=== PATIENT | male | born 1955 | race Caucasian/White ===

== ENCOUNTER → 2018-01-02 15:47 | Outpatient (CLI) | payer OTHER, SELFPAY | PROVIDERS: Family Provider Specialist; PCP Physician Assistant Medical; Referring Provider Podiatrist; Visit Provider Internal Medicine ==

== ENCOUNTER → 2018-01-08 14:15 | Outpatient (CLI) | payer OTHER, SELFPAY ==
--- NOTE | 2018-01-08 | OV.WND_ITS ---
Progress Note Details Patient Name: Paco Cerda Patient Number: [id number] PatientPatientDate: 01/08/2018 Clinician: Alexandra Millan Clinician Cosigner: Moira Morales Physician / Employee Placement Specialist: Mohan Triplett SUBJECTIVE Chief Complaint This information was obtained from the patient Diabetic ulcer on right great toe. Allergies atenolol (Severity: Severe), carvedilol (Severity: Severe), amiodarone (Severity : Severe), clonidine (Severity: Severe), gabapentin (Severity: Severe), lisinopril ( Severity: Severe, Reaction: at higher dose- pt takes lower dose), penicillin (Severity: Severe), diltiazem (Severity: Severe), cephalexin (Severity: Severe), ciprofloxacin (Reaction: vision/breathing probles) HPI This information was obtained from the patient 01/08/18. Seen by Dr. Triplett. The patient's new to our clinic and presents with a chronic right 1st toe diabetic ulcer he states started as a callus and the started to deteriorate about one month ago. The ulcer subsequently started to drain and the toe swelled and turned red. He initially took a dose of levofloxacin he states he had 'left over' at home then was placed on ciprofloxacin but reports significant myalgias and has now been started on doxycycline but he's not yet taken his first dose. His wound culture grew E. coli sensitive to tetracycline and his A1c a month ago was 7.1. He does not report pain in the toe nor fevers at this time. Family History This information was obtained from the patient Cancer - Mother, Maternal Grandparents, Diabetes - Maternal Grandparents, Heart Disease - Maternal Grandparents Social History This information was obtained from the patient Never smoker, Alcohol Use - None, Caffeine Use - None, Children - 2, Lives in - Private home, Marital Status - , Retired - Disabled Past Medical History This information was obtained from the patient Patient has a medical history of: Type II Diabetes Hypertension Neuropathy Atrial fibrillation Surgical History This information was obtained from the patient Patient has a surgical history of: Knee Arthroscopy (Right knee) A-V Node ablation (x2) Pacemaker Complaints and Symptoms This information was obtained from the patient Patient complains of: General Notes: I have reviewed and concur with the Review of Systems and Past Family Social History documents completed by the clinician, I have reviewed and concur with the Wound Assessment document completed by the clinician Cardiovascular (Central/Peripheral): Lower extremity (leg) swelling Hematologic/Lymphatic: Bleeding Tendency Integumentary (Hair/Skin/Nails): Open Sore Neurological: Loss of Protective Sensation Prior Wound History: Drainage, Erythema Patient denies complaints or symptoms related to: Cardiovascular (Central/Peripheral): Intermittent Claudication, Lower extremity (leg) resting pain Constitutional Symptoms (General Health): Chills, Fever Ear/Nose/Mouth/Throat: Hearing Loss / Aid Hematologic/Lymphatic: Bleeding / Clotting Disorders Musculoskeletal: Assistive Devices Psychiatric: Memory Loss Respiratory: Shortness of Breath General Notes: Not up to date per patient decision. Medications morphine ER 15 mg tablet, crush resistant, extended release 12 hr oral 1 1 tablet,oral only,ext.rel.12 hr oral twice daily AndroGel 20.25 mg/1.25 gram (1.62 %) transdermal gel pump transdermal 1 1 gel in metered-dose pump transdermal once daily gabapentin 300 mg capsule oral 1 1 capsule oral twice daily metformin ER 1,000 mg 24 hr tablet,extended release oral 1 1 tablet,ER dung.retention 24 hr oral once daily lisinopril 10 mg tablet oral 1 1 tablet oral twice daily salmeterol 50 mcg/dose blister powder for inhalation inhalation 1 1 blister with device inhalation twice daily Humalog U-100 Insulin 100 unit/mL subcutaneous solution subcutaneous 1 1 solution subcutaneous three times daily Lantus U-100 Insulin 100 unit/mL subcutaneous solution subcutaneous 1 1 solution subcutaneous twice daily Endocet 10 mg-325 mg tablet oral 1 1 tablet oral every 6 hours as needed Beconase AQ 42 mcg (0.042 %) nasal spray nasal 1 1 spray,non-aerosol nasal PRN doxycycline hyclate 100 mg capsule oral 1 1 capsule oral twice daily Pradaxa 75 mg capsule oral 1 1 capsule oral twice daily OBJECTIVE Constitutional BP elevated; Afebrile; Alert and in no distress. Well developed. Alert. Clean appearing.. Height/Length: 74 in (187.96 cm), Weight: 375.1 lbs (170.5 kgs), BMI: 48.2, Temperature: 97.8 ?F (36.56 ?C), Pulse: 73 bpm, Respiratory Rate: 20 breaths/min, Blood Pressure: 155/82 mmHg, Capillary Blood Glucose: 123 mg/dl, Pulse Oximetry: 96 %. Vital Signs Notes: Glucose per patient. Ears, Nose, Mouth, and Throat: No clinically significant hearing loss on informal examination. Respiratory: No respiratory distress. Even respirations and without use of accessory muscles.. Cardiovascular: 1+ right lower extremity edema. Gastrointestinal (GI): Obese. Nondistended.. 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 Integumentary (Hair, Skin) Mild periwound erythema with warmth. Refer to appropriate clinician wound documentation for this visit; right 1st toe ulcer extends to subcut with base partially covered with pink granulation, remainder fibrin and slough. Wound #1 Right Great Toe is a chronic Godinez Grade 1 Diabetic Ulcer and has received a status of Not Healed. Initial wound encounter measurements are 0.8cm length x 0.7cm width x 0.2cm depth, with an area of 0.56 sq cm and a volume of 0.112 cubic cm. No tunneling has been noted. No sinus tract has been noted. Undermining has been noted at 6:00 and ends at 9:00 with a maximum distance of 0.5cm. There is a moderate amount of sero- sanguineous drainage noted which has a mild odor. The patient reports a wound pain of level 0/10. The wound margin is unattached. Wound bed has No epithelialization, No eschar, No slough, Yes bright red, pink, firm granulation. The periwound skin exhibited: Edema, Callus, Moist, Maceration, Erythema, Hemosiderosis. The periwound skin did not exhibit: Brawny Induration, Excoriation, Induration, Crepitus, Fluctuance, Friable, Rash, Dry/Scaly, Atrophie [place], Cyanosis, Ecchymosis, Pallor, Rubor. The temperature of the periwound skin is Warm. Periwound skin presents with s/s of infection. Confirmation Description and Treatment Plan is: Signs and Symptoms Present. Local Pulse is Palpable. Neurological: Cranial nerves grossly intact with symmetric function normal by informal observation.. ASSESSMENT Active Problems ICD-10 (Encounter Diagnosis) E11.621 - Type 2 diabetes mellitus with foot ulcer (Encounter Diagnosis) L03.116 - Cellulitis of left lower limb (Encounter Diagnosis) L97.512 - Non-pressure chronic ulcer of other part of right foot with fat layer exposed (Encounter Diagnosis) M20.62 - Acquired deformities of toe(s), unspecified, left foot PROCEDURES Wound #1 Wound #1 (Diabetic Ulcer) is located on the right great toe. A skin/ subcutaneous tissue level surgical debridement with a total area debrided of 0.8 sq cm was performed by Mohan Triplett MD. Subcutaneous was removed along with devitalized tissue: callus, exudate , and slough. The following instrument(s) were used: curette, forceps, and scissors. Pain control was achieved using 4% Lido. A time out was conducted prior to the start of the procedure. A minimal amount of bleeding was controlled with pressure. The procedure was tolerated well with a pain level of 0 throughout and a pain level of 0 following the procedure. Post Debridement Measurements: 1cm length x 0.8cm width x 0.2cm depth; with an area of 0.8 sq cm and a volume of 0.16 cubic cm; Additional Information Muscle fascia or bone removed and sent to pathology?: No PLAN Wound Orders: Wound #1 Right Great Toe Anesthetic Topical Xylocaine to wound bed. - In clinic only. Cleanser Cleanse Wound: - Normal saline and gauze, may use distilled water. May Shower. - Continue using cast protector. Dressings Cover and secure with: - Foam cut, secured with tape or coban wrap. Change Dressing: - Every other day, or more if need for drainage. Additional Orders: Off-Loading Keep weight off: - Right great toe as much as possible. Use/Wear when Walking: - You may use a cane, or walker to assist with offloading. You may also look for a knee scooter, local [employer] stores often offer free rentals to [facility] residents. Compression/Edema Control Single Layer Compression Hose - Continue wearing personal compression stockings. Follow-Up Appointments Return Appointment: - - One week. Other information: If you develop fever, chills, increased pain, drainage, redness or swelling please call our office. If after hours, respond to the ER. Should you experience any significant changes in your wound(s) or have any questions regarding your home care instructions please contact the wound center @ [phone]. If after hours, contact your primary care physician or go to the hospital emergency room. Scribing Attestation I attest, as the nurse, that I scribed these orders for the physician. General Notes: Please start taking the doxycycline antibiotic, prescribed by Dr. Marsh. Supplies ordered through [employer], expect delivery in the next 2-3 business days. Extra supplies sent with patient to use until dressings arrive. I've reviewed the clinician's documentation and agree with the evaluation and plan as written. In addition, the patient's ulcer demonstrates evidence of non-viable devitalized tissue which will continue to benefit from sharp debridement to help promote granulation and expedite healing. Also, I've advised the patient to start taking his doxycycline and have counseled him regarding offloading measures noting his severe right 1st toe valgus deformity will contribute to callus formation in the periulcer area. Electronic Signature(s) Signed By: Date: Mohan Triplett MD 01/09/2018 06:52:26 Entered By: Mohan Triplett on 01/08/2018 13:20:47
== END ==
PROVIDERS: Family Provider Specialist; PCP Physician Assistant Medical; Visit Provider Internal Medicine
DX: E11.621 Type 2 diabetes mellitus with foot ulcer (principal); L97.512 Non-pressure chronic ulcer of other part of right foot with fat layer exposed; L03.116 Cellulitis of left lower limb; M20.62 Acquired deformities of toe(s), unspecified, left foot; L84 Corns and callosities
CPT/HCPCS: 11042; 99214

== ENCOUNTER → 2018-01-15 10:21 | Outpatient (CLI) | payer OTHER, SELFPAY ==
--- NOTE | 2018-01-15 | OV.WND_ITS ---
Progress Note Details Patient Name: Paco Cerda Patient Number: [id number] PatientPatientDate: 01/15/2018 Clinician: Jennifer Jackson Clinician Cosigner: Moira Morales Physician / Finished Metal Repairer: Mohan Triplett SUBJECTIVE Chief Complaint This information was obtained from the patient Diabetic ulcer on right great toe. Allergies atenolol (Severity: Severe), carvedilol (Severity: Severe), amiodarone (Severity : Severe), clonidine (Severity: Severe), gabapentin (Severity: Severe), lisinopril ( Severity: Severe, Reaction: at higher dose- pt takes lower dose), penicillin (Severity: Severe), diltiazem (Severity: Severe), cephalexin (Severity: Severe), ciprofloxacin (Reaction: vision/breathing probles) HPI This information was obtained from the patient 01/15/18. Seen by Dr. Triplett. The patient does not report increased drainage or pain associated with the chronic right 1st toe diabetic ulcer since his last visit and he feel the redness and swelling have improved since starting on doxycycline for cellulitis of the toe. He's also wearing his offloading shoe as recommended. 01/08/18. Seen by Dr. Triplett. The patient's new to our clinic and presents with a chronic right 1st toe diabetic ulcer he states started as a callus and the started to deteriorate about one month ago. The ulcer subsequently started to drain and the toe swelled and turned red. He initially took a dose of levofloxacin he states he had 'left over' at home then was placed on ciprofloxacin but reports significant myalgias and has now been started on doxycycline but he's not yet taken his first dose. His wound culture grew E. coli sensitive to tetracycline and his A1c a month ago was 7.1. He does not report pain in the toe nor fevers at this time. Past Medical History This information was obtained from the patient Patient has a medical history of: Type II Diabetes Hypertension Neuropathy Atrial fibrillation Complaints and Symptoms This information was obtained from the patient Patient complains of: General Notes: I have reviewed and concur with the Review of Systems and Past Family Social History documents completed by the clinician, I have reviewed and concur with the Wound Assessment document completed by the clinician Cardiovascular (Central/Peripheral): Lower extremity (leg) swelling Hematologic/Lymphatic: Bleeding Tendency Integumentary (Hair/Skin/Nails): Open Sore Neurological: Loss of Protective Sensation Prior Wound History: Drainage, Erythema Patient denies complaints or symptoms related to: Cardiovascular (Central/Peripheral): Intermittent Claudication, Lower extremity (leg) resting pain Constitutional Symptoms (General Health): Chills, Fever Ear/Nose/Mouth/Throat: Hearing Loss / Aid Hematologic/Lymphatic: Bleeding / Clotting Disorders Musculoskeletal: Assistive Devices Psychiatric: Memory Loss Respiratory: Shortness of Breath OBJECTIVE Constitutional BP elevated; Afebrile; Alert and in no distress. Well developed. Alert. Clean appearing.. Height/Length: 74 in (187.96 cm), Weight: 375.1 lbs (170.5 kgs), BMI: 48.2, Temperature: 37.7 ?F (3.17 ?C), Pulse: 72 bpm, Respiratory Rate: 22 breaths/min, Blood Pressure: 162/86 mmHg, Pulse Oximetry: 96 %. Vital Signs Notes: Glucose 95 per patient, Just ate around 8:30 Ears, Nose, Mouth, and Throat: No clinically significant hearing loss on informal examination. Respiratory: No respiratory distress. Even respirations and without use of accessory muscles.. Cardiovascular: 2+ right lower extremity edema. 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 Integumentary (Hair, Skin) Mild periwound erythema without warmth. Refer to appropriate clinician wound documentation for this visit; right 1st toe ulcer extends to subcut with base partially covered with pink granulation, remainder fibrin and slough. Moderate amount of callus in the periulcer area. Wound #1 Right Great Toe is a chronic Godinez Grade 1 Diabetic Ulcer and has received a status of Not Healed. Initial wound encounter measurements are 0.6cm length x 0.6cm width x 0.2cm depth, with an area of 0.36 sq cm and a volume of 0.072 cubic cm. No tunneling has been noted. Undermining has been noted at 1:00 and ends at 2:00 with a maximum distance of 0.1cm. There is a moderate amount of sero-sanguineous drainage noted which has a mild odor. The patient reports a wound pain of level 0/10. The wound margin is unattached. Wound bed has No epithelialization, No eschar, No slough, Yes pink, firm granulation. The periwound skin exhibited: Edema, Callus, Moist, Maceration, Erythema, Hemosiderosis. The periwound skin did not exhibit: Brawny Induration, Excoriation, Induration, Crepitus, Fluctuance, Friable, Rash, Dry/Scaly, Atrophie [place], Cyanosis, Ecchymosis, Pallor, Rubor. The temperature of the periwound skin is Warm. Periwound skin does not exhibit signs or symptoms of infection. Local Pulse is Palpable. Neurological: Cranial nerves grossly intact with symmetric function normal by informal observation.. ASSESSMENT Active Problems ICD-10 (Encounter Diagnosis) E11.621 - Type 2 diabetes mellitus with foot ulcer (Encounter Diagnosis) L03.116 - Cellulitis of left lower limb (Encounter Diagnosis) L97.512 - Non-pressure chronic ulcer of other part of right foot with fat layer exposed PROCEDURES Wound #1 Wound #1 (Diabetic Ulcer) is located on the right great toe. A skin/ subcutaneous tissue level surgical debridement with a total area debrided of 0.36 sq cm was performed by Mohan Triplett MD. Subcutaneous was removed along with devitalized tissue: exudate. The following instrument(s) were used: curette. Pain control was achieved using 4% Lido. A time out was conducted prior to the start of the procedure. A minimal amount of bleeding was controlled with pressure. The procedure was tolerated well with a pain level of 0 throughout and a pain level of 0 following the procedure. Post Debridement Measurements: 0.6cm length x 0.6cm width x 0.2cm depth; with an area of 0.36 sq cm and a volume of 0.072 cubic cm; Additional Information Muscle fascia or bone removed and sent to pathology?: No PLAN Wound Orders: Wound #1 Right Great Toe Anesthetic Topical Xylocaine to wound bed. - In clinic only. Cleanser Cleanse Wound: - Normal saline and gauze, may use distilled water. May Shower. - Continue using cast protector. Dressings Cover and secure with: - Foam cut, secured with tape Change Dressing: - Every other day, or more if need for drainage. Additional Orders: Off-Loading Keep weight off: - Right great toe as much as possible. Use/Wear when Walking: - You may use a cane, or walker to assist with offloading. You may also look for a knee scooter, local [employer] often offer free rentals to city residents. Compression/Edema Control Single Layer Compression Hose - Continue wearing personal compression stockings. Follow-Up Appointments Return Appointment: - - One week. Other information: If you develop fever, chills, increased pain, drainage, redness or swelling please call our office. If after hours, respond to the ER. Should you experience any significant changes in your wound(s) or have any questions regarding your home care instructions please contact the wound center @ [phone]. If after hours, contact your primary care physician or go to the hospital emergency room. Scribing Attestation I attest, as the nurse, that I scribed these orders for the physician. I've reviewed the clinician's documentation and agree with the evaluation and plan as written. In addition, the patient's ulcer demonstrates evidence of non-viable devitalized tissue which will continue to benefit from sharp debridement to help promote granulation and expedite healing. Also, the patient will complete his course of doxycycline as prescribed. Electronic Signature(s) Signed By: Date: Mohan Triplett MD 01/16/2018 07:24:06 Entered By: Mohan Triplett on 01/16/2018 07:16:43
== END ==
PROVIDERS: Family Provider Specialist; PCP Physician Assistant Medical; Visit Provider Internal Medicine
DX: E11.621 Type 2 diabetes mellitus with foot ulcer (principal); L97.512 Non-pressure chronic ulcer of other part of right foot with fat layer exposed; L03.116 Cellulitis of left lower limb; L84 Corns and callosities
CPT/HCPCS: 11042

== ENCOUNTER → 2018-01-22 10:58 | Outpatient (CLI) | payer OTHER, SELFPAY ==
--- NOTE | 2018-01-22 | OV.WND_ITS ---
Progress Note Details Patient Name: Paco Cerda Patient Number: [id number] PatientPatientDate: 01/22/2018 Clinician: Juli Pfeiffer Clinician Cosigner: Moira Morales Physician / Upholstery Trimmer: Mohan Triplett SUBJECTIVE Chief Complaint This information was obtained from the patient Diabetic ulcer on right great toe. Allergies atenolol (Severity: Severe), carvedilol (Severity: Severe), amiodarone (Severity : Severe), clonidine (Severity: Severe), gabapentin (Severity: Severe), lisinopril ( Severity: Severe, Reaction: at higher dose- pt takes lower dose), penicillin (Severity: Severe), diltiazem (Severity: Severe), cephalexin (Severity: Severe), ciprofloxacin (Reaction: vision/breathing probles) HPI This information was obtained from the patient 01/22/18. Seen by Dr. Triplett. The patient does not report increased drainage or pain associated with the chronic right 1st toe diabetic ulcer since his last visit. Of note, the patient also states he's having some hypoglycemic episodes with blood sugars in the 50's since starting a ketogenic diet about one week ago. He's not discussed this diet with his PCP and is on Humalog and Lantus in addition to metformin. 01/15/18. Seen by Dr. Triplett. The patient does not report increased drainage or pain associated with the chronic right 1st toe diabetic ulcer since his last visit and he feel the redness and swelling have improved since starting on doxycycline for cellulitis of the toe. He's also wearing his offloading shoe as recommended. 01/08/18. Seen by Dr. Triplett. The patient's new to our clinic and presents with a chronic right 1st toe diabetic ulcer he states started as a callus and the started to deteriorate about one month ago. The ulcer subsequently started to drain and the toe swelled and turned red. He initially took a dose of levofloxacin he states he had 'left over' at home then was placed on ciprofloxacin but reports significant myalgias and has now been started on doxycycline but he's not yet taken his first dose. His wound culture grew E. coli sensitive to tetracycline and his A1c a month ago was 7.1. He does not report pain in the toe nor fevers at this time. Past Medical History This information was obtained from the patient Patient has a medical history of: Type II Diabetes Hypertension Neuropathy Atrial fibrillation Complaints and Symptoms This information was obtained from the patient Patient complains of: General Notes: I have reviewed and concur with the Review of Systems and Past Family Social History documents completed by the clinician, I have reviewed and concur with the Wound Assessment document completed by the clinician Cardiovascular (Central/Peripheral): Lower extremity (leg) swelling Hematologic/Lymphatic: Bleeding Tendency Integumentary (Hair/Skin/Nails): Open Sore Neurological: Loss of Protective Sensation Prior Wound History: Drainage, Erythema Patient denies complaints or symptoms related to: Cardiovascular (Central/Peripheral): Intermittent Claudication, Lower extremity (leg) resting pain Constitutional Symptoms (General Health): Chills, Fever Ear/Nose/Mouth/Throat: Hearing Loss / Aid Hematologic/Lymphatic: Bleeding / Clotting Disorders Musculoskeletal: Assistive Devices Psychiatric: Memory Loss Respiratory: Shortness of Breath OBJECTIVE Constitutional BP elevated; Afebrile; Alert and in no distress. Well developed. Alert. Clean appearing.. Height/Length: 74 in (187.96 cm), Weight: 375.1 lbs (170.5 kgs), BMI: 48.2, Temperature: 98.5 ?F (36.94 ?C), Pulse: 72 bpm, Respiratory Rate: 20 breaths/min, Blood Pressure: 151/85 mmHg, Pulse Oximetry: 99 %. Ears, Nose, Mouth, and Throat: No clinically significant hearing loss on informal examination. Respiratory: No respiratory distress. Even respirations and without use of accessory muscles.. Cardiovascular: 2+ right lower extremity edema. Integumentary (Hair, Skin) No periwound erythema, warmth, or significant drainage. No periwound rashes appreciated or noted otherwise.. Refer to appropriate clinician wound documentation for this visit; right foot ulcer extends to subcut with base partially covered with pink granulation, remainder fibrin and slough. Moderate amount of callus in the periulcer area. Wound #1 Right Great Toe is a chronic Godinez Grade 1 Diabetic Ulcer and has received a status of Not Healed. Subsequent wound encounter measurements are 0.8cm length x 0.9cm width x 0.2cm depth, with an area of 0.72 sq cm and a volume of 0.144 cubic cm. No tunneling has been noted. No sinus tract has been noted. No undermining has been noted. There is a moderate amount of sero-sanguineous drainage noted which has a mild odor. The patient reports a wound pain of level 0/10. The wound margin is unattached. Wound bed has No epithelialization, No eschar, No slough, Yes pink, firm granulation. The periwound skin exhibited: Edema, Callus, Moist, Maceration, Erythema, Hemosiderosis. The periwound skin did not exhibit: Brawny Induration, Excoriation, Induration, Crepitus, Fluctuance, Friable, Rash, Dry/Scaly, Atrophie Karine, Cyanosis, Ecchymosis, Pallor, Rubor. The temperature of the periwound skin is Warm. Periwound skin does not exhibit signs or symptoms of infection. Local Pulse is Palpable. Neurological: Cranial nerves grossly intact with symmetric function normal by informal observation.. ASSESSMENT Active Problems ICD-10 (Encounter Diagnosis) E11.621 - Type 2 diabetes mellitus with foot ulcer (Encounter Diagnosis) L97.512 - Non-pressure chronic ulcer of other part of right foot with fat layer exposed (Encounter Diagnosis) E16.1 - Other hypoglycemia PROCEDURES Wound #1 Wound #1 (Diabetic Ulcer) is located on the right great toe. A skin/ subcutaneous tissue level surgical debridement with a total area debrided of 0.72 sq cm was performed by Mohan Triplett MD. Subcutaneous was removed along with devitalized tissue: callus and slough. The following instrument(s) were used: curette. Pain control was achieved using 4% Lido. A time out was conducted prior to the start of the procedure. A minimal amount of bleeding was controlled with n/a. The procedure was tolerated well with a pain level of 0 throughout and a pain level of 0 following the procedure. Post Debridement Measurements: 0.8cm length x 0.9cm width x 0.3cm depth; with an area of 0.72 sq cm and a volume of 0.216 cubic cm; Additional Information Muscle fascia or bone removed and sent to pathology?: No PLAN Wound Orders: Wound #1 Right Great Toe Anesthetic Topical Xylocaine to wound bed. - In clinic only. Cleanser Cleanse Wound: - Normal saline and gauze, may use distilled water. May Shower. - Continue using cast protector. Dressings Cover and secure with: - Foam cut, secured with tape Change Dressing: - Every other day, or more if need for drainage. Additional Orders: Off-Loading Keep weight off: - Right great toe as much as possible. Use/Wear when Walking: - You may use a cane, or walker to assist with offloading. You may also look for a knee scooter, local [employer] stores often offer free rentals to city residents. Compression/Edema Control Single Layer Compression Hose - Continue wearing personal compression stockings. Follow-Up Appointments Return Appointment: - - One week. Other information: If you develop fever, chills, increased pain, drainage, redness or swelling please call our office. If after hours, respond to the ER. Should you experience any significant changes in your wound(s) or have any questions regarding your home care instructions please contact the wound center @ [phone]. If after hours, contact your primary care physician or go to the hospital emergency room. Scribing Attestation I attest, as the nurse, that I scribed these orders for the physician. I've reviewed the clinician's documentation and agree with the evaluation and plan as written. In addition, the patient's ulcer demonstrates evidence of non-viable devitalized tissue which will continue to benefit from sharp debridement to help promote granulation and expedite healing. Also, I strongly encouraged the patient to discontinue his ketogenic diet until he talks with is PCP about reducing his short and long acting insulin as he's at high risk for recurrent and possibly life threatening hypoglycemia. Electronic Signature(s) Signed By: Date: Mohan Triplett MD 01/23/2018 07:58:24 Entered By: Mohan Triplett on 01/22/2018 15:36:34
== END ==
PROVIDERS: Family Provider Specialist; PCP Physician Assistant Medical; Visit Provider Internal Medicine
DX: E11.621 Type 2 diabetes mellitus with foot ulcer (principal); L97.512 Non-pressure chronic ulcer of other part of right foot with fat layer exposed; E16.1 Other hypoglycemia
CPT/HCPCS: 11042

== ENCOUNTER → 2018-01-29 09:59 | Outpatient (CLI) | payer OTHER, SELFPAY ==
--- NOTE | 2018-01-29 | OV.WND_ITS ---
Progress Note Details Patient Name: Paco Cerda Patient Number: [id number] PatientPatientDate: 01/29/2018 Clinician: Jennifer Jackson Clinician Cosigner: Moira Morales Physician / Preschool Principal: Mohan Triplett SUBJECTIVE Chief Complaint This information was obtained from the patient Diabetic ulcer on right great toe. Allergies atenolol (Severity: Severe), carvedilol (Severity: Severe), amiodarone (Severity : Severe), clonidine (Severity: Severe), gabapentin (Severity: Severe), lisinopril ( Severity: Severe, Reaction: at higher dose- pt takes lower dose), penicillin (Severity: Severe), diltiazem (Severity: Severe), cephalexin (Severity: Severe), ciprofloxacin (Reaction: vision/breathing probles) HPI This information was obtained from the patient 01/29/18. Seen by Dr. Triplett. The patient does not report increased drainage or pain associated with the chronic right 1st toe diabetic ulcer since his last visit. He's wearing his new diabetic shoes as recommended as well. 01/22/18. Seen by Dr. Triplett. The patient does not report increased drainage or pain associated with the chronic right 1st toe diabetic ulcer since his last visit. Of note, the patient also states he's having some hypoglycemic episodes with blood sugars in the 50's since starting a ketogenic diet about one week ago. He's not discussed this diet with his PCP and is on Humalog and Lantus in addition to metformin. 01/15/18. Seen by Dr. Triplett. The patient does not report increased drainage or pain associated with the chronic right 1st toe diabetic ulcer since his last visit and he feel the redness and swelling have improved since starting on doxycycline for cellulitis of the toe. He's also wearing his offloading shoe as recommended. 01/08/18. Seen by Dr. Triplett. The patient's new to our clinic and presents with a chronic right 1st toe diabetic ulcer he states started as a callus and the started to deteriorate about one month ago. The ulcer subsequently started to drain and the toe swelled and turned red. He initially took a dose of levofloxacin he states he had 'left over' at home then was placed on ciprofloxacin but reports significant myalgias and has now been started on doxycycline but he's not yet taken his first dose. His wound culture grew E. coli sensitive to tetracycline and his A1c a month ago was 7.1. He does not report pain in the toe nor fevers at this time. Past Medical History This information was obtained from the patient Patient has a medical history of: Type II Diabetes Hypertension Neuropathy Atrial fibrillation Complaints and Symptoms This information was obtained from the patient Patient complains of: General Notes: I have reviewed and concur with the Review of Systems and Past Family Social History documents completed by the clinician, I have reviewed and concur with the Wound Assessment document completed by the clinician Cardiovascular (Central/Peripheral): Lower extremity (leg) swelling Hematologic/Lymphatic: Bleeding Tendency Integumentary (Hair/Skin/Nails): Open Sore Neurological: Loss of Protective Sensation Prior Wound History: Drainage, Erythema Patient denies complaints or symptoms related to: Cardiovascular (Central/Peripheral): Intermittent Claudication, Lower extremity (leg) resting pain Constitutional Symptoms (General Health): Chills, Fever Ear/Nose/Mouth/Throat: Hearing Loss / Aid Hematologic/Lymphatic: Bleeding / Clotting Disorders Musculoskeletal: Assistive Devices Psychiatric: Memory Loss Respiratory: Shortness of Breath OBJECTIVE Constitutional BP elevated; Afebrile; Alert and in no distress. Well developed. Alert. Clean appearing.. Height/Length: 74 in (187.96 cm), Weight: 371.9 lbs (169.05 kgs), BMI: 47.7, Temperature: 98.9 ?F (37.17 ?C), Pulse: 71 bpm, Respiratory Rate: 20 breaths/min, Blood Pressure: 152/82 mmHg, Pulse Oximetry: 99 %. Ears, Nose, Mouth, and Throat: No clinically significant hearing loss on informal examination. Respiratory: No respiratory distress. Even respirations and without use of accessory muscles.. Gastrointestinal (GI): Obese. Nondistended.. 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 Integumentary (Hair, Skin) No periwound erythema, warmth, or significant drainage. No periwound rashes appreciated or noted otherwise.. Refer to appropriate clinician wound documentation for this visit; right 1st toe ulcer extends to subcut with base partially covered with pink granulation, remainder fibrin and slough. Maceration and callus present in the periwound area. Wound #1 Right Great Toe is a chronic Godinez Grade 1 Diabetic Ulcer and has received a status of Not Healed. Subsequent wound encounter measurements are 0.8cm length x 0.7cm width x 0.2cm depth, with an area of 0.56 sq cm and a volume of 0.112 cubic cm. No tunneling has been noted. No sinus tract has been noted. No undermining has been noted. There is a moderate amount of sero-sanguineous drainage noted which has a mild odor. The patient reports a wound pain of level 0/10. The wound margin is unattached. Wound bed has No epithelialization, No eschar, No slough, Yes pink, spongy granulation. The periwound skin exhibited: Edema, Callus, Moist, Maceration, Erythema, Hemosiderosis. The periwound skin did not exhibit: Brawny Induration, Excoriation, Induration, Crepitus, Fluctuance, Friable, Rash, Dry/Scaly, Atrophie Karine, Cyanosis, Ecchymosis, Pallor, Rubor. The temperature of the periwound skin is Warm. Periwound skin does not exhibit signs or symptoms of infection. Local Pulse is Palpable. ASSESSMENT Active Problems ICD-10 (Encounter Diagnosis) E11.621 - Type 2 diabetes mellitus with foot ulcer (Encounter Diagnosis) L97.512 - Non-pressure chronic ulcer of other part of right foot with fat layer exposed PROCEDURES Wound #1 Wound #1 (Diabetic Ulcer) is located on the right great toe. A skin/ subcutaneous tissue level surgical debridement with a total area debrided of 0.56 sq cm was performed by Mohan Triplett MD. Subcutaneous was removed along with devitalized tissue: callus and slough. The following instrument(s) were used: curette. Pain control was achieved using 4% Lido. A time out was conducted prior to the start of the procedure. A moderate amount of bleeding was controlled with silver nitrate. The procedure was tolerated well with a pain level of 0 throughout and a pain level of 0 following the procedure. Post Debridement Measurements: 0.8cm length x 0.7cm width x 0.2cm depth; with an area of 0.56 sq cm and a volume of 0.112 cubic cm; Additional Information Muscle fascia or bone removed and sent to pathology?: No PLAN Wound Orders: Wound #1 Right Great Toe Anesthetic Topical Xylocaine to wound bed. - In clinic only. Cleanser Cleanse Wound: - Normal saline and gauze, may use distilled water. May Shower. - Continue using cast protector. Dressings Pack wound: - Iodosorb to wound bed. Lightly smear on to wound. Cover and secure with: - Foam cut, secured with tape Change Dressing: - Every other day, or more if need for drainage. Additional Orders: Off-Loading Keep weight off: - Right great toe as much as possible. Use/Wear when Walking: - You may use a cane, or walker to assist with offloading. You may also look for a knee scooter, local [employer] stores often offer free rentals to [facility] residents. Compression/Edema Control Single Layer Compression Hose - Continue wearing personal compression stockings. Follow-Up Appointments Return Appointment: - - One week. Other information: If you develop fever, chills, increased pain, drainage, redness or swelling please call our office. If after hours, respond to the ER. Should you experience any significant changes in your wound(s) or have any questions regarding your home care instructions please contact the wound center @ [phone]. If after hours, contact your primary care physician or go to the hospital emergency room. Scribing Attestation I attest, as the nurse, that I scribed these orders for the physician. General Notes: Please see your provider for shoe adjustment. I've reviewed the clinician's documentation and agree with the evaluation and plan as written. In addition, the patient's ulcer demonstrates evidence of non-viable devitalized tissue which will continue to benefit from sharp debridement to help promote granulation and expedite healing. Electronic Signature(s) Signed By: Date: Mohan Triplett MD 01/30/2018 14:56:11 Entered By: Mohan Triplett on 01/29/2018 15:30:18
== END ==
PROVIDERS: Family Provider Specialist; PCP Physician Assistant Medical; Visit Provider Internal Medicine
DX: E11.621 Type 2 diabetes mellitus with foot ulcer (principal); L97.512 Non-pressure chronic ulcer of other part of right foot with fat layer exposed
CPT/HCPCS: 11042

== ENCOUNTER → 2018-02-05 10:45 | Outpatient (CLI) | payer OTHER, SELFPAY ==
--- NOTE | 2018-02-05 | OV.WND_ITS ---
Progress Note Details Patient Name: Paco Cerda Patient Number: [id number] PatientPatientDate: 02/05/2018 Clinician: Jennifer Jackson Clinician Cosigner: Moira Morales Physician / Log Roller: Mohan Triplett SUBJECTIVE Chief Complaint This information was obtained from the patient Diabetic ulcer on right great toe. Allergies atenolol (Severity: Severe), carvedilol (Severity: Severe), amiodarone (Severity : Severe), clonidine (Severity: Severe), gabapentin (Severity: Severe), lisinopril ( Severity: Severe, Reaction: at higher dose- pt takes lower dose), penicillin (Severity: Severe), diltiazem (Severity: Severe), cephalexin (Severity: Severe), ciprofloxacin (Reaction: vision/breathing probles) HPI This information was obtained from the patient 02/05/18. Seen by Dr. Triplett. The patient does not report increased drainage or pain associated with the chronic right 1st toe diabetic ulcer since his last visit. He does report a new ulcer over the right distal 2nd toe that he feels may have occurred this weekend while walking around [employer] and he states the prosthetic toe separator he uses between the 1st and 2nd toe may have moved while walking. 01/29/18. Seen by Dr. Triplett. The patient does not report increased drainage or pain associated with the chronic right 1st toe diabetic ulcer since his last visit. He's wearing his new diabetic shoes as recommended as well. 01/22/18. Seen by Dr. Triplett. The patient does not report increased drainage or pain associated with the chronic right 1st toe diabetic ulcer since his last visit. Of note, the patient also states he's having some hypoglycemic episodes with blood sugars in the 50's since starting a ketogenic diet about one week ago. He's not discussed this diet with his PCP and is on Humalog and Lantus in addition to metformin. 01/15/18. Seen by Dr. Triplett. The patient does not report increased drainage or pain associated with the chronic right 1st toe diabetic ulcer since his last visit and he feel the redness and swelling have improved since starting on doxycycline for cellulitis of the toe. He's also wearing his offloading shoe as recommended. 01/08/18. Seen by Dr. Triplett. The patient's new to our clinic and presents with a chronic right 1st toe diabetic ulcer he states started as a callus and the started to deteriorate about one month ago. The ulcer subsequently started to drain and the toe swelled and turned red. He initially took a dose of levofloxacin he states he had 'left over' at home then was placed on ciprofloxacin but reports significant myalgias and has now been started on doxycycline but he's not yet taken his first dose. His wound culture grew E. coli sensitive to tetracycline and his A1c a month ago was 7.1. He does not report pain in the toe nor fevers at this time. Past Medical History This information was obtained from the patient Patient has a medical history of: Type II Diabetes Hypertension Neuropathy Atrial fibrillation Complaints and Symptoms This information was obtained from the patient Patient complains of: General Notes: I have reviewed and concur with the Review of Systems and Past Family Social History documents completed by the clinician, I have reviewed and concur with the Wound Assessment document completed by the clinician Cardiovascular (Central/Peripheral): Lower extremity (leg) swelling Hematologic/Lymphatic: Bleeding Tendency Integumentary (Hair/Skin/Nails): Open Sore Neurological: Loss of Protective Sensation Prior Wound History: Drainage, Erythema Patient denies complaints or symptoms related to: Cardiovascular (Central/Peripheral): Intermittent Claudication, Lower extremity (leg) resting pain Constitutional Symptoms (General Health): Chills, Fever Ear/Nose/Mouth/Throat: Hearing Loss / Aid Hematologic/Lymphatic: Bleeding / Clotting Disorders Musculoskeletal: Assistive Devices Psychiatric: Memory Loss Respiratory: Shortness of Breath OBJECTIVE Constitutional BP elevated; Low grade fever; Alert and in no distress. Well developed. Alert. Clean appearing.. Height/Length: 74 in (187.96 cm), Weight: 371.9 lbs (169.05 kgs), BMI: 47.7, Temperature: 99.0 ?F (37.22 ?C), Pulse: 86 bpm, Respiratory Rate: 18 breaths/min , Blood Pressure: 153/81 mmHg, Pulse Oximetry: 99 %. Ears, Nose, Mouth, and Throat: No clinically significant hearing loss on informal examination. Cardiovascular: 2+ right lower extremity edema. Gastrointestinal (GI): Obese. Nondistended.. Integumentary (Hair, Skin) No periwound erythema, warmth, or significant drainage. No periwound rashes appreciated or noted otherwise.. Refer to appropriate clinician wound documentation for this visit; right 1st toe ulcer extends to subcut with base partially covered with pink granulation, remainder fibrin and slough; right 2nd toe ulcer extends to dermis. Moderate amount of callus in the periulcer area. Wound #1 Right Great Toe is a chronic Godinez Grade 1 Diabetic Ulcer and has received a status of Not Healed. Subsequent wound encounter measurements are 0.8cm length x 0.6cm width x 0.1cm depth, with an area of 0.48 sq cm and a volume of 0.048 cubic cm. No tunneling has been noted. No sinus tract has been noted. No undermining has been noted. There is a moderate amount of sero-sanguineous drainage noted which has a mild odor. The patient reports a wound pain of level 0/10. The wound margin is unattached. Wound bed has No epithelialization, No eschar, No slough, Yes pink, spongy granulation. The periwound skin exhibited: Edema, Callus, Moist, Maceration, Erythema, Hemosiderosis. The periwound skin did not exhibit: Brawny Induration, Excoriation, Induration, Crepitus, Fluctuance, Friable, Rash, Dry/Scaly, Atrophie Karine, Cyanosis, Ecchymosis, Pallor, Rubor. The temperature of the periwound skin is Warm. Periwound skin does not exhibit signs or symptoms of infection. Local Pulse is Palpable. Wound #2 Right Second Toe is an acute Godinez Grade 1 Diabetic Ulcer and has received a status of Not Healed. Initial wound encounter measurements are 0.3cm length x 0.2cm width x 0.1cm depth, with an area of 0.06 sq cm and a volume of 0.006 cubic cm. No tunneling has been noted. No sinus tract has been noted. No undermining has been noted. There is a moderate amount of sero-sanguineous drainage noted which has no odor. The patient reports a wound pain of level 0/10. The wound margin is callus. Wound bed has Yes epithelialization, No eschar, Yes slough, Yes bright red, firm granulation. The periwound skin texture is normal. The periwound skin moisture is normal. The periwound skin color is normal. The temperature of the periwound skin is WNL. Periwound skin does not exhibit signs or symptoms of infection. Local Pulse is Palpable. Neurological: Cranial nerves grossly intact with symmetric function normal by informal observation.. ASSESSMENT Active Problems ICD-10 (Encounter Diagnosis) E11.621 - Type 2 diabetes mellitus with foot ulcer (Encounter Diagnosis) L97.512 - Non-pressure chronic ulcer of other part of right foot with fat layer exposed (Encounter Diagnosis) L97.511 - Non-pressure chronic ulcer of other part of right foot limited to breakdown of skin PROCEDURES Wound #1 Wound #1 (Diabetic Ulcer) is located on the right great toe. A skin/ subcutaneous tissue level surgical debridement with a total area debrided of 0.48 sq cm was performed by Mohan Triplett MD. Subcutaneous was removed along with devitalized tissue: callus. The following instrument(s) were used: curette. Pain control was achieved using 4% Lido. A time out was conducted prior to the start of the procedure. A minimal amount of bleeding was controlled with n/a. The procedure was tolerated well with a pain level of 0 throughout and a pain level of 0 following the procedure. Post Debridement Measurements: 0.8cm length x 0.6cm width x 0.2cm depth; with an area of 0.48 sq cm and a volume of 0.096 cubic cm; Additional Information Muscle fascia or bone removed and sent to pathology?: No PLAN Wound Orders: Wound #1 Right Great Toe Anesthetic Topical Xylocaine to wound bed. - In clinic only. Cleanser Cleanse Wound: - Normal saline and gauze, may use distilled water. May Shower. - Continue using cast protector. Dressings Pack wound: - Iodosorb to wound bed. Lightly smear on to wound. Cover and secure with: - Foam cut, secured with tape Change Dressing: - Every other day, or more if need for drainage. Additional Orders: Off-Loading Keep weight off: - Right great toe as much as possible. Use/Wear when Walking: - You may use a cane, or walker to assist with offloading. You may also look for a knee scooter, local [employer] stores often offer free rentals to city residents. Compression/Edema Control Single Layer Compression Hose - Continue wearing personal compression stockings. Follow-Up Appointments Return Appointment: - - One week. Other information: If you develop fever, chills, increased pain, drainage, redness or swelling please call our office. If after hours, respond to the ER. Should you experience any significant changes in your wound(s) or have any questions regarding your home care instructions please contact the wound center @ [phone]. If after hours, contact your primary care physician or go to the hospital emergency room. Scribing Attestation I attest, as the nurse, that I scribed these orders for the physician. I've reviewed the clinician's documentation and agree with the evaluation and plan as written. In addition, the patient's ulcer demonstrates evidence of non-viable devitalized tissue which will continue to benefit from sharp debridement to help promote granulation and expedite healing. Electronic Signature(s) Signed By: Date: Mohan Triplett MD 02/06/2018 09:29:15 Entered By: Mohan Triplett on 02/05/2018 13:34:28
== END ==
PROVIDERS: Family Provider Specialist; PCP Physician Assistant Medical; Visit Provider Internal Medicine
DX: E11.621 Type 2 diabetes mellitus with foot ulcer (principal); L97.512 Non-pressure chronic ulcer of other part of right foot with fat layer exposed
CPT/HCPCS: 11042

== ENCOUNTER → 2018-02-11 09:46 | Outpatient (CLI) | payer OTHER, SELFPAY | PROVIDERS: Family Provider Specialist; PCP Physician Assistant Medical; Visit Provider Internal Medicine | DX: E11.621 Type 2 diabetes mellitus with foot ulcer (principal); L97.512 Non-pressure chronic ulcer of other part of right foot with fat layer exposed | CPT/HCPCS: 11042; 87070; 87077; 87147; 87186; 87205 ==

== ENCOUNTER → 2018-02-19 10:39 | Outpatient (CLI) | payer OTHER, SELFPAY ==
--- NOTE | 2018-02-19 | OV.WND_ITS ---
Progress Note Details Patient Name: Paco Cerda Patient Number: [id number] PatientPatientDate: 02/19/2018 Clinician: Alexandra Millan Clinician Cosigner: Moira Morales Physician / Lighting Designer: Mohan Triplett SUBJECTIVE Chief Complaint This information was obtained from the patient Diabetic ulcer on right great toe. Allergies atenolol (Severity: Severe), carvedilol (Severity: Severe), amiodarone (Severity : Severe), clonidine (Severity: Severe), gabapentin (Severity: Severe), lisinopril ( Severity: Severe, Reaction: at higher dose- pt takes lower dose), penicillin (Severity: Severe), diltiazem (Severity: Severe), cephalexin (Severity: Severe), ciprofloxacin (Reaction: vision/breathing probles) HPI This information was obtained from the patient 02/19/18. Seen by Dr. Triplett. The patient reports significant GI upset while taking doxycycline which was started for his recent right 1st diabetic ulcer infection which grew resistant MRSA and Step on culture last week. He's been changed to Bactrim without reporting adverse effects nor increased drainage or pain in the toe. He admits to being quite active over the past week while attending his 40th anniversary constitution party and feels this may have negatively impacted his toe ulcer. He's wearing his diabetic shoes however is not offloading the left foot otherwise. 02/11/18. Seen by Dr. Triplett. The patient does not report increased drainage or pain associated with the chronic right 1st toe diabetic ulcer since his last visit. 02/05/18. Seen by Dr. Triplett. The patient does not report increased drainage or pain associated with the chronic right 1st toe diabetic ulcer since his last visit. He does report a new ulcer over the right distal 2nd toe that he feels may have occurred this weekend while walking around [employer] and he states the prosthetic toe separator he uses between the 1st and 2nd toe may have moved while walking. 01/29/18. Seen by Dr. Triplett. The patient does not report increased drainage or pain associated with the chronic right 1st toe diabetic ulcer since his last visit. He's wearing his new diabetic shoes as recommended as well. 01/22/18. Seen by Dr. Triplett. The patient does not report increased drainage or pain associated with the chronic right 1st toe diabetic ulcer since his last visit. Of note, the patient also states he's having some hypoglycemic episodes with blood sugars in the 50's since starting a ketogenic diet about one week ago. He's not discussed this diet with his PCP and is on Humalog and Lantus in addition to metformin. 01/15/18. Seen by Dr. Triplett. The patient does not report increased drainage or pain associated with the chronic right 1st toe diabetic ulcer since his last visit and he feel the redness and swelling have improved since starting on doxycycline for cellulitis of the toe. He's also wearing his offloading shoe as recommended. 01/08/18. Seen by Dr. Triplett. The patient's new to our clinic and presents with a chronic right 1st toe diabetic ulcer he states started as a callus and the started to deteriorate about one month ago. The ulcer subsequently started to drain and the toe swelled and turned red. He initially took a dose of levofloxacin he states he had 'left over' at home then was placed on ciprofloxacin but reports significant myalgias and has now been started on doxycycline but he's not yet taken his first dose. His wound culture grew E. coli sensitive to tetracycline and his A1c a month ago was 7.1. He does not report pain in the toe nor fevers at this time. Past Medical History This information was obtained from the patient Patient has a medical history of: Type II Diabetes Hypertension Neuropathy Atrial fibrillation Complaints and Symptoms This information was obtained from the patient Patient complains of: General Notes: I have reviewed and concur with the Review of Systems and Past Family Social History documents completed by the clinician, I have reviewed and concur with the Wound Assessment document completed by the clinician Cardiovascular (Central/Peripheral): Lower extremity (leg) swelling Hematologic/Lymphatic: Bleeding Tendency Integumentary (Hair/Skin/Nails): Open Sore Neurological: Loss of Protective Sensation Prior Wound History: Drainage, Erythema Patient denies complaints or symptoms related to: Cardiovascular (Central/Peripheral): Intermittent Claudication, Lower extremity (leg) resting pain Constitutional Symptoms (General Health): Chills, Fever Ear/Nose/Mouth/Throat: Hearing Loss / Aid Hematologic/Lymphatic: Bleeding / Clotting Disorders Musculoskeletal: Assistive Devices Psychiatric: Memory Loss Respiratory: Shortness of Breath OBJECTIVE Constitutional BP elevated; Afebrile; Alert and in no distress. Well developed. Alert. Clean appearing.. Height/Length: 74 in (187.96 cm), Weight: 377.1 lbs (171.41 kgs), BMI: 48.4, Temperature: 98.5 ?F (36.94 ?C), Pulse: 74 bpm, Respiratory Rate: 18 breaths/min, Blood Pressure: 143/79 mmHg, Capillary Blood Glucose: 124 mg/dl, Pulse Oximetry: 96 %. Vital Signs Notes: Glucose per patient. Ears, Nose, Mouth, and Throat: No clinically significant hearing loss on informal examination. Respiratory: No respiratory distress. Even respirations and without use of accessory muscles.. Cardiovascular: 2+ right lower extremity edema. Gastrointestinal (GI): Obese. Nondistended.. 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 Integumentary (Hair, Skin) No periwound erythema, warmth, or significant drainage. No periwound rashes appreciated or noted otherwise.. Refer to appropriate clinician wound documentation for this visit; right 1st toe ulcer extends to subcut with base partially covered with red, friable granulation, remainder fibrin and slough; deeper than on initial review with undermining along the medial margin. Moderate amount of callus in the periulcer area. Wound #1 Right Great Toe is a chronic Godinez Grade 1 Diabetic Ulcer and has received a status of Not Healed. Subsequent wound encounter measurements are 1.2cm length x 1.1cm width x 0.2cm depth, with an area of 1.32 sq cm and a volume of 0.264 cubic cm. No tunneling has been noted. No sinus tract has been noted. Undermining has been noted at 6:00 and ends at 10:00 with a maximum distance of 0.3cm. There is a moderate amount of serosanguineous drainage noted which has a mild odor. The patient reports a wound pain of level 0/10. The wound margin is unattached. Wound bed has Yes epithelialization , No eschar, No slough, Yes pink, spongy granulation. The periwound skin exhibited: Edema, Callus, Moist, Maceration, Erythema, Hemosiderosis. The periwound skin did not exhibit: Brawny Induration, Excoriation, Induration, Crepitus, Fluctuance, Friable, Rash, Dry/Scaly, Atrophie Karine, Cyanosis, Ecchymosis, Pallor, Rubor. The temperature of the periwound skin is Warm. Periwound skin does not exhibit signs or symptoms of infection. Local Pulse is Palpable. Neurological: Cranial nerves grossly intact with symmetric function normal by informal observation.. ASSESSMENT Active Problems ICD-10 (Encounter Diagnosis) E11.621 - Type 2 diabetes mellitus with foot ulcer (Encounter Diagnosis) L97.512 - Non-pressure chronic ulcer of other part of right foot with fat layer exposed (Encounter Diagnosis) T36.8X5A - Adverse effect of other systemic antibiotics, initial encounter (Encounter Diagnosis) B95.62 - Methicillin resistant Staphylococcus aureus infection as the cause of diseases classified elsewhere (Encounter Diagnosis) B95.5 - Unspecified streptococcus as the cause of diseases classified elsewhere (Encounter Diagnosis) Z91.19 - Patient's noncompliance with other medical treatment and regimen PROCEDURES Wound #1 Wound #1 (Diabetic Ulcer) is located on the right great toe. A skin/ subcutaneous tissue level surgical debridement with a total area debrided of 1.44 sq cm was performed by Mohan Triplett MD. Subcutaneous was removed along with devitalized tissue: callus and exudate. The following instrument(s) were used: curette. Pain control was achieved using 4% Lido. A time out was conducted prior to the start of the procedure. A moderate amount of bleeding was controlled with pressure. The procedure was tolerated well with a pain level of 0 throughout and a pain level of 0 following the procedure. Post Debridement Measurements: 1.2cm length x 1.2cm width x 0.3cm depth; with an area of 1.44 sq cm and a volume of 0.432 cubic cm; Additional Information Muscle fascia or bone removed and sent to pathology?: No PLAN Wound Orders: Wound #1 Right Great Toe Anesthetic Topical Xylocaine to wound bed. - In clinic only. Cleanser Cleanse Wound: - Normal saline and gauze, may use distilled water. May Shower. - Continue using cast protector. Topical Treatments Antibiotic/Antimicrobial Ointment/Cream. - Iodosorb. Dressings Cover and secure with: - Foam cut, secured with tape Change Dressing: - Daily. Additional Orders: Off-Loading Keep weight off: - Right great toe as much as possible. Use/Wear when Walking: - Off-loading shoe. You may use a cane, or walker to assist with offloading. You may also look for a knee scooter, local [employer] often offer free rentals to [facility] residents. Compression/Edema Control Single Layer Compression Hose - Continue wearing personal compression stockings. Follow-Up Appointments Return Appointment: - - One week. Other information: If you develop fever, chills, increased pain, drainage, redness or swelling please call our office. If after hours, respond to the ER. Should you experience any significant changes in your wound(s) or have any questions regarding your home care instructions please contact the wound center @ [phone]. If after hours, contact your primary care physician or go to the hospital emergency room. Scribing Attestation I attest, as the nurse, that I scribed these orders for the physician. I've reviewed the clinician's documentation and agree with the evaluation and plan as written. In addition, the patient's ulcer demonstrates evidence of non-viable devitalized tissue which will continue to benefit from sharp debridement to help promote granulation and expedite healing. Also, I've strongly encouraged the patient to use an offloading shoe to better facilitate offloading the right 1st toe diabetic ulcer. If this does not seem to be effective we'll plan on placing a total contact cast in the near future. Otherwise he'll complete his course of Bactrim as prescribed. Electronic Signature(s) Signed By: Date: Mohan Triplett MD 02/20/2018 08:53:09 Entered By: Mohan Triplett on 02/20/2018 07:20:17
== END ==
PROVIDERS: Family Provider Specialist; PCP Physician Assistant Medical; Visit Provider Internal Medicine
DX: E11.621 Type 2 diabetes mellitus with foot ulcer (principal); L97.512 Non-pressure chronic ulcer of other part of right foot with fat layer exposed; T36.8X5A Adverse effect of other systemic antibiotics, initial encounter; B95.62 Methicillin resistant Staphylococcus aureus infection as the cause of diseases classified elsewhere; B95.5 Unspecified streptococcus as the cause of diseases classified elsewhere; Z91.19 Patient's noncompliance with other medical treatment and regimen
CPT/HCPCS: 11042

== ENCOUNTER → 2018-02-25 15:27 | Outpatient (CLI) | payer OTHER, SELFPAY ==
--- NOTE | 2018-02-25 | OV.WND_ITS ---
Progress Note Details Patient Name: Paco Cerda Patient Number: [id number] PatientPatientDate: 02/25/2018 Clinician: Juli Pfeiffer Physician / Telephone Station Repairer: Mohan Triplett SUBJECTIVE Chief Complaint This information was obtained from the patient Diabetic ulcer on right great toe. Allergies atenolol (Severity: Severe), carvedilol (Severity: Severe), amiodarone (Severity : Severe), clonidine (Severity: Severe), gabapentin (Severity: Severe), lisinopril ( Severity: Severe, Reaction: at higher dose- pt takes lower dose), penicillin (Severity: Severe), diltiazem (Severity: Severe), cephalexin (Severity: Severe), ciprofloxacin (Reaction: vision/breathing probles) HPI This information was obtained from the patient 02/25/18. Seen by Dr. Triplett. The patient does not report increased drainage or pain associated with the chronic right 1st toe diabetic ulcer since his last visit and he continues on Bactrim for the recent MRSA positive culture of the toe ulcer. 02/19/18. Seen by Dr. Triplett. The patient reports significant GI upset while taking doxycycline which was started for his recent right 1st diabetic ulcer infection which grew resistant MRSA and Step on culture last week. He's been changed to Bactrim without reporting adverse effects nor increased drainage or pain in the toe. He admits to being quite active over the past week while attending his 40th anniversary green party and feels this may have negatively impacted his toe ulcer. He's wearing his diabetic shoes however is not offloading the left foot otherwise. 02/11/18. Seen by Dr. Triplett. The patient does not report increased drainage or pain associated with the chronic right 1st toe diabetic ulcer since his last visit. 02/05/18. Seen by Dr. Triplett. The patient does not report increased drainage or pain associated with the chronic right 1st toe diabetic ulcer since his last visit. He does report a new ulcer over the right distal 2nd toe that he feels may have occurred this weekend while walking around [employer] and he states the prosthetic toe separator he uses between the 1st and 2nd toe may have moved while walking. 01/29/18. Seen by Dr. Triplett. The patient does not report increased drainage or pain associated with the chronic right 1st toe diabetic ulcer since his last visit. He's wearing his new diabetic shoes as recommended as well. 01/22/18. Seen by Dr. Triplett. The patient does not report increased drainage or pain associated with the chronic right 1st toe diabetic ulcer since his last visit. Of note, the patient also states he's having some hypoglycemic episodes with blood sugars in the 50's since starting a ketogenic diet about one week ago. He's not discussed this diet with his PCP and is on Humalog and Lantus in addition to metformin. 01/15/18. Seen by Dr. Triplett. The patient does not report increased drainage or pain associated with the chronic right 1st toe diabetic ulcer since his last visit and he feel the redness and swelling have improved since starting on doxycycline for cellulitis of the toe. He's also wearing his offloading shoe as recommended. 01/08/18. Seen by Dr. Triplett. The patient's new to our clinic and presents with a chronic right 1st toe diabetic ulcer he states started as a callus and the started to deteriorate about one month ago. The ulcer subsequently started to drain and the toe swelled and turned red. He initially took a dose of levofloxacin he states he had 'left over' at home then was placed on ciprofloxacin but reports significant myalgias and has now been started on doxycycline but he's not yet taken his first dose. His wound culture grew E. coli sensitive to tetracycline and his A1c a month ago was 7.1. He does not report pain in the toe nor fevers at this time. Past Medical History This information was obtained from the patient Patient has a medical history of: Type II Diabetes Hypertension Neuropathy Atrial fibrillation Complaints and Symptoms This information was obtained from the patient Patient complains of: General Notes: I have reviewed and concur with the Review of Systems and Past Family Social History documents completed by the clinician, I have reviewed and concur with the Wound Assessment document completed by the clinician Cardiovascular (Central/Peripheral): Lower extremity (leg) swelling Hematologic/Lymphatic: Bleeding Tendency Integumentary (Hair/Skin/Nails): Open Sore Neurological: Loss of Protective Sensation Prior Wound History: Drainage, Erythema Patient denies complaints or symptoms related to: Cardiovascular (Central/Peripheral): Intermittent Claudication, Lower extremity (leg) resting pain Constitutional Symptoms (General Health): Chills, Fever Ear/Nose/Mouth/Throat: Hearing Loss / Aid Hematologic/Lymphatic: Bleeding / Clotting Disorders Musculoskeletal: Assistive Devices Psychiatric: Memory Loss Respiratory: Shortness of Breath OBJECTIVE Constitutional BP elevated; Afebrile; Alert and in no distress. Well developed. Alert. Clean appearing.. Height/Length: 74 in (187.96 cm), Weight: 377.4 lbs (171.55 kgs), BMI: 48.5, Temperature: 97.6 ?F (36.44 ?C), Pulse: 74 bpm, Respiratory Rate: 18 breaths/min, Blood Pressure: 164/89 mmHg, Pulse Oximetry: 97 %. Vital Signs Notes: Glucose per patient morning check. Reports eating after. Ears, Nose, Mouth, and Throat: No clinically significant hearing loss on informal examination. Respiratory: No respiratory distress. Even respirations and without use of accessory muscles.. 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 Integumentary (Hair, Skin) No periwound erythema, warmth, or significant drainage. No periwound rashes appreciated or noted otherwise.. Refer to appropriate clinician wound documentation for this visit; right 1st toe ulcer extends to subcut with base partially covered with pink granulation, remainder fibrin and slough; smaller than on previous review. Moderate amount of callus in the periulcer area. Wound #1 Right Great Toe is a chronic Godinez Grade 1 Diabetic Ulcer and has received a status of Not Healed. Subsequent wound encounter measurements are 0.4cm length x 0.5cm width x 0.2cm depth, with an area of 0.2 sq cm and a volume of 0.04 cubic cm. No tunneling has been noted. No sinus tract has been noted. Undermining has been noted at 6: 00 and ends at 11:00 with a maximum distance of 0.3cm. There is a moderate amount of serosanguineous drainage noted which has a mild odor. The patient reports a wound pain of level 0/10. The wound margin is unattached. Wound bed has Yes epithelialization, No eschar, No slough, Yes pink, spongy granulation. The periwound skin exhibited: Edema, Callus, Moist, Maceration, Erythema, Hemosiderosis. The periwound skin did not exhibit: Brawny Induration, Excoriation, Induration, Crepitus, Fluctuance, Friable, Rash, Dry/Scaly, Atrophie Karine, Cyanosis, Ecchymosis, Pallor, Rubor. The temperature of the periwound skin is Warm. Periwound skin does not exhibit signs or symptoms of infection. Local Pulse is Palpable. ASSESSMENT Active Problems ICD-10 (Encounter Diagnosis) E11.621 - Type 2 diabetes mellitus with foot ulcer (Encounter Diagnosis) L97.512 - Non-pressure chronic ulcer of other part of right foot with fat layer exposed (Encounter Diagnosis) B95.62 - Methicillin resistant Staphylococcus aureus infection as the cause of diseases classified elsewhere (Encounter Diagnosis) B95.5 - Unspecified streptococcus as the cause of diseases classified elsewhere PROCEDURES Wound #1 Wound #1 (Diabetic Ulcer) is located on the right great toe. A skin/ subcutaneous tissue level surgical debridement with a total area debrided of 0.2 sq cm was performed by Mohan Triplett MD. Subcutaneous was removed along with devitalized tissue: callus and slough. The following instrument(s) were used: curette. Pain control was achieved using 4% Lido. A time out was conducted prior to the start of the procedure. A minimal amount of bleeding was controlled with silver nitrate. The procedure was tolerated well with a pain level of 0 throughout and a pain level of 0 following the procedure. Post Debridement Measurements: 0.4cm length x 0.5cm width x 0.3cm depth; with an area of 0.2 sq cm and a volume of 0.06 cubic cm; Additional Information Muscle fascia or bone removed and sent to pathology?: No PLAN Wound Orders: Wound #1 Right Great Toe Anesthetic Topical Xylocaine to wound bed. - In clinic only. Cleanser Cleanse Wound: - Normal saline and gauze, may use distilled water. May Shower. - Continue using cast protector. Topical Treatments Antibiotic/Antimicrobial Ointment/Cream. - Gentamicin Dressings Cover and secure with: - Foam cut, secured with tape Change Dressing: - Daily. Additional Orders: Off-Loading Keep weight off: - Right great toe as much as possible. Use/Wear when Walking: - Off-loading shoe. You may use a cane, or walker to assist with offloading. You may also look for a knee scooter, local [employer] often offer free rentals to city residents. Compression/Edema Control Single Layer Compression Hose - Continue wearing personal compression stockings. Follow-Up Appointments Return Appointment: - - One week. Other information: If you develop fever, chills, increased pain, drainage, redness or swelling please call our office. If after hours, respond to the ER. Should you experience any significant changes in your wound(s) or have any questions regarding your home care instructions please contact the wound center @ [phone]. If after hours, contact your primary care physician or go to the hospital emergency room. Scribing Attestation I attest, as the nurse, that I scribed these orders for the physician. I've reviewed the clinician's documentation and agree with the evaluation and plan as written. In addition, the patient's ulcer demonstrates evidence of non-viable devitalized tissue which will continue to benefit from sharp debridement to help promote granulation and expedite healing. Also, the patient will complete his course of Bactrim as prescribed. Electronic Signature(s) Signed By: Date: Mohan Triplett MD 02/26/2018 14:31:14 Mohan Triplett MD 02/26/2018 14:31:14 Entered By: Mohan Triplett on 02/26/2018 12:03:19
== END ==
PROVIDERS: Family Provider Specialist; PCP Physician Assistant Medical; Visit Provider Internal Medicine
DX: E11.621 Type 2 diabetes mellitus with foot ulcer (principal); L97.512 Non-pressure chronic ulcer of other part of right foot with fat layer exposed; B95.62 Methicillin resistant Staphylococcus aureus infection as the cause of diseases classified elsewhere
CPT/HCPCS: 11042

== ENCOUNTER → 2018-03-05 10:58 | Outpatient (CLI) | payer OTHER, SELFPAY | PROVIDERS: Family Provider Specialist; PCP Physician Assistant Medical; Visit Provider Internal Medicine | DX: E11.621 Type 2 diabetes mellitus with foot ulcer (principal); L97.512 Non-pressure chronic ulcer of other part of right foot with fat layer exposed | CPT/HCPCS: 11042 ==

== ENCOUNTER → 2018-03-12 13:02 | Outpatient (CLI) | payer OTHER, SELFPAY | PROVIDERS: Family Provider Specialist; PCP Physician Assistant Medical; Visit Provider Internal Medicine | DX: E11.621 Type 2 diabetes mellitus with foot ulcer (principal); L97.512 Non-pressure chronic ulcer of other part of right foot with fat layer exposed; M20.62 Acquired deformities of toe(s), unspecified, left foot; Z91.19 Patient's noncompliance with other medical treatment and regimen; L84 Corns and callosities | CPT/HCPCS: 11042 ==

== ENCOUNTER → 2018-03-18 11:09 | Outpatient (CLI) | payer OTHER, SELFPAY ==
--- NOTE | 2018-03-18 | OV.WND_ITS ---
Progress Note Details Patient Name: Paco Cerda Patient Number: [id number] PatientPatientDate: 03/18/2018 Clinician: Juli Pfeiffer Physician / Director Of Event Marketing: Mohan Triplett SUBJECTIVE Chief Complaint This information was obtained from the patient Diabetic ulcer on right great toe. Allergies atenolol (Severity: Severe), carvedilol (Severity: Severe), amiodarone (Severity : Severe), clonidine (Severity: Severe), gabapentin (Severity: Severe), lisinopril ( Severity: Severe, Reaction: at higher dose- pt takes lower dose), penicillin (Severity: Severe), diltiazem (Severity: Severe), cephalexin (Severity: Severe), ciprofloxacin (Reaction: vision/breathing probles) HPI This information was obtained from the patient 03/18/18. Seen by Dr. Triplett. The patient does not report increased drainage or pain associated with the chronic right 1st toe diabetic ulcer since his last visit. 03/12/18. Seen by Dr. Triplett. The patient does not report increased drainage or pain associated with the chronic right 1st toe diabetic ulcer since his last visit. 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 03/05/18. Seen by Dr. Triplett. The patient does not report increased drainage or pain associated with the chronic right 1st toe diabetic ulcer since his last visit. 02/25/18. Seen by Dr. Triplett. The patient does not report increased drainage or pain associated with the chronic right 1st toe diabetic ulcer since his last visit and he continues on Bactrim for the recent MRSA positive culture of the toe ulcer. 02/19/18. Seen by Dr. Triplett. The patient reports significant GI upset while taking doxycycline which was started for his recent right 1st diabetic ulcer infection which grew resistant MRSA and Step on culture last week. He's been changed to Bactrim without reporting adverse effects nor increased drainage or pain in the toe. He admits to being quite active over the past week while attending his 40th anniversary [employer] party and feels this may have negatively impacted his toe ulcer. He's wearing his diabetic shoes however is not offloading the left foot otherwise. 02/11/18. Seen by Dr. Triplett. The patient does not report increased drainage or pain associated with the chronic right 1st toe diabetic ulcer since his last visit. 02/05/18. Seen by Dr. Triplett. The patient does not report increased drainage or pain associated with the chronic right 1st toe diabetic ulcer since his last visit. He does report a new ulcer over the right distal 2nd toe that he feels may have occurred this weekend while walking around [employer] and he states the prosthetic toe separator he uses between the 1st and 2nd toe may have moved while walking. 01/29/18. Seen by Dr. Triplett. The patient does not report increased drainage or pain associated with the chronic right 1st toe diabetic ulcer since his last visit. He's wearing his new diabetic shoes as recommended as well. 01/22/18. Seen by Dr. Triplett. The patient does not report increased drainage or pain associated with the chronic right 1st toe diabetic ulcer since his last visit. Of note, the patient also states he's having some hypoglycemic episodes with blood sugars in the 50's since starting a ketogenic diet about one week ago. He's not discussed this diet with his PCP and is on Humalog and Lantus in addition to metformin. 01/15/18. Seen by Dr. Triplett. The patient does not report increased drainage or pain associated with the chronic right 1st toe diabetic ulcer since his last visit and he feel the redness and swelling have improved since starting on doxycycline for cellulitis of the toe. He's also wearing his offloading shoe as recommended. 01/08/18. Seen by Dr. Triplett. The patient's new to our clinic and presents with a chronic right 1st toe diabetic ulcer he states started as a callus and the started to deteriorate about one month ago. The ulcer subsequently started to drain and the toe swelled and turned red. He initially took a dose of levofloxacin he states he had 'left over' at home then was placed on ciprofloxacin but reports significant myalgias and has now been started on doxycycline but he's not yet taken his first dose. His wound culture grew E. coli sensitive to tetracycline and his A1c a month ago was 7.1. He does not report pain in the toe nor fevers at this time. Past Medical History This information was obtained from the patient Patient has a medical history of: Type II Diabetes Hypertension Neuropathy Atrial fibrillation Complaints and Symptoms This information was obtained from the patient Patient complains of: General Notes: I have reviewed and concur with the Review of Systems and Past Family Social History documents completed by the clinician, I have reviewed and concur with the Wound Assessment document completed by the clinician Cardiovascular (Central/Peripheral): Lower extremity (leg) swelling Hematologic/Lymphatic: Bleeding Tendency Integumentary (Hair/Skin/Nails): Open Sore Neurological: Loss of Protective Sensation Prior Wound History: Drainage, Erythema Patient denies complaints or symptoms related to: Cardiovascular (Central/Peripheral): Intermittent Claudication, Lower extremity (leg) resting pain Constitutional Symptoms (General Health): Chills, Fever Ear/Nose/Mouth/Throat: Hearing Loss / Aid Hematologic/Lymphatic: Bleeding / Clotting Disorders Musculoskeletal: Assistive Devices Psychiatric: Memory Loss Respiratory: Shortness of Breath OBJECTIVE Constitutional BP normal; Low grade fever; Alert and in no distress. Well developed. Alert. Clean appearing.. Height/Length: 74 in (187.96 cm), Weight: 374.3 lbs (170.14 kgs), BMI: 48.1, Temperature: 99.5 ?F (37.5 ?C), Pulse: 71 bpm, Respiratory Rate: 18 breaths/min, Blood Pressure: 125/82 mmHg, Capillary Blood Glucose: 109 mg/dl, Pulse Oximetry: 98 %. Vital Signs Notes: Glucose per patient Cardiovascular: 2+ right lower extremity edema. Gastrointestinal (GI): Obese. Nondistended.. 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 Integumentary (Hair, Skin) No periwound erythema, warmth, or significant drainage. No periwound rashes appreciated or noted otherwise.. Refer to appropriate clinician wound documentation for this visit; right 1st toe ulcer extends to subcut with base partially covered with pink granulation, remainder fibrin and slough. Moderate amount of callus in the periulcer area. Wound #1 Right Great Toe is a chronic Godinez Grade 1 Diabetic Ulcer and has received a status of Not Healed. Subsequent wound encounter measurements are 0.9cm length x 0.4cm width x 0.3cm depth, with an area of 0.36 sq cm and a volume of 0.108 cubic cm. No tunneling has been noted. No sinus tract has been noted. No undermining has been noted. There is a small amount of serosanguineous drainage noted which has a mild odor. The patient reports a wound pain of level 0/10. The wound margin is unattached. Wound bed has Yes epithelialization, No eschar, No slough, Yes bright red, pink, spongy granulation. The periwound skin moisture is normal. The periwound skin exhibited: Edema, Callus, Erythema, Hemosiderosis. The periwound skin did not exhibit: Brawny Induration, Excoriation, Induration, Crepitus, Fluctuance, Friable, Rash, Atrophie Karine, Cyanosis, Ecchymosis, Pallor, Rubor. The temperature of the periwound skin is Warm. Periwound skin does not exhibit signs or symptoms of infection. Local Pulse is Palpable. ASSESSMENT Active Problems ICD-10 (Encounter Diagnosis) E11.621 - Type 2 diabetes mellitus with foot ulcer (Encounter Diagnosis) L97.512 - Non-pressure chronic ulcer of other part of right foot with fat layer exposed PROCEDURES Wound #1 Wound #1 (Diabetic Ulcer) is located on the right great toe. A skin/ subcutaneous tissue level surgical debridement with a total area debrided of 0.36 sq cm was performed by Mohan Triplett MD. Subcutaneous was removed along with devitalized tissue: callus and slough. The following instrument(s) were used: curette. Pain control was achieved using 4% Lido. A time out was conducted prior to the start of the procedure. A minimal amount of bleeding was controlled with silver nitrate. The procedure was tolerated well with a pain level of 0 throughout and a pain level of 0 following the procedure. Post Debridement Measurements: 0.9cm length x 0.4cm width x 0.4cm depth; with an area of 0.36 sq cm and a volume of 0.144 cubic cm; Additional Information Muscle fascia or bone removed and sent to pathology?: No PLAN Wound Orders: Wound #1 Right Great Toe Anesthetic Topical Xylocaine to wound bed. - In clinic only. Cleanser Cleanse Wound: - Normal saline and gauze, may use distilled water. May Shower. - Continue using cast protector. Topical Treatments Antibiotic/Antimicrobial Ointment/Cream. - Gentamicin Dressings Cover and secure with: - Foam cut, secured with tape Change Dressing: - Daily. Additional Orders: Off-Loading Keep weight off: - Right great toe as much as possible. Use/Wear when Walking: - Off-loading shoe. You may use a cane, or walker to assist with offloading. You may also look for a knee scooter, local [employer] stores often offer free rentals to city residents. Compression/Edema Control Single Layer Compression Hose - Continue wearing personal compression stockings. Follow-Up Appointments Return Appointment: - - One week. Other information: If you develop fever, chills, increased pain, drainage, redness or swelling please call our office. If after hours, respond to the ER. Should you experience any significant changes in your wound(s) or have any questions regarding your home care instructions please contact the wound center @ [phone]. If after hours, contact your primary care physician or go to the hospital emergency room. Scribing Attestation I attest, as the nurse, that I scribed these orders for the physician. I've reviewed the clinician's documentation and agree with the evaluation and plan as written. In addition, the patient's ulcer demonstrates evidence of non-viable devitalized tissue which will continue to benefit from sharp debridement to help promote granulation and expedite healing. Electronic Signature(s) Signed By: Date: Mohan Triplett MD 03/19/2018 09:13:39 Entered By: Mohan Triplett on 03/19/2018 07:04:20
== END ==
PROVIDERS: Family Provider Specialist; PCP Physician Assistant Medical; Visit Provider Internal Medicine
DX: E11.621 Type 2 diabetes mellitus with foot ulcer (principal); L97.512 Non-pressure chronic ulcer of other part of right foot with fat layer exposed
CPT/HCPCS: 11042

== ENCOUNTER → 2018-03-26 10:51 | Outpatient (CLI) | payer OTHER, SELFPAY ==
--- NOTE | 2018-03-26 | OV.WND_ITS ---
Progress Note Details Patient Name: Paco Cerda Patient Number: [id number] PatientPatientDate: 03/26/2018 Clinician: Juli Pfeiffer Clinician Cosigner: Moira Morales Physician / Sports Medicine Physician: Mohan Triplett SUBJECTIVE Chief Complaint This information was obtained from the patient Diabetic ulcer on right great toe. Allergies atenolol (Severity: Severe), carvedilol (Severity: Severe), amiodarone (Severity : Severe), clonidine (Severity: Severe), gabapentin (Severity: Severe), lisinopril ( Severity: Severe, Reaction: at higher dose- pt takes lower dose), penicillin (Severity: Severe), diltiazem (Severity: Severe), cephalexin (Severity: Severe), ciprofloxacin (Reaction: vision/breathing probles) HPI This information was obtained from the patient 03/26/18. Seen by Dr. Triplett. The patient does not report increased drainage or pain associated with the chronic right 1st toe diabetic ulcer since his last visit and he's wearing his offloading shoe as recommended as much as possible. 03/18/18. Seen by Dr. Triplett. The patient does not report increased drainage or pain associated with the chronic right 1st toe diabetic ulcer since his last visit. 03/12/18. Seen by Dr. Triplett. The patient does not report increased drainage or pain associated with the chronic right 1st toe diabetic ulcer since his last visit. 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 03/05/18. Seen by Dr. Triplett. The patient does not report increased drainage or pain associated with the chronic right 1st toe diabetic ulcer since his last visit. 02/25/18. Seen by Dr. Triplett. The patient does not report increased drainage or pain associated with the chronic right 1st toe diabetic ulcer since his last visit and he continues on Bactrim for the recent MRSA positive culture of the toe ulcer. 02/19/18. Seen by Dr. Triplett. The patient reports significant GI upset while taking doxycycline which was started for his recent right 1st diabetic ulcer infection which grew resistant MRSA and Step on culture last week. He's been changed to Bactrim without reporting adverse effects nor increased drainage or pain in the toe. He admits to being quite active over the past week while attending his 40th anniversary [employer] party and feels this may have negatively impacted his toe ulcer. He's wearing his diabetic shoes however is not offloading the left foot otherwise. 02/11/18. Seen by Dr. Triplett. The patient does not report increased drainage or pain associated with the chronic right 1st toe diabetic ulcer since his last visit. 02/05/18. Seen by Dr. Triplett. The patient does not report increased drainage or pain associated with the chronic right 1st toe diabetic ulcer since his last visit. He does report a new ulcer over the right distal 2nd toe that he feels may have occurred this weekend while walking around [employer] and he states the prosthetic toe separator he uses between the 1st and 2nd toe may have moved while walking. 01/29/18. Seen by Dr. Triplett. The patient does not report increased drainage or pain associated with the chronic right 1st toe diabetic ulcer since his last visit. He's wearing his new diabetic shoes as recommended as well. 01/22/18. Seen by Dr. Triplett. The patient does not report increased drainage or pain associated with the chronic right 1st toe diabetic ulcer since his last visit. Of note, the patient also states he's having some hypoglycemic episodes with blood sugars in the 50's since starting a ketogenic diet about one week ago. He's not discussed this diet with his PCP and is on Humalog and Lantus in addition to metformin. 01/15/18. Seen by Dr. Triplett. The patient does not report increased drainage or pain associated with the chronic right 1st toe diabetic ulcer since his last visit and he feel the redness and swelling have improved since starting on doxycycline for cellulitis of the toe. He's also wearing his offloading shoe as recommended. 01/08/18. Seen by Dr. Triplett. The patient's new to our clinic and presents with a chronic right 1st toe diabetic ulcer he states started as a callus and the started to deteriorate about one month ago. The ulcer subsequently started to drain and the toe swelled and turned red. He initially took a dose of levofloxacin he states he had 'left over' at home then was placed on ciprofloxacin but reports significant myalgias and has now been started on doxycycline but he's not yet taken his first dose. His wound culture grew E. coli sensitive to tetracycline and his A1c a month ago was 7.1. He does not report pain in the toe nor fevers at this time. Past Medical History This information was obtained from the patient Patient has a medical history of: Type II Diabetes Hypertension Neuropathy Atrial fibrillation Complaints and Symptoms This information was obtained from the patient Patient complains of: General Notes: I have reviewed and concur with the Review of Systems and Past Family Social History documents completed by the clinician, I have reviewed and concur with the Wound Assessment document completed by the clinician Cardiovascular (Central/Peripheral): Lower extremity (leg) swelling Hematologic/Lymphatic: Bleeding Tendency Integumentary (Hair/Skin/Nails): Open Sore Neurological: Loss of Protective Sensation Prior Wound History: Drainage, Erythema Patient denies complaints or symptoms related to: Cardiovascular (Central/Peripheral): Intermittent Claudication, Lower extremity (leg) resting pain Constitutional Symptoms (General Health): Chills, Fever Ear/Nose/Mouth/Throat: Hearing Loss / Aid Hematologic/Lymphatic: Bleeding / Clotting Disorders Musculoskeletal: Assistive Devices Psychiatric: Memory Loss Respiratory: Shortness of Breath OBJECTIVE Constitutional BP elevated; Afebrile; Alert and in no distress. Well developed. Alert. Clean appearing.. Height/Length: 74 in (187.96 cm), Weight: 374.3 lbs (170.14 kgs), BMI: 48.1, Temperature: 97.7 ?F (36.5 ?C), Pulse: 75 bpm, Respiratory Rate: 18 breaths/min, Blood Pressure: 159/89 mmHg, Capillary Blood Glucose: 111 mg/dl, Pulse Oximetry: 97 %. Vital Signs Notes: Glucose per patient Ears, Nose, Mouth, and Throat: No clinically significant hearing loss on informal examination. Cardiovascular: 2+ right lower extremity edema. Gastrointestinal (GI): Obese. Nondistended.. Integumentary (Hair, Skin) No periwound erythema, warmth, or significant drainage. No periwound rashes appreciated or noted otherwise.. Refer to appropriate clinician wound documentation for this visit; right 1st toe ulcer extends to subcut with base partially covered with pink granulation, remainder fibrin and slough; smaller than on previous review. Moderate amount of callus in the periulcer area. Wound #1 Right Great Toe is a chronic Godinez Grade 1 Diabetic Ulcer and has received a status of Not Healed. Subsequent wound encounter measurements are 0.4cm length x 0.5cm width x 0.2cm depth, with an area of 0.2 sq cm and a volume of 0.04 cubic cm. No tunneling has been noted. No sinus tract has been noted. No undermining has been noted. There is a small amount of serosanguineous drainage noted which has a mild odor. The patient reports a wound pain of level 0/10. The wound margin is unattached. Wound bed has Yes epithelialization, No eschar, No slough, Yes bright red, pink, spongy granulation. The periwound skin moisture is normal. The periwound skin exhibited: Edema, Callus, Erythema, Hemosiderosis. The periwound skin did not exhibit: Brawny Induration, Excoriation, Induration, Crepitus, Fluctuance, Friable, Rash, Atrophie Karine, Cyanosis, Ecchymosis, Pallor, Rubor. The temperature of the periwound skin is Warm. Periwound skin does not exhibit signs or symptoms of infection. Local Pulse is Palpable. Neurological: Cranial nerves grossly intact with symmetric function normal by informal observation.. ASSESSMENT Active Problems ICD-10 (Encounter Diagnosis) E11.621 - Type 2 diabetes mellitus with foot ulcer (Encounter Diagnosis) L97.512 - Non-pressure chronic ulcer of other part of right foot with fat layer exposed PROCEDURES Wound #1 Wound #1 (Diabetic Ulcer) is located on the right great toe. A skin/ subcutaneous tissue level surgical debridement with a total area debrided of 0.2 sq cm was performed by Mohan Triplett MD. Subcutaneous was removed along with devitalized tissue: callus, exudate , and slough. The following instrument(s) were used: curette. Pain control was achieved using 4% Lido. A time out was conducted prior to the start of the procedure. A minimal amount of bleeding was controlled with n/a. The procedure was tolerated well with a pain level of 0 throughout and a pain level of 0 following the procedure. Post Debridement Measurements: 0.4cm length x 0.5cm width x 0.3cm depth; with an area of 0.2 sq cm and a volume of 0.06 cubic cm; Additional Information Muscle fascia or bone removed and sent to pathology?: No PLAN Wound Orders: Wound #1 Right Great Toe Anesthetic Topical Xylocaine to wound bed. - In clinic only. Cleanser Cleanse Wound: - Normal saline and gauze, may use distilled water. May Shower. - Continue using cast protector. Topical Treatments Antibiotic/Antimicrobial Ointment/Cream. - Iodosorb Dressings Cover and secure with: - Foam cut, secured with tape Change Dressing: - Daily. Additional Orders: Off-Loading Keep weight off: - Right great toe as much as possible. Use/Wear when Walking: - Off-loading shoe. You may use a cane, or walker to assist with offloading. You may also look for a knee scooter, local [employer] often offer free rentals to [facility] residents. Compression/Edema Control Single Layer Compression Hose - Continue wearing personal compression stockings. Follow-Up Appointments Return Appointment: - - One week. Other information: If you develop fever, chills, increased pain, drainage, redness or swelling please call our office. If after hours, respond to the ER. Should you experience any significant changes in your wound(s) or have any questions regarding your home care instructions please contact the wound center @ [phone]. If after hours, contact your primary care physician or go to the hospital emergency room. Scribing Attestation I attest, as the nurse, that I scribed these orders for the physician. I've reviewed the clinician's documentation and agree with the evaluation and plan as written. In addition, the patient's ulcer demonstrates evidence of non-viable devitalized tissue which will continue to benefit from sharp debridement to help promote granulation and expedite healing. Electronic Signature(s) Signed By: Date: Mohan Triplett MD 03/27/2018 09:38:07 Entered By: Mohan Triplett on 03/27/2018 09:18:25
== END ==
PROVIDERS: Family Provider Specialist; PCP Physician Assistant Medical; Visit Provider Internal Medicine
DX: E11.621 Type 2 diabetes mellitus with foot ulcer (principal); L97.512 Non-pressure chronic ulcer of other part of right foot with fat layer exposed
CPT/HCPCS: 11042

== ENCOUNTER → 2018-04-03 10:42 | Outpatient (CLI) | payer OTHER, SELFPAY ==
--- NOTE | 2018-04-03 | OV.WND_ITS ---
Progress Note Details Patient Name: Paco Cerda Patient Number: [id number] PatientPatientDate: 04/03/2018 Clinician: Alexandra Millan Physician / Greek Professor: Mohan Triplett SUBJECTIVE Chief Complaint This information was obtained from the patient Diabetic ulcer on right great toe. Allergies atenolol (Severity: Severe), carvedilol (Severity: Severe), amiodarone (Severity : Severe), clonidine (Severity: Severe), gabapentin (Severity: Severe), lisinopril ( Severity: Severe, Reaction: at higher dose- pt takes lower dose), penicillin (Severity: Severe), diltiazem (Severity: Severe), cephalexin (Severity: Severe), ciprofloxacin (Reaction: vision/breathing probles) HPI This information was obtained from the patient 04/03/18. Seen by Dr. Triplett. The patient does not report increased drainage or pain associated with the chronic right 1st toe diabetic ulcer since his last visit. 03/26/18. Seen by Dr. Triplett. The patient does not report increased drainage or pain associated with the chronic right 1st toe diabetic ulcer since his last visit and he's wearing his offloading shoe as recommended as much as possible. 03/18/18. Seen by Dr. Triplett. The patient does not report increased drainage or pain associated with the chronic right 1st toe diabetic ulcer since his last visit. 03/12/18. Seen by Dr. Triplett. The patient does not report increased drainage or pain associated with the chronic right 1st toe diabetic ulcer since his last visit. 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 03/05/18. Seen by Dr. Triplett. The patient does not report increased drainage or pain associated with the chronic right 1st toe diabetic ulcer since his last visit. 02/25/18. Seen by Dr. Triplett. The patient does not report increased drainage or pain associated with the chronic right 1st toe diabetic ulcer since his last visit and he continues on Bactrim for the recent MRSA positive culture of the toe ulcer. 02/19/18. Seen by Dr. Triplett. The patient reports significant GI upset while taking doxycycline which was started for his recent right 1st diabetic ulcer infection which grew resistant MRSA and Step on culture last week. He's been changed to Bactrim without reporting adverse effects nor increased drainage or pain in the toe. He admits to being quite active over the past week while attending his 40th anniversary [employer] and feels this may have negatively impacted his toe ulcer. He's wearing his diabetic shoes however is not offloading the left foot otherwise. 02/11/18. Seen by Dr. Triplett. The patient does not report increased drainage or pain associated with the chronic right 1st toe diabetic ulcer since his last visit. 02/05/18. Seen by Dr. Triplett. The patient does not report increased drainage or pain associated with the chronic right 1st toe diabetic ulcer since his last visit. He does report a new ulcer over the right distal 2nd toe that he feels may have occurred this weekend while walking around [employer] and he states the prosthetic toe separator he uses between the 1st and 2nd toe may have moved while walking. 01/29/18. Seen by Dr. Triplett. The patient does not report increased drainage or pain associated with the chronic right 1st toe diabetic ulcer since his last visit. He's wearing his new diabetic shoes as recommended as well. 01/22/18. Seen by Dr. Triplett. The patient does not report increased drainage or pain associated with the chronic right 1st toe diabetic ulcer since his last visit. Of note, the patient also states he's having some hypoglycemic episodes with blood sugars in the 50's since starting a ketogenic diet about one week ago. He's not discussed this diet with his PCP and is on Humalog and Lantus in addition to metformin. 01/15/18. Seen by Dr. Triplett. The patient does not report increased drainage or pain associated with the chronic right 1st toe diabetic ulcer since his last visit and he feel the redness and swelling have improved since starting on doxycycline for cellulitis of the toe. He's also wearing his offloading shoe as recommended. 01/08/18. Seen by Dr. Triplett. The patient's new to our clinic and presents with a chronic right 1st toe diabetic ulcer he states started as a callus and the started to deteriorate about one month ago. The ulcer subsequently started to drain and the toe swelled and turned red. He initially took a dose of levofloxacin he states he had 'left over' at home then was placed on ciprofloxacin but reports significant myalgias and has now been started on doxycycline but he's not yet taken his first dose. His wound culture grew E. coli sensitive to tetracycline and his A1c a month ago was 7.1. He does not report pain in the toe nor fevers at this time. Past Medical History This information was obtained from the patient Patient has a medical history of: Type II Diabetes Hypertension Neuropathy Atrial fibrillation Complaints and Symptoms This information was obtained from the patient Patient complains of: General Notes: I have reviewed and concur with the Review of Systems and Past Family Social History documents completed by the clinician, I have reviewed and concur with the Wound Assessment document completed by the clinician Cardiovascular (Central/Peripheral): Lower extremity (leg) swelling Hematologic/Lymphatic: Bleeding Tendency Integumentary (Hair/Skin/Nails): Open Sore Neurological: Loss of Protective Sensation Prior Wound History: Drainage, Erythema Patient denies complaints or symptoms related to: Cardiovascular (Central/Peripheral): Intermittent Claudication, Lower extremity (leg) resting pain Constitutional Symptoms (General Health): Chills, Fever Ear/Nose/Mouth/Throat: Hearing Loss / Aid Hematologic/Lymphatic: Bleeding / Clotting Disorders Musculoskeletal: Assistive Devices Psychiatric: Memory Loss Respiratory: Shortness of Breath OBJECTIVE Constitutional BP elevated; Afebrile; Alert and in no distress. Well developed. Alert. Clean appearing.. Height/Length: 74 in (187.96 cm), Weight: 370.5 lbs (168.41 kgs), BMI: 47.6, Temperature: 98.9 ?F (37.17 ?C), Pulse: 72 bpm, Respiratory Rate: 20 breaths/min, Blood Pressure: 141/78 mmHg, Capillary Blood Glucose: 99 mg/dl, Pulse Oximetry: 97 %. Vital Signs Notes: Glucose per patient. Respiratory: No respiratory distress. Even respirations and without use of accessory muscles.. Cardiovascular: 2+ right lower extremity edema. Gastrointestinal (GI): Obese. Nondistended.. 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 Integumentary (Hair, Skin) No periwound erythema, warmth, or significant drainage. No periwound rashes appreciated or noted otherwise.. Refer to appropriate clinician wound documentation for this visit; right foot ulcer extends to subcut with base partially covered with pink granulation, remainder fibrin and slough. Moderate amount of callus in the periulcer area. Wound #1 Right Great Toe is a chronic Godinez Grade 1 Diabetic Ulcer and has received a status of Not Healed. Subsequent wound encounter measurements are 0.8cm length x 0.4cm width x 0.4cm depth, with an area of 0.32 sq cm and a volume of 0.128 cubic cm. No tunneling has been noted. No sinus tract has been noted. No undermining has been noted. There is a moderate amount of serosanguineous drainage noted which has no odor. The patient reports a wound pain of level 0/10. The wound margin is unattached. Wound bed has Yes epithelialization, No eschar, No slough, Yes bright red, pink, firm granulation. The periwound skin exhibited: Edema, Callus, Moist, Maceration, Erythema, Hemosiderosis. The periwound skin did not exhibit: Brawny Induration, Excoriation, Induration, Crepitus, Fluctuance, Friable, Rash, Dry/Scaly, Atrophie Karine, Cyanosis, Ecchymosis, Pallor, Rubor. The temperature of the periwound skin is Warm. Periwound skin does not exhibit signs or symptoms of infection. Local Pulse is Palpable. ASSESSMENT Active Problems ICD-10 (Encounter Diagnosis) E11.621 - Type 2 diabetes mellitus with foot ulcer (Encounter Diagnosis) L97.512 - Non-pressure chronic ulcer of other part of right foot with fat layer exposed PROCEDURES Wound #1 Wound #1 (Diabetic Ulcer) is located on the right great toe. A skin/ subcutaneous tissue level surgical debridement with a total area debrided of 0.4 sq cm was performed by Mohan Triplett MD. Subcutaneous was removed along with devitalized tissue: callus, exudate , and slough. The following instrument(s) were used: curette. Pain control was achieved using 4% Lido. A time out was conducted prior to the start of the procedure. A moderate amount of bleeding was controlled with silver nitrate. The procedure was tolerated well with a pain level of 0 throughout and a pain level of 0 following the procedure. Post Debridement Measurements: 0.8cm length x 0.5cm width x 0.4cm depth; with an area of 0.4 sq cm and a volume of 0.16 cubic cm; Additional Information Muscle fascia or bone removed and sent to pathology?: No PLAN Wound Orders: Wound #1 Right Great Toe Anesthetic Topical Xylocaine to wound bed. - In clinic only. Cleanser Cleanse Wound: - Normal saline and gauze, may use distilled water. May Shower. - Continue using cast protector. Topical Treatments Antibiotic/Antimicrobial Ointment/Cream. - Iodosorb. Dressings Cover and secure with: - Foam cut, secured with tape. Change Dressing: - Daily. Additional Orders: Off-Loading Keep weight off: - Right great toe as much as possible. Use/Wear when Walking: - Off-loading shoe. You may use a cane, or walker to assist with offloading. You may also look for a knee scooter, local [employer] often offer free rentals to [facility] residents. Compression/Edema Control Single Layer Compression Hose - Continue wearing personal compression stockings. Follow-Up Appointments Return Appointment: - - One week. Other information: If you develop fever, chills, increased pain, drainage, redness or swelling please call our office. If after hours, respond to the ER. Should you experience any significant changes in your wound(s) or have any questions regarding your home care instructions please contact the wound center @ [phone]. If after hours, contact your primary care physician or go to the hospital emergency room. Scribing Attestation I attest, as the nurse, that I scribed these orders for the physician. I've reviewed the clinician's documentation and agree with the evaluation and plan as written. In addition, the patient's ulcer demonstrates evidence of non-viable devitalized tissue which will continue to benefit from sharp debridement to help promote granulation and expedite healing. Electronic Signature(s) Signed By: Date: Mohan Triplett MD 04/06/2018 13:28:46 Entered By: Mohan Triplett on 04/06/2018 07:41:34
== END ==
PROVIDERS: Family Provider Specialist; PCP Physician Assistant Medical; Visit Provider Internal Medicine
DX: E11.621 Type 2 diabetes mellitus with foot ulcer (principal); L97.512 Non-pressure chronic ulcer of other part of right foot with fat layer exposed
CPT/HCPCS: 11042

== ENCOUNTER → 2018-04-07 15:01 | Outpatient (CLI) | payer OTHER, SELFPAY ==
--- NOTE | 2018-04-07 | OV.WND_ITS ---
Progress Note Details Patient Name: Paco Cerda Patient Number: [id number] PatientPatientDate: 04/07/2018 Clinician: Alexandra Millan Clinician Cosigner: Moira Morales Physician / Steamtable Attendant Railroad: Mohan Triplett SUBJECTIVE Chief Complaint This information was obtained from the patient Diabetic ulcer on right great toe. Allergies atenolol (Severity: Severe), carvedilol (Severity: Severe), amiodarone (Severity : Severe), clonidine (Severity: Severe), gabapentin (Severity: Severe), lisinopril ( Severity: Severe, Reaction: at higher dose- pt takes lower dose), penicillin (Severity: Severe), diltiazem (Severity: Severe), cephalexin (Severity: Severe), ciprofloxacin (Reaction: vision/breathing probles) HPI This information was obtained from the patient 04/07/18. Seen by Dr. Triplett. The patient reports increased redness and drainage associated with the chronic right 1st toe diabetic ulcer over the past 3 days and he admits to being more active by helping his son move items from storage into his house over the weekend. 04/03/18. Seen by Dr. Triplett. The patient does not report increased drainage or pain associated with the chronic right 1st toe diabetic ulcer since his last visit. 03/26/18. Seen by Dr. Triplett. The patient does not report increased drainage or pain associated with the chronic right 1st toe diabetic ulcer since his last visit and he's wearing his offloading shoe as recommended as much as possible. 03/18/18. Seen by Dr. Triplett. The patient does not report increased drainage or pain associated with the chronic right 1st toe diabetic ulcer since his last visit. 03/12/18. Seen by Dr. Triplett. The patient does not report increased drainage or pain associated with the chronic right 1st toe diabetic ulcer since his last visit. 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 03/05/18. Seen by Dr. Triplett. The patient does not report increased drainage or pain associated with the chronic right 1st toe diabetic ulcer since his last visit. 02/25/18. Seen by Dr. Triplett. The patient does not report increased drainage or pain associated with the chronic right 1st toe diabetic ulcer since his last visit and he continues on Bactrim for the recent MRSA positive culture of the toe ulcer. 02/19/18. Seen by Dr. Triplett. The patient reports significant GI upset while taking doxycycline which was started for his recent right 1st diabetic ulcer infection which grew resistant MRSA and Step on culture last week. He's been changed to Bactrim without reporting adverse effects nor increased drainage or pain in the toe. He admits to being quite active over the past week while attending his 40th anniversary [employer] and feels this may have negatively impacted his toe ulcer. He's wearing his diabetic shoes however is not offloading the left foot otherwise. 02/11/18. Seen by Dr. Triplett. The patient does not report increased drainage or pain associated with the chronic right 1st toe diabetic ulcer since his last visit. 02/05/18. Seen by Dr. Triplett. The patient does not report increased drainage or pain associated with the chronic right 1st toe diabetic ulcer since his last visit. He does report a new ulcer over the right distal 2nd toe that he feels may have occurred this weekend while walking around [employer] and he states the prosthetic toe separator he uses between the 1st and 2nd toe may have moved while walking. 01/29/18. Seen by Dr. Triplett. The patient does not report increased drainage or pain associated with the chronic right 1st toe diabetic ulcer since his last visit. He's wearing his new diabetic shoes as recommended as well. 01/22/18. Seen by Dr. Triplett. The patient does not report increased drainage or pain associated with the chronic right 1st toe diabetic ulcer since his last visit. Of note, the patient also states he's having some hypoglycemic episodes with blood sugars in the 50's since starting a ketogenic diet about one week ago. He's not discussed this diet with his PCP and is on Humalog and Lantus in addition to metformin. 01/15/18. Seen by Dr. Triplett. The patient does not report increased drainage or pain associated with the chronic right 1st toe diabetic ulcer since his last visit and he feel the redness and swelling have improved since starting on doxycycline for cellulitis of the toe. He's also wearing his offloading shoe as recommended. 01/08/18. Seen by Dr. Triplett. The patient's new to our clinic and presents with a chronic right 1st toe diabetic ulcer he states started as a callus and the started to deteriorate about one month ago. The ulcer subsequently started to drain and the toe swelled and turned red. He initially took a dose of levofloxacin he states he had 'left over' at home then was placed on ciprofloxacin but reports significant myalgias and has now been started on doxycycline but he's not yet taken his first dose. His wound culture grew E. coli sensitive to tetracycline and his A1c a month ago was 7.1. He does not report pain in the toe nor fevers at this time. Past Medical History This information was obtained from the patient Patient has a medical history of: Type II Diabetes Hypertension Neuropathy Atrial fibrillation Complaints and Symptoms This information was obtained from the patient Patient complains of: General Notes: I have reviewed and concur with the Review of Systems and Past Family Social History documents completed by the clinician, I have reviewed and concur with the Wound Assessment document completed by the clinician Cardiovascular (Central/Peripheral): Lower extremity (leg) swelling Hematologic/Lymphatic: Bleeding Tendency Integumentary (Hair/Skin/Nails): Open Sore Neurological: Loss of Protective Sensation Prior Wound History: Drainage, Erythema Patient denies complaints or symptoms related to: Cardiovascular (Central/Peripheral): Intermittent Claudication, Lower extremity (leg) resting pain Constitutional Symptoms (General Health): Chills, Fever Ear/Nose/Mouth/Throat: Hearing Loss / Aid Hematologic/Lymphatic: Bleeding / Clotting Disorders Musculoskeletal: Assistive Devices Psychiatric: Memory Loss Respiratory: Shortness of Breath OBJECTIVE Constitutional BP elevated; Afebrile; Alert and in no distress. Well developed. Alert. Clean appearing.. Height/Length: 74 in (187.96 cm), Weight: 371.6 lbs (168.91 kgs), BMI: 47.7, Temperature: 98.1 ?F (36.72 ?C), Pulse: 70 bpm, Respiratory Rate: 20 breaths/min, Blood Pressure: 138/78 mmHg, Capillary Blood Glucose: 109 mg/dl, Pulse Oximetry: 96 %. Vital Signs Notes: Glucose per patient. Respiratory: No respiratory distress. Even respirations and without use of accessory muscles.. Cardiovascular: 2+ right lower extremity edema. Gastrointestinal (GI): Obese. Nondistended.. 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 Integumentary (Hair, Skin) Mild periwound erythema with warmth. Refer to appropriate clinician wound documentation for this visit; right st toe ulcer extends to subcut with base partially covered with pink granulation, remainder fibrin and slough. Wound #1 Right Great Toe is a chronic Godinez Grade 1 Diabetic Ulcer and has received a status of Not Healed. Subsequent wound encounter measurements are 0.8cm length x 1.1cm width x 0.3cm depth, with an area of 0.88 sq cm and a volume of 0.264 cubic cm. No tunneling has been noted. No sinus tract has been noted. No undermining has been noted. There is a moderate amount of serosanguineous drainage noted which has no odor. The patient reports a wound pain of level 0/10. The wound margin is unattached. Wound bed has Yes epithelialization, No eschar, No slough, Yes bright red, pink, firm granulation. The periwound skin exhibited: Edema, Callus, Moist, Maceration, Erythema, Hemosiderosis. The periwound skin did not exhibit: Brawny Induration, Excoriation, Induration, Crepitus, Fluctuance, Friable, Rash, Dry/Scaly, Atrophie Kar[place], Cyanosis, Ecchymosis, Pallor, Rubor. The temperature of the periwound skin is Warm. Periwound skin presents with s/s of infection. Confirmation Description and Treatment Plan is: Signs and Symptoms Present. Local Pulse is Palpable. Neurological: Cranial nerves grossly intact with symmetric function normal by informal observation.. ASSESSMENT Active Problems ICD-10 (Encounter Diagnosis) E11.621 - Type 2 diabetes mellitus with foot ulcer (Encounter Diagnosis) L97.512 - Non-pressure chronic ulcer of other part of right foot with fat layer exposed (Encounter Diagnosis) L03.116 - Cellulitis of left lower limb PROCEDURES Wound #1 Wound #1 (Diabetic Ulcer) is located on the right great toe. A skin/ subcutaneous tissue level surgical debridement with a total area debrided of 0.96 sq cm was performed by Mohan Triplett MD. Subcutaneous was removed along with devitalized tissue: callus and exudate. The following instrument(s) were used: curette. Pain control was achieved using 4% Lido. A time out was conducted prior to the start of the procedure. A moderate amount of bleeding was controlled with silver nitrate. The procedure was tolerated well with a pain level of 0 throughout and a pain level of 0 following the procedure. Post Debridement Measurements: 0.8cm length x 1.2cm width x 0.4cm depth; with an area of 0.96 sq cm and a volume of 0.384 cubic cm; Additional Information Muscle fascia or bone removed and sent to pathology?: No PLAN Wound Orders: Wound #1 Right Great Toe Anesthetic Topical Xylocaine to wound bed. - In clinic only. Cleanser Cleanse Wound: - Normal saline and gauze, may use distilled water. May Shower. - Continue using cast protector. Topical Treatments Antibiotic/Antimicrobial Ointment/Cream. - Iodosorb. Dressings Cover and secure with: - Foam cut, secured with tape. Change Dressing: - Daily. Additional Orders: Off-Loading Keep weight off: - Right great toe as much as possible. Use/Wear when Walking: - Off-loading shoe. You may use a cane, or walker to assist with offloading. You may also look for a knee scooter, local [employer] stores often offer free rentals to [facility] residents. Compression/Edema Control Single Layer Compression Hose - Continue wearing personal compression stockings. Follow-Up Appointments Return Appointment: - - Keep scheduled appointment on 04/17/18. Other information: If you develop fever, chills, increased pain, drainage, redness or swelling please call our office. If after hours, respond to the ER. Should you experience any significant changes in your wound(s) or have any questions regarding your home care instructions please contact the wound center @ [phone]. If after hours, contact your primary care physician or go to the hospital emergency room. Scribing Attestation I attest, as the nurse, that I scribed these orders for the physician. Laboratory: Culture Wound General Notes: Please curing pickling packer prescription for Bactrim DS and start today. Will call you with culture results if any changes in antibiotics are required. I've reviewed the clinician's documentation and agree with the evaluation and plan as written. In addition, the patient's ulcer demonstrates evidence of non-viable devitalized tissue which will continue to benefit from sharp debridement to help promote granulation and expedite healing. Also, I've started the patient on Bactrim for cellulitis of the right 1st to and will adjust antibiotics based on the culture results. Electronic Signature(s) Signed By: Date: Mohan Triplett MD 04/08/2018 06:45:54 Entered By: Mohan Triplett on 04/07/2018 19:53:10
== END ==
PROVIDERS: Family Provider Specialist; PCP Physician Assistant Medical; Visit Provider Internal Medicine
DX: E11.621 Type 2 diabetes mellitus with foot ulcer (principal); L97.512 Non-pressure chronic ulcer of other part of right foot with fat layer exposed; L03.116 Cellulitis of left lower limb
CPT/HCPCS: 11042; 87070; 87075; 87077; 87147; 87186; 87205

== ENCOUNTER → 2018-04-24 09:57 | Outpatient (CLI) | payer OTHER, SELFPAY ==
--- NOTE | 2018-04-24 | OV.WND_ITS ---
Progress Note Details Patient Name: Paco Cerda Patient Number: [id number] PatientPatientDate: 04/24/2018 Physician / Loop Sewer: Mohan Triplett SUBJECTIVE Chief Complaint This information was obtained from the patient Diabetic ulcer on right great toe. Allergies atenolol (Severity: Severe), carvedilol (Severity: Severe), amiodarone (Severity : Severe), clonidine (Severity: Severe), gabapentin (Severity: Severe), lisinopril ( Severity: Severe, Reaction: at higher dose- pt takes lower dose), penicillin (Severity: Severe), diltiazem (Severity: Severe), cephalexin (Severity: Severe), ciprofloxacin (Reaction: vision/breathing probles) HPI This information was obtained from the patient 04/24/18. Seen by Dr. Triplett. The patient does not report increased drainage or pain associated with the chronic right 1st toe diabetic ulcer since his last visit. 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 04/07/18. Seen by Dr. Triplett. The patient reports increased redness and drainage associated with the chronic right 1st toe diabetic ulcer over the past 3 days and he admits to being more active by helping his son move items from storage into his house over the weekend. 04/03/18. Seen by Dr. Triplett. The patient does not report increased drainage or pain associated with the chronic right 1st toe diabetic ulcer since his last visit. 03/26/18. Seen by Dr. Triplett. The patient does not report increased drainage or pain associated with the chronic right 1st toe diabetic ulcer since his last visit and he's wearing his offloading shoe as recommended as much as possible. 03/18/18. Seen by Dr. Triplett. The patient does not report increased drainage or pain associated with the chronic right 1st toe diabetic ulcer since his last visit. 03/12/18. Seen by Dr. Triplett. The patient does not report increased drainage or pain associated with the chronic right 1st toe diabetic ulcer since his last visit. 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 03/05/18. Seen by Dr. Triplett. The patient does not report increased drainage or pain associated with the chronic right 1st toe diabetic ulcer since his last visit. 02/25/18. Seen by Dr. Triplett. The patient does not report increased drainage or pain associated with the chronic right 1st toe diabetic ulcer since his last visit and he continues on Bactrim for the recent MRSA positive culture of the toe ulcer. 02/19/18. Seen by Dr. Triplett. The patient reports significant GI upset while taking doxycycline which was started for his recent right 1st diabetic ulcer infection which grew resistant MRSA and Step on culture last week. He's been changed to Bactrim without reporting adverse effects nor increased drainage or pain in the toe. He admits to being quite active over the past week while attending his 40th anniversary republic[employer] and feels this may have negatively impacted his toe ulcer. He's wearing his diabetic shoes however is not offloading the left foot otherwise. 02/11/18. Seen by Dr. Triplett. The patient does not report increased drainage or pain associated with the chronic right 1st toe diabetic ulcer since his last visit. 02/05/18. Seen by Dr. Triplett. The patient does not report increased drainage or pain associated with the chronic right 1st toe diabetic ulcer since his last visit. He does report a new ulcer over the right distal 2nd toe that he feels may have occurred this weekend while walking around [employer] and he states the prosthetic toe separator he uses between the 1st and 2nd toe may have moved while walking. 01/29/18. Seen by Dr. Triplett. The patient does not report increased drainage or pain associated with the chronic right 1st toe diabetic ulcer since his last visit. He's wearing his new diabetic shoes as recommended as well. 01/22/18. Seen by Dr. Triplett. The patient does not report increased drainage or pain associated with the chronic right 1st toe diabetic ulcer since his last visit. Of note, the patient also states he's having some hypoglycemic episodes with blood sugars in the 50's since starting a ketogenic diet about one week ago. He's not discussed this diet with his PCP and is on Humalog and Lantus in addition to metformin. 01/15/18. Seen by Dr. Triplett. The patient does not report increased drainage or pain associated with the chronic right 1st toe diabetic ulcer since his last visit and he feel the redness and swelling have improved since starting on doxycycline for cellulitis of the toe. He's also wearing his offloading shoe as recommended. 01/08/18. Seen by Dr. Triplett. The patient's new to our clinic and presents with a chronic right 1st toe diabetic ulcer he states started as a callus and the started to deteriorate about one month ago. The ulcer subsequently started to drain and the toe swelled and turned red. He initially took a dose of levofloxacin he states he had 'left over' at home then was placed on ciprofloxacin but reports significant myalgias and has now been started on doxycycline but he's not yet taken his first dose. His wound culture grew E. coli sensitive to tetracycline and his A1c a month ago was 7.1. He does not report pain in the toe nor fevers at this time. Past Medical History This information was obtained from the patient Patient has a medical history of: Type II Diabetes Hypertension Neuropathy Atrial fibrillation Complaints and Symptoms This information was obtained from the patient Patient complains of: General Notes: I have reviewed and concur with the Review of Systems and Past Family Social History documents completed by the clinician, I have reviewed and concur with the Wound Assessment document completed by the clinician Cardiovascular (Central/Peripheral): Lower extremity (leg) swelling Hematologic/Lymphatic: Bleeding Tendency Integumentary (Hair/Skin/Nails): Open Sore Neurological: Loss of Protective Sensation Prior Wound History: Drainage, Erythema Patient denies complaints or symptoms related to: Cardiovascular (Central/Peripheral): Intermittent Claudication, Lower extremity (leg) resting pain Constitutional Symptoms (General Health): Chills, Fever Ear/Nose/Mouth/Throat: Hearing Loss / Aid Hematologic/Lymphatic: Bleeding / Clotting Disorders Musculoskeletal: Assistive Devices Psychiatric: Memory Loss Respiratory: Shortness of Breath OBJECTIVE Constitutional BP elevated; Afebrile; Alert and in no distress. Well developed. Alert. Clean appearing.. Height/Length: 74 in (187.96 cm), Weight: 371.6 lbs (168.91 kgs), BMI: 47.7, Temperature: 98.4 ?F (36.89 ?C), Pulse: 70 bpm, Respiratory Rate: 18 breaths/min, Blood Pressure: 153/87 mmHg, Capillary Blood Glucose: 201 mg/dl, Pulse Oximetry: 98 %. Vital Signs Notes: 04/24/18 pt CBG 201 at noon after eating lunch Respiratory: No respiratory distress. Even respirations and without use of accessory muscles.. Cardiovascular: 2+ right lower extremity edema. Gastrointestinal (GI): Obese. Nondistended.. 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 Integumentary (Hair, Skin) No periwound erythema, warmth, or significant drainage. No periwound rashes appreciated or noted otherwise.. Refer to appropriate clinician wound documentation for this visit; right foot ulcer extends to subcut with base partially covered with pink granulation, remainder fibrin and slough. Significant amount of callus in the periulcer area. Wound #1 Right Great Toe is a chronic Godinez Grade 1 Diabetic Ulcer and has received a status of Not Healed. Subsequent wound encounter measurements are 0.9cm length x 0.5cm width x 0.4cm depth, with an area of 0.45 sq cm and a volume of 0.18 cubic cm. No tunneling has been noted. No sinus tract has been noted. No undermining has been noted. There is a moderate amount of serosanguineous drainage noted which has no odor. The patient reports a wound pain of level 0/10. The wound margin is unattached. Wound bed has Yes epithelialization, No eschar, No slough, Yes bright red, pink, firm granulation. The periwound skin exhibited: Edema, Callus, Moist, Maceration, Erythema, Hemosiderosis. The periwound skin did not exhibit: Brawny Induration, Excoriation, Induration, Crepitus, Fluctuance, Friable, Rash, Dry/Scaly, Atrophie [place], Cyanosis, Ecchymosis, Pallor, Rubor. The temperature of the periwound skin is Warm. Periwound skin presents with s/s of infection. Confirmation Description and Treatment Plan is: Signs and Symptoms Present. Local Pulse is Palpable. Neurological: Cranial nerves grossly intact with symmetric function normal by informal observation.. ASSESSMENT Active Problems ICD-10 (Encounter Diagnosis) E11.621 - Type 2 diabetes mellitus with foot ulcer (Encounter Diagnosis) L97.512 - Non-pressure chronic ulcer of other part of right foot with fat layer exposed (Encounter Diagnosis) M20.61 - Acquired deformities of toe(s), unspecified, right foot PROCEDURES Wound #1 Wound #1 (Diabetic Ulcer) is located on the right great toe. A skin/ subcutaneous tissue level surgical debridement with a total area debrided of 0.45 sq cm was performed by Mohan Triplett MD. Subcutaneous was removed along with devitalized tissue: callus and slough. The following instrument(s) were used: curette. Pain control was achieved using 4% Lido. A time out was conducted prior to the start of the procedure. A moderate amount of bleeding was controlled with silver nitrate. The procedure was tolerated well with a pain level of 0 throughout and a pain level of 0 following the procedure. Post Debridement Measurements: 0.9cm length x 0.5cm width x 0.5cm depth; with an area of 0.45 sq cm and a volume of 0.225 cubic cm; General Notes: Dr. Triplett started the conversation about a Jose Ramirez. Forgot to take a post photo- (Sandhya 04/24) Additional Information Muscle fascia or bone removed and sent to pathology?: No PLAN Wound Orders: Wound #1 Right Great Toe Anesthetic Topical Xylocaine to wound bed. - In clinic only. Cleanser Cleanse Wound: - Normal saline and gauze, may use distilled water. May Shower. - Continue using cast protector. Topical Treatments Antibiotic/Antimicrobial Ointment/Cream. - Iodosorb. Dressings Cover and secure with: - Foam cut, secured with tape. Change Dressing: - Daily. Compression/Edema Control Avoid prolonged standing in one place. Single Layer Compression Hose - Continue wearing personal compression stockings. Additional Orders: Off-Loading Keep weight off: - Right great toe as much as possible. Use/Wear when Walking: - Dr. Triplett referred/ordered Jose Ramirez pt to follow up with [facility] Off-loading shoe. You may use a cane, or walker to assist with offloading. You may also look for a knee scooter, local [employer] often offer free rentals to [facility] residents. Follow-Up Appointments Return Appointment: - - 1 week Other information: If you develop fever, chills, increased pain, drainage, redness or swelling please call our office. If after hours, respond to the ER. Should you experience any significant changes in your wound(s) or have any questions regarding your home care instructions please contact the wound center @ [phone]. If after hours, contact your primary care physician or go to the hospital emergency room. Scribing Attestation I attest, as the nurse, that I scribed these orders for the physician. I've reviewed the clinician's documentation and agree with the evaluation and plan as written. In addition, the patient's ulcer demonstrates evidence of non-viable devitalized tissue which will continue to benefit from sharp debridement to help promote granulation and expedite healing. Also, I've referred the patient to [facility] to discuss using a [place] boot to better facilitate offloading. Electronic Signature(s) Signed By: Date: Mohan Triplett MD 04/27/2018 06:58:18 Entered By: Mohan Triplett on 04/27/2018 06:56:59
== END ==
PROVIDERS: Family Provider Specialist; PCP Physician Assistant Medical; Visit Provider Family Medicine
DX: E11.621 Type 2 diabetes mellitus with foot ulcer (principal); E11.40 Type 2 diabetes mellitus with diabetic neuropathy, unspecified; L97.512 Non-pressure chronic ulcer of other part of right foot with fat layer exposed; M20.61 Acquired deformities of toe(s), unspecified, right foot
CPT/HCPCS: 11042; 99213

== ENCOUNTER → 2019-01-07 16:39 | Outpatient (ROUT) | payer OTHER, SELFPAY | PROVIDERS: Family Provider Specialist; PCP Physician Assistant Medical; Visit Provider Internal Medicine | DX: L08.9 Local infection of the skin and subcutaneous tissue, unspecified (principal) | CPT/HCPCS: 87070; 87075; 87077; 87147; 87205 ==

== ENCOUNTER → 2019-02-03 18:19 | Outpatient (ROUT) | payer OTHER, SELFPAY | PROVIDERS: Family Provider Specialist; PCP Physician Assistant Medical; Visit Provider Internal Medicine | DX: L08.9 Local infection of the skin and subcutaneous tissue, unspecified (principal) | CPT/HCPCS: 87070; 87075; 87077; 87147; 87205 ==

== ENCOUNTER → 2019-04-22 18:40 | Outpatient (ROUT) | payer OTHER, SELFPAY | PROVIDERS: Family Provider Specialist; PCP Physician Assistant Medical; Visit Provider Internal Medicine | DX: L03.116 Cellulitis of left lower limb (principal) | CPT/HCPCS: 87070; 87075; 87077; 87147; 87186; 87205 ==

== ENCOUNTER 2021-05-15 13:22 | Emergency (ER) | payer BC, SELFPAY ==
[2021-05-15] VITALS (7 sets, daily range): BP systolic 134–176; BP diastolic 60–84; PULSE 70–83; RESP 17; TEMP 36.9; O2SAT 97–100; BMI 48.7
[2021-05-15 14:26] LABS: Add Manual Diff / Slide Review NO; Basophils Absolute Auto 0 /uL (0-100); Basophils Percent Auto 0.3 % (0-2); Eosinophils Absolute Auto 0 /uL (0-450); Eosinophils Percent Auto 0.6 % (2-4); Hematocrit 42.2 % (41-53); Lymphocytes Absolute Auto 1300 /uL (1100-4500); Lymphocytes Percent Auto 16.1 % (25-40); Mean Corpuscular HGB Conc 33.1 % (30-36); Mean Corpuscular Hemoglobin 28.8 PG (26-34); Mean Corpuscular Volume 86.8 fL (80-100); Monocytes Absolute Auto 700 /uL (0-900); Monocytes Percent Auto 8.5 % (3-14); Neutrophils Absolute Auto 6000 /uL (1500-7000); Neutrophils Percent Auto 74.5 % (50-75); Platelet Count 241 X10^3/uL (150-400); Red Blood Cell Count 4.86 X10^6/uL (4.5-5.9); Red Cell Distribution Width 14.2 % (11.6-14.8); White Blood Cell Count 8.1 X10^3/uL (4.5-11.0)
[2021-05-15 14:31] LABS: Alanine Aminotransferase 47 IU/L (<50); Albumin Globulin Ratio 1.2 (1.0-2.8); Alkaline Phosphatase 47 U/L (38-126); Aspartate Aminotransferase 36 IU/L (17-59); BUN Creatinine Ratio 17.8 (6-22); Bilirubin Total 1.2 mg/dL (0.2-1.3); Blood Urea Nitrogen 13 mg/dL (9-20); Calcium 8.6 mg/dL (8.4-10.2); Carbon Dioxide 29 mmol/L (22-32); Chloride 96 mmol/L (98-107); Estimated Glomerular Filt Rate > 60.0 mL/min (>60); Globulin 3.3 g/dL (1.7-4.1); Glucose 248 mg/dL (80-110); HEMOLYSIS < 15 (0-50); Lactate (Lactic Acid) 2.3 mmol/L (0.7-2.1); Potassium 4.3 mmol/L (3.4-5.1); Sodium 131 mmol/L (137-145); Total Protein 7.3 g/dL (6.3-8.2)
[2021-05-15 14:47] LABS: Procalcitonin 0.05 ng/mL (<0.5)
--- NOTE | 2021-05-15 15:45 | ED_ITS ---
HPI - Wound/Laceration General Chief Complaint: Wound/Laceration Stated Complaint: Lt leg is swollen x2 days Time Seen by Provider: 05/15/21 15:32 Source: patient Mode of arrival: Ambulatory History of Present Illness HPI narrative: Patient is a 65-year-old male. Multiple medical problems to include insulin- dependent diabetes. He does have neuropathy. He is here for evaluation of a swollen left leg for the past couple days. He states that it has worsened over the past 24 hours. No fevers. No shortness of breath. Contacted his p odiatrist to past him to come to the emergency department for evaluation. He states he is not having much discomfort although he does admit that he has neuropathy. A couple days ago he thought that he had sciatic pain in his left lower extremity but ice and anti-inflammatories have not improved his symptoms. No specific trauma. Related Data Home Medications Medication Instructions Recorded Confirmed beclomethasone diprop (AQ) 42 mcg 1 spray INTRANASAL PRN PRN #0 01/14/17 (0.042 %) nasal spray (Beconase AQ) dabigatran etexilate 150 mg 150 mg PO BID #0 01/14/17 capsule (Pradaxa) gabapentin 600 mg tablet 0.5 tab PO HS #0 01/14/17 (Neurontin) insulin glargine 100 unit/mL 40 - 50 unit SQ BID #0 01/14/17 subcutaneous solution (Lantus U-100 Insulin) insulin lispro 100 unit/mL 20 - 40 unit SQ SLIDE #0 01/14/17 subcutaneous solution (Humalog U-100 Insulin) lisinopril 20 mg tablet 10 mg PO BID #0 01/14/17 metformin 1,000 mg tablet 1,000 mg PO BIDCC #0 01/14/17 metformin 500 mg tablet,extended 1,000 mg PO BID #0 01/14/17 release 24 hr (Glucophage XR) morphine 15 mg immediate release 15 mg PO BID #0 01/14/17 tablet oxycodone-acetaminophen 10 mg-325 1 tab PO QID #0 01/14/17 mg tablet (Endocet) salmeterol 50 mcg/dose blister 1 puff INH BID #0 01/14/17 powder for inhalation (Serevent Diskus) testosterone 1.62 % (20.25 mg/1.25 1.25 gm TD QDAY #0 01/14/17 gram) transdermal gel packet (AndroGel) torsemide 20 mg tablet 0.5 tab PO PRN PRN #0 01/14/17 Previous Rx's Medication Instructions Recorded sulfamethoxazole 800 1 tab PO BID 7 Days #14 tab 05/15/21 mg-trimethoprim 160 mg tablet (Bactrim DS) Allergies Allergy/AdvReac Type Severity Reaction Status Date / Time cephalexin [CEPHALEXIN] Allergy Severe BREATHING Verified 05/15/21 15:55 PROBLEMS, TIGHTNESS diltiazem [DILTIAZEM] Allergy Severe SWELLING, Verified 05/15/21 15:55 RASH Influenza Virus Vaccines Allergy Unknown UNKNOWN Verified 05/15/21 15:56 [INFLUENZA VIRUS VACCINES] REACTION PER PT, BUT IT WAS SERIOUS amiodarone [AMIODARONE] AdvReac Severe FATIGUE, Verified 05/15/21 15:55 PHOTOSENSITIVITY, MACULAR DEGENERATION clonidine [CLONIDINE] AdvReac Severe MY FEET Verified 05/15/21 15:55 TURNED TO JELLY, WEEPING lisinopril [LISINOPRIL] AdvReac Severe CRAMPING Verified 05/15/21 15:55 doxycycline AdvReac Mild Diarrhea Verified 05/15/21 15:55 gabapentin [GABAPENTIN] AdvReac Mild JERKING/LEG/BODY Verified 05/15/21 15:55 AT NIGHT verapamil AdvReac Unknown Verified 05/15/21 15:55 Review of Systems Constitutional Constitutional: Denies fever(s) Cardiovascular Cardiovascular: Reports system reviewed and no additional complaints, except as documented Respiratory Respiratory: Reports system reviewed and no additional complaints, except as documented Gastrointestinal Gastrointestinal: Reports system reviewed and no additional complaints, except as documented Musculoskeletal Musculoskeletal: Reports system reviewed and no additional complaints, except as documented and Reports as per HPI Integumentary/Breasts Skin/Breast: Reports system reviewed and no additional complaints, except as documented and Reports as per HPI Neurologic Neurologic: Reports system reviewed and no additional complaints, except as documented and Reports as per HPI Hematologic/Lymphatic On Anticoagulants: Yes Patient History Medical History Diabetes Neuropathy Social History Smoking Status: Never smoker Smoking Status: Never smoker alcohol intake frequency: other Substance Use Type: does not use Exam Initial Vital Signs Initial Vital Signs: Vital Signs Temperature 98.4 F 05/15/21 13:48 Pulse Rate 70 05/15/21 13:48 Respiratory Rate 17 05/15/21 13:48 Blood Pressure 176/84 H 05/15/21 13:48 Pulse Oximetry 97 05/15/21 13:48 Const General: cooperative and No ill appearing [facility] Head: normal to inspection and normocephalic Eyes General: appearance normal, both eyes and all related structures Resp Effort & Inspection: normal respiratory effort Auscultation: clear to auscultation bilaterally Cardio Rate: regular rate Rhythm: regular rhythm GI Inspection: normal to inspection Skin Other: Patient does calluses on his feet to include his right big toe and right 2nd toe. There is also calluses on his left foot. He does have a dime size ulceration in between his little toe and 4th toe on the left foot. No active bleeding. Patient does have some redness around his lower extremities which could potentially be cellulitis verses venous stasis changes. Neuro General: patient alert, patient awake, patient oriented x3 and moves all extremities Other: Decreased sensation to light touch bilateral lower extremities to include his feet Extrem Other: Bilateral lower extremity swelling. No pitting edema. Extends from his upper thighs to his toes. Psych Appearance: grossly normal Scores G[facility] [place] coma scale eye opening: Spontaneous [place] coma scale verbal response: Orientated [place] coma scale motor response: Obey commands [place] coma scale total score: 15 Course Orders Ordered: ED Orders 05/15/21 14:00 CBC Auto Diff [Complete Blood Count AUTO DIFF] Stat CMP [Comprehensive Metabolic Panel] Stat Lactate (Lactic Acid) Stat NT-proBNP (BNP-Adult 18+) Stat Procalcitonin Stat 05/15/21 15:40 Wound Culture and Gram Stain Stat 05/15/21 15:45 XR foot LT min 3V Stat 05/15/21 15:46 US periph venous low extrem lt Stat 05/15/21 16:16 Blood Culture Stat Discontinued Medications Trimethoprim/Sulfamethoxazole (Trimeth/Sulfa 160/800 (Ds) Tablet) 1 tab PO NOW ONE Stop: 05/15/21 18:30 Vital Signs Vital signs: Vital Signs - 8 hr 05/15/21 13:48 05/15/21 15:33 05/15/21 16:00 Temperature 98.4 F Pulse Rate 70 83 71 Respiratory Rate 17 Blood Pressure 176/84 H Pulse Oximetry 97 98 99 05/15/21 16:04 05/15/21 16:30 05/15/21 16:31 Temperature Pulse Rate 72 70 70 Respiratory Rate Blood Pressure 135/70 134/60 Pulse Oximetry 100 99 99 05/15/21 17:00 Temperature Pulse Rate 70 Respiratory Rate Blood Pressure 150/70 H Pulse Oximetry 99 MDM - Wound/Laceration Lab Data Attestation: I reviewed the patient's lab results. Result diagrams: 05/15/21 14:00 05/15/21 14:00 Labs: Lab Results 05/15/21 05/15/21 05/15/21 Range/Units 14:00 14:00 14:00 WBC 8.1 (4.5-11.0) X10^3/uL RBC 4.86 (4.5-5.9) X10^6/uL Hgb 14.0 (13.5-17.5) g/dL Hct 42.2 (41-53) % MCV 86.8 (80-100) fL MCH 28.8 (26-34) PG MCHC 33.1 (30-36) % RDW 14.2 (11.6-14.8) % Plt Count 241 (150-400) X10^3/uL Neut % (Auto) 74.5 (50-75) % Lymph % (Auto) 16.1 L (25-40) % [place] % (Auto) 8.5 (3-14) % Eos % (Auto) 0.6 L (2-4) % Baso % (Auto) 0.3 (0-2) % Neut # (Auto) 6000 (0772-5755) /uL Lymph # (Auto) 1300 (9589-1420) /uL [place] # (Auto) 700 (0-900) /uL Eos # (Auto) 0 (0-450) /uL Baso # (Auto) 0 (0-100) /uL Sodium 131 L (137-145) mmol/L Potassium 4.3 (3.4-5.1) mmol/L Chloride 96 L (98-107) mmol/L Carbon Dioxide 29 (22-32) mmol/L BUN 13 (9-20) mg/dL Creatinine 0.73 (0.66-1.25) mg/dL Estimated GFR > 60.0 (>60) mL/min BUN/Creatinine Ratio 17.8 (6-22) Glucose 248 H (80-110) mg/dL Lactate 2.3 H (0.7-2.1) mmol/L Calcium 8.6 (8.4-10.2) mg/dL Total Bilirubin 1.2 (0.2-1.3) mg/dL AST 36 (17-59) IU/L ALT 47 (<50) IU/L Alkaline Phosphatase 47 (38-126) U/L NT-Pro-B Natriuret Pep (<125) pg/mL Total Protein 7.3 (6.3-8.2) g/dL Albumin 4.0 (3.5-5.0) g/dL Globulin 3.3 (1.7-4.1) g/dL Albumin/Globulin Ratio 1.2 (1.0-2.8) Procalcitonin (<0.5) ng/mL 05/15/21 05/15/21 05/15/21 Range/Units 14:00 14:00 16:16 WBC (4.5-11.0) X10^3/uL RBC (4.5-5.9) X10^6/uL Hgb (13.5-17.5) g/dL Hct (41-53) % MCV (80-100) fL MCH (26-34) PG MCHC (30-36) % RDW (11.6-14.8) % Plt Count (150-400) X10^3/uL Neut % (Auto) (50-75) % Lymph % (Auto) (25-40) % [place] % (Auto) (3-14) % Eos % (Auto) (2-4) % Baso % (Auto) (0-2) % Neut # (Auto) (3701-9776) /uL Lymph # (Auto) (3814-9015) /uL [place] # (Auto) (0-900) /uL Eos # (Auto) (0-450) /uL Baso # (Auto) (0-100) /uL Sodium (137-145) mmol/L Potassium (3.4-5.1) mmol/L Chloride (98-107) mmol/L Carbon Dioxide (22-32) mmol/L BUN (9-20) mg/dL Creatinine (0.66-1.25) mg/dL Estimated GFR (>60) mL/min BUN/Creatinine Ratio (6-22) Glucose (80-110) mg/dL Lactate 1.6 (0.7-2.1) mmol/L Calcium (8.4-10.2) mg/dL Total Bilirubin (0.2-1.3) mg/dL AST (17-59) IU/L ALT (<50) IU/L Alkaline Phosphatase (38-126) U/L NT-Pro-B Natriuret Pep 461 H (<125) pg/mL Total Protein (6.3-8.2) g/dL Albumin (3.5-5.0) g/dL Globulin (1.7-4.1) g/dL Albumin/Globulin Ratio (1.0-2.8) Procalcitonin 0.05 (<0.5) ng/mL Imaging Data Extremity x-ray #1: Radiologist's Impression: [address] [id number] XRay Report Signed Patient: Paco Cerda MR#: [id number] : 1955 Acct:[id number] Age/Sex: 65 / M Date of Service: 05/15/21 Loc: ED Accession Number: [id number] ?? Procedure: XR foot LT min 3V Ordering Provider: Kraig Quiñones D.O. PROCEDURE:? XR FOOT LT MIN 3V ? INDICATIONS:? Swollen, cellulitis, 4th toe, eval for osteo ? TECHNIQUE:? 3 views of the foot were acquired.? ? COMPARISON:? None. ? FINDINGS:? ? Bones:? No fractures or dislocations.? No suspicious bony lesions.? ? Soft tissues:? No tibiotalar joint effusion.? Achilles tendon appears normal.? ? ? IMPRESSION:? No acute fracture. No osseous lesion. If symptoms and/or clinical suspicion for pathology persist, further assessment with repeat, or advanced imaging (e.g., CT, MRI, or bone scan) may be helpful for further assessment. ? ? Dictated by: Nicole Hall M.D. on 05/15/2021 at 16:19 ? ? Approved by: Nicole Hall M.D. on 05/15/2021 at 16:19 US - DVT: Radiologist's Impression: [address] [id number] Ultrasound Report Signed Patient: Paco Cerda MR#: [id number] : 1955 Acct:[id number] Age/Sex: 65 / M Date of Service: 05/15/21 Loc: ED Accession Number: [id number] ?? Procedure: US periph venous low extrem lt Ordering Provider: Kraig Quiñones D.O. PROCEDURE:? US PERIPH VENOUS LOW EXTREM LT ? INDICATIONS:? eval for DVT ? TECHNIQUE:? Real-time imaging, as well as color and pulse Doppler interrogation, were performed of the lower extremity deep veins from the inguinal ligament to the popliteal fossa.? ? COMPARISON:? None. ? FINDINGS:? The common femoral, femoral and popliteal veins are normally compressible, and free of intraluminal thrombus.? Color and pulse Doppler demonstrate normal phasic intraluminal flow.? There is normal augmentation response to distal compression maneuver. ? ? This study is limited by body habitus. ? A prominent lymph node is seen within the left groin. ? ? IMPRESSION:? ? Negative for deep venous thrombosis. ? Note: Concordant preliminary findings given by the magnetic locater upon the completion of the examination to Dr. Quiñones at 5:45 p.m. on May 15, 2021.? ? ? Dictated by: Regino Lane M.D. on 05/15/2021 at 16:56 ? ? Approved by: Regino Lane M.D. on 05/15/2021 at 16:56 MDM Narrative Medical decision making narrative: He is afebrile no leukocytosis. He states that his right lower extremity is at baseline. It is his left lower extremity that is significantly swollen. He is at baseline neurologic status. His vascularly intact. Does have an ulceration between his little toe and 4th toe. This was cultured. He does have some redness to his left lower extremity and there is some concern about cellulitis although the patient is nontoxic appearing. Note DVT noted in the ultrasound. No osteomyelitis noted on the x-ray. Considered admitting to the hospital however I feel given his presentation today that doing a trial of antibiotics at home is not unreasonable. He states that doxycycline has helped him in the past will send him home with this. He is given strict return precautions and follow- up instructions. Expressed understanding and agreement. Discharge Plan Departure Patient Disposition: Home Clinical Impression: Cellulitis Instructions: DI for Cellulitis -- Adult Activity Restrictions/Additional Instructions: Continue to take all of your medications as directed. We will start you on antibiotics. Here 1st dose was given here in the emergency department. Your next dose will be tomorrow 05/16/2021. I recommend you contact your primary doctor for a follow-up. If you start to have new symptoms to include fevers, w orsening pain, worsening swelling please return to the emergency department for further evaluation. Prescriptions: New sulfamethoxazole-trimethoprim [Bactrim DS] 800-160 mg tablet 1 tab PO BID 7 Days Qty: 14 0RF No Action beclomethasone diprop (AQ) [Beconase AQ] 25 GM spray,non-aerosol 1 spray Intranasal PRN PRNQty: 0 0RF testosterone [AndroGel] 1.25 GM gel in packet 1.25 gm TD QDAY Qty: 0 0RF gabapentin [Neurontin] 600 MG tablet 0.5 tab PO HS Qty: 0 0RF dabigatran etexilate [Pradaxa] 150 MG capsule 150 mg PO BID Qty: 0 0RF insulin glargine [Lantus U-100 Insulin] 100 UNIT/1 ML solution 40 - 50 unit SQ BID Qty: 0 0RF insulin lispro [Humalog U-100 Insulin] 100 UNIT/1 ML solution 20 - 40 unit SQ SLIDE Qty: 0 0RF lisinopril 20 MG tablet 10 mg PO BID Qty: 0 0RF metformin 1,000 MG tablet 1,000 mg PO BIDCC Qty: 0 0RF metformin [Glucophage XR] 500 MG tablet extended release 24 hr 1,000 mg PO BID Qty: 0 0RF salmeterol [Serevent Diskus] 50 MCG blister with device 1 puff INH BID Qty: 0 0RF morphine 15 MG tablet 15 mg PO BID Qty: 0 0RF torsemide 20 MG tablet 0.5 tab PO PRN PRNQty: 0 0RF oxycodone-acetaminophen [Endocet] 10 MG/325 MG tablet 1 tab PO QID Qty: 0 0RF Referrals: Kat Schilling PA-C [Primary Care Provider] -
--- NOTE | 2021-05-15 15:45 | DI.RAD.S_ITS ---
PROCEDURE: XR FOOT LT MIN 3V INDICATIONS: Swollen, cellulitis, 4th toe, eval for osteo TECHNIQUE: 3 views of the foot were acquired. COMPARISON: None. FINDINGS: Bones: No fractures or dislocations. No suspicious bony lesions. Soft tissues: No tibiotalar joint effusion. Achilles tendon appears normal. IMPRESSION: No acute fracture. No osseous lesion. If symptoms and/or clinical suspicion for pathology persist, further assessment with repeat, or advanced imaging (e.g., CT, MRI, or bone scan) may be helpful for further assessment. Dictated by: Nicole Hall M.D. on 05/15/2021 at 16:19 Approved by: Nicole Hall M.D. on 05/15/2021 at 16:19
--- NOTE | 2021-05-15 15:46 | DI.US.S_ITS ---
PROCEDURE: US PERIPH VENOUS LOW EXTREM LT INDICATIONS: eval for DVT TECHNIQUE: Real-time imaging, as well as color and pulse Doppler interrogation, were performed of the lower extremity deep veins from the inguinal ligament to the popliteal fossa. COMPARISON: None. FINDINGS: The common femoral, femoral and popliteal veins are normally compressible, and free of intraluminal thrombus. Color and pulse Doppler demonstrate normal phasic intraluminal flow. There is normal augmentation response to distal compression maneuver. This study is limited by body habitus. A prominent lymph node is seen within the left groin. IMPRESSION: Negative for deep venous thrombosis. Note: Concordant preliminary findings given by the pv design engineer upon the completion of the examination to Dr. Quiñones at 5:45 p.m. on May 15, 2021. Dictated by: Regino Lane M.D. on 05/15/2021 at 16:56 Approved by: Regino Lane M.D. on 05/15/2021 at 16:56
[2021-05-15 16:21] LABS: Reflexed Lactate in 2 Hours Y
[2021-05-15 16:22] LABS: NT-proBNP (BNP-Adult 18+) 461 pg/mL (<125)
[2021-05-15 16:38] LABS: Lactate 2HR (Lactic Acid Rflx) 1.6 mmol/L (0.7-2.1)
[2021-05-15] MEDS: TRIMETH/SULFA 160/800 (DS) TABLET 1 TAB PO (18:48)
== END 2021-05-15 19:36 | disposition home or self-care (01) ==
PROVIDERS: Emergency Provider Emergency Medicine; Family Provider Specialist; PCP Physician Assistant Medical
DX: L03.116 Cellulitis of left lower limb (principal); L97.521 Non-pressure chronic ulcer of other part of left foot limited to breakdown of skin
CPT/HCPCS: 36415; 73630; 80053; 83605; 83880; 84145; 85025; 87040; 87070; 87075; 87147; 87205; 93971; 99284

== ENCOUNTER 2021-05-18 13:28 | Inpatient (IN) | payer OTHER, MEDICARE, SELFPAY ==
[2021-05-18 14:15] VITALS: BP 164/91; PULSE 73; RESP 18; TEMP 36.6; O2SAT 100; BMI 48.7
--- NOTE | 2021-05-18 14:34 | ED_ITS ---
HPI - Wound/Laceration <Richard Bernabe PA-C - Last Filed: 05/19/21 17:21> General Chief Complaint: Wound/Laceration Stated Complaint: LT toe infected Time Seen by Provider: 05/18/21 13:59 History of Present Illness HPI narrative: Patient is a 65-year-old male presenting to the emergency department today for an evaluation of a left toe infection. Patient was seen in the emergency department on 05/15/2021 and was prescribed Bactrim double strength for celluli tis and a approximately dime-sized ulcer noted on the lateral aspect of the left 4th toe. Patient states that since taking the antibiotics he feels his pain has reduced significantly, but he notes that the left 4th toe has since turned ?joe?. He presents today hoping for further evaluation of the left toe. He denies fever, chills, chest pain, shortness of breath, abdominal pain, nausea, vomiting, diarrhea, dysuria, worsening pain, worsening warmth, or worsening discharge. No other concerns voiced at this time. Related Data Home Medications Medication Instructions Recorded Confirmed beclomethasone diprop (AQ) 42 mcg 1 spray INTRANASAL PRN PRN #0 01/14/17 05/19/21 (0.042 %) nasal spray (Beconase AQ) dabigatran etexilate 150 mg 150 mg PO BID #0 01/14/17 05/19/21 capsule (Pradaxa) gabapentin 600 mg tablet 0.5 tab PO HS #0 01/14/17 05/19/21 (Neurontin) insulin glargine 100 unit/mL 40 - 50 unit SQ BID #0 01/14/17 05/19/21 subcutaneous solution (Lantus U-100 Insulin) insulin lispro 100 unit/mL 20 - 40 unit SQ SLIDE #0 01/14/17 05/19/21 subcutaneous solution (Humalog U-100 Insulin) lisinopril 20 mg tablet 10 mg PO BEDTIME #0 01/14/17 05/19/21 metformin 1,000 mg tablet 1,000 mg PO BIDCC #0 01/14/17 05/19/21 metformin 500 mg tablet,extended 1,000 mg PO BID #0 01/14/17 release 24 hr (Glucophage XR) morphine 15 mg immediate release 15 mg PO BID #0 01/14/17 05/19/21 tablet oxycodone-acetaminophen 10 mg-325 1 tab PO QID #0 01/14/17 05/19/21 mg tablet (Endocet) salmeterol 50 mcg/dose blister 1 puff INH BID #0 01/14/17 05/19/21 powder for inhalation (Serevent Diskus) testosterone 1.62 % (20.25 mg/1.25 1.25 gm TD QDAY #0 01/14/17 05/19/21 gram) transdermal gel packet (AndroGel) torsemide 20 mg tablet 0.5 tab PO PRN PRN #0 01/14/17 05/19/21 metoprolol succinate 25 mg 12.5 mg PO BID 05/19/21 05/19/21 tablet,extended release 24 hr Previous Rx's Medication Instructions Recorded sulfamethoxazole 800 1 tab PO BID 7 Days #14 tab 05/15/21 mg-trimethoprim 160 mg tablet (Bactrim DS) Allergies Allergy/AdvReac Type Severity Reaction Status Date / Time cephalexin [CEPHALEXIN] Allergy Severe BREATHING Verified 05/15/21 15:55 PROBLEMS, TIGHTNESS diltiazem [DILTIAZEM] Allergy Severe SWELLING, Verified 05/15/21 15:55 RASH Influenza Virus Vaccines Allergy Unknown UNKNOWN Verified 05/15/21 15:56 [INFLUENZA VIRUS VACCINES] REACTION PER PT, BUT IT WAS SERIOUS amiodarone [AMIODARONE] AdvReac Severe FATIGUE, Verified 05/15/21 15:55 PHOTOSENSITIVITY, MACULAR DEGENERATION clonidine [CLONIDINE] AdvReac Severe MY FEET Verified 05/15/21 15:55 TURNED TO JELLY, WEEPING lisinopril [LISINOPRIL] AdvReac Severe CRAMPING Verified 05/15/21 15:55 doxycycline AdvReac Mild Diarrhea Verified 05/15/21 15:55 gabapentin [GABAPENTIN] AdvReac Mild JERKING/LEG/BODY Verified 05/15/21 15:55 AT NIGHT verapamil AdvReac Unknown Verified 05/15/21 15:55 Review of Systems <Richard Bernabe PA-C - Last Filed: 05/19/21 17:21> Constitutional Constitutional: Denies chills, Denies fatigue, Denies fever(s), Denies frequent falls, Denies lethargy and Denies weakness ENT Ears, Nose, Mouth, and Throat: Denies neck pain Cardiovascular Cardiovascular: Denies chest pain, Denies irregular heart rhythm, Denies lightheadedness, Denies palpitations, Denies dyspnea, Denies dyspnea on exertion and Denies orthopnea Respiratory Respiratory: Denies cough, Denies dyspnea, Denies dyspnea on exertion and Denies wheezing Gastrointestinal Gastrointestinal: Denies abdominal pain, Denies change in bowel habits, Denies diarrhea, Denies nausea and Denies vomiting Musculoskeletal Musculoskeletal: Denies back pain, Denies muscle weakness, Denies neck pain, Denies numbness and Denies tingling Integumentary/Breasts Skin/Breast: Denies pruritus, Reports erythema (Left leg), Denies rash and Reports wounds (Left 4th toe) Neurologic Neurologic: Denies frequent falls, Denies numbness, Denies tingling and Denies weakness Endocrine Endocrine: Denies fatigue and Denies palpitations Allergic/Immunologic Allergic/Immunologic: Denies wheezing Patient History <Richard Bernabe PA-C - Last Filed: 05/19/21 17:21> Medical History Diabetes Neuropathy Social History household members: spouse Smoking Status: Never smoker Smoking Status: Never smoker alcohol intake frequency: other Substance Use Type: does not use Exam <Richard Bernabe PA-C - Last Filed: 05/19/21 17:21> Narrative Exam Narrative: GENERAL: 65 year old patient appears stated age. Well-developed patient, in no acute distress. HEAD: Atraumatic. Normocephalic. EYES: Pupils equal round and reactive. Extraocular motions intact. No scleral icterus. No injection or drainage. ENT: Nose without bleeding, purulent drainage. Throat without erythema, tonsillar hypertrophy or exudate. Airway patent. NECK: Trachea midline. Non tender CARDIOVASCULAR: Regular rate and rhythm without murmurs, gallops, or rubs. RESPIRATORY: Clear to auscultation. Breath sounds equal bilaterally. No wheezes, rales, or rhonchi. GASTROINTESTINAL: Abdomen soft, non-tender, nondistended. EXTREMITIES: No edema or joint tenderness. BACK: Nontender without deformity or crepitance. No flank tenderness. NEURO: AOx3. SKIN: Erythema appreciated over the anterior aspect of the left leg. Approximately dime-sized ulcer appreciated over the lateral aspect of the left toe with surrounding maceration tissue. No active discharge noted on exam. Small abrasion appreciated on the medial aspect of the left toe without discharge or significant erythema or warmth. Bone exposure noted on in the lateral aspect of the left 4th toe. Initial Vital Signs Initial Vital Signs: Vital Signs Temperature 97.8 F 05/18/21 14:15 Pulse Rate 73 05/18/21 14:15 Respiratory Rate 18 05/18/21 14:15 Blood Pressure 164/91 H 05/18/21 14:15 Pulse Oximetry 100 05/18/21 14:15 <Kraig Quiñones DO - Last Filed: 05/19/21 17:25> Initial Vital Signs Initial Vital Signs: Vital Signs Temperature 97.8 F 05/18/21 14:15 Pulse Rate 73 05/18/21 14:15 Respiratory Rate 18 05/18/21 14:15 Blood Pressure 164/91 H 05/18/21 14:15 Pulse Oximetry 100 05/18/21 14:15 Course <Richard Bernabe PA-C - Last Filed: 05/19/21 17:21> Course Course Narrative: Deep examination of the left foot and left 4th toe. Orders Ordered: Albuterol (Albuterol 2.5 Mg/3 Ml Neb (Adult)) 2.5 mg INH [id number] [facility] Last Admin: 05/19/21 12:05 Dose: 2.5 mg Documented by: Admin: 05/19/21 11:36 Dose: Not Given Documented by: RADHA Bumetanide (Bumetanide 1 Mg Tablet) 1 mg PO DAILY [facility] Dabigatran (Dabigatran 75 Mg Capsule) 150 mg PO BID [facility] Last Admin: 05/19/21 08:25 Dose: 150 mg Documented by: KAYLA Dextrose (Dextrose 50 % In Water 25 Gm/50 Ml Syringe) 25 gm IV PRN PRN PRN Reason: Hypoglycemia Docusate Sodium (Docusate 100 Mg Capsule) 100 mg PO BID [facility] Last Admin: 05/19/21 08:25 Dose: 100 mg Documented by: KAYLA Fluticasone Propionate (Fluticasone 120 Milton/16 Gm Milton.Susp) 1 spray NASAL DAILY PRN PRN Reason: Allergic Symptoms Gabapentin (Gabapentin 300 Mg Capsule) 300 mg PO BEDTIME [facility] Hydromorphone HCl (Hydromorphone 0.5 Mg Inj) 0.2 mg IV Q1HR PRN PRN Reason: Pain, Moderate (4-6) Clindamycin Phosphate (Cleocin) 900 mg in 50 mls @ 50 mls/hr IV Q8H [facility] Last Admin: 05/19/21 11:18 Dose: 50 mls/hr Documented by: Infusion: 05/19/21 03:36 Dose: 50 mls/hr Documented by: Admin: 05/19/21 02:36 Dose: 50 mls/hr Documented by: COREY Insulin Glargine (Insulin Glargine 100 Unit/Ml 3ml Pen) 40 unit SUBCUT BID [facility] Last Admin: 05/19/21 08:54 Dose: 40 unit Documented by: KAYLA Orellanaigned by: JESSE Insulin Human Lispro (Insulin Lispro 100 Unit/Ml 3ml Vial) 0 unit SUBCUT ACHS [facility]; Protocol Last Admin: 05/19/21 13:37 Dose: 2 unit Documented by: JESSE Orellanaigned by: LISSETTE Admin: 05/19/21 08:54 Dose: 1 unit Documented by: KAYLA Orellanaigned by: JESSE Lactobacillus Acidophilus (Lactobacillus Acidophilus Tablet) 1 each PO TIDWM [facility] Last Admin: 05/19/21 15:59 Dose: 1 each Documented by: JESSE Lisinopril (Lisinopril 10 Mg Tablet) 10 mg PO BID [facility] Last Admin: 05/19/21 08:38 Dose: Not Given Documented by: KAYLA Metformin HCl (Metformin Hcl 500 Mg Tablet) 1,000 mg PO 0800,1700 [facility] Last Admin: 05/19/21 08:42 Dose: 1,000 mg Documented by: KAYLA Morphine Sulfate (Morphine Er 15 Mg Tablet) 15 mg PO BID@0500,1700 [facility] Naloxone HCl (Naloxone 0.4 Mg/Ml Vial) 0.2 mg IV Q2MIN PRN PRN Reason: Opiate Reversal Ondansetron HCl (Ondansetron 4 Mg/2 Ml Inj) 4 mg IV Q4HR PRN PRN Reason: Nausea And Vomiting Oxycodone HCl (Oxycodone Ir 5 Mg Tablet) 2.5 mg PO 0000,0600,1200,1800 [facility] Last Admin: 05/19/21 13:36 Dose: 2.5 mg Documented by: Admin: 05/19/21 04:59 Dose: 2.5 mg Documented by: COREY Discontinued Medications Bumetanide (Bumetanide 1 Mg/4 Ml Vial) 2 mg IV NOW ONE Stop: 05/19/21 11:57 Last Admin: 05/19/21 13:36 Dose: 2 mg Documented by: JESSE Dextrose (Dextrose 50 % In Water 25 Gm/50 Ml Syringe) 25 gm IV PRN PRN; Protocol PRN Reason: Hypoglycemia Vancomycin HCl/Dextrose (Vancomycin) 2,000 mg in 400 mls @ 200 mls/hr IV NOW ONE Stop: 05/18/21 16:59 Last Infusion: 05/18/21 18:19 Dose: 0 mls/hr Documented by: Admin: 05/18/21 16:05 Dose: 200 mls/hr Documented by: TAVARES Lactated Ringer's (Lactated Ringers) 1,000 mls @ 125 mls/hr IV CONT [facility] Last Admin: 05/19/21 02:37 Dose: 125 mls/hr Documented by: COREY Morphine Sulfate (Morphine Ir 15 Mg Tablet) 15 mg PO BID [facility] Morphine Sulfate (Morphine Ir 15 Mg Tablet) 15 mg PO BID [facility] Morphine Sulfate (Morphine Ir 15 Mg Tablet) 15 mg PO BID [facility] Last Admin: 05/19/21 04:59 Dose: 15 mg Documented by: COREY Oxycodone HCl (Oxycodone Ir 5 Mg Tablet) 2.5 mg PO QID [facility] Oxycodone/Acetaminophen (Oxycodone/Acetaminophen 5/325 Tablet) 1 tab PO QID [facility] Oxycodone/Acetaminophen (Oxycodone/Acetaminophen 5/325 Tablet) 1 tab PO 0000,0600,1200,1800 [facility] Last Admin: 05/19/21 04:59 Dose: 1 tab Documented by: COREY Potassium Chloride (Potassium Chloride 20 Meq Tab) 40 meq PO NOW ONE Stop: 05/19/21 13:52 Last Admin: 05/19/21 13:56 Dose: 40 meq Documented by: JESSE Torsemide (Torsemide 10 Mg Tablet) 10 mg PO PRN PRN PRN Reason: home med Torsemide (Torsemide 10 Mg Tablet) 10 mg PO PRN PRN PRN Reason: home med Consultations Consultation #1: Dr. Garibay orthopedic surgery. Request we order a repeat left foot x-ray. Time: 15:10 Vital Signs Vital signs: Vital Signs - 8 hr 05/18/21 14:15 Temperature 97.8 F Pulse Rate 73 Respiratory Rate 18 Blood Pressure 164/91 H Pulse Oximetry 100 <Kraig Quiñones DO - Last Filed: 05/19/21 17:25> Orders Ordered: Albuterol (Albuterol 2.5 Mg/3 Ml Neb (Adult)) 2.5 mg INH [id number] [facility] Last Admin: 05/19/21 12:05 Dose: 2.5 mg Documented by: Admin: 05/19/21 11:36 Dose: Not Given Documented by: RADHA Bumetanide (Bumetanide 1 Mg Tablet) 1 mg PO DAILY [facility] Dabigatran (Dabigatran 75 Mg Capsule) 150 mg PO BID [facility] Last Admin: 05/19/21 08:25 Dose: 150 mg Documented by: KAYLA Dextrose (Dextrose 50 % In Water 25 Gm/50 Ml Syringe) 25 gm IV PRN PRN PRN Reason: Hypoglycemia Docusate Sodium (Docusate 100 Mg Capsule) 100 mg PO BID [facility] Last Admin: 05/19/21 08:25 Dose: 100 mg Documented by: KAYLA Fluticasone Propionate (Fluticasone 120 Milton/16 Gm Milton.Susp) 1 spray NASAL DAILY PRN PRN Reason: Allergic Symptoms Gabapentin (Gabapentin 300 Mg Capsule) 300 mg PO BEDTIME [facility] Hydromorphone HCl (Hydromorphone 0.5 Mg Inj) 0.2 mg IV Q1HR PRN PRN Reason: Pain, Moderate (4-6) Clindamycin Phosphate (Cleocin) 900 mg in 50 mls @ 50 mls/hr IV Q8H [facility] Last Admin: 05/19/21 11:18 Dose: 50 mls/hr Documented by: Infusion: 05/19/21 03:36 Dose: 50 mls/hr Documented by: Admin: 05/19/21 02:36 Dose: 50 mls/hr Documented by: COREY Insulin Glargine (Insulin Glargine 100 Unit/Ml 3ml Pen) 40 unit SUBCUT BID [facility] Last Admin: 05/19/21 08:54 Dose: 40 unit Documented by: KAYLA Cosigned by: JESSE Insulin Human Lispro (Insulin Lispro 100 Unit/Ml 3ml Vial) 0 unit SUBCUT [facility]; Protocol Last Admin: 05/19/21 13:37 Dose: 2 unit Documented by: JESSE Cosigned by: LISSETTE Admin: 05/19/21 08:54 Dose: 1 unit Documented by: KAYLA Orellanaigned by: JESSE Lactobacillus Acidophilus (Lactobacillus Acidophilus Tablet) 1 each PO TIDWM [facility] Last Admin: 05/19/21 15:59 Dose: 1 each Documented by: JESSE Lisinopril (Lisinopril 10 Mg Tablet) 10 mg PO BID [facility] Last Admin: 05/19/21 08:38 Dose: Not Given Documented by: KAYLA Metformin HCl (Metformin Hcl 500 Mg Tablet) 1,000 mg PO 0800,1700 [facility] Last Admin: 05/19/21 08:42 Dose: 1,000 mg Documented by: KAYLA Morphine Sulfate (Morphine Er 15 Mg Tablet) 15 mg PO BID@0500,1700 [facility] Naloxone HCl (Naloxone 0.4 Mg/Ml Vial) 0.2 mg IV Q2MIN PRN PRN Reason: Opiate Reversal Ondansetron HCl (Ondansetron 4 Mg/2 Ml Inj) 4 mg IV Q4HR PRN PRN Reason: Nausea And Vomiting Oxycodone HCl (Oxycodone Ir 5 Mg Tablet) 2.5 mg PO 0000,0600,1200,1800 [facility] Last Admin: 05/19/21 13:36 Dose: 2.5 mg Documented by: Admin: 05/19/21 04:59 Dose: 2.5 mg Documented by: COREY Discontinued Medications Bumetanide (Bumetanide 1 Mg/4 Ml Vial) 2 mg IV NOW ONE Stop: 05/19/21 11:57 Last Admin: 05/19/21 13:36 Dose: 2 mg Documented by: JESSE Dextrose (Dextrose 50 % In Water 25 Gm/50 Ml Syringe) 25 gm IV PRN PRN; Protocol PRN Reason: Hypoglycemia Vancomycin HCl/Dextrose (Vancomycin) 2,000 mg in 400 mls @ 200 mls/hr IV NOW ONE Stop: 05/18/21 16:59 Last Infusion: 05/18/21 18:19 Dose: 0 mls/hr Documented by: Admin: 05/18/21 16:05 Dose: 200 mls/hr Documented by: TAVARES Lactated Ringer's (Lactated Ringers) 1,000 mls @ 125 mls/hr IV CONT [facility] Last Admin: 05/19/21 02:37 Dose: 125 mls/hr Documented by: COREY Morphine Sulfate (Morphine Ir 15 Mg Tablet) 15 mg PO BID [facility] Morphine Sulfate (Morphine Ir 15 Mg Tablet) 15 mg PO BID [facility] Morphine Sulfate (Morphine Ir 15 Mg Tablet) 15 mg PO BID [facility] Last Admin: 05/19/21 04:59 Dose: 15 mg Documented by: COREY Oxycodone HCl (Oxycodone Ir 5 Mg Tablet) 2.5 mg PO QID [facility] Oxycodone/Acetaminophen (Oxycodone/Acetaminophen 5/325 Tablet) 1 tab PO QID [facility] Oxycodone/Acetaminophen (Oxycodone/Acetaminophen 5/325 Tablet) 1 tab PO 0000,0600,1200,1800 [facility] Last Admin: 05/19/21 04:59 Dose: 1 tab Documented by: COREY Potassium Chloride (Potassium Chloride 20 Meq Tab) 40 meq PO NOW ONE Stop: 05/19/21 13:52 Last Admin: 05/19/21 13:56 Dose: 40 meq Documented by: JESSE Torsemide (Torsemide 10 Mg Tablet) 10 mg PO PRN PRN PRN Reason: home med Torsemide (Torsemide 10 Mg Tablet) 10 mg PO PRN PRN PRN Reason: home med Vital Signs Vital signs: Vital Signs - 8 hr 05/18/21 14:15 Temperature 97.8 F Pulse Rate 73 Respiratory Rate 18 Blood Pressure 164/91 H Pulse Oximetry 100 MDM - Wound/Laceration <Richard Bernabe PA-C - Last Filed: 05/19/21 17:21> Lab Data Result diagrams: 05/19/21 05:55 05/19/21 05:55 Labs: Lab Results 05/18/21 Range/Units 16:14 SARS-CoV-2 (PCR) Negative (Negative) Imaging Data Extremity x-ray #1: Radiologist's Impression: PROCEDURE:? XR FOOT LT MIN 3V ? INDICATIONS:? Worsening ulcer left 4th toe ? TECHNIQUE:? 3 views of the foot were acquired.? ? COMPARISON:? [facility], CR, XR FOOT LT MIN 3V, 05/15/2021, 15:48. ? FINDINGS:? ? Bones:? There is dorsal dislocation of the 4th proximal interphalangeal joint with mild overriding of the proximal and middle phalanges.? No suspicious bony lesions.? Stable chronic osseous erosion at the distal tuft of the great toe.? No definite acute cortical destruction is seen.? Scattered degenerative changes are seen in the toes. ? Soft tissues:? Diffuse soft tissue edema is seen in the lower leg and foot. ? ? IMPRESSION:? 1. Dorsal dislocation of the 4th proximal interphalangeal joint.? 2. No definite acute osseous destruction is seen to suggest osteomyelitis radiographically.? If the symptoms persist or there is continued clinical concern, repeat radiographs or MRI could be performed. 3. Diffuse soft tissue edema.? ? Dictated by: Huey Chappell M.D. on 05/18/2021 at 15:35 ? ? Approved by: Huey Chappell M.D. on 05/18/2021 at 15:38 ? MDM Narrative Medical decision making narrative: Patient is a 65-year-old male presenting to the emergency department today for an evaluation of a left toe infection. To consider cellulitis versus diabetic foot ulcer versus osteomyelitis. Foot x-ray ordered on 05/15/2021 did not show signs of osteomyelitis. Patient states that he feels his pain has significantly improved since beginning antibiotic therapy. Patient states that he has close contact with wound care and believes that he should be able to be seen by his wound care provider in the near future. Due to bone exposure noted physical examination plan is to begin the patient on IV antibiotics and consult with Internal Medicine and Orthopedics. <Kraig Quiñones, - Last Filed: 05/19/21 17:25> Lab Data Labs: Lab Results 05/18/21 Range/Units 16:14 SARS-CoV-2 (PCR) Negative (Negative) Discharge Plan Departure Patient Disposition: Admitted as Observation Clinical Impression: Cellulitis, Diabetic ulcer of left great toe Admit Date/Time: 05/18/21 20:43 Admit Provider: Ruel Willard <Kraig Quiñones DO - Last Filed: 05/19/21 17:25> Cosign ED Attending Cosignature Attestation: Dr Quiñones Co-Sign Statement: I was available for consultation during this patient's emergency department visit. This chart is signed by myself for administrative purposes only. I did not have direct contact with this patient during this visit. They were seen independently by the APC.
--- NOTE | 2021-05-18 15:11 | DI.RAD.S_ITS ---
PROCEDURE: XR FOOT LT MIN 3V INDICATIONS: Worsening ulcer left 4th toe TECHNIQUE: 3 views of the foot were acquired. COMPARISON: [facility], CR, XR FOOT LT MIN 3V, 05/15/2021, 15:48. FINDINGS: Bones: There is dorsal dislocation of the 4th proximal interphalangeal joint with mild overriding of the proximal and middle phalanges. No suspicious bony lesions. Stable chronic osseous erosion at the distal tuft of the great toe. No definite acute cortical destruction is seen. Scattered degenerative changes are seen in the toes. Soft tissues: Diffuse soft tissue edema is seen in the lower leg and foot. IMPRESSION: 1. Dorsal dislocation of the 4th proximal interphalangeal joint. 2. No definite acute osseous destruction is seen to suggest osteomyelitis radiographically. If the symptoms persist or there is continued clinical concern, repeat radiographs or MRI could be performed. 3. Diffuse soft tissue edema. Dictated by: Huey Chappell M.D. on 05/18/2021 at 15:35 Approved by: Huey Chappell M.D. on 05/18/2021 at 15:38
[2021-05-18 16:00] VITALS: BP 142/74; PULSE 70; RESP 20; O2SAT 99
--- NOTE | 2021-05-18 16:01 | P.HP_ITS ---
History of Present Illness History of Present Illness Date Patient Seen: 05/18/21 Time Patient Seen: 16:02 Date of Onset of Symptoms: 05/15/21 Chief complaint: LT toe infected Narrative: Bertram is a 65-year-old medically complex male with a history of insulin-dependent diabetes pacemaker dependent at cardiac patient with history of AFib on Pradaxa with bilateral peripheral neuropathy. I have previously seen him for his right foot in the past but today presents to the ER with an infection of his left 4th toe. He states that his left side in the past is always been his good side. He reports 4 days ago he developed severe swelling and erythema of the left calf. He presented to the ER was evaluated had a negative DVT scan but was found to have an ulceration along the lateral aspect of his left 4th toe. As an outpatient he has been seeing Dr. Salma SMITH from time to time but with this new swelling she was quite busy and referred him to the ER. He was discharged with oral antibiotics. He notes worsening appearance of his toe and persistent swelling and erythema of the left calf. Return to [facility] ER today. Denies fevers or chills denies nausea vomiting or burning or pain with urination. He is very concerned about his swelling Patient History Medical History Diabetes Neuropathy Comment: Diabetes, insulin-dependent, pacemaker dependent history of AFib. Currently on Pradaxa. Family & Social History Safety & Behavioral: Feels Safe in Current Yes Environment Been Physically Hurt or No Threatened By a Person Tobacco & Substance use: Smoking Status Never smoker alcohol intake frequency other Substance Use Type does not use Meds Home Medications and Allergies Home Medications Medication Instructions Recorded Confirmed Type beclomethasone diprop (AQ) 42 mcg 1 spray INTRANASAL PRN PRN #0 01/14/17 History (0.042 %) nasal spray (Beconase AQ) dabigatran etexilate 150 mg 150 mg PO BID #0 01/14/17 History capsule (Pradaxa) gabapentin 600 mg tablet 0.5 tab PO HS #0 01/14/17 History (Neurontin) insulin glargine 100 unit/mL 40 - 50 unit SQ BID #0 01/14/17 History subcutaneous solution (Lantus U-100 Insulin) insulin lispro 100 unit/mL 20 - 40 unit SQ SLIDE #0 01/14/17 History subcutaneous solution (Humalog U-100 Insulin) lisinopril 20 mg tablet 10 mg PO BID #0 01/14/17 History metformin 1,000 mg tablet 1,000 mg PO BIDCC #0 01/14/17 History metformin 500 mg tablet,extended 1,000 mg PO BID #0 01/14/17 History release 24 hr (Glucophage XR) morphine 15 mg immediate release 15 mg PO BID #0 01/14/17 History tablet oxycodone-acetaminophen 10 mg-325 1 tab PO QID #0 01/14/17 History mg tablet (Endocet) salmeterol 50 mcg/dose blister 1 puff INH BID #0 01/14/17 History powder for inhalation (Serevent Diskus) testosterone 1.62 % (20.25 mg/1.25 1.25 gm TD QDAY #0 01/14/17 History gram) transdermal gel packet (AndroGel) torsemide 20 mg tablet 0.5 tab PO PRN PRN #0 01/14/17 History sulfamethoxazole 800 1 tab PO BID 7 Days #14 tab 05/15/21 Rx mg-trimethoprim 160 mg tablet (Bactrim DS) Allergies Allergy/AdvReac Type Severity Reaction Status Date / Time cephalexin [CEPHALEXIN] Allergy Severe BREATHING Verified 05/15/21 15:55 PROBLEMS, TIGHTNESS diltiazem [DILTIAZEM] Allergy Severe SWELLING, Verified 05/15/21 15:55 RASH Influenza Virus Vaccines Allergy Unknown UNKNOWN Verified 05/15/21 15:56 [INFLUENZA VIRUS VACCINES] REACTION PER PT, BUT IT WAS SERIOUS amiodarone [AMIODARONE] AdvReac Severe FATIGUE, Verified 05/15/21 15:55 PHOTOSENSITIVITY, MACULAR DEGENERATION clonidine [CLONIDINE] AdvReac Severe MY FEET Verified 05/15/21 15:55 TURNED TO JELLY, WEEPING lisinopril [LISINOPRIL] AdvReac Severe CRAMPING Verified 05/15/21 15:55 doxycycline AdvReac Mild Diarrhea Verified 05/15/21 15:55 gabapentin [GABAPENTIN] AdvReac Mild JERKING/LEG/BODY Verified 05/15/21 15:55 AT NIGHT verapamil AdvReac Unknown Verified 05/15/21 15:55 Review of Systems Review of Systems Narrative: No fevers chills nausea or vomiting. Endorses left lower extremity swelling erythema. Toe ulceration. Severe neuropathy. Exam Vital Signs (past 8 hours): - 05/18/21 14:15 Temperature 97.8 F Pulse Rate 73 Respiratory Rate 18 Blood Pressure 164/91 H Pulse Oximetry 100 Oxygen Delivery Method Room Air Narrative Exam Narrative: General exam alert oriented male no acute distress. Lying in the stretcher in the ER. Breathing unlabored on room air. Lungs clear to auscultation bilaterally. Heart rate regular. Musculoskeletal examination. Moving bilateral upper extremities without limitation. Right lower extremity multiple calluses over the foot was unchanged deformities no open sores. No erythema on the right side. Left side demonstrates. Very large calfs bilaterally but more swollen on the left than the right. There is erythema. Some pitting edema. No crepitus. No blisters. Foot also demonstrates swelling. Dorsalis pedis pulse is palpable. There is swelling and dorsal blistering, hemorrhagic over the PIP joint of the left 4th toe and a large quarter-sized ulceration with exposed bone along the lateral aspect of the proximal phalanx at the level of the PIP joint with exposed flexor tendon plantarly. Does not appear to be any ascending cellulitis or fluctuance at the level of the MTP joint.. Dense neuropathy Assessment & Plan Assessment and plan (1) Osteomyelitis of fourth toe of left foot: Problem details: Patient is an insulin dependent diabetic male with left 4th toe osteomyelitis ulceration and cellulitis of the lower extremity. Had negative DVT scan 2 days ago and is on Pradaxa. His worsening infection of the left 4th toe. He has a large lateral based ulceration with extension plantarly as well as a dorsal blistering and tissue non viability. I do not feel the left 4th toe is salvageable. I have recommended amputation discussed this could be through the MTP joint likely versus base of the proximal phalanx. Discussed if additional of purulence or signs of infection is encountered this would be packed open with plans for additional washouts. If amenable the wound will be primarily closed. I also recommend the patient be admitted to the hospital team for IV antibiotic treatment of his cellulitis he has failed oral antibiotics. I see no signs of drainable collections in the left calf this time. The risks and benefits of the procedure have been discussed with the patient even opportunity to ask questions. The risks of surgery include but are not limited to infection, malunion, nonunion, persistence of pain, damage to nerves and blood vessels, posttraumatic arthritis, DVT, PE, cardiopulmonary complications and . The patient expressed a thorough understanding of the risks and benefits of surgery and has elected to proceed. Consent was signed. Status: Acute (2) Cellulitis: Status: Acute Time Spent With Patient Critical Care time: I spent a total of [] minutes of critical care time on this patient's care today; this time is exclusive of procedural time. Quality VTE Deep Vein Thrombosis/Pulmonary Embolism Present on Admission: No
[2021-05-18] MEDS: VANCOMYCIN 2,000 MG/400 ML PIGGYBACK 200 MG IV (16:05)
[2021-05-18 16:43] LABS: COVID19 -Nasal RAPID Negative (Negative)
[2021-05-18 17:00] VITALS: BP 114/61; PULSE 69; RESP 18; O2SAT 97
[2021-05-18 18:00] VITALS: BP 140/80; PULSE 70; RESP 18; O2SAT 100
--- NOTE | 2021-05-18 20:15 | PC.NURSE ---
Pt used personal glucose monitor and states blood sugar is 105.
[2021-05-18 20:47] VITALS: BMI 48.7
[2021-05-18 23:50] VITALS: BP 135/76; PULSE 72; RESP 18; TEMP 37.1; O2SAT 97
[2021-05-19] VITALS (8 sets, daily range): BP systolic 117–138; BP diastolic 58–77; PULSE 64–71; RESP 18–20; TEMP 36.6–37.7; O2SAT 94–97
--- NOTE | 2021-05-19 01:47 | PC.NURSE ---
Provider orders not properly transferred from PACU due to new protocols. Various orders and medications delayed as a result.
[2021-05-19] MEDS: CLINDAMYCIN 900 MG/50 ML PIGGYBACK 50 MG IV ×3 (02:36→17:35)
[2021-05-19] MEDS: LACTATED RINGERS 1,000 ML 125 ML IV (02:37)
[2021-05-19] MEDS: OXYCODONE/ACETAMINOPHEN 5/325 TABLET 1 TAB PO (04:59)
[2021-05-19] MEDS: MORPHINE IR 15 MG TABLET PO (04:59)
[2021-05-19] MEDS: OXYCODONE IR 5 MG TABLET 2.5 MG PO ×3 (04:59→18:03)
--- NOTE | 2021-05-19 07:50 | PC.NURSE ---
Addendum entered by Marlee Lux R.N. 05/19/21 18:32: Patient is less anxious now. He voided 650cc after bumex given iv. He states that he does not want to take this tomorrow. He denies pain. IV clindamycin infusing now. Addendum entered by Marlee Lux R.N. 05/19/21 16:08: Patient complains of not feeling well and being nauseous. Given iv Bumex over 3O minutes and patient tolerated well. He states that he gets intense muscle cramps sometimes with taking water pills. Given 40meq of po potassium x1. Lower extremities remain swollen with 3 and 4 + edema. Patient has already put out 1550 in urinal, he actually has to use a graduated cylinder to void as he is a large man. He states that he feels bloated and heavy chested but not having any cardiac heart discomfort. Patient does have a heart murmur and a pace maker. He is reclined in his chair now. Original Note: Assess:0751: Patient is alert and oriented x3. He denies pain or discomfort to his left foot. Patient has a dressing to the left foot where his 4th toe was removed. He has 4+ edema to l.lower extremity and foot, maxwell is also red and warm to touch. R. leg with 3+ edema. Legs are shiny and slightly pitting. He is a very pleasan man and cooperative with all care. Resting comfortably and waiting for breakfast.
--- NOTE | 2021-05-19 07:55 | PT-IP ANOTE ---
PT order received. Read Dr. Chicas's note that pt has osteomyelitis and amputation of left 4th toe is recommended. Will d/c PT until surgery is completed and will need a new order and WB status after surgery.
[2021-05-19] MEDS: DOCUSATE 100 MG CAPSULE PO (08:25)
[2021-05-19] MEDS: DABIGATRAN 75 MG CAPSULE 150 MG PO (08:25)
--- NOTE | 2021-05-19 08:29 | PT-IP ANOTE ---
Note: when PT initially wrote note this morning, nursing note now put in at 0750 was not in the chart. PT will now address this order and will check for WB status. Thank you. Madeline
[2021-05-19] MEDS: METFORMIN HCL 500 MG TABLET 1000 MG PO ×2 (08:42→17:36)
[2021-05-19] MEDS: INSULIN LISPRO 100 UNIT/ML 3ML VIAL SUBCUT ×3 (08:54→17:35)
[2021-05-19] MEDS: INSULIN GLARGINE 100 UNIT/ML 3ML PEN 40 UNIT SUBCUT ×2 (08:54→21:23)
[2021-05-19 09:21] LABS: Add Manual Diff / Slide Review NO; Basophils Absolute Auto 0 /uL (0-100); Basophils Percent Auto 0.4 % (0-2); Eosinophils Absolute Auto 100 /uL (0-450); Hematocrit 37.4 % (41-53); Hemoglobin 12.4 g/dL (13.5-17.5); Lymphocytes Absolute Auto 1200 /uL (1100-4500); Lymphocytes Percent Auto 19.7 % (25-40); Mean Corpuscular HGB Conc 33.1 % (30-36); Mean Corpuscular Hemoglobin 28.6 PG (26-34); Mean Corpuscular Volume 86.4 fL (80-100); Monocytes Absolute Auto 700 /uL (0-900); Monocytes Percent Auto 11.7 % (3-14); Neutrophils Absolute Auto 4000 /uL (1500-7000); Neutrophils Percent Auto 67.2 % (50-75); Platelet Count 267 X10^3/uL (150-400); Red Blood Cell Count 4.33 X10^6/uL (4.5-5.9); Red Cell Distribution Width 14.3 % (11.6-14.8); White Blood Cell Count 5.9 X10^3/uL (4.5-11.0)
[2021-05-19 09:26] LABS: Hemoglobin A1C% w Est Avg Glu 6.7 % (4.0-6.0)
[2021-05-19 09:27] LABS: Albumin 3.4 g/dL (3.5-5.0); BUN Creatinine Ratio 15.4 (6-22); Blood Urea Nitrogen 12 mg/dL (9-20); Calcium 8.5 mg/dL (8.4-10.2); Carbon Dioxide 28 mmol/L (22-32); Chloride 99 mmol/L (98-107); Estimated Glomerular Filt Rate > 60.0 mL/min (>60); Glucose 147 mg/dL (80-110); HEMOLYSIS < 15 (0-50); Phosphorous 3.7 mg/dL (2.3-3.7); Potassium 4.4 mmol/L (3.4-5.1); Sodium 132 mmol/L (137-145)
--- NOTE | 2021-05-19 09:43 | PM.PNPO.1 ---
Subjective Subjective Date Patient Seen: 05/19/21 Time Patient Seen: 09:44 Interval history: Patient is complaining of mild left foot pain this morning. He is concerned because both of his calves are significantly larger than normal. He had a negative ultrasound approximately 2 days ago. He has been followed closely by his regular foot doctor who sent him to the ER. He denies any fevers, chills, night sweats. Exam Vital Signs (past 8 hours): - 05/19/21 02:30 05/19/21 08:50 Temperature 99.3 F 97.9 F Pulse Rate 67 70 Respiratory Rate 20 18 Blood Pressure 130/66 117/58 L Pulse Oximetry 97 94 Oxygen Delivery Method Room Air Oxygen Flow Rate 0 Narrative Exam Narrative: Pleasant 65-year-old male, resting comfortably in his chair, no acute distress. Dressing demonstrates some bloody drainage over the 4th metatarsal incision. He is able to wiggle his toes and cap refill is 1 +. Left lower leg is shiny, erythematous, edematous. He is nontender to palpation in bilateral calves, although there is significant bilateral lower extremity swelling. Objective Labs Result Diagrams: 05/19/21 05:55 05/19/21 05:55 Labs: Laboratory Results - last 24 hr 05/18/21 05/19/21 05/19/21 16:14 05:55 05:55 WBC 5.9 RBC 4.33 L Hgb 12.4 L Hct 37.4 L MCV 86.4 MCH 28.6 MCHC 33.1 RDW 14.3 Plt Count 267 Neut % (Auto) 67.2 Lymph % (Auto) 19.7 L Appling % (Auto) 11.7 Eos % (Auto) 1.0 L Baso % (Auto) 0.4 Neut # (Auto) 4000 Lymph # (Auto) 1200 Appling # (Auto) 700 Eos # (Auto) 100 Baso # (Auto) 0 Sodium 132 L Potassium 4.4 Chloride 99 Carbon Dioxide 28 BUN 12 Creatinine 0.78 Estimated GFR > 60.0 BUN/Creatinine Ratio 15.4 Glucose 147 H D Hemoglobin A1c Calcium 8.5 Phosphorus 3.7 Albumin 3.4 L SARS-CoV-2 (PCR) Negative 05/19/21 05:55 WBC RBC Hgb Hct MCV MCH MCHC RDW Plt Count Neut % (Auto) Lymph % (Auto) Appling % (Auto) Eos % (Auto) Baso % (Auto) Neut # (Auto) Lymph # (Auto) Appling # (Auto) Eos # (Auto) Baso # (Auto) Sodium Potassium Chloride Carbon Dioxide BUN Creatinine Estimated GFR BUN/Creatinine Ratio Glucose Hemoglobin A1c 6.7 H Calcium Phosphorus Albumin SARS-CoV-2 (PCR) [facility] Medical History Diabetes Neuropathy Social History household members: spouse Smoking Status: Never smoker Assessment & Plan Post-op Postoperative Procedures: Amputation left 4th toe through the MTP joint? Postoperative day: 1 Postoperative status: doing well Postoperative plan narrative: -mobilize with PT. flatfoot weight-bearing in a postoperative shoe. -elevate ?toes above the nose ? as much as possible. -Hospitalization for IV antibiotics for cellulitis. Adjust based on cultures. -follow-up with Orthopedics in 2 weeks for postoperative wound check -Sutures will remain in place minimum of 4 weeks. -May change dressing as needed -intraoperative cultures are still pending and will likely dictate when the patient can be discharged. -requesting hospitalist to manage possible fluid overload and assist with cellulitis. Quality VTE Deep Vein Thrombosis/Pulmonary Embolism Present on Admission: No
--- NOTE | 2021-05-19 09:54 | PT.IIE ---
Current Diagnoses Cellulitis, unspecified (05/18/21) Osteomyelitis, unspecified (05/18/21) Medical History (Last Reviewed 05/19/21 @ 09:46 by Francia Walsh PA-C) Diabetes Neuropathy Physical Therapy Inpatient Evaluation/Re-Eval M1 PT/OT-IP Prior Functional Status Start: 05/19/21 07:52 Freq: Status: Active Protocol: Document 05/19/21 09:18 MB (Rec: 05/19/21 09:53 MB [id number]) Medical Review Prior Functional Status Medical History Reviewed Yes Diet/Fluid Consistency Regular Communication Communicates needs Mobility and Gait Gait trained in house with SPC Activities of Daily Living and IADL's Pt is morbidly obese and cannot see the bottom of his own feet and his has to assist him with foot care Prior Functional Level (Other details) Mobilized in the house, 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 20 steps on one side of the house to enter and he can drive a car around to get in the house without steps Home Equipment Straight Cane Employment Status Retired Additional Social History Comment Standard walker M2 PT-IP Current Condition Start: 05/19/21 07:52 Freq: Status: Active Protocol: Document 05/19/21 09:18 MB (Rec: 05/19/21 09:53 MB [id number]) Physical Therapy Current Condition Current Condition Evaluation Date 05/19/21 Treatment Diagnosis Decreased mobility s/p left 4th toe amputation Onset Date 05/19/21 M3 PT-IP Subjective Start: 05/19/21 07:52 Freq: Status: Active Protocol: Document 05/19/21 09:18 MB (Rec: 05/19/21 09:53 MB [id number]) Subjective Physical Therapy Visit Type Type Initial Evaluation Visit Start Time 08:28 Visit Stop Time 09:12 Total Visit Minutes 44 Number of MULTINEEDLE SHIRRER Visits 0 Physical Therapy Visit Comments Patient Comments Pt states that he feels his last ED visit was an error as he as not admitted and then he went home, went to bed and got up 10 hours later with a joe left fourth digit Patient Goals To go home Therapy Pain Assessment Pain When Pain Assessed At Rest Pain Present Pain Present Denied Pain M4 PT-IP Mobility and Gait Start: 05/19/21 07:52 Freq: Status: Active Protocol: Document 05/19/21 09:18 MB (Rec: 05/19/21 09:53 MB [id number]) PT-Bed Mobility Assessment Rolling Type of Rolling Roll to Left Level of Assist Independent Supine to Sit Supine to Sit Independent,Head of Bed Elevated,Bedrails Scooting Scooting to Edge of Bed Independent PT-Transfer Assessment Sit to and From Stand Sit to and from Stand Minimal Assistance,1 Person Assistance,Use of Upper Extremities Equipment Transfer Assistive Device Gait Belt,Front Wheeled Walker Orthotic/Prosthetic Devices or Brace: Yes Transfers Transfer Destination Chair Transfer Technique Stand Step Pivot Transfer Ability Level of Assist Minimal Assistance,1 Person Assistance,Use of Upper Extremities Comments Mobility Comments Overall, pt is apprehensive about movement. He reports dizziness when getting up and BP takes several times to read once up in chair in RUE and is 132/70, 71. Pt is able to move his own legs with increased effort, especially left leg d/t edema. He is dependent to [facility] sock on right foot. Heavy use of bed rails and HOB increased to get to EOB. Once sitting EOB, heavy use of foot rail with right hand d/t reports of dizziness. PT assists pt in getting on his right athletic shoe and left post-op shoe which is too short and too narrow for him. Cues to push up from the bed for sit to stand. Cues to let go of foot of bed and to reach for walker with both hands when standing . Walker is split between his feet given girth with left foot inside walker. CGA for all of these tasks. He can finally upright his posture better with cues and PT talks him through all stepping: left forward and then right LE in the walker and then step-to gait. PT cues pt to keep his weight on left heel d/t the 3/ 4 bottom post-op shoe to unweight the forefoot after amputation. Pt states that he does not feel steady in the shoe Gait Assessment Gait Gait Assistance Required: Minimum Assistance,1 Person Assist Distance (Feet) 2 Able to Maintain Weight Bearing Status Yes During Gait Assistive Devices Assistive Device Gait Belt,Front Wheeled Walker Orthotic/Prosthetic Devices or Brace: Yes Gait Deviations General Gait Pattern Antalgic,Decreased Stride Length,Decreased Feet Clearance,Flexed Trunk,Wide Based Gait Factors Limiting Gait Function Factors Limiting Gait Function Decreased Activity Tolerance, Decreased Sensation,Decreased Strength,Difficulty Following Directions,Incoordination, Limited Range of Motion,Poor Balance,Poor Safety Awareness Comments Gait Comments PT instructs pt through step- to gait pattern with the 3/4 bottom post-op shoe on left foot. Pt naturally keeps the left toes outward and this improves WB through the back of his foot to protect the left toes. His toes do extend beyond the post-op shoe and are at rest for hitting walker or any object in the way. He requires min A for moving the walker forward and then back and cues to step back to the chair, touch with right leg and reach back with right hand before sitting. Left with legs elevated on pillow, trashcan under foot of chair to prevent quick release of bottom of chair d/t body habitus, needs in reach and nsg aware. Pt reports dizziness when he is up. Stair Climbing Assessment Comments Stair Climbing Comments Do not feel that pt will be able to do stairs this hospitalization and recommend driving his car to the back of his house when returning home PT-Balance Assessment Sitting Balance and Reactions Static Sitting Balance Ability Fair Dynamic Sitting Balance Ability Fair Standing Balance and Reactions Static Standing Balance Ability Fair Dynamic Standing Balance Ability Poor Device Used RW M5 PT-IP Objective Assessments Start: 05/19/21 07:52 Freq: Status: Active Protocol: Document 05/19/21 09:18 MB (Rec: 05/19/21 09:53 MB [id number]) Orientation Orientation/Cognition Level of Alertness Alert Orientation Name,Age,Birthday,Month,Date, Year,Day of Week,Place, Situation Language Function Ability No Deficits Noted Safety Awareness Decreased Safety Awareness Memory Description No Deficits Noted Gross Range of Motion Upper Extremity ROM Assessment Within Functional Limits Lower Extremity ROM Assessment Bilaterally Impaired Impairments B LE edema, reports of diabetic neuropathy with sensation starting at ankles, left leg is more edematous and has erythema, foot wrapped in kerlix Strength Upper Extremity Strength Assessment Within Functional Limits Lower Extremity Strength Assessment Bilaterally Impaired Comments Strength Comments PT does not MMT LEs given presentation and movement restrictions d/t edema and post-op this morning Sensation Assessment Sensation Gross Sensation Right LE Impaired,Left LE Impaired Comments Sensation Comments Diabetic neuropathy B feet M6 PT-IP Treatment Start: 05/19/21 07:52 Freq: Status: Active Protocol: Document 05/19/21 09:18 MB (Rec: 05/19/21 09:53 MB [id number]) Physical Therapy Treatment Exercises Exercises Ankle Pumps,Gluteal Sets,Short Arc Quads Education Education Provided Precautions,Weight Bearing Status,Safety Brace Education Patient Other Treatments Other Treatment Performed PT ed pt on wear of 3/4 bottom post-op shoe left foot, how to WB through it and to wear right shoe when up. Overall, the post-op shoe is too short and narrow for him. Ed on imporantance of elevation and AROM LEs M7 PT-IP Assessment and Plan Start: 05/19/21 07:52 Freq: Status: Active Protocol: Document 05/19/21 09:18 MB (Rec: 05/19/21 09:53 MB [id number]) PT Summary Assessment and Plan Potential Rehabilitation Potential Fair Status of Condition at Evaluation Evolving Summary Impairments ROM,Strength,Balance, Coordination,Sensation Assessment Summary Pt is a 65 y/o male presenting with morbid obesity, diabetes , diabetic neuropathy, diabetic ulcers and now s/p amputation left fourth toe. At baseline, he cannot take care of his feet on his own and his is helping him manage . He typically moves with a SPC. Today, the 3/4 bottom post-op shoe in his room is neither long or wide enough for him and PT does use it as he is WBAT with it and this may be safer than attempting NWB. He requires heavy assist to don it and his right shoe today. He is not familiar with he RW and will benefit from further training with it and issue of a bariatric RW for home use. PT is concerned about his overall fall risk and diabetic foot presentation . Goals Bed Mobility Goal Independent Transfer Goal Independent Gait Goal Standby Assistance Gait Distance 50 Other Goals Bed mobility and transfer goals are I with HOB flat and no use of rails in order to prepare for d/c home. Will restrict gait distance given his diabetic wound and amputation. Recommend trying bariatric RW for gait training . Defer stairs as he can get in the home without and does not have any inside per report on to Meet Goals 5 Frequency of Treatment Frequency Of Treatment Once a Day Treatment Plan Physical Therapy Treatment Plan Bed Mobility Training,Transfer Training,Gait Training, Therapeutic Exercise,Balance Retraining,Post Op Education, Discharge Planning, Neuromuscular Re-ed,Manual Therapy Other Recommendations and Next Treatment Gait training with bariatric Focus walker Precautions Other Precautions He has a 3/4 bottom post-op shoe for the left in room, ill -fitting Weight Bearing Status Weight Bearing Status Weight Bear as Tolerated Recommendations To Nursing Amount of Assist Needed 1 Person Assist Discharge Recommendations PT Discharge Recommendations Home with 13/01 Assist Available,Home Health Other Discharge Recommendations Bariatric RW HHPT and nsg--PT for mobility and nsg to address his foot wound as he did not fare well with his pre-adm A larger post-op shoe Transportation Needs at Discharge Private Vehicle
--- NOTE | 2021-05-19 11:38 | PM.HP.1 ---
History of Present Illness History of Present Illness Date Patient Seen: 05/19/21 Chief complaint: LT toe infected Narrative: THIS IS A 65-YEAR-OLD MALE MORBIDLY OBESE FOR PAST MEDICAL HISTORY SIGNIFICANT FOR DIABETES, HYPERTENSION, ATRIAL FIBRILLATION WELL CHRONIC PAIN SYNDROME. PATIENT WAS ADMITTED TO THE HOSPITAL WITH AN INFECTED LEFT 4TH TOE. THIS HAS BEEN GOING FOR A FEW DAYS. REPORTEDLY PATIENT HAS NOTED SOME REDNESS TO THE LEFT 5TH TOE A FEW DAYS AGO AND DID NOT PAY THAT MUCH ATTENTION TO IT. YESTERDAY WAS SEEN IN THE ER AND REFERRED TO THE ORTHOPEDIC SURGEON. BECAUSE OF THE SEVERITY OF HIS INFECTION ON THAT TOE, HE WAS TAKEN TO THE OR FOR AN AMPUTATION TO WHICH SHE WAS AGREEABLE TO. WORKUP IN THE ER WAS NOTED TO BE REALLY BE NIGHT WITH NORMAL WBC LEVEL. SOME MILD HYPONATREMIA NOTED. HE HAS SIGNIFICANT EDEMA TO LOWER EXTREMITIES WHICH IS LIKELY MULTIFACTORIAL.. HE IS ON DIURETICS CHRONICALLY AT HOME NEEDED REPORTEDLY. PATIENT HAD NO SIGNIFICANT COMPLAINTS TODAY Patient History Medical History Diabetes Neuropathy Family & Social History Social History: household members spouse Prior Living Arrangements House Safety & Behavioral: Feels Safe in Current Yes Environment Been Physically Hurt or No Threatened By a Person Tobacco & Substance use: Smoking Status Never smoker alcohol intake frequency other Substance Use Type does not use Meds Home Medications and Allergies Home Medications Medication Instructions Recorded Confirmed Type beclomethasone diprop (AQ) 42 mcg 1 spray INTRANASAL PRN PRN #0 01/14/17 05/19/21 History (0.042 %) nasal spray (Beconase AQ) dabigatran etexilate 150 mg 150 mg PO BID #0 01/14/17 05/19/21 History capsule (Pradaxa) gabapentin 600 mg tablet 0.5 tab PO HS #0 01/14/17 05/19/21 History (Neurontin) insulin glargine 100 unit/mL 40 - 50 unit SQ BID #0 01/14/17 05/19/21 History subcutaneous solution (Lantus U-100 Insulin) insulin lispro 100 unit/mL 20 - 40 unit SQ SLIDE #0 01/14/17 05/19/21 History subcutaneous solution (Humalog U-100 Insulin) lisinopril 20 mg tablet 10 mg PO BEDTIME #0 01/14/17 05/19/21 History metformin 1,000 mg tablet 1,000 mg PO BIDCC #0 01/14/17 05/19/21 History metformin 500 mg tablet,extended 1,000 mg PO BID #0 01/14/17 History release 24 hr (Glucophage XR) morphine 15 mg immediate release 15 mg PO BID #0 01/14/17 05/19/21 History tablet oxycodone-acetaminophen 10 mg-325 1 tab PO QID #0 01/14/17 05/19/21 History mg tablet (Endocet) salmeterol 50 mcg/dose blister 1 puff INH BID #0 01/14/17 05/19/21 History powder for inhalation (Serevent Diskus) testosterone 1.62 % (20.25 mg/1.25 1.25 gm TD QDAY #0 01/14/17 05/19/21 History gram) transdermal gel packet (AndroGel) torsemide 20 mg tablet 0.5 tab PO PRN PRN #0 01/14/17 05/19/21 History sulfamethoxazole 800 1 tab PO BID 7 Days #14 tab 05/15/21 05/19/21 Rx mg-trimethoprim 160 mg tablet (Bactrim DS) metoprolol succinate 25 mg 12.5 mg PO BID 05/19/21 05/19/21 History tablet,extended release 24 hr Allergies Allergy/AdvReac Type Severity Reaction Status Date / Time cephalexin [CEPHALEXIN] Allergy Severe BREATHING Verified 05/15/21 15:55 PROBLEMS, TIGHTNESS diltiazem [DILTIAZEM] Allergy Severe SWELLING, Verified 05/15/21 15:55 RASH Influenza Virus Vaccines Allergy Unknown UNKNOWN Verified 05/15/21 15:56 [INFLUENZA VIRUS VACCINES] REACTION PER PT, BUT IT WAS SERIOUS amiodarone [AMIODARONE] AdvReac Severe FATIGUE, Verified 05/15/21 15:55 PHOTOSENSITIVITY, MACULAR DEGENERATION clonidine [CLONIDINE] AdvReac Severe MY FEET Verified 05/15/21 15:55 TURNED TO JELLY, WEEPING lisinopril [LISINOPRIL] AdvReac Severe CRAMPING Verified 05/15/21 15:55 doxycycline AdvReac Mild Diarrhea Verified 05/15/21 15:55 gabapentin [GABAPENTIN] AdvReac Mild JERKING/LEG/BODY Verified 05/15/21 15:55 AT NIGHT verapamil AdvReac Unknown Verified 05/15/21 15:55 Review of Systems Review of Systems Narrative: ALL SYSTEM REVIEWED. NEGATIVE UNLESS NOTED ABOVE IN HPI Exam Vital Signs (past 8 hours): - 05/19/21 08:50 Temperature 97.9 F Pulse Rate 70 Respiratory Rate 18 Blood Pressure 117/58 L Pulse Oximetry 94 Oxygen Delivery Method Room Air Oxygen Flow Rate 0 Narrative Exam Narrative: MORBIDLY OBESE.NO ACUTE DISTRESS. PATIENT IS ALERT ORIENTED X3. HEAD ATRAUMATIC NORMOCEPHALIC NECK : SUPPLE WITHOUT ADENOPATHY NO CAROTID BRUITS EYE: EOMI, PERRLA, NORMAL CONJUNCTIVA; NO JAUNDICE CHEST: REGULAR RATE. NO RUBS. PMI IS NON DISPLACED. NO MURMURS; NORMAL S1-S2 PULMONARY: DECREASED BS OVER THE BASES. MILD BIBASILAR CRACKLES NOTED; NO INCREASED DULLNESS TO PERCUSSION ABDOMEN: OBESE BUTSOFT. NONTENDER. NONDISTENDED. BOWEL SOUNDS ARE PRESENT IN ALL 4 QUADRANTS. EXTREMITIES: UBSTAGEABLE BILATERAL LOWER EXTREMITY EDEMA.. NO CYANOSIS CLUBBING NOTED. DRESSING TO LEFT LOWER EXTREMITY. NEURO: CRANIAL NERVES 2-12 GROSSLY INTACT. NO FOCAL NEUROLOGICAL DEFICIT NOTED. MSK: NORMAL RANGE OF MOTION FOR AGE. NO JOINT EFFUSION. SKIN: NORMAL FOR ETHNICITY; NO ECCHYMOSIS. NO LESION. GOOD TURGOR.; NO RASHES : NORMAL EXTERNAL GENITALIA. PSYCH : APPROPRIATE MOOD AND AFFECT. ALERT AWAKE ORIENTED X3 Objective Labs Result Diagrams: 05/19/21 05:55 05/19/21 05:55 Labs: Laboratory Results - last 24 hr 05/18/21 05/19/21 05/19/21 16:14 05:55 05:55 WBC 5.9 RBC 4.33 L Hgb 12.4 L Hct 37.4 L MCV 86.4 MCH 28.6 MCHC 33.1 RDW 14.3 Plt Count 267 Neut % (Auto) 67.2 Lymph % (Auto) 19.7 L [place] % (Auto) 11.7 Eos % (Auto) 1.0 L Baso % (Auto) 0.4 Neut # (Auto) 4000 Lymph # (Auto) 1200 [place] # (Auto) 700 Eos # (Auto) 100 Baso # (Auto) 0 Sodium 132 L Potassium 4.4 Chloride 99 Carbon Dioxide 28 BUN 12 Creatinine 0.78 Estimated GFR > 60.0 BUN/Creatinine Ratio 15.4 Glucose 147 H D Hemoglobin A1c Calcium 8.5 Phosphorus 3.7 Albumin 3.4 L SARS-CoV-2 (PCR) Negative 05/19/21 05:55 WBC RBC Hgb Hct MCV MCH MCHC RDW Plt Count Neut % (Auto) Lymph % (Auto) [place] % (Auto) Eos % (Auto) Baso % (Auto) Neut # (Auto) Lymph # (Auto) [place] # (Auto) Eos # (Auto) Baso # (Auto) Sodium Potassium Chloride Carbon Dioxide BUN Creatinine Estimated GFR BUN/Creatinine Ratio Glucose Hemoglobin A1c 6.7 H Calcium Phosphorus Albumin SARS-CoV-2 (PCR) Assessment & Plan Assessment & Plan narrative: PROBLEM LIST DIABETIC FOOT ULCER TO 4TH LEFT TOE. OSTEOMYELITIS REPORTED. 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 DERMATITIS CHRONIC PAIN SYNDROME HYPERTENSION PER HISTORY HYPERLIPIDEMIA PER HISTORY PLAN WILL DEFER ANTIBIOTIC THERAPY TO THE SURGICAL TEAM WHICH HAS BEEN CONSULTED IN REGARD TO THE WOUND WILL ALSO DEFER DRESSING ORDERS THE SURGICAL TEAM WELL MONITOR CLOSELY WHILE ON ANTIBIOTICS THERAPY FOR ANY SIDE EFFECTS WATCH FOR C DIFF COLITIS START ON LACTOBACILLUS DC IV FLUID START ON A FLUID RESTRICTIONS PATIENT TO KEEP LOWER EXTREMITY ELEVATED AT ALL TIMES WHILE SITTING WILL ALSO START ON DIURETICS SCHEDULED DAILY LABS TO FOLLOW MONITOR ELECTROLYTE CLOSELY INSULIN SLIDING SCALE FOR PROPER BLOOD SUGAR CONTROL CONTINUE HOME MEDS DAILY WEIGHT LOW-SALT DIET ADDITIONAL MANAGEMENT PER CLINICAL COURSE PROGNOSIS IS GUARDED Time Spent With Patient Critical Care time: I spent a total of [] minutes of critical care time on this patient's care today; this time is exclusive of procedural time. Quality VTE Deep Vein Thrombosis/Pulmonary Embolism Present on Admission: No
[2021-05-19] MEDS: ALBUTEROL 2.5 MG/3 ML NEB (ADULT) INH ×2 (12:05→19:26)
[2021-05-19] MEDS: BUMETANIDE 1 MG/4 ML VIAL 2 MG IV (13:36)
--- NOTE | 2021-05-19 13:37 | CM.DANOTE ---
DCP Assessment: Patient is a 65 yr old male who is here following a Lt toe amputation. CM met with the patient at the bedside and explained role. Patient was alert and oriented x4 during visit. patient stated he is independent with ADLs and drives at baseline. However patients Yodit helps patient with bandage changes and wound cleaning. patient currently lives in a two story home however everything that is needed is on the ground floor and through the back door of the house there are no stairs. patient currently has FWW at home and feels he will be able to get around at home. PT Recommends home with 1 person assist. I: [employer] and self pay Plan: DC home with when medically stable. No identified DC planning needs noted at this time. CM department will follow to assist with any new DC planning needs that may arise. Kristina Nowak Discharge Planning/Care Management CM Discharge Assessment Start: 05/19/21 12:43 Freq: Status: Active Protocol: Document 05/19/21 13:35 HS (Rec: 05/19/21 13:37 HS [id number]) Discharge Planning Assessment Assigned Bail Agent Kristina Nowak DPOA/Assigned Designee Name Yodit Cerda () Contact Information [phone] Advance Directives? No History Provided By Patient,Medical Record Prior Living Arrangements House Household Members spouse Type of transporation used prior to Drives own vehicle admit Independent with ADL's Yes: patient helps with chores and bandage changes Is patient alert and oriented? Yes Caregiver for Another No DME Already Rented / Owned FWW / Walker Barriers to Discharge No Discharge Plan Home Referrals Initiated None needed Additional Comment Patient stated he will not need a SNF or HH since he has his who helps with bandage changes and house work . Whiteboard Updated in Patient Room with Yes name and ext. # of Bail Agent Review Status In Process Next Review Type Continued Stay Review
[2021-05-19] MEDS: POTASSIUM CHLORIDE 20 MEQ TAB 40 MEQ PO (13:56)
[2021-05-19] MEDS: LACTOBACILLUS ACIDOPHILUS TABLET 1 EACH PO (15:59)
[2021-05-19 17:29] LABS: Troponin I 0.014 ng/mL (0.01-0.034)
[2021-05-19] MEDS: MORPHINE ER 15 MG TABLET PO (17:35)
[2021-05-19] MEDS: ONDANSETRON 4 MG/2 ML INJ IV (20:22)
[2021-05-19] MEDS: METOCLOPRAMIDE 10 MG/2 ML INJ 5 MG IV (22:32)
--- NOTE | 2021-05-19 22:45 | PC.NURSE ---
Addendum entered by Ranulfo Rodriguez R.N. 05/20/21 05:59: Vomiting and nausea continued throughout the shift. Reglan provided immediate, but not lasting, relief. Zofran given Q4 hours per MAR which produced mild relief. Original Note: Patient experiencing intractable vomiting throughout shift. Zofran administered with no relief. Patient states this occurs when he takes a diuretic at home and a salt tab is the only thing which relieves him. Patient expressing concern about his electrolyte levels and states it is what is causing all this. Patient received 2mg Bumex IV at 1336. Provider contacted and order for Reglan received, administered shortly after and now continuing to monitor patient.
[2021-05-20] MEDS: OXYCODONE IR 5 MG TABLET 2.5 MG PO ×2 (00:35→14:16)
[2021-05-20] MEDS: ONDANSETRON 4 MG/2 ML INJ IV ×3 (00:35→08:06)
[2021-05-20] MEDS: CLINDAMYCIN 900 MG/50 ML PIGGYBACK 50 MG IV ×2 (02:46→10:54)
[2021-05-20] MEDS: HYDROMORPHONE 0.5 MG INJ 0.2 MG IV ×2 (02:47→06:26)
[2021-05-20 04:10] VITALS: BP 141/78; PULSE 70; RESP 16; TEMP 37.3; O2SAT 94
[2021-05-20 05:09] LABS: Add Manual Diff / Slide Review NO; Basophils Absolute Auto 0 /uL (0-100); Basophils Percent Auto 0.3 % (0-2); Eosinophils Absolute Auto 0 /uL (0-450); Eosinophils Percent Auto 0.1 % (2-4); Hematocrit 40.4 % (41-53); Hemoglobin 13.3 g/dL (13.5-17.5); Lymphocytes Absolute Auto 800 /uL (1100-4500); Mean Corpuscular HGB Conc 33.1 % (30-36); Mean Corpuscular Hemoglobin 28.4 PG (26-34); Mean Corpuscular Volume 85.9 fL (80-100); Monocytes Absolute Auto 400 /uL (0-900); Monocytes Percent Auto 6.7 % (3-14); Neutrophils Absolute Auto 5400 /uL (1500-7000); Neutrophils Percent Auto 80.9 % (50-75); Platelet Count 299 X10^3/uL (150-400); Red Cell Distribution Width 14.3 % (11.6-14.8); White Blood Cell Count 6.7 X10^3/uL (4.5-11.0)
[2021-05-20 05:23] LABS: Alanine Aminotransferase 41 IU/L (<50); Albumin 3.8 g/dL (3.5-5.0); Albumin Globulin Ratio 1.1 (1.0-2.8); Alkaline Phosphatase 45 U/L (38-126); Aspartate Aminotransferase 29 IU/L (17-59); BUN Creatinine Ratio 15.8 (6-22); Bilirubin Total 0.9 mg/dL (0.2-1.3); Blood Urea Nitrogen 12 mg/dL (9-20); Calcium 8.7 mg/dL (8.4-10.2); Carbon Dioxide 30 mmol/L (22-32); Chloride 96 mmol/L (98-107); Estimated Glomerular Filt Rate > 60.0 mL/min (>60); Globulin 3.6 g/dL (1.7-4.1); Glucose 187 mg/dL (80-110); HEMOLYSIS < 15 (0-50); Phosphorous 4.1 mg/dL (2.3-3.7); Potassium 4.1 mmol/L (3.4-5.1); Sodium 134 mmol/L (137-145); Total Protein 7.4 g/dL (6.3-8.2)
--- NOTE | 2021-05-20 07:47 | PC.NURSE ---
Addendum entered by Marlee Lux R.N. 05/20/21 12:27: Patient had a 50ml emesis. Just given reglan prior. He thinks every antibiotic, and medication given is causing his nausea. Dr. Goel is going to discharge patient home later today, he has been cleared from ortho. He continues to recline in his chair with his 4+ edema bilaterally with pillows under each leg. Original Note: 0745- Patient is alert and oriented, he had a hard night as he had several emesis. Will give patient some zofran at 0830 with his insulin. Will hold off on po medication as he has been throwing up, last time was at 0700 of 300ml. He states right now that he is feeling 100% better then yesterday. He is convinced that he is sick from bumex given iv yesterday. His dressing to l.4th toe removal is cdi. Patient has multiple skin issues that can be seen under physical assessment. He continues to sit and sleep in his chair and voiding in graduated cylinder. Patient is obese and has problems urinating in regular urinal.
[2021-05-20] MEDS: INSULIN LISPRO 100 UNIT/ML 3ML VIAL SUBCUT ×2 (08:05→11:42)
[2021-05-20] MEDS: INSULIN GLARGINE 100 UNIT/ML 3ML PEN 40 UNIT SUBCUT (08:06)
[2021-05-20 10:20] VITALS: PULSE 70; RESP 20; O2SAT 97
[2021-05-20] MEDS: ALBUTEROL 2.5 MG/3 ML NEB (ADULT) INH (10:20)
--- NOTE | 2021-05-20 10:55 | P.PN_ITS ---
Exam Vital Signs (past 8 hours): - 05/20/21 04:10 05/20/21 10:20 Temperature 99.1 F Pulse Rate 70 70 Respiratory Rate 16 20 Blood Pressure 141/78 H Pulse Oximetry 94 97 Oxygen Delivery Method Room Air Oxygen Flow Rate 0 Objective Labs Result Diagrams: 05/20/21 04:39 05/20/21 04:39 Labs: Laboratory Results - last 24 hr 05/19/21 05/20/21 05/20/21 17:00 04:39 04:39 WBC 6.7 RBC 4.70 Hgb 13.3 L Hct 40.4 L MCV 85.9 MCH 28.4 MCHC 33.1 RDW 14.3 Plt Count 299 Neut % (Auto) 80.9 H Lymph % (Auto) 12.0 L [place] % (Auto) 6.7 Eos % (Auto) 0.1 L Baso % (Auto) 0.3 Neut # (Auto) 5400 Lymph # (Auto) 800 L [place] # (Auto) 400 Eos # (Auto) 0 Baso # (Auto) 0 Sodium 134 L Potassium 4.1 Chloride 96 L Carbon Dioxide 30 BUN 12 Creatinine 0.76 Estimated GFR > 60.0 BUN/Creatinine Ratio 15.8 Glucose 187 H Calcium 8.7 Phosphorus 4.1 H Total Bilirubin 0.9 AST 29 ALT 41 Alkaline Phosphatase 45 Troponin I 0.014 Total Protein 7.4 Albumin 3.8 Globulin 3.6 Albumin/Globulin Ratio 1.1 [facility] Medical History Diabetes Neuropathy Social History household members: spouse Smoking Status: Never smoker Assessment & Plan Assessment & Plan narrative: S/p left toe amputation. Culture currently no growth. Patient is stable and can be discharged to home on clindamycin oral. Left foot dressing clean dry with small amount of dry blood on gauze. Significant chronic BLE edema. Time Spent With Patient Critical Care time: I spent a total of [] minutes of critical care time on this patient's care today; this time is exclusive of procedural time. Quality VTE Deep Vein Thrombosis/Pulmonary Embolism Present on Admission: No
--- NOTE | 2021-05-20 11:16 | PT-IP ANOTE ---
refused PT due to nausea
[2021-05-20] MEDS: METOCLOPRAMIDE 10 MG/2 ML INJ IV (11:42)
[2021-05-20 12:00] VITALS: BP 141/73; PULSE 67; RESP 18; TEMP 36.4; O2SAT 98
--- NOTE | 2021-05-20 13:39 | P.DS_ITS ---
History of Present Illness History of Present Illness Chief complaint: LT toe infected Narrative: THIS IS A 65-YEAR-OLD MALE MORBIDLY OBESE FOR PAST MEDICAL HISTORY SIGNIFICANT FOR DIABETES, HYPERTENSION, ATRIAL FIBRILLATION WELL CHRONIC PAIN SYNDROME. PATIENT WAS ADMITTED TO THE HOSPITAL WITH AN INFECTED LEFT 4TH TOE. THIS HAS BEEN GOING FOR A FEW DAYS. REPORTEDLY PATIENT HAS NOTED SOME REDNESS TO THE LEFT 5TH TOE A FEW DAYS AGO AND DID NOT PAY THAT MUCH ATTENTION TO IT. YESTERDAY WAS SEEN IN THE ER AND REFERRED TO THE ORTHOPEDIC SURGEON. BECAUSE OF THE SEVERITY OF HIS INFECTION ON THAT TOE, HE WAS TAKEN TO THE OR FOR AN AMPUTATION TO WHICH SHE WAS AGREEABLE TO. WORKUP IN THE ER WAS NOTED TO BE REALLY BE NIGHT WITH NORMAL WBC LEVEL. SOME MILD HYPONATREMIA NOTED. HE HAS SIGNIFICANT EDEMA TO LOWER EXTREMITIES WHICH IS LIKELY MULTIFACTORIAL.. HE IS ON DIURETICS CHRONICALLY AT HOME NEEDED REPORTEDLY. PATIENT HAD NO SIGNIFICANT COMPLAINTS TODAY Discharge Providers Provider Date of admission: 05/18/21 20:43 Discharge Date: 05/20/21 Primary care physician: Kat Schilling PA-C Consults: 05/18/21 16:39 Consult to Orthopedic Surgery Stat Comment: Consulting Provider: Cyn Chicas Reason for consultation: Cellulitis Has provider been notified: Yes 05/19/21 01:55 Consult to Discharge Planning Routine Comment: Consult to Physical Therapy Evaluate & Treat Comment: Physician Instructions: Evaluate and Treat Consult to Respiratory Therapy Evaluate & Treat Comment: Physician Instructions: Evaluate and treat 05/19/21 07:58 Consult to Physical Therapy Evaluate & Treat Comment: Physician Instructions: Evaluate and Treat Discharge provider: Michele Rodriguez DO Summary Hospital Course Discharge Diagnosis: DIABETIC FOOT ULCER TO 4TH LEFT TOE.? OSTEOMYELITIS REPORTED. STATUS POST AMPUTATION? OF THE 4TH? TOE ON THE LEFT. DISCHARGED ON CLINDA ?HYPONATREMIA ? ANEMIA OF CHRONIC DISEASE ?MORBID OBESITY ?VENOUS STASIS TO BILATERAL LOWER EXTREMITIES WITH MILD ? DERMATITIS ?CHRONIC PAIN SYNDROME ?HYPERTENSION PER HISTORY ?HYPERLIPIDEMIA PER HISTORY Hospital Course: MORBIDLY OBESE 65-YEAR-OLD MALE ADMITTED TO THE HOSPITAL WITH A LEFT 4TH TOE INFECTION. HE WAS SEEN BY THE ORTHOPEDIC TEAM AND TAKEN TO THE OR FOR LEFT TOE AMPUTATION. PATIENT DID WELL POSTOPERATIVELY. NO SIGN OF COMPLICATION. HE WAS DISCHARGED ON CLINDAMYCIN TO BE FOLLOWED BY THE ORTHOPEDIC TEAM OUTPATIENT. Status at Discharge Cognitive/behavioral status at discharge: oriented Functional status at discharge: independent ambulation Overall status at discharge: patient is back to baseline Exam Vital Signs (past 8 hours): - 05/20/21 10:20 05/20/21 12:00 Temperature 97.5 F L Pulse Rate 70 67 Respiratory Rate 20 18 Blood Pressure 141/73 H Pulse Oximetry 97 98 Oxygen Delivery Method Room Air Oxygen Flow Rate 0 Narrative Exam Narrative: HEAD ATRAUMATIC NORMOCEPHALIC NECK : SUPPLE WITHOUT ADENOPATHY NO CAROTID BRUITS EYE:? EOMI, PERRLA, NORMAL CONJUNCTIVA; NO JAUNDICE CHEST:? REGULAR RATE.? ? NO RUBS.? PMI IS NON DISPLACED.? NO MURMURS; NORMAL S1- S2 PULMONARY:? DECREASED BS OVER THE BASES.? MILD BIBASILAR CRACKLES NOTED; NO INCREASED DULLNESS TO PERCUSSION ABDOMEN:? ? OBESE BUTSOFT.? NONTENDER.? NONDISTENDED.? BOWEL SOUNDS ARE PRESENT IN ALL 4 QUADRANTS. EXTREMITIES:? UNSTAGEABLE? BILATERAL LOWER EXTREMITY EDEMA..? NO CYANOSIS CLUBBING NOTED. DRESSING TO LEFT LOWER EXTREMITY. NEURO:? CRANIAL NERVES 2-12 GROSSLY INTACT. NO FOCAL NEUROLOGICAL DEFICIT NOTED. MSK:? NORMAL RANGE OF MOTION FOR AGE.? NO JOINT EFFUSION. SKIN:? ? CHRONIC SKIN CHANGES TO LOWER EXTREMITIES.; NO RASHES :? NORMAL EXTERNAL GENITALIA. PSYCH :? APPROPRIATE MOOD AND AFFECT.? ALERT AWAKE ORIENTED X3 Objective Labs Result Diagrams: 05/20/21 04:39 05/20/21 04:39 Labs: Laboratory Results - last 24 hr 05/19/21 05/20/21 05/20/21 17:00 04:39 04:39 WBC 6.7 RBC 4.70 Hgb 13.3 L Hct 40.4 L MCV 85.9 MCH 28.4 MCHC 33.1 RDW 14.3 Plt Count 299 Neut % (Auto) 80.9 H Lymph % (Auto) 12.0 L [place] % (Auto) 6.7 Eos % (Auto) 0.1 L Baso % (Auto) 0.3 Neut # (Auto) 5400 Lymph # (Auto) 800 L [place] # (Auto) 400 Eos # (Auto) 0 Baso # (Auto) 0 Sodium 134 L Potassium 4.1 Chloride 96 L Carbon Dioxide 30 BUN 12 Creatinine 0.76 Estimated GFR > 60.0 BUN/Creatinine Ratio 15.8 Glucose 187 H Calcium 8.7 Phosphorus 4.1 H Total Bilirubin 0.9 AST 29 ALT 41 Alkaline Phosphatase 45 Troponin I 0.014 Total Protein 7.4 Albumin 3.8 Globulin 3.6 Albumin/Globulin Ratio 1.1 PFSH Medical History Diabetes Neuropathy Social History household members: spouse Smoking Status: Never smoker Discharge Plan Discharge Plan Patient Disposition: Home Discharge orders & Medications Prescriptions: New Bacid 1 billion cell- 250 mg Tablet 1 tab PO TIDWM Qty: 90 0RF clindamycin HCl 300 mg capsule 300 mg PO Q8H Qty: 30 0RF Continued Beconase AQ 25 GM spray,non-aerosol 1 spray Intranasal PRN PRN (Reason: allergies) Qty: 0 0RF testosterone [AndroGel] 1.25 GM gel in packet 1.25 gm TD QDAY Qty: 0 0RF gabapentin [Neurontin] 600 MG tablet 0.5 tab PO HS Qty: 0 0RF Pradaxa 150 MG capsule 150 mg PO BID Qty: 0 0RF Lantus U-100 Insulin 100 UNIT/1 ML solution 40 - 50 unit SQ BID Qty: 0 0RF insulin lispro [Humalog U-100 Insulin] 100 UNIT/1 ML solution 20 - 40 unit SQ SLIDE Qty: 0 0RF lisinopril 20 MG tablet 10 mg PO BEDTIME Qty: 0 0RF metformin 1,000 MG tablet 1,000 mg PO BIDCC Qty: 0 0RF metformin [Glucophage XR] 500 MG tablet extended release 24 hr 1,000 mg PO BID Qty: 0 0RF Label Comments: duplicate, ignore. Serevent Diskus 50 MCG blister with device 1 puff INH BID Qty: 0 0RF morphine 15 MG tablet 15 mg PO BID Qty: 0 0RF torsemide 20 MG tablet 0.5 tab PO PRN PRN (Reason: water pill) Qty: 0 0RF oxycodone-acetaminophen [Endocet] 10 MG/325 MG tablet 1 tab PO QID Qty: 0 0RF metoprolol succinate 25 mg tablet extended release 24 hr 12.5 mg PO BID 0RF Label Comments: take 1 tablet by mouth twice a day sulfamethoxazole-trimethoprim [Bactrim DS] 800-160 mg tablet 1 tab PO BID 7 Days Qty: 14 0RF Follow up/Referrals: Kat Schilling PA-C [Primary Care Provider] - Cyn Chicas MD [Physician] - (10-14 days for postoperative wound check) Diet/Activity/Treatments Diet: Carb-consistent/Diabetic, Low-fat, Low-sodium and Low-cholesterol Activity: TOLERATED Other treatments: -flatfoot weight-bearing as tolerated in a postoperative shoe. -elevate ?toes above the nose ? as much as possible. -follow-up with Orthopedics in 2 weeks for postoperative wound check -Sutures will remain in place minimum of 4 weeks. -May change dressing as needed Skin/Wound/Dressing Care Report to your healthcare provider any signs of infection, such as:: chills, fever, night sweats, unusual drainage and unusual redness Visit Report/Discharge Packet Instructions: Amputation of the Foot or Toe, DI for Diabetic Foot Ulcer, Clindamycin Discharge Data Primary Care Provider: Kat Schilling Attending Provider: Ruel Willard VTE Deep Vein Thrombosis/Pulmonary Embolism Present on Admission: No
[2021-05-20] MEDS: DABIGATRAN 75 MG CAPSULE 150 MG PO (14:17)
--- NOTE | 2021-05-20 16:33 | PT.IPTN ---
Current Diagnoses Cellulitis, unspecified (05/18/21) Osteomyelitis, unspecified (05/18/21) Physical Therapy Treatment Note M2 PT-IP Current Condition Start: 05/19/21 07:52 Freq: Status: Active Protocol: Document 05/19/21 09:18 MB (Rec: 05/19/21 09:53 MB [id number]) Physical Therapy Current Condition Current Condition Evaluation Date 05/19/21 Treatment Diagnosis Decreased mobility s/p left 4th toe amputation Onset Date 05/19/21 M3 PT-IP Subjective Start: 05/19/21 07:52 Freq: Status: Active Protocol: Document 05/20/21 16:12 LJ (Rec: 05/20/21 16:33 LJ [id number]) Subjective Physical Therapy Visit Type Type Treatment Note Visit Start Time 15:54 Visit Stop Time 16:10 Total Visit Minutes 16 Number of PHARMACEUTICAL SALESPERSON Visits 1 Physical Therapy Visit Comments Patient Comments Pt getting ready for DC. Will ambulate in room short distance. States he has people waiting in the car for him. Patient Goals Go home soon M4 PT-IP Mobility and Gait Start: 05/19/21 07:52 Freq: Status: Active Protocol: Document 05/20/21 16:12 LJ (Rec: 05/20/21 16:33 LJ [id number]) PT-Transfer Assessment Sit to and From Stand Sit to and from Stand Contact Guard Assistance,1 Person Assistance,Use of Upper Extremities Equipment Transfer Assistive Device Gait Belt,Front Wheeled Walker Orthotic/Prosthetic Devices or Brace: Yes Transfers Transfer Destination Wheelchair Transfer Technique ambulated Transfer Ability Level of Assist Standby Assistance,Contact Guard Assistance,1 Person Assistance,Use of Upper Extremities Comments Mobility Comments Pt seated in chair upon arrival. assisting to dress pt. Initially pt denied ambulation due to potential nausea if he moved too much. Once seated upright and feet on floor pt began belching without feeling nauseated. Pt agreed to ambulate in room to about 10 feet away from chair. Pt able to stand using arm rests of chair to push off . CGA provided to pt for standing from chair with FWW directly in front of him. Upon standing, pt decided he wanted to sit on the bed so he took 2 steps and transfered to the bed. Pt sat on side of bed to finish dressing then stood from bed pushing off with both hands. He then ambulated to the WC about 10 feet away with small steps being reminded to keep the FWW closer to him and not lean on it. He then pivoted in front of the WC and lowered himself down using the arm rests. PHARMACEUTICAL SALESPERSON donned the orthotic boot. Pt was left in the WC with the nurse going over discharge papers. Gait Assessment Gait Gait Assistance Required: Contact Guard Assist,1 Person Assist Distance (Feet) 10 Able to Maintain Weight Bearing Status Yes During Gait Assistive Devices Assistive Device Gait Belt,Front Wheeled Walker Orthotic/Prosthetic Devices or Brace: Yes Gait Deviations General Gait Pattern Antalgic,Decreased Stride Length,Decreased Feet Clearance,Flexed Trunk,Wide Based Gait Factors Limiting Gait Function Factors Limiting Gait Function Decreased Activity Tolerance, Decreased Sensation,Decreased Strength,Difficulty Following Directions,Incoordination, Limited Range of Motion,Poor Balance,Poor Safety Awareness Comments Gait Comments Pt with flexed trunk but corrected when cued to keep FWW closer to his body. Pt refused to walk with the boot but was able to maintain WB on his heel as he walked to the WC. No LOB or dizziness experienced. M5 PT-IP Objective Assessments Start: 05/19/21 07:52 Freq: Status: Active Protocol: Document 05/19/21 09:18 MB (Rec: 05/19/21 09:53 MB [id number]) Orientation Orientation/Cognition Level of Alertness Alert Orientation Name,Age,Birthday,Month,Date, Year,Day of Week,Place, Situation Language Function Ability No Deficits Noted Safety Awareness Decreased Safety Awareness Memory Description No Deficits Noted Gross Range of Motion Upper Extremity ROM Assessment Within Functional Limits Lower Extremity ROM Assessment Bilaterally Impaired Impairments B LE edema, reports of diabetic neuropathy with sensation starting at ankles, left leg is more edematous and has erythema, foot wrapped in kerlix Strength Upper Extremity Strength Assessment Within Functional Limits Lower Extremity Strength Assessment Bilaterally Impaired Comments Strength Comments PT does not MMT LEs given presentation and movement restrictions d/t edema and post-op this morning Sensation Assessment Sensation Gross Sensation Right LE Impaired,Left LE Impaired Comments Sensation Comments Diabetic neuropathy B feet M6 PT-IP Treatment Start: 05/19/21 07:52 Freq: Status: Active Protocol: Document 05/20/21 16:12 DECLAN (Rec: 05/20/21 16:33 LJ [id number]) Physical Therapy Treatment Exercises Exercises Ankle Pumps Education Education Provided Precautions,Weight Bearing Status,Safety M7 PT-IP Assessment and Plan Start: 05/19/21 07:52 Freq: Status: Active Protocol: Document 05/20/21 16:12 DECLAN (Rec: 05/20/21 16:33 DECLAN [id number]) PT Summary Assessment and Plan Potential Rehabilitation Potential Fair Status of Condition at Evaluation Evolving Summary Impairments ROM,Strength,Balance, Coordination,Sensation Assessment Summary Pt needing MaxA for donning shoe on right foot and brace on left foot which PHARMACEUTICAL SALESPERSON provided due to becomming dizzy when she bent over. Pt able to transfer SBA and ambulate SBA to [facility] due to possible dizziness. He was able to maintain WB on heel of left foot when ambulating without orthotic. will need to continue to assist pt with ADLs and foot care. Pt instructed to wear boot when ambulating in house to maintain WB status. Pt in process of discharging home with within the next few minutes. Goals Bed Mobility Goal Independent Transfer Goal Independent Gait Goal Standby Assistance Gait Distance 50 Other Goals Bed mobility and transfer goals are I with HOB flat and no use of rails in order to prepare for d/c home. Will restrict gait distance given his diabetic wound and amputation. Recommend trying bariatric RW for gait training . Defer stairs as he can get in the home without and does not have any inside per report on to Meet Goals 5 Frequency of Treatment Frequency Of Treatment Once a Day Treatment Plan Physical Therapy Treatment Plan Bed Mobility Training,Transfer Training,Gait Training, Therapeutic Exercise,Balance Retraining,Post Op Education, Discharge Planning, Neuromuscular Re-ed,Manual Therapy Other Recommendations and Next Treatment Gait training with bariatric Focus walker Precautions Other Precautions He has a 3/4 bottom post-op shoe for the left in room, ill -fitting Weight Bearing Status Weight Bearing Status Weight Bear as Tolerated Recommendations To Nursing Amount of Assist Needed 1 Person Assist Discharge Recommendations PT Discharge Recommendations Home with 13/01 Assist Available,Home Health Other Discharge Recommendations Bariatric RW HHPT and nsg--PT for mobility and nsg to address his foot wound as he did not fare well with his pre-adm A larger post-op shoe Transportation Needs at Discharge Private Vehicle
== END 2021-05-20 16:28 | disposition home or self-care (01) | DRG 617 ==
LOC: ED 19:07 → AC 20:43
PROVIDERS: Hospitalist; Orthopaedic Surgery Foot and Ankle Surgery; Admitting Provider Internal Medicine; Emergency Provider Physician Assistant; Family Provider Specialist; PCP Physician Assistant Medical; Referring Provider Physician Assistant; Visit Provider Internal Medicine
DX: E11.69 Type 2 diabetes mellitus with other specified complication (principal); M86.9 Osteomyelitis, unspecified; E87.1 Hypo-osmolality and hyponatremia; Z68.42 Body mass index [BMI] 45.0-49.9, adult; L97.526 Non-pressure chronic ulcer of other part of left foot with bone involvement without evidence of necrosis; L03.032 Cellulitis of left toe; E11.40 Type 2 diabetes mellitus with diabetic neuropathy, unspecified; I10 Essential (primary) hypertension; E66.01 Morbid (severe) obesity due to excess calories; I48.91 Unspecified atrial fibrillation; E11.621 Type 2 diabetes mellitus with foot ulcer; G89.29 Other chronic pain; Z79.01 Long term (current) use of anticoagulants; Z79.4 Long term (current) use of insulin; Z95.0 Presence of cardiac pacemaker; Z20.822 Contact with and (suspected) exposure to COVID-19; Z79.84 Long term (current) use of oral hypoglycemic drugs
CPT/HCPCS: 36415; 73630; 80053; 80069; 82962; 83036; 84100; 84484; 85025; 87070; 87075; 87076; 87077; 87147; 87186; 87205; 87635; 93005; 94640; 94760; 96365; 96366; 97116; 97161; 97530; 97535; 99284; C9803; G0378; J1170; J1815; J2405; J2704; J2765; J7613

== ENCOUNTER 2021-06-27 15:52 | Emergency (ER) | payer OTHER, SELFPAY ==
[2021-06-27 15:56] VITALS: BP 176/81; PULSE 70; RESP 24; TEMP 36.4; O2SAT 99
--- NOTE | 2021-06-27 16:02 | DI.RAD.S_ITS ---
PROCEDURE: XR CHEST 1V INDICATIONS: shortness of breath TECHNIQUE: One view of the chest was acquired. COMPARISON: None. FINDINGS: Surgical changes and devices: Left-sided pacer. Lungs and pleura: Lungs are clear. Azygos fissure is present. No pleural effusions or pneumothorax. Mediastinum: Mediastinal contours appear normal. Heart size is enlarged. Bones and chest wall: No suspicious bony lesions. Overlying soft tissues appear unremarkable. IMPRESSION: 1. No acute process. 2. Cardiomegaly. Dictated by: Nicole Hall M.D. on 06/27/2021 at 16:24 Approved by: Nicole Hall M.D. on 06/27/2021 at 16:25
[2021-06-27 16:41] LABS: Add Manual Diff / Slide Review NO; Basophils Absolute Auto 0 /uL (0-100); Basophils Percent Auto 0.3 % (0-2); Eosinophils Absolute Auto 0 /uL (0-450); Eosinophils Percent Auto 0.3 % (2-4); Hematocrit 39.2 % (41-53); Hemoglobin 12.8 g/dL (13.5-17.5); Lymphocytes Absolute Auto 1000 /uL (1100-4500); Lymphocytes Percent Auto 12.4 % (25-40); Mean Corpuscular HGB Conc 32.6 % (30-36); Mean Corpuscular Hemoglobin 27.4 PG (26-34); Mean Corpuscular Volume 84.1 fL (80-100); Monocytes Absolute Auto 700 /uL (0-900); Monocytes Percent Auto 8.5 % (3-14); Neutrophils Absolute Auto 6100 /uL (1500-7000); Neutrophils Percent Auto 78.5 % (50-75); Platelet Count 280 X10^3/uL (150-400); Red Blood Cell Count 4.66 X10^6/uL (4.5-5.9); Red Cell Distribution Width 15.1 % (11.6-14.8); White Blood Cell Count 7.8 X10^3/uL (4.5-11.0)
[2021-06-27 16:53] LABS: Alanine Aminotransferase 27 IU/L (<50); Albumin 3.9 g/dL (3.5-5.0); Alkaline Phosphatase 51 U/L (38-126); Aspartate Aminotransferase 29 IU/L (17-59); Bilirubin Total 1.1 mg/dL (0.2-1.3); Blood Urea Nitrogen 15 mg/dL (9-20); Calcium 8.8 mg/dL (8.4-10.2); Carbon Dioxide 32 mmol/L (22-32); Chloride 96 mmol/L (98-107); Estimated Glomerular Filt Rate > 60.0 mL/min (>60); Globulin 3.8 g/dL (1.7-4.1); Glucose 182 mg/dL (80-110); HEMOLYSIS < 15 (0-50); Potassium 4.1 mmol/L (3.4-5.1); Sodium 130 mmol/L (137-145); Total Protein 7.7 g/dL (6.3-8.2)
[2021-06-27 16:54] LABS: Lactate (Lactic Acid) 1.7 mmol/L (0.7-2.1)
[2021-06-27 17:02] LABS: NT-proBNP (BNP-Adult 18+) 805 pg/mL (<125)
[2021-06-27 17:05] LABS: COVID19 -Nasal RAPID Negative (Negative)
[2021-06-27 18:14] VITALS: PULSE 72; O2SAT 99
--- NOTE | 2021-06-27 18:46 | ED.MALEGU ---
HPI - Male Genitourinary <Doris Feldman [facility] - Last Filed: 06/27/21 21:31> General Chief complaint: Shortness of Breath/Dyspnea Stated complaint: asthma, scrotal pain, possible allergic reaction Time Seen by Provider: 06/27/21 16:17 Source: patient Mode of arrival: Ambulatory History of Present Illness HPI Narrative: 65-year-old male with history of CHF, AFib pacemaker, obesity who presents to the emergency department complaining of scrotal swelling for the last 3 days. Over the last few months patient has completed courses of vancomycin, clindamycin, ciprofloxacin, and Keflex which were for treatment of a toe injury, left lower extremity infection, and subsequent toe amputation. Patient is anticoagulated on Pradaxa currently, denies any pain in his scrotum, complains it is difficult to urinate because his penis is engulfed in his scrotum and the urine goes every day but denies any pain with urination. Patient denies fever, shortness of breath other than with exertion due to his CHF, abdominal pain, denies exposure to possible chlamydia or gonorrhea. Related Data Home Medications Medication Instructions Recorded Confirmed beclomethasone diprop (AQ) 42 mcg 1 spray INTRANASAL PRN PRN #0 01/14/17 05/19/21 (0.042 %) nasal spray (Beconase AQ) dabigatran etexilate 150 mg 150 mg PO BID #0 01/14/17 05/19/21 capsule (Pradaxa) gabapentin 600 mg tablet 0.5 tab PO HS #0 01/14/17 05/19/21 (Neurontin) insulin glargine 100 unit/mL 40 - 50 unit SQ BID #0 01/14/17 05/19/21 subcutaneous solution (Lantus U-100 Insulin) insulin lispro 100 unit/mL 20 - 40 unit SQ SLIDE #0 01/14/17 05/19/21 subcutaneous solution (Humalog U-100 Insulin) lisinopril 20 mg tablet 10 mg PO BEDTIME #0 01/14/17 05/19/21 metformin 1,000 mg tablet 1,000 mg PO BIDCC #0 01/14/17 05/19/21 metformin 500 mg tablet,extended 1,000 mg PO BID #0 01/14/17 05/19/21 release 24 hr (Glucophage XR) morphine 15 mg immediate release 15 mg PO BID #0 01/14/17 05/19/21 tablet oxycodone-acetaminophen 10 mg-325 1 tab PO QID #0 01/14/17 05/19/21 mg tablet (Endocet) salmeterol 50 mcg/dose blister 1 puff INH BID #0 01/14/17 05/19/21 powder for inhalation (Serevent Diskus) testosterone 1.62 % (20.25 mg/1.25 1.25 gm TD QDAY #0 01/14/17 05/19/21 gram) transdermal gel packet (AndroGel) torsemide 20 mg tablet 0.5 tab PO PRN PRN #0 01/14/17 05/19/21 metoprolol succinate 25 mg 12.5 mg PO BID 05/19/21 05/19/21 tablet,extended release 24 hr Previous Rx's Medication Instructions Recorded L.acidophilus-L.bulgar-B.bifid-S.thermoph 1 tab PO TIDWM #90 tab 05/20/21 1 billion cell-250 mg tablet (Bacid) clindamycin HCl 300 mg capsule 300 mg PO Q8H #30 cap 05/20/21 Allergies Allergy/AdvReac Type Severity Reaction Status Date / Time cephalexin [CEPHALEXIN] Allergy Severe BREATHING Verified 05/15/21 15:55 PROBLEMS, TIGHTNESS diltiazem [DILTIAZEM] Allergy Severe SWELLING, Verified 05/15/21 15:55 RASH Influenza Virus Vaccines Allergy Unknown UNKNOWN Verified 05/15/21 15:56 [INFLUENZA VIRUS VACCINES] REACTION PER PT, BUT IT WAS SERIOUS amiodarone [AMIODARONE] AdvReac Severe FATIGUE, Verified 05/15/21 15:55 PHOTOSENSITIVITY, MACULAR DEGENERATION clonidine [CLONIDINE] AdvReac Severe MY FEET Verified 05/15/21 15:55 TURNED TO JELLY, WEEPING lisinopril [LISINOPRIL] AdvReac Severe CRAMPING Verified 05/15/21 15:55 doxycycline AdvReac Mild Diarrhea Verified 05/15/21 15:55 gabapentin [GABAPENTIN] AdvReac Mild JERKING/LEG/BODY Verified 05/15/21 15:55 AT NIGHT verapamil AdvReac Unknown Verified 05/15/21 15:55 Review of Systems <ROMY Edwards - Last Filed: 06/27/21 21:31> Review of Systems Narrative: General: denies fever, chills Head/Neck: denies headache, neck pain Eyes: denies visual changes, eye pain Cardio: denies chest pain, palpitations Respiratory: denies shortness of breath, cough, endorses shortness of breath with exertion, CHF history, he is not taking his water pills today GI: denies abdominal pain, nausea, vomiting, or diarrhea : denies dysuria, hematuria, endorses having an enormous scrotum which is very dependent and swollen. MSK: denies joint pain, muscle weakness Skin: denies rash, itching Neuro: denies numbness, tingling Patient History <ROMY Edwards - Last Filed: 06/27/21 21:31> Medical History Diabetes Neuropathy Social History household members: spouse Smoking Status: Never smoker Smoking Status: Never smoker alcohol intake frequency: other Substance Use Type: does not use Exam <ROMY Edwards - Last Filed: 06/27/21 21:31> Narrative Exam Narrative: Independently reviewed vitals signs and nursing notes. General: Awake, alert, nontoxic, no cardiorespiratory distress, obese male, pleasant, in no acute distress Head/Neck: Atraumatic, neck full range of motion Eyes: EOMI, conjunctiva normal Nose: nares patent, no rhinorrhea Mouth/Throat: moist mucus membranes Cardio: Regular rate and rhythm, no peripheral edema Respiratory: respirations unlabored without wheezing, stridor, or rales. No retractions. GI: Abdomen soft, nontender, obese : Very edematous scrotum with mild cellulitic skin changes MSK: Moves all extremities, neurovascularly intact Skin: Normal capillary refill, no rash Neuro: Normal speech and cognition, normal gait Initial Vital Signs Initial Vital Signs: Vital Signs Temperature 97.5 F L 06/27/21 15:56 Pulse Rate 70 06/27/21 15:56 Respiratory Rate 24 06/27/21 15:56 Blood Pressure 176/81 H 06/27/21 15:56 Pulse Oximetry 99 06/27/21 15:56 <Rickey Dewey DO - Last Filed: 07/05/21 04:51> Initial Vital Signs Initial Vital Signs: Vital Signs Temperature 97.5 F L 06/27/21 15:56 Pulse Rate 70 06/27/21 15:56 Respiratory Rate 24 06/27/21 15:56 Blood Pressure 176/81 H 06/27/21 15:56 Pulse Oximetry 99 06/27/21 15:56 Course <ROMY Edwards - Last Filed: 06/27/21 21:31> Orders Ordered: Discontinued Medications Doxycycline Hyclate (Doxycycline Hyclate 100 Mg Tablet) 100 mg PO NOW ONE Stop: 06/27/21 18:43 Last Admin: 06/27/21 18:53 Dose: 100 mg Documented by: MARIA G Ceftriaxone Sodium 1,000 mg/ (Sodium Chloride) 100 mls @ 200 mls/hr IV NOW ONE Stop: 06/27/21 18:43 Last Infusion: 06/27/21 19:31 Dose: 0 mls/hr Documented by: Admin: 06/27/21 18:53 Dose: 200 mls/hr Documented by: MARIA G Vital Signs Vital signs: Vital Signs - 8 hr 06/27/21 15:56 06/27/21 18:14 06/27/21 19:26 Temperature 97.5 F L Pulse Rate 70 72 72 Respiratory Rate 24 Blood Pressure 176/81 H Pulse Oximetry 99 99 98 06/27/21 19:27 06/27/21 19:30 Temperature Pulse Rate 67 69 Respiratory Rate Blood Pressure 148/74 H Pulse Oximetry 98 99 <Rickey Dewey DO - Last Filed: 07/05/21 04:51> Orders Ordered: Discontinued Medications Doxycycline Hyclate (Doxycycline Hyclate 100 Mg Tablet) 100 mg PO NOW ONE Stop: 06/27/21 18:43 Last Admin: 06/27/21 18:53 Dose: 100 mg Documented by: MARIA G Ceftriaxone Sodium 1,000 mg/ (Sodium Chloride) 100 mls @ 200 mls/hr IV NOW ONE Stop: 06/27/21 18:43 Last Infusion: 06/27/21 19:31 Dose: 0 mls/hr Documented by: Admin: 06/27/21 18:53 Dose: 200 mls/hr Documented by: MARIA G Vital Signs Vital signs: Vital Signs - 8 hr 06/27/21 15:56 06/27/21 18:14 06/27/21 19:26 Temperature 97.5 F L Pulse Rate 70 72 72 Respiratory Rate 24 Blood Pressure 176/81 H Pulse Oximetry 99 99 98 06/27/21 19:27 06/27/21 19:30 Temperature Pulse Rate 67 69 Respiratory Rate Blood Pressure 148/74 H Pulse Oximetry 98 99 MDM - Male Genitourinary <ROMY Edwards - Last Filed: 06/27/21 21:31> Lab Data Result diagrams: 06/27/21 16:30 06/27/21 16:30 Labs: Lab Results 06/27/21 06/27/21 06/27/21 Range/Units 16:30 16:30 16:30 WBC 7.8 (4.5-11.0) X10^3/uL RBC 4.66 (4.5-5.9) X10^6/uL Hgb 12.8 L (13.5-17.5) g/dL Hct 39.2 L (41-53) % MCV 84.1 (80-100) fL MCH 27.4 (26-34) PG MCHC 32.6 (30-36) % RDW 15.1 H (11.6-14.8) % Plt Count 280 (150-400) X10^3/uL Neut % (Auto) 78.5 H (50-75) % Lymph % (Auto) 12.4 L (25-40) % Becker % (Auto) 8.5 (3-14) % Eos % (Auto) 0.3 L (2-4) % Baso % (Auto) 0.3 (0-2) % Neut # (Auto) 6100 (4927-3167) /uL Lymph # (Auto) 1000 L (4240-0810) /uL Becker # (Auto) 700 (0-900) /uL Eos # (Auto) 0 (0-450) /uL Baso # (Auto) 0 (0-100) /uL Sodium 130 L (137-145) mmol/L Potassium 4.1 (3.4-5.1) mmol/L Chloride 96 L (98-107) mmol/L Carbon Dioxide 32 (22-32) mmol/L BUN 15 (9-20) mg/dL Creatinine 0.79 (0.66-1.25) mg/dL Estimated GFR > 60.0 (>60) mL/min BUN/Creatinine Ratio 19.0 (6-22) Glucose 182 H (80-110) mg/dL Lactate 1.7 (0.7-2.1) mmol/L Calcium 8.8 (8.4-10.2) mg/dL Total Bilirubin 1.1 (0.2-1.3) mg/dL AST 29 (17-59) IU/L ALT 27 (<50) IU/L Alkaline Phosphatase 51 (38-126) U/L NT-Pro-B Natriuret Pep 805 H (<125) pg/mL Total Protein 7.7 (6.3-8.2) g/dL Albumin 3.9 (3.5-5.0) g/dL Globulin 3.8 (1.7-4.1) g/dL Albumin/Globulin Ratio 1.0 (1.0-2.8) Urine Color Urine Appearance Urine pH (4.5-8.0) Ur Specific [place] (1.000-1.035) Urine Protein (Negative) Urine Glucose (UA) (Negative) g/dL Urine Ketones (NEGATIVE) Urine Occult Blood (Negative) Urine Nitrate (Negative) Urine Bilirubin (NEGATIVE) Urine Urobilinogen (0.2) E.U./dL Ur Leukocyte Esterase (NEGATIVE) Urine RBC (0-5/HPF) Urine WBC (0-5/HPF) Ur Squamous Epith Cells (0-5/HPF) Urine Bacteria (None) Ur Culture Indicated? SARS-CoV-2 (PCR) (Negative) 06/27/21 06/27/21 Range/Units 16:45 18:35 WBC (4.5-11.0) X10^3/uL RBC (4.5-5.9) X10^6/uL Hgb (13.5-17.5) g/dL Hct (41-53) % MCV (80-100) fL MCH (26-34) PG MCHC (30-36) % RDW (11.6-14.8) % Plt Count (150-400) X10^3/uL Neut % (Auto) (50-75) % Lymph % (Auto) (25-40) % Becker % (Auto) (3-14) % Eos % (Auto) (2-4) % Baso % (Auto) (0-2) % Neut # (Auto) (9636-2469) /uL Lymph # (Auto) (4848-7023) /uL Becker # (Auto) (0-900) /uL Eos # (Auto) (0-450) /uL Baso # (Auto) (0-100) /uL Sodium (137-145) mmol/L Potassium (3.4-5.1) mmol/L Chloride (98-107) mmol/L Carbon Dioxide (22-32) mmol/L BUN (9-20) mg/dL Creatinine (0.66-1.25) mg/dL Estimated GFR (>60) mL/min BUN/Creatinine Ratio (6-22) Glucose (80-110) mg/dL Lactate (0.7-2.1) mmol/L Calcium (8.4-10.2) mg/dL Total Bilirubin (0.2-1.3) mg/dL AST (17-59) IU/L ALT (<50) IU/L Alkaline Phosphatase (38-126) U/L NT-Pro-B Natriuret Pep (<125) pg/mL Total Protein (6.3-8.2) g/dL Albumin (3.5-5.0) g/dL Globulin (1.7-4.1) g/dL Albumin/Globulin Ratio (1.0-2.8) Urine Color Yellow Urine Appearance Clear Urine pH 6.5 (4.5-8.0) Ur Specific [place] 1.015 (1.000-1.035) Urine Protein 2+ H (Negative) Urine Glucose (UA) Negative (Negative) g/dL Urine Ketones Negative (NEGATIVE) Urine Occult Blood Trace-intact (Negative) Urine Nitrate Negative (Negative) Urine Bilirubin Negative (NEGATIVE) Urine Urobilinogen 0.2 (0.2) E.U./dL Ur Leukocyte Esterase Negative (NEGATIVE) Urine RBC 1-5/hpf (0-5/HPF) Urine WBC None seen (0-5/HPF) Ur Squamous Epith Cells None seen (0-5/HPF) Urine Bacteria None seen (None) Ur Culture Indicated? Cult not indicated SARS-CoV-2 (PCR) Negative (Negative) MDM Narrative Medical decision making narrative: 65-year-old male with history of AFib, CHF, pacemaker, on Pradaxa, presents to the emergency department with scrotal swelling started 3 days ago. Patient is , has not been sexually active recently, and denies any chance of STI infection, who endorses having scrotal swelling sometimes he does not take his water pill in time or if he has been up write for a long period of time. Patient reports that he has had orthopnea episodes frequently but denies any shortness of breath without exertion, chest pain, difficulty breathing, abdominal pain, fever, or any other symptoms. Patient most likely has epididymitis based on exam with with mild cellulitis without open wound, no fluctuance or abscess, and less likely candidal infection. Patient was given ceftriaxone and doxycycline while here in the emergency department, he tolerated this well. He has not taken his diuretics yet today, and is symptomatic on exertion with orthopnea. Patient was not hypoxic, O2 sats were 100% while he was monitored, no pertinent findings on exam other than his very edematous scrotum. Patient has a follow-up appointment with his primary care provider in a few days and he will have this assessed then for comparison. I recommended he take a photo of this, for the physicians that he can compare as I am unable to addendum photos. Patient will return to the emergency department for any new or worsening symptoms, if he is unable to urinate, if he has any abdominal scrotal pain, right now he does not have any pain. <Rickey Dewey, - Last Filed: 07/05/21 04:51> Lab Data Labs: Lab Results 06/27/21 06/27/21 06/27/21 Range/Units 16:30 16:30 16:30 WBC 7.8 (4.5-11.0) X10^3/uL RBC 4.66 (4.5-5.9) X10^6/uL Hgb 12.8 L (13.5-17.5) g/dL Hct 39.2 L (41-53) % MCV 84.1 (80-100) fL MCH 27.4 (26-34) PG MCHC 32.6 (30-36) % RDW 15.1 H (11.6-14.8) % Plt Count 280 (150-400) X10^3/uL Neut % (Auto) 78.5 H (50-75) % Lymph % (Auto) 12.4 L (25-40) % Becker % (Auto) 8.5 (3-14) % Eos % (Auto) 0.3 L (2-4) % Baso % (Auto) 0.3 (0-2) % Neut # (Auto) 6100 (1732-8425) /uL Lymph # (Auto) 1000 L (6503-7942) /uL Becker # (Auto) 700 (0-900) /uL Eos # (Auto) 0 (0-450) /uL Baso # (Auto) 0 (0-100) /uL Sodium 130 L (137-145) mmol/L Potassium 4.1 (3.4-5.1) mmol/L Chloride 96 L (98-107) mmol/L Carbon Dioxide 32 (22-32) mmol/L BUN 15 (9-20) mg/dL Creatinine 0.79 (0.66-1.25) mg/dL Estimated GFR > 60.0 (>60) mL/min BUN/Creatinine Ratio 19.0 (6-22) Glucose 182 H (80-110) mg/dL Lactate 1.7 (0.7-2.1) mmol/L Calcium 8.8 (8.4-10.2) mg/dL Total Bilirubin 1.1 (0.2-1.3) mg/dL AST 29 (17-59) IU/L ALT 27 (<50) IU/L Alkaline Phosphatase 51 (38-126) U/L NT-Pro-B Natriuret Pep 805 H (<125) pg/mL Total Protein 7.7 (6.3-8.2) g/dL Albumin 3.9 (3.5-5.0) g/dL Globulin 3.8 (1.7-4.1) g/dL Albumin/Globulin Ratio 1.0 (1.0-2.8) Urine Color Urine Appearance Urine pH (4.5-8.0) Ur Specific [place] (1.000-1.035) Urine Protein (Negative) Urine Glucose (UA) (Negative) g/dL Urine Ketones (NEGATIVE) Urine Occult Blood (Negative) Urine Nitrate (Negative) Urine Bilirubin (NEGATIVE) Urine Urobilinogen (0.2) E.U./dL Ur Leukocyte Esterase (NEGATIVE) Urine RBC (0-5/HPF) Urine WBC (0-5/HPF) Ur Squamous Epith Cells (0-5/HPF) Urine Bacteria (None) Ur Culture Indicated? SARS-CoV-2 (PCR) (Negative) 06/27/21 06/27/21 Range/Units 16:45 18:35 WBC (4.5-11.0) X10^3/uL RBC (4.5-5.9) X10^6/uL Hgb (13.5-17.5) g/dL Hct (41-53) % MCV (80-100) fL MCH (26-34) PG MCHC (30-36) % RDW (11.6-14.8) % Plt Count (150-400) X10^3/uL Neut % (Auto) (50-75) % Lymph % (Auto) (25-40) % Becker % (Auto) (3-14) % Eos % (Auto) (2-4) % Baso % (Auto) (0-2) % Neut # (Auto) (7491-0084) /uL Lymph # (Auto) (4301-3194) /uL Becker # (Auto) (0-900) /uL Eos # (Auto) (0-450) /uL Baso # (Auto) (0-100) /uL Sodium (137-145) mmol/L Potassium (3.4-5.1) mmol/L Chloride (98-107) mmol/L Carbon Dioxide (22-32) mmol/L BUN (9-20) mg/dL Creatinine (0.66-1.25) mg/dL Estimated GFR (>60) mL/min BUN/Creatinine Ratio (6-22) Glucose (80-110) mg/dL Lactate (0.7-2.1) mmol/L Calcium (8.4-10.2) mg/dL Total Bilirubin (0.2-1.3) mg/dL AST (17-59) IU/L ALT (<50) IU/L Alkaline Phosphatase (38-126) U/L NT-Pro-B Natriuret Pep (<125) pg/mL Total Protein (6.3-8.2) g/dL Albumin (3.5-5.0) g/dL Globulin (1.7-4.1) g/dL Albumin/Globulin Ratio (1.0-2.8) Urine Color Yellow Urine Appearance Clear Urine pH 6.5 (4.5-8.0) Ur Specific [place] 1.015 (1.000-1.035) Urine Protein 2+ H (Negative) Urine Glucose (UA) Negative (Negative) g/dL Urine Ketones Negative (NEGATIVE) Urine Occult Blood Trace-intact (Negative) Urine Nitrate Negative (Negative) Urine Bilirubin Negative (NEGATIVE) Urine Urobilinogen 0.2 (0.2) E.U./dL Ur Leukocyte Esterase Negative (NEGATIVE) Urine RBC 1-5/hpf (0-5/HPF) Urine WBC None seen (0-5/HPF) Ur Squamous Epith Cells None seen (0-5/HPF) Urine Bacteria None seen (None) Ur Culture Indicated? Cult not indicated SARS-CoV-2 (PCR) Negative (Negative) Discharge Plan Departure Patient Disposition: Home Clinical Impression: Epididymitis, Morbid obesity with body mass index (BMI) of 40.0 to 49.9, Edema of scrotum Instructions: Epididymitis, DI for Heart Failure Activity Restrictions/Additional Instructions: *You have been diagnosed with [epididymitis and scrotal swelling. Please call your primary care provider and schedule follow-up appointment to ensure that this is improving and not worsening. Please go to your cardiology appointment as scheduled, I assume your shortness of breath is most likely related to your CHF, you did not have any prior BNPs to compare this to. Your lab work overall is and reassuring that you do not have a systemic infection from this. Please get a scrotal support sling, you may find these at [email or web address] possibly, or you may craft something to help support your scrotum. Wishing you the best of luck. *What to do: *Please continue to take your regular medications as directed. [x ] New medication prescriptions sent to your pharmacy: [ [facility]] [ ] New medication written as a paper prescription [ ] No new medications given *Please follow up with your primary care provider in 2-3 days, call for an appointment. Let them know you were seen in the Emergency Department and that we ask that you be seen in follow up. We will electronically transmit a record of today's note if your PCP is in our system *If you do not have a primary care provider please contact the [facility] line at [phone]. They will ask some questions about your medical history and help get you set up with a doctor in the community. *Return to Emergency Department if you should have any new, worsening or concerning symptoms, such as [fever greater than 101F, chills, worsening pain, persistent vomiting or other bothersome symptoms] Prescriptions: No Action Beconase AQ 25 GM spray,non-aerosol 1 spray Intranasal PRN PRN (Reason: allergies) Qty: 0 0RF testosterone [AndroGel] 1.25 GM gel in packet 1.25 gm TD QDAY Qty: 0 0RF gabapentin [Neurontin] 600 MG tablet 0.5 tab PO HS Qty: 0 0RF Pradaxa 150 MG capsule 150 mg PO BID Qty: 0 0RF Lantus U-100 Insulin 100 UNIT/1 ML solution 40 - 50 unit SQ BID Qty: 0 0RF insulin lispro [Humalog U-100 Insulin] 100 UNIT/1 ML solution 20 - 40 unit SQ SLIDE Qty: 0 0RF lisinopril 20 MG tablet 10 mg PO BEDTIME Qty: 0 0RF metformin 1,000 MG tablet 1,000 mg PO BIDCC Qty: 0 0RF metformin [Glucophage XR] 500 MG tablet extended release 24 hr 1,000 mg PO BID Qty: 0 0RF Label Comments: duplicate, ignore. Serevent Diskus 50 MCG blister with device 1 puff INH BID Qty: 0 0RF morphine 15 MG tablet 15 mg PO BID Qty: 0 0RF torsemide 20 MG tablet 0.5 tab PO PRN PRN (Reason: water pill) Qty: 0 0RF oxycodone-acetaminophen [Endocet] 10 MG/325 MG tablet 1 tab PO QID Qty: 0 0RF metoprolol succinate 25 mg tablet extended release 24 hr 12.5 mg PO BID 0RF Label Comments: take 1 tablet by mouth twice a day Bacid 1 billion cell- 250 mg Tablet 1 tab PO TIDWM Qty: 90 0RF clindamycin HCl 300 mg capsule 300 mg PO Q8H Qty: 30 0RF Referrals: Kat Schilling PA-C [Primary Care Provider] - <Rickey Dewey DO - Last Filed: 07/05/21 04:51> Cosign ED Attending Cosignature Attestation: I was immediately available in the department for consultation. This documentation has been reviewed and I agree with assessment and plan. Supervised by Rickey Dewey, DO
[2021-06-27] MEDS: cefTRIAXone 1,000 MG in SODIUM CHLORIDE 0.9% 100 ML 200 ML IV (18:53)
[2021-06-27] MEDS: DOXYCYCLINE HYCLATE 100 MG TABLET PO (18:53)
[2021-06-27 18:55] LABS: Appearance Urine UA CLEAR; Bilirubin Urine UA NEGATIVE (NEGATIVE); Color Urine UA YELLOW; Glucose Urine UA NEGATIVE (Negative); Ketones Urine UA NEGATIVE (NEGATIVE); Leukocyte Esterase Urine UA NEGATIVE (NEGATIVE); Nitrite Urine UA NEGATIVE (Negative); Occult Blood Urine UA TRACE-INTACT (Negative); Protein Urine UA 2+ (Negative); Specific Gravity Urine UA 1.015 (1.000-1.035); Urobilinogen Urine UA 0.2 E.U./dL (0.2); pH Urine UA 6.5 (4.5-8.0)
[2021-06-27 19:26] VITALS: PULSE 72; O2SAT 98
[2021-06-27 19:27] VITALS: BP 148/74; PULSE 67; O2SAT 98
[2021-06-27 19:28] LABS: Bacteria Urine None Seen; Culture Indicated Urine Cult Not Indicated; RBC Urine 1-5/HPF (0-5/HPF); Squamous Epithelial Cell Urine None Seen (0-5/HPF); WBC Urine None Seen (0-5/HPF)
[2021-06-27 19:30] VITALS: PULSE 69; O2SAT 99
== END 2021-06-27 19:58 | disposition home or self-care (01) ==
PROVIDERS: Emergency Medicine; Emergency Provider Nurse Practitioner Critical Care Medicine; Family Provider Specialist; PCP Physician Assistant Medical
DX: N45.1 Epididymitis (principal); N50.89 Other specified disorders of the male genital organs; E66.01 Morbid (severe) obesity due to excess calories; R03.0 Elevated blood-pressure reading, without diagnosis of hypertension; Z68.41 Body mass index [BMI] 40.0-44.9, adult; Z20.822 Contact with and (suspected) exposure to COVID-19
CPT/HCPCS: 36415; 71045; 80053; 81001; 83605; 83880; 85025; 87635; 93005; 93010; 96365; 99284; C9803; J0696

== ENCOUNTER → 2021-07-09 09:16 | Outpatient (CLI) | payer OTHER, SELFPAY | PROVIDERS: Family Provider Specialist; PCP Physician Assistant Medical; Referring Provider Orthopaedic Surgery Foot and Ankle Surgery; Visit Provider Family Medicine | DX: T81.31XA Disruption of external operation (surgical) wound, not elsewhere classified, initial encounter (principal); E11.621 Type 2 diabetes mellitus with foot ulcer; L97.522 Non-pressure chronic ulcer of other part of left foot with fat layer exposed; L97.524 Non-pressure chronic ulcer of other part of left foot with necrosis of bone; M86.172 Other acute osteomyelitis, left ankle and foot; R60.1 Generalized edema; R06.01 Orthopnea; R06.02 Shortness of breath | CPT/HCPCS: 11042; 11044; 87070; 87075; 87077; 87102; 87147; 87176; 87205; 99205; 99214 ==

== ENCOUNTER → 2021-07-11 13:40 | Outpatient (CLI) | payer OTHER, SELFPAY ==
[2021-07-09 16:07] VITALS: BMI 48.7
[2021-07-11 15:24] LABS: COVID19 -Nasal RAPID Negative (Negative)
== END ==
PROVIDERS: Family Provider Specialist; PCP Physician Assistant Medical; Referring Provider Family Medicine Sleep Medicine; Visit Provider Family Medicine Sleep Medicine
DX: Z20.822 Contact with and (suspected) exposure to COVID-19 (principal)
CPT/HCPCS: 87635; C9803

== ENCOUNTER 2021-07-12 08:41 | Inpatient (IN) | payer OTHER, MEDICARE, SELFPAY ==
[2021-07-09 16:07] VITALS: BMI 48.7
[2021-07-10 08:31] VITALS: BMI 48.9
[2021-07-12] VITALS (19 sets, daily range): BP systolic 83–156; BP diastolic 42–80; PULSE 66–75; RESP 10–29; TEMP 36.6–37.3; O2SAT 93–100; BMI 57.7
--- NOTE | 2021-07-12 | PATH_ITS ---
[facility] Accession Number: [id number] . 01 Material submitted: . toe - LEFT 5TH TOE . 01 Diagnosis: Left Fifth Toe, Amputation: Skin and subcutaneous tissue with ulcer, mixed inflammation and scattered bacterial organisms. Bone with marrow fibrosis and mixed inflammation, consistent with acute osteomyelitis. Skin and en face bone margin appear viable. No evidence of malignancy identified in sections examined. V 07/16/2021 1123 Local . 01 Electronically signed: . Aman Ch MD, Dermatopathologist NPI- [id number] . 01 Gross description: . Received in formalin and labeled with the patient's name and additionally labeled left fifth toe is a partial toe fragment. The toe measures 5.0 cm proximal to distal x 2.3 cm medial to lateral x 0.9 cm superior to inferior. The plantar surface of the toe is absent. A portion of apparent proximal phalange with articular surface is present, measuring 2.0 cm in length and 0.6 cm in diameter. A toenail measuring 1.2 x 0.7 cm is present. An irregular cratered lesion measuring 1.3 x 0.5 cm is present on the dorsal surface overlying the site of the interphalangeal joint. The area around the cratered lesion is inked blue. The deep margins are inked as follows: right aspect black and left aspect orange. The specimen is sectioned revealing a bone fragment, which can be cut with a knife. [employer] sections are submitted as follows: . A1 - Lateral deep soft tissue margins. A2 - Area of cratered lesion. A3 - Cross section of specimen adjacent to cratered lesion with bone following decalcification. A4 - En face bone margin, following decalcification. A5 - Cross section of proximal bone, following decalcification. ([id number]) /[facility] 07/13/2021 1524 [facility] . 01 Pathologist provided ICD-10: M86.10 . 01 CPT . 983369, [id number] Performed at: 01 [facility] [address] [place] [address], [place], [place] [id number] MD Janes Diego MD Phone: [phone]
--- NOTE | 2021-07-12 08:40 | PM.HP.1 ---
History of Present Illness History of Present Illness Date Patient Seen: 07/12/21 Time Patient Seen: 09:00 Chief complaint: SDC Narrative: Patient is a 65-year-old medically complex male with diabetes, neuropathy and chronic peripheral edema that presents with a left foot diabetic infection open wound and osteomyelitis. He had a previous left 4th toe infection and amputation 6 weeks ago. This has dehisced and continue to be open additionally he has a new wound with exposed bone osteomyelitis on the 5th toe. He has persistent swelling and requirement for antibiotics. He has been indicated for amputation of the 5th toe repeat debridement of the 4th toe amputation site wound and metatarsal head excision. He has failed attempts at wound care and has been indicated for surgical debridement. He is at risk for worsening and need for more proximal amputation. He has atrial fibrillation is on chronic Pradaxa. This is and held preoperatively. He has been seen in the Emergency reamed several times related to his foot infection as well as peripheral edema. History of asthma, diabetes type 2, congestive heart failure, morbid obesity, psoriasis, sleep apnea, idiopathic cardiomyopathy, neuropathy, atrial fibrillation, metabolic syndrome. He was seen in the emergency room couple days ago scrotal swelling was placed on an antibiotic instructed PCP follow-up. Presents with more scrotal swelling today. Worsening since June 27. Size PCP yesterday creased Lasix. Overall weight up least 30 lb. Seen in wound care this week with worsening infection and exposed bone left foot. Patient History Medical History Abdominal aortic aneurysm Asthma Atrial fibrillation CHF (congestive heart failure) Diabetes Diabetic neuropathy HLD (hyperlipidemia) HTN (hypertension) Idiopathic cardiomyopathy MRSA (methicillin resistant Staphylococcus aureus) Neuropathy RAFAL on CPAP Psoriasis Testicular hypofunction Surgical History H/O cardiac radiofrequency ablation Hx of atrioventricular node ablation Hx of umbilical hernia repair Status post LASIK surgery of both eyes Family & Social History Social History: household members spouse Tobacco & Substance use: Smoking Status Never smoker alcohol intake current alcohol intake frequency other Substance Use Type does not use Meds Home Medications and Allergies Home Medications Medication Instructions Recorded Confirmed Type beclomethasone diprop (AQ) 42 mcg 1 spray INTRANASAL PRN PRN #0 01/14/17 07/10/21 History (0.042 %) nasal spray (Beconase AQ) dabigatran etexilate 150 mg 150 mg PO BID #0 01/14/17 07/10/21 History capsule (Pradaxa) gabapentin 600 mg tablet 0.5 tab PO HS #0 01/14/17 07/10/21 History (Neurontin) insulin glargine 100 unit/mL 40 - 50 unit SQ BID #0 01/14/17 07/10/21 History subcutaneous solution (Lantus U-100 Insulin) insulin lispro 100 unit/mL 20 - 40 unit SQ SLIDE #0 01/14/17 07/10/21 History subcutaneous solution (Humalog U-100 Insulin) lisinopril 20 mg tablet 10 mg PO BEDTIME #0 01/14/17 07/10/21 History metformin 1,000 mg tablet 1,000 mg PO BIDCC #0 01/14/17 07/10/21 History metformin 500 mg tablet,extended 1,000 mg PO BID #0 01/14/17 07/10/21 History release 24 hr (Glucophage XR) morphine 15 mg immediate release 15 mg PO BID #0 01/14/17 07/10/21 History tablet oxycodone-acetaminophen 10 mg-325 1 tab PO QID #0 01/14/17 07/10/21 History mg tablet (Endocet) salmeterol 50 mcg/dose blister 1 puff INH BID #0 01/14/17 07/10/21 History powder for inhalation (Serevent Diskus) testosterone 1.62 % (20.25 mg/1.25 1.25 gm TD QDAY #0 01/14/17 07/10/21 History gram) transdermal gel packet (AndroGel) torsemide 20 mg tablet 0.5 tab PO PRN PRN #0 01/14/17 07/10/21 History metoprolol succinate 25 mg 12.5 mg PO BID 05/19/21 07/10/21 History tablet,extended release 24 hr L.acidophilus-L.bulgar-B.bifid-S.thermoph 1 tab PO TIDWM #90 tab 05/20/21 07/10/21 Rx 1 billion cell-250 mg tablet (Bacid) clindamycin HCl 300 mg capsule 300 mg PO Q8H #30 cap 05/20/21 07/10/21 Rx Allergies Allergy/AdvReac Type Severity Reaction Status Date / Time cephalexin [CEPHALEXIN] Allergy Severe BREATHING Verified 05/15/21 15:55 PROBLEMS, TIGHTNESS diltiazem [DILTIAZEM] Allergy Severe SWELLING, Verified 05/15/21 15:55 RASH Influenza Virus Vaccines Allergy Unknown UNKNOWN Verified 05/15/21 15:56 [INFLUENZA VIRUS VACCINES] REACTION PER PT, BUT IT WAS SERIOUS amiodarone [AMIODARONE] AdvReac Severe FATIGUE, Verified 05/15/21 15:55 PHOTOSENSITIVITY, MACULAR DEGENERATION clonidine [CLONIDINE] AdvReac Severe MY FEET Verified 05/15/21 15:55 TURNED TO JELLY, WEEPING lisinopril [LISINOPRIL] AdvReac Severe CRAMPING Verified 05/15/21 15:55 doxycycline AdvReac Mild Diarrhea Verified 05/15/21 15:55 gabapentin [GABAPENTIN] AdvReac Mild JERKING/LEG/BODY Verified 05/15/21 15:55 AT NIGHT verapamil AdvReac Unknown Verified 05/15/21 15:55 Review of Systems Review of Systems Narrative: Orthopnea, peripheral edema, increased weight. Severe scrotal swelling. Pain weeping from the skin. Foot infection open wound. Exam Narrative Exam Narrative: Patient is alert oriented male morbidly obese with severe peripheral and central edema along his lower abdomen scrotum and lower extremities. HEENT exam normocephalic atraumatic Respiratory exam: Normal saturations on room air. Is able to talk at a normal speed. Does endorse some needing to rest and catch his breath. Lungs clear on auscultation. Heart exam regular rate Abdomen: Morbid obesity. Central and peripheral edema along the lower abdomen and edema of his scrotum with some skin weeping. No obvious infection. Scrotum was also examined by urologist Dr. Goyal Musculoskeletal examination: Moving bilateral upper extremities without limitation Left foot with open wound over the dorsum of the 5th toe with full-thickness wound exposed bone and purulence. Severe peripheral edema, pitting. Palpable dorsalis pedis pulse. Previous 4th toe amputation site with dehiscence and fibrinous exudate no gross fluctuance. Dense peripheral neuropathy bilaterally. Const General: cooperative Nutritional Appearance: obese morbidly obese Orientation: alert Limitations: altered mental status Assessment & Plan Assessment and plan (1) Cellulitis: Qualifiers: Site of cellulitis of trunk: groin Status: Acute (2) Obesity, morbid, BMI 40.0-49.9: Status: Acute (3) Osteomyelitis of fifth toe of left foot: Problem details: Left 5th toe full-thickness ulceration with exposed bone and osteomyelitis. Nonhealing. Patient is indicated for amputation for his osteomyelitis neuropathic diabetic ulcer and failure of outpatient antibiotics and wound care. He is expected to have advancement of the disease these process and delay in care may result in more complex surgery or more proximal amputation. Additionally with his severe peripheral edema he is indicated for inpatient mission for IV diuresis and delays may result in deterioration of the patient's condition overall health. We will take intraoperative cultures and start on vancomycin based on previous history and previous microbiology-and admit with broad-spectrum antibiotic until can narrow Status: Acute (4) Diabetic foot infection: Status: Acute (5) Neuropathy due to secondary diabetes: Status: Acute (6) Peripheral edema: Problem details: Severe peripheral edema and scrotal edema. Overall weight at least 30 lb. Has been on outpatient Lasix without significant improvement. Worsening condition. Status: Acute (7) Scrotal edema: Problem details: Severe scrotal edema and peripheral edema worsening since June 27, 2021. Saw PCP Dr. Adam Yoder yesterday which up to his Lasix to 3 pills of torsemide from 2. Appreciate evaluation by Dr. Goyal of urology.no surgical and a convention indicated however aggressive diuresis is recommended. Also discussed that broad-spectrum antibiotics for the foot would be appropriate for empiric coverage of the scrotal condition Status: Acute Plan Admission with medical management for inpatient diuresis for severe peripheral edema and inpatient management and IV antibiotics for his left diabetic foot osteomyelitis. Discussed with hospitalist physician. COVID-19 COVID-19 status: Negative Time Spent With Patient Time with patient: less than 30 minutes Critical Care time: I spent a total of [] minutes of critical care time on this patient's care today; this time is exclusive of procedural time. Quality VTE Deep Vein Thrombosis/Pulmonary Embolism Present on Admission: No
--- NOTE | 2021-07-12 09:36 | PM.PREOP ---
Pre-operative Note COVID-19 COVID-19 status: Negative Criteria for continued procedure: Expected advancement of disease process, Possibility delay results in more complex future surgery or treatment, Deterioration of the patient's condition or overall health and Delay expected to result in less-positive ultimate med/surg outcome Interval Note History & Physical reviewed/Exam performed by Physician: Yes Changes to H&P: Yes H&P completed within 30 days and has changed as indicated here:: H& P completed today.--severe peripheral edema requiring inpatient diuresis and left diabetic foot infection with osteomyelitis requiring inpatient antibiotics and surgical management
--- NOTE | 2021-07-12 09:40 | SUR.OPER ---
Supine on padded OR bed, head on pillow, HOB elevated, arms secured on padded arm boards at <90 degrees abduction, legs uncrossed, safety belt at waist, tape over blanket over lower right leg. Left leg is draped free. Gel bump under left hip.
--- NOTE | 2021-07-12 09:43 | SUR.OPER ---
Underside of scrotum has rash and scrotum is severely swollen
[2021-07-12] MEDS: LACTATED RINGERS 1,000 ML 42 ML IV ×2 (09:46→15:01)
[2021-07-12] MEDS: VANCOMYCIN 1,500 MG/300 ML PIGGYBACK 200 MG IV (09:47)
[2021-07-12] MEDS: FUROSEMIDE 40 MG/4 ML VIAL IV (11:04)
[2021-07-12] MEDS: BUPIVACAINE 0.25% (PF) 30 ML, EPINEPHrine 0.15 MG INJ (11:36)
--- NOTE | 2021-07-12 12:16 | P.OP_ITS ---
Operative Date/Time/Diagnoses Date of procedure: 07/12/21 Time of procedure: 10:30 Pre-op diagnosis: Left diabetic foot infection, osteomyelitis Volume overload peripheral edema Morbid obesity BMI 57 Chronic anticoagulation Post-op diagnosis: same Procedure & Clinicians Procedure: Amputation left 5th toe with metatarsal head CPT code 91704-H4 Amputation left 4th metatarsal head CPT code 08032-Y0 Procedure performed modifier 57 for more extensive procedure. This is a new left 5th toe diabetic ulcer next to a previous 4th toe amputation site and the of persistent nonhealing a 4th toe amputation site requiring additional debridement metatarsal head resection and 5th toe amputation metatarsal head resection closure. Same procedure as scheduled: Yes Indications: The patient is a 65-year-old male with multiple medical comorbidities including morbid obesity, heart failure, diabetes, neuropathy, AFib on chronic anticoagulation and peripheral edema that presents with worsening left foot diabetic infection with exposed bone osteomyelitis and additional nonhealing a previous toe amputation site requiring additional surgical debridement and amputation. He also presents today with severe central and peripheral edema including very severe scrotal edema and weight is up from 174 kg on June 27 to 204 kg today. He has failed outpatient oral antibiotics and outpatient oral Lasix. He is having worsening orthopnea, scrotal swelling and skin weeping. He is indicated for surgery for his left foot diabetic infection and inpatient admission for IV antibiotics and IV diuresis. He is a high risk for worsening condition without urgent intervention and hospitalization. The risks and benefits of the procedure have been discussed with the patient even opportunity to ask questions. The risks of surgery include but are not limited to infection, malunion, nonunion, persistence of pain, damage to nerves and blood vessels, posttraumatic arthritis, DVT, PE, cardiopulmonary complications and . The patient expressed a thorough understanding of the risks and benefits of surgery and has elected to proceed. Consent was signed. Further have discussed the patient's scrotal swelling with the urologist Dr. Goyal do believe this to be mass effect from his severe edema recommended inpatient admission for diuresis. No specific urology surgical intervention is indicated at this time. I have discussed the patient the inpatient internal medicine hospitalist team for admission and aggressive diuresis and management of medical comorbidities. Surgeon: Cyn Chicas Click Yes if Unassisted: Yes Anesthesia Type: General and Local Operative Notes Findings: Soft necrotic proximal phalanx bone left 5th toe with full-thickness open wound and purulence at the wound site. Left 5th toe was amputated. Additionally left 5th metatarsal head and 4th metatarsal head were excised. No deeper purulence pockets were identified. Nonhealing previous 4th toe amputation site was debrided thoroughly irrigated and closed Closure Type: primary Specimen(s): other (Tissue and bone for microbiology and pathology) Estimated Blood Loss (mL): 20 Blood products transfused: none Tourniquet time (min): 0 Procedure in detail: Patient was seen in the preoperative area the site of surgery was marked informed consent confirmed. Additionally due to his severe edema, which is dramatically increased since I saw him last, I had Dr. Goyal urologist evaluate scrotal edema. No urology surgical intervention was indicated however this is a manifestation of severe volume overload requiring inpatient admission for aggressive diuresis. Appreciate Dr. Goyal's assessment. Inpatient admission postoperatively was discussed with the internal medicine hospitalist team. Patient was brought into the operating room by the anesthesia team. General anesthetic was administered. The patient was transferred by hover air bed to the operative table. Additional side pads were placed on the table to accommodate the patient's habitus. Bony prominences well padded. An SCD was placed on the contralateral lower extremity. An ipsilateral thigh bump was placed. No tourniquet was used. The left lower extremities prepped and draped in standard sterile fashion. A formal time-out procedure was performed confirming the patient's side and site of surgery administration of appropriate preoperative antibiotics this was 1.5 g of vancomycin. All were in agreement. Attention was turned to the left lower extremity. He incision was drawn out around the 5th toe. A sharp scalpel was used for full-thickness incision and removal of the 5th toe. Care was taken to preserve plantar tissue to help with incision repair. There was a small amount of purulence at the open exposed proximal phalanx site. The bone was removed and the 5th toe sent for pathology. No deeper per in the pocket was noted. There was prominence of the 4th and 5th metatarsal heads therefore dissection was taken around the and the TTS saw was used to remove the 4th and 5th metatarsal heads. These were sent for culture. Then a thorough irrigation with bulb syringe and saline was completed meticulously washing the wounds. Gloves and gown drapes were changed. The preserved plantar flap of the 5th toe was then rotated into the wound to help remove tension from the closure this was closed in a layered fashion with 2-0 PDS and 2-0 and 3-0 nylon suture. A sterile dressing was placed with Xeroform gauze a Kerlix ABD pad and an Jamie wrap. The patient was awoken from anesthesia and taken to recovery room in good condition. There no immediate complications from this procedure. All counts were correct. Was noted that during the procedure the patient was given 40 of Lasix with only 300 out in urine. Complications: none Post-operative Condition: stable Disposition: PACU Plan for aftercare: Admission to the hospital for aggressive diuresis and IV antibiotics. Will empirically placed on vancomycin due to previous susceptibilities. If deep cultures come back with no growth would convert to oral antibiotics on discharge. Will require close monitoring and aggressive diuresis with the internal medicine team for his volume overload which has resulted in several emergency room visits in the last few weeks and he is currently up 30 kg from 2 weeks ago. He may heel weight bear in the postoperative shoe on the left side but must take care to offload the surgical area on the left forefoot. His sutu res will remain in place for 4 weeks. Wound is closed but discussed if he has any dehiscence he will need to resume care with the wound clinic.
--- NOTE | 2021-07-12 13:07 | SUR.PHASEI ---
Late entry: Pt arrived with oral airway, out at 1210, sats maintained on 4/l, cpcp set up, but not needed. Pt denied pain, no nausea, tolerated ice chips, report called to [facility] and pt transported up to room 223 on 4/l of o2. L foot elevated as well as L hand, due to hand swelling. Pt left in stable condition, bed low, locked, SCD in place, call light in reach.
--- NOTE | 2021-07-12 13:45 | PT.IIE ---
Current Diagnoses Type 2 diabetes mellitus with diabetic polyneuropathy (07/12/21) Type 2 diabetes mellitus with other skin complications (07/12/21) Other specified diabetes mellitus with diabetic neuropathy, unspecified (07/12/21) Morbid (severe) obesity due to excess calories (07/12/21) Cellulitis, unspecified (07/12/21) Local infection of the skin and subcutaneous tissue, unspecified (07/12/21) Subacute osteomyelitis, left ankle and foot (07/12/21) Osteomyelitis, unspecified (07/12/21) Other specified disorders of the male genital organs (07/12/21) Edema, unspecified (07/12/21) Surgery Performed Operation Date: 07/12/21 09:00 Actual Procedures p 5th toe amputation with debridement & excision 4th/5th toe metatarsal head(Left) - Cyn Chicas MD Medical History (Last Reviewed 07/12/21 @ 09:34 by Cyn Chicas MD) Abdominal aortic aneurysm Asthma Atrial fibrillation CHF (congestive heart failure) Diabetes Diabetic neuropathy HLD (hyperlipidemia) HTN (hypertension) Idiopathic cardiomyopathy MRSA (methicillin resistant Staphylococcus aureus) Neuropathy RAFAL on CPAP Psoriasis Testicular hypofunction Physical Therapy Inpatient Evaluation/Re-Eval M1 PT/OT-IP Prior Functional Status Start: 07/12/21 14:58 Freq: NEEDED Status: Active Protocol: Document 07/12/21 13:45 AB (Rec: 07/12/21 15:17 AB [id number]) Medical Review Prior Functional Status Medical History Reviewed Yes Communication able to make needs known Mobility and Gait pt stated that he is modified independent with all mobilities and ambulation without AD but uses a SPC for stair climbing and for uneven/ outdoor mobility Social History Household Members spouse Living Arrangements House Number of Floors (Floors) One Floor Number of Stairs To Enter/Railing? pt stays on main level of the house stated that he has 18-20 steps with R rail ascending and uses SPC on L; stated that they can drive up closer around the house so that he can get into the house without doing stairs Home Environment Standard Height Toilet,Tub/ Shower,Tub/Shower Doors Home Equipment Straight Cane Additional Social History Comment pt has a standard walker stated that he has not had a shower for a while and has just been doing sponge bathing M2 PT-IP Current Condition Start: 07/12/21 14:58 Freq: NEEDED Status: Active Protocol: Document 07/12/21 13:45 AB (Rec: 07/12/21 15:17 AB [id number]) Physical Therapy Current Condition Current Condition Evaluation Date 07/12/21 Treatment Diagnosis L foot osteomyelitis s/p 4th, 5th metatarsal head amputation ; diff in walk Onset Date 07/12/20 M3 PT-IP Subjective Start: 07/12/21 14:58 Freq: NEEDED Status: Active Protocol: Document 07/12/21 13:45 AB (Rec: 07/12/21 15:17 AB [email or web address]) Subjective Physical Therapy Visit Type Type Initial Evaluation Visit Start Time 13:45 Visit Stop Time 14:55 Total Visit Minutes 70 Number of STUDY COORDINATOR Visits 0 Physical Therapy Visit Comments Patient Comments agreeable to do PT Therapy Pain Assessment Pain When Pain Assessed At Rest Location Perineal Scale Used increases with mobility Pain Management Techniques Modification of Treatment,Re- positioning M4 PT-IP Mobility and Gait Start: 07/12/21 14:58 Freq: NEEDED Status: Active Protocol: Document 07/12/21 13:45 AB (Rec: 07/12/21 15:17 AB [email or web address]) PT-Bed Mobility Assessment Supine to Sit Supine to Sit Maximum Assistance,Head of Bed Elevated,Bedrails Sit to Supine Sit to Supine Maximum Assistance,1 Person Assistance PT-Transfer Assessment Sit to and From Stand Sit to and from Stand Contact Guard Assistance, Minimal Assistance,1 Person Assistance,Use of Upper Extremities Equipment Transfer Assistive Device Gait Belt,Front Wheeled Walker Orthotic/Prosthetic Devices or Brace: No Comments Mobility Comments pt completed supine to sit max A HOB elevated and pt used bed rail to assist. required 3 attempts to complete task. c /o pain on scrotum with (+) edema. pt required increase rest breaks in between tasks. O2 sat at room air 97-98%. assisted pt with shoe management. completed sit to stand CGA to min A and max cues for heel weight bearing only. ambulated in room ~ 35 ft using FWW CGA to min A and cues for weight bearing restriction. presents with waddling, wide base gait. pt ambulated back to the bed. max A for LE elevation to bed. positioned pt on the bed. call light and table placed within reach. Gait Assessment Gait Gait Assistance Required: Contact Guard Assist,Minimum Assistance Distance (Feet) 35 Able to Maintain Weight Bearing Status Yes During Gait Assistive Devices Assistive Device Gait Belt,Front Wheeled Walker Orthotic/Prosthetic Devices or Brace: No Gait Deviations General Gait Pattern Antalgic,Decreased Stride Length,Decreased Feet Clearance,Step-to Gait,Wide Based Gait Factors Limiting Gait Function Factors Limiting Gait Function Decreased Activity Tolerance, Decreased Strength,Limited Range of Motion,Pain,Poor Balance,Poor Safety Awareness PT-Balance Assessment Sitting Balance and Reactions Static Sitting Balance Ability Good Dynamic Sitting Balance Ability Good Standing Balance and Reactions Static Standing Balance Ability Fair Dynamic Standing Balance Ability Fair Device Used FWW M5 PT-IP Objective Assessments Start: 07/12/21 14:58 Freq: NEEDED Status: Active Protocol: Document 07/12/21 13:45 AB (Rec: 07/12/21 15:17 AB [email or web address]) Orientation Orientation/Cognition Level of Alertness Alert Orientation Name,Place,Situation Language Function Ability No Deficits Noted Safety Awareness Decreased Safety Awareness Memory Description No Deficits Noted Gross Range of Motion Lower Extremity ROM Assessment Bilaterally Impaired Impairments limit due to BLE edema Strength Lower Extremity Strength Assessment Bilaterally Impaired Hip 3-/5 Knee 3+/5 Sensation Assessment Sensation Light Touch Impaired Proprioception (Position) Impaired Comments Sensation Comments decrease sensation on BLE Muscle Tone Muscle Tone WNL Yes M6 PT-IP Treatment Start: 07/12/21 14:58 Freq: NEEDED Status: Active Protocol: Document 07/12/21 13:45 AB (Rec: 07/12/21 15:[email or web address] Therapy Treatment Education Education Provided Weight Bearing Status,Safety M7 PT-IP Assessment and Plan Start: 07/12/21 14:58 Freq: NEEDED Status: Active Protocol: Document 07/12/21 13:45 AB (Rec: 07/12/21 15:17 [email or web address] PT Summary Assessment and Plan Potential Rehabilitation Potential Fair Status of Condition at Evaluation Evolving Summary Impairments Pain,ROM,Strength,Balance, Coordination,Sensation, Cognition,Bed Mobility, Transfers,Gait,Activity Tolerance Assessment Summary PT has L foot osteomyelitis and underwent L 4th and 5th metatarsal head amputation. Pt with DM and obesity affecting mobility presenting with decrease LE sensation and unsteady gait. pt requiring max A for bed mobility and CGA to min A with ambulation using FWW. pt requires cues to maintain weight bearing on heel only on LLE. pt plans to go home and spouse to assist him as needed. will continue to assess progress. Goals Bed Mobility Goal Standby Assistance Transfer Goal Standby Assistance,Front Wheeled Walker Gait Goal Standby Assistance,Front Wheel Walker Gait Distance 150 Other Goals ambulation using stnd walker 150 ft mod I up/down 20 steps R rail L SPC SBA Days to Meet Goals 10 Frequency of Treatment Frequency Of Treatment Once a Day Treatment Plan Physical Therapy Treatment Plan Bed Mobility Training,Transfer Training,Gait Training, Therapeutic Exercise,Balance Retraining,Post Op Education, Discharge Planning,Hot or Cold Pack,Neuromuscular Re-ed, Coordination Retraining,Manual Therapy Weight Bearing Status Allowed Weight Bearing Amount (enter % L heel weight bearing only or #) (%) Recommendations To Nursing Amount of Assist Needed 1 Person Assist Discharge Recommendations PT Discharge Recommendations Home with Assistance,Home Health Equipment Needed for Home Before FWW if not safe with std Discharge walker Transportation Needs at Discharge Private Vehicle
[2021-07-12] MEDS: LACTOBACILLUS ACIDOPHILUS TABLET 1 EACH PO ×2 (15:01→17:23)
[2021-07-12 15:27] LABS: Estimated Glomerular Filt Rate > 60.0 mL/min (>60)
[2021-07-12 15:29] LABS: Alanine Aminotransferase 47 IU/L (<50); Albumin 3.7 g/dL (3.5-5.0); Albumin Globulin Ratio 1.1 (1.0-2.8); Alkaline Phosphatase 56 U/L (38-126); Aspartate Aminotransferase 55 IU/L (17-59); BUN Creatinine Ratio 14.8 (6-22); Bilirubin Total 1.1 mg/dL (0.2-1.3); Blood Urea Nitrogen 16 mg/dL (9-20); Calcium 8.4 mg/dL (8.4-10.2); Carbon Dioxide 31 mmol/L (22-32); Chloride 96 mmol/L (98-107); Estimated Glomerular Filt Rate > 60.0 mL/min (>60); Globulin 3.4 g/dL (1.7-4.1); Glucose 109 mg/dL (80-110); HEMOLYSIS < 15 (0-50); Potassium 4.4 mmol/L (3.4-5.1); Sodium 133 mmol/L (137-145); Total Protein 7.1 g/dL (6.3-8.2)
[2021-07-12 15:37] LABS: NT-proBNP (BNP-Adult 18+) 1040 pg/mL (<125)
[2021-07-12] MEDS: HYDROMORPHONE 0.5 MG INJ 0.2 MG IV (16:25)
[2021-07-12] MEDS: ZINC OXIDE OINT 60 GM 1 APPLIC TOP ×2 (16:53→23:24)
[2021-07-12] MEDS: HYDROCODONE/ACET 5/325 TABLET 2 TAB PO ×2 (16:57→23:26)
[2021-07-12] MEDS: METFORMIN XR 500 MG TABLET 1000 MG PO (17:18)
[2021-07-12] MEDS: MORPHINE IR 15 MG TABLET PO (17:23)
--- NOTE | 2021-07-12 19:34 | DI.US.S_ITS ---
PROCEDURE: US ABDOMEN LIMITED INDICATIONS: ASCITIES; CIRRHOSIS TECHNIQUE: Real-time scanning was performed of the abdominal and retroperitoneal organs, with image documentation. COMPARISON: None. FINDINGS: Liver: Enlarged measuring 23.2 cm. Increased in echogenicity. Heterogeneous echotexture. Decreased sonographic penetration. Gallbladder: Mildly distended. Nonmobile stone near the neck measuring 1.4 cm. Normal gallbladder wall thickness. No pericholecystic fluid. Negative sonographic Zavaleta's sign. Biliary ducts: Intrahepatic bile ducts are non-dilated. Extrahepatic bile duct caliber measures 6.5 mm. Normal is 6-7 mm or less in diameter, or 10 mm or less post-cholecystectomy. Pancreas: Not well seen. Miscellaneous: No free abdominal fluid. IMPRESSION: 1. Hepatomegaly. Increased hepatic echogenicity most consistent with hepatic hepatocellular disease and/or hepatic steatosis. Decreased sonographic penetration limits evaluation. -Further evaluation with multiphase liver CT or MRI may be indicated given the patient's stated history of cirrhosis to screen for HCC. 2. Gallbladder is mildly distended. Nonmobile stone at the neck measuring 1.4 cm. However, no gallbladder wall thickening or sonographic Zavaleta's sign to suggest acute cholecystitis. If clinically indicated this could be further evaluated with HIDA scan. 3. No ascites. Dictated by: Frandy vOiedo M.D. on 07/13/2021 at 9:20 Approved by: Frandy Oviedo M.D. on 07/13/2021 at 9:24
[2021-07-12] MEDS: FUROSEMIDE 100 MG/10 ML VIAL 80 MG IV (19:35)
[2021-07-12] MEDS: VANCOMYCIN 2,000 MG/400 ML PIGGYBACK 200 MG IV (19:35)
--- NOTE | 2021-07-12 19:48 | PC.NURSE ---
Pt arrived from PACU, A&OX3, VSS on 4 LNC. +3-4 edema to BLE's and scrotum. Dressing to B feet C/D/I. He denies sensation to toes at baseline. Capillary refill to R great toe <2 sec, toes pink, warm. Desitin applied to scrotum, pt c/o 8/10 pain. patient bg 93, tolerating CC diet this ryan 100% w/o n/v. Wilson draining clear yellow urine >1200 cc this afternoon. RT at bedside evaluating patient and setting up CPAP. Encouraged IS use. Continuous monitoring.
[2021-07-12] MEDS: ALBUTEROL 2.5 MG/3 ML NEB (ADULT) INH (20:28)
[2021-07-12] MEDS: DOCUSATE 100 MG CAPSULE PO (21:04)
[2021-07-12] MEDS: lisinopriL 20 MG TABLET 10 MG PO (21:05)
[2021-07-12] MEDS: GABAPENTIN 600 MG TABLET 300 MG PO (21:05)
[2021-07-12] MEDS: METOPROLOL ER 25 MG TABLET 12.5 MG PO (21:07)
[2021-07-12] MEDS: INSULIN GLARGINE 100 UNIT/ML 3ML PEN 40 UNIT SUBCUT (21:11)
--- NOTE | 2021-07-12 21:40 | P.CONS_ITS ---
History of Present Illness Consult details Date Patient Seen: 07/12/21 Time Patient Seen: 18:00 Chief complaint: SDC Reason for consult: edema Requesting provider: Cyn Chicas Narrative: Mr. Cerda is a 65M with complicated PMH including CHF with idiopathic cardiomyopathy, DM, afib, asthma, morbid obesity who was admitted by the orthopedic service after a planned amputation of his 5th left toe, and debrid ement of 4th left toe after recent amputation six weeks ago. He is being treated with antibiotics for this. He underwent amputation on 07/12. He has noted to have morbid obesity and CHF. Consult is requested due to pateint developing anasarca in the last few weeks. Patient believes he has increased his weight 60lbs in a matter of weeks. He is on prn torsemide. He denies changes to his diet, though his BMI today is 57.8, so presumably diet is poor. He has no chest pain. He often has shortness of breath, has not noted this more so than usual. He has already received lasix when he is seen in his room postoperatively. He feels with less shortness of breath and he has diuresed since being ordered lasix. He has been noted to have a swollen scrotum, per orthopedic surgery, this has been evaluated by urology and is thought to be related to edema Meds Home Medications and Allergies Home Medications Medication Instructions Recorded Confirmed Type beclomethasone diprop (AQ) 42 mcg 1 spray INTRANASAL PRN PRN #0 01/14/17 07/12/21 History (0.042 %) nasal spray (Beconase AQ) dabigatran etexilate 150 mg 150 mg PO BID #0 01/14/17 07/12/21 History capsule (Pradaxa) gabapentin 600 mg tablet 0.5 tab PO HS #0 01/14/17 07/12/21 History (Neurontin) insulin glargine 100 unit/mL 40 - 50 unit SQ BID #0 01/14/17 07/12/21 History subcutaneous solution (Lantus U-100 Insulin) insulin lispro 100 unit/mL 20 - 40 unit SQ SLIDE #0 01/14/17 07/12/21 History subcutaneous solution (Humalog U-100 Insulin) lisinopril 20 mg tablet 10 mg PO BEDTIME #0 01/14/17 07/12/21 History metformin 500 mg tablet,extended 1,000 mg PO BID #0 01/14/17 07/12/21 History release 24 hr (Glucophage XR) morphine 15 mg immediate release 15 mg PO BID #0 01/14/17 07/12/21 History tablet salmeterol 50 mcg/dose blister 1 puff INH BID #0 01/14/17 07/12/21 History powder for inhalation (Serevent Diskus) testosterone 1.62 % (20.25 mg/1.25 1.25 gm TD QDAY #0 01/14/17 07/12/21 History gram) transdermal gel packet (AndroGel) torsemide 20 mg tablet 0.5 tab PO PRN PRN #0 01/14/17 07/10/21 History metoprolol succinate 25 mg 12.5 mg PO BID 05/19/21 07/12/21 History tablet,extended release 24 hr L.acidophilus-L.bulgar-B.bifid-S.thermoph 1 tab PO TIDWM #90 tab 05/20/21 07/10/21 Rx 1 billion cell-250 mg tablet (Bacid) Allergies Allergy/AdvReac Type Severity Reaction Status Date / Time cephalexin [CEPHALEXIN] Allergy Severe BREATHING Verified 07/12/21 09:37 PROBLEMS, TIGHTNESS diltiazem [DILTIAZEM] Allergy Severe SWELLING, Verified 07/12/21 09:37 RASH Influenza Virus Vaccines Allergy Unknown UNKNOWN Verified 07/12/21 09:37 [INFLUENZA VIRUS VACCINES] REACTION PER PT, BUT IT WAS SERIOUS amiodarone [AMIODARONE] AdvReac Severe FATIGUE, Verified 05/15/21 15:55 PHOTOSENSITIVITY, MACULAR DEGENERATION clonidine [CLONIDINE] AdvReac Severe MY FEET Verified 07/12/21 09:37 TURNED TO JELLY, WEEPING doxycycline AdvReac Mild Diarrhea Verified 07/12/21 09:37 verapamil AdvReac Unknown Verified 07/12/21 09:37 Review of Systems Review of Systems Narrative: 14 systems reviewed and negative aside from what is noted in HPI Exam Vital Signs (past 8 hours): - 07/12/21 14:00 07/12/21 18:28 07/12/21 20:28 Temperature 98.5 F 99.2 F Pulse Rate 66 70 70 Respiratory Rate 18 18 18 Blood Pressure 112/52 L 107/57 L Pulse Oximetry 99 97 07/12/21 21:05 07/12/21 21:07 Temperature Pulse Rate 70 70 Respiratory Rate Blood Pressure 145/76 H 145/76 H Pulse Oximetry Oxygen Delivery Method Nasal Cannula Oxygen Flow Rate 4 Narrative Exam Narrative: GEN: no acute distress HEENT: PERRL, moist mucous membranes NECK: trachea midline, no JVD CV: regular rate and rhythm, no murmurs PULM: clear bilaterally ABD: soft, nontender, distended, no organomegaly, normal bowel sounds EXT: warm and well perfused, 3+ pitting edema, upper extremities with edema SKIN: no rashes noted NEURO: awake, alert, moving all extremities PSYCH: pleasant, cooperative Objective Labs Result Diagrams: 07/12/21 15:05 Labs: Laboratory Results - last 24 hr 07/12/21 07/12/21 07/12/21 15:05 15:05 15:05 Sodium 133 L Potassium 4.4 Chloride 96 L Carbon Dioxide 31 BUN 16 Creatinine 1.05 1.08 Estimated GFR > 60.0 > 60.0 BUN/Creatinine Ratio 14.8 Glucose 109 Calcium 8.4 Total Bilirubin 1.1 AST 55 ALT 47 Alkaline Phosphatase 56 NT-Pro-B Natriuret Pep 1040 H Total Protein 7.1 Albumin 3.7 Globulin 3.4 Albumin/Globulin Ratio 1.1 PFSH Medical History Abdominal aortic aneurysm Asthma Atrial fibrillation CHF (congestive heart failure) Diabetes Diabetic neuropathy HLD (hyperlipidemia) HTN (hypertension) Idiopathic cardiomyopathy MRSA (methicillin resistant Staphylococcus aureus) Neuropathy RAFAL on CPAP Psoriasis Testicular hypofunction Surgical History H/O cardiac radiofrequency ablation Hx of atrioventricular node ablation Hx of umbilical hernia repair Status post LASIK surgery of both eyes Social History household members: spouse Tobacco & Substance Use Smoking Status: Never smoker alcohol intake: never Assessment & Plan Assessment & Plan narrative: Mr. Cerda is a 65M with complicated past medicaly history admitted after amputation of left toe and metatarsal head, with left diabetic foot infection and osteomyelitis found to have anasarca. 1. Anasarca -presumed etiology is congestive heart failure exacerbation -given obesity, presume diet is likely suboptimal -fluid restrict to 2L, low salt diet -increase lasix to 80IV BID, goal 2-3L negative daily -check BMP daily to BID -repeat ECHO -rule out other etiology such as kidney disease/proteinuria by ordering Ua, urine protein/creatinine ratio -rule out liver disease order abdominal us eval for ascites, cirrhosis -activity as able to mobilize fluid 2. Diabetic foot infection with osteomyelitis s/p amputation of L fifth toe and metatarsal head -ortho following for surgical management -cultures pending -vanco ordered per ortho team 3. Morbid obesity, BMI 57.8 -will need outpatient follow up to encourage weight loss 4. Atrial fibrillation -continue dabigatran 5. Diabetes -continue home medications, monitor blood sugar closely CODE: Full Proxy: Yodit Cerda, I have utilized all available resources to reconcile patient's home medications Time Spent With Patient Critical Care time: I spent a total of [] minutes of critical care time on this patient's care today; this time is exclusive of procedural time.
[2021-07-12 23:51] LABS: Bilirubin Urine UA NEGATIVE (NEGATIVE); Glucose Urine UA NEGATIVE (Negative); Ketones Urine UA NEGATIVE (NEGATIVE); Leukocyte Esterase Urine UA NEGATIVE (NEGATIVE); Nitrite Urine UA NEGATIVE (Negative); Occult Blood Urine UA 3+ (Negative); Protein Urine UA TRACE (Negative); Urobilinogen Urine UA 0.2 E.U./dL (0.2)
[2021-07-12 23:53] LABS: Appearance Urine UA SL CLOUDY; Color Urine UA Dark Yellow
[2021-07-12 23:54] LABS: RBC Urine 30-100/HPF (0-5/HPF); Squamous Epithelial Cell Urine 0-1 /HPF (0-5/HPF); WBC Urine 0-1/HPF (0-5/HPF)
[2021-07-12 23:55] LABS: Bacteria Urine Occasional (0-1); Culture Indicated Urine Cult Not Indicated; Mucus Urine 1+ (Negative)
[2021-07-13] VITALS (8 sets, daily range): BP systolic 107–165; BP diastolic 52–72; PULSE 70–99; RESP 16–24; TEMP 36.4–37.7; O2SAT 96–100
[2021-07-13] MEDS: HYDROCODONE/ACET 5/325 TABLET 2 TAB PO ×4 (03:23→23:41)
[2021-07-13 05:02] LABS: Hematocrit 35.7 % (41-53); Hemoglobin 11.7 g/dL (13.5-17.5); Mean Corpuscular HGB Conc 32.9 % (30-36); Mean Corpuscular Hemoglobin 27.2 PG (26-34); Mean Corpuscular Volume 82.8 fL (80-100); Platelet Count 232 X10^3/uL (150-400); Red Blood Cell Count 4.31 X10^6/uL (4.5-5.9); Red Cell Distribution Width 15.2 % (11.6-14.8); White Blood Cell Count 7.1 X10^3/uL (4.5-11.0)
[2021-07-13 05:07] LABS: BUN Creatinine Ratio 17.2 (6-22); Blood Urea Nitrogen 17 mg/dL (9-20); Calcium 8.3 mg/dL (8.4-10.2); Carbon Dioxide 31 mmol/L (22-32); Chloride 97 mmol/L (98-107); Estimated Glomerular Filt Rate > 60.0 mL/min (>60); Glucose 119 mg/dL (80-110); HEMOLYSIS < 15 (0-50); Magnesium 2.1 mg/dL (1.6-2.3); Potassium 4.2 mmol/L (3.4-5.1); Sodium 131 mmol/L (137-145)
[2021-07-13] MEDS: METFORMIN XR 500 MG TABLET 1000 MG PO ×2 (05:29→18:42)
[2021-07-13] MEDS: MORPHINE IR 15 MG TABLET PO ×2 (05:29→18:42)
[2021-07-13] MEDS: FUROSEMIDE 100 MG/10 ML VIAL 80 MG IV ×2 (06:44→18:42)
[2021-07-13] MEDS: VANCOMYCIN 2,000 MG/400 ML PIGGYBACK 200 MG IV ×2 (06:58→18:56)
--- NOTE | 2021-07-13 08:25 | P.PN_ITS ---
Subjective Subjective Date Patient Seen: 07/13/21 Time Patient Seen: 08:29 Interval history: Paco is very pleasant and lying in bed with his CPAP on. He says that from a respiratory standpoint he feels much better. He just had an abdominal ultrasound to evaluate for ascites/cirrhosis. Breakfast was delivered while I was there and he reports a good appetite. Worked with PT yesterday and felt he did well. Planning to go home with spouse. Exam Vital Signs (past 8 hours): - 07/13/21 04:00 Temperature 98.7 F Pulse Rate 99 H Respiratory Rate 24 Blood Pressure 124/63 Pulse Oximetry 97 Oxygen Delivery Method Nasal Cannula Oxygen Flow Rate 0 Narrative Exam Narrative: Cultures from surgery pending. On IV vancomycin presumptively. Wilson draining clear andres urine; negative > 3 liters yesterday. SCDs in place bilaterally. LLE dressing is CDI. Pt cannot feel me touching his toes but states he has diabetic neuropathy and this is baseline for him. He is able to wiggle his toes and dorsiflex and plantarflex without difficulty. Const General: cooperative and comfortable Orientation: alert, awake and oriented x3 Objective Labs Result Diagrams: 07/13/21 04:40 07/13/21 04:40 Labs: Laboratory Results - last 24 hr 07/12/21 07/12/21 07/12/21 15:05 15:05 15:05 WBC RBC Hgb Hct MCV MCH MCHC RDW Plt Count Sodium 133 L Potassium 4.4 Chloride 96 L Carbon Dioxide 31 BUN 16 Creatinine 1.05 1.08 Estimated GFR > 60.0 > 60.0 BUN/Creatinine Ratio 14.8 Glucose 109 Calcium 8.4 Magnesium Total Bilirubin 1.1 AST 55 ALT 47 Alkaline Phosphatase 56 NT-Pro-B Natriuret Pep 1040 H Total Protein 7.1 Albumin 3.7 Globulin 3.4 Albumin/Globulin Ratio 1.1 Urine Color Urine Appearance Urine pH Ur Specific [place] Urine Protein Urine Glucose (UA) Urine Ketones Urine Occult Blood Urine Nitrate Urine Bilirubin Urine Urobilinogen Ur Leukocyte Esterase Urine RBC Urine WBC Ur Squamous Epith Cells Urine Bacteria Urine Mucus Ur Culture Indicated? 07/12/21 07/13/21 07/13/21 23:45 04:40 04:40 WBC 7.1 RBC 4.31 L Hgb 11.7 L Hct 35.7 L MCV 82.8 MCH 27.2 MCHC 32.9 RDW 15.2 H Plt Count 232 Sodium 131 L Potassium 4.2 Chloride 97 L Carbon Dioxide 31 BUN 17 Creatinine 0.99 Estimated GFR > 60.0 BUN/Creatinine Ratio 17.2 Glucose 119 H Calcium 8.3 L Magnesium 2.1 Total Bilirubin AST ALT Alkaline Phosphatase NT-Pro-B Natriuret Pep Total Protein Albumin Globulin Albumin/Globulin Ratio Urine Color Dark yellow Urine Appearance Sl cloudy Urine pH 5.0 Ur Specific [place] 1.020 Urine Protein Trace H Urine Glucose (UA) Negative Urine Ketones Negative Urine Occult Blood 3+ H Urine Nitrate Negative Urine Bilirubin Negative Urine Urobilinogen 0.2 Ur Leukocyte Esterase Negative Urine RBC 30-100/hpf H Urine WBC 0-1/hpf Ur Squamous Epith Cells 0-1 /hpf Urine Bacteria Occasional (0-1) Urine Mucus 1+ H Ur Culture Indicated? Cult not indicated PFSH Medical History Abdominal aortic aneurysm Asthma Atrial fibrillation CHF (congestive heart failure) Diabetes Diabetic neuropathy HLD (hyperlipidemia) HTN (hypertension) Idiopathic cardiomyopathy MRSA (methicillin resistant Staphylococcus aureus) Neuropathy RAFAL on CPAP Psoriasis Testicular hypofunction Surgical History H/O cardiac radiofrequency ablation Hx of atrioventricular node ablation Hx of umbilical hernia repair Status post LASIK surgery of both eyes Social History household members: spouse Smoking Status: Never smoker alcohol intake: never Assessment & Plan Post-op Postoperative Procedures: Procedures Operation Date: 07/12/21 09:00 Actual Procedure Side Surgeon p 5th toe amputation with debridement & excision 4th/5th toe metatarsal head Left Cyn Chicas MD Postoperative day: 1 Postoperative status narrative: Doing well postoperatively. Appreciate Dr Willard's help with this medically complex patient. Postoperative plan narrative: Will await wound cultures to determine antibiotic treatment. If he can be switched to oral abx, he can discharge home once his medical issues have been addressed and stabilized to Dr Willard's satisfaction. Quality VTE Deep Vein Thrombosis/Pulmonary Embolism Present on Admission: No
[2021-07-13] MEDS: DOCUSATE 100 MG CAPSULE PO ×2 (09:42→21:48)
[2021-07-13] MEDS: METOPROLOL ER 25 MG TABLET 12.5 MG PO ×2 (09:42→21:48)
[2021-07-13] MEDS: DABIGATRAN 75 MG CAPSULE 150 MG PO ×2 (09:43→21:48)
[2021-07-13] MEDS: LACTOBACILLUS ACIDOPHILUS TABLET 1 EACH PO ×3 (09:45→18:56)
[2021-07-13] MEDS: INSULIN GLARGINE 100 UNIT/ML 3ML PEN 40 UNIT SUBCUT ×2 (09:48→21:55)
[2021-07-13] MEDS: ALBUTEROL 2.5 MG/3 ML NEB (ADULT) INH ×3 (10:20→19:50)
--- NOTE | 2021-07-13 10:24 | CM.DANOTE ---
DCP: Case received, EMR reviewed and met with patient. Introduced self and role. Was able to obtain information regarding patient's baseline activity status prior to hospitalization. DCP assessment completed with information currently available. Patient is a 65 year old male who admitted yesterday morning to the care of the orthopedic team. PCP: Dr. Ni at [facility]. Payer: confirmed: [facility]. Patient came to the hospital via private vehicle for a surgical procedure. Patient has a complex medical history, was here for left food diabetic infection, osteomyelitis. He had prior amputation of his left 4th toe 6 weeks ago. Patient had left 5th toe amuptated secondary to having exposed bone and osteomyelitis. Patient had also had a recent visit with provider for peripheral edema, and scrotal swelling. He is also being treated for peripherel edema, and is on IV diuresis as well as broad-spectrum antibiotics. Met with patient in his room. He was laying in bed, alert and oriented, pleasant. He discussed his medical history at length. He has already worked with [employer]. He resides outside of [place], in the [facility], on [facility]. He is retired, and lives with his , Yodit, who works for the [employer]. He indicated, she is currently taking time off work. He uses a single point cane at home. He indicated that he does have stairs to navigate into his home, but uses the rail, and has been able to navigate. He does drive. Asked him if he had ever had home health before. He indicated, he did, but a long time ago. His goal is home, he stated that his has been helping with his dressing changes. Let him know that home health can also come out, as it may be challenging for him to get out, for therapy, as well as nursing for wound assessment and labs if needed. Asked him if he has ever had any home IV antibiotics before, he denied. P: DCP to continue to follow. At this time, the plan is home, possible home health, but he has not yet consented to this. It is currently unclear as to what type of ABO he will be discharged with, and if it can be oral, for this will affect discharge. There is an option of [facility] if this is needed, as well. Juanita Harrison RN/Mechanic [employer] Discharge Planning/Care Management CM Discharge Assessment Start: 07/13/21 10:22 Freq: Status: Active Protocol: Document 07/13/21 10:22 (Rec: 07/13/21 10:24 [id number]) Discharge Planning Assessment Assigned Digital Sales Planner Juanita Harrison RN/[employer] Advance Directives? No History Provided By Patient,Medical Record Prior Living Arrangements House Household Members spouse Type of transporation used prior to Drives own vehicle admit Independent with ADL's Yes Is patient alert and oriented? Yes Needs Assistance With Bathing,Meal Prep,Home Chores / Shopping Caregiver for Another No DME Already Rented / Owned Cane Comment Patient has single point cane. Patient/Family Preference Home with Home Health Comment Mentioned home health to patient, he is unsure if he needs it, helps him with dressing changes. Discharge Plan Home Additional Comment Patient stated he will not need a SNF or HH since he has his who helps with bandage changes and house work . Whiteboard Updated in Patient Room with Yes name and ext. # of Digital Sales Planner Review Status In Process Next Review Type Continued Stay Review Pre-Anesthesia Assessment Start: 07/10/21 08:31 Freq: Status: Active Protocol: Document 07/10/21 08:31 CAB (Rec: 07/10/21 12:09 CAB [id number]) Pre-Anesthesia Assessment Patient Information Reviewed Via Chart Review Comment Recent labs @ 06/27/21, COVID screen @ 07/11/21 Primary Care Provider Zhanna Pearl Medical Clearance Received Yes Seen Specialist in Last 12 Months Yes Specialist Seen Display Decorator,Emergency, Orthopedist Primary Language Croatian Preferred Language Croatian Ssis Developer Required No Height 6 ft 2 in Weight 381 lb Body Mass Index (BMI) 48.9 Barriers to Learning None Anesthesia Review Requested Yes: PAC courtesy re: Comorbidities alcohol intake current alcohol intake frequency other Smoking Status Never smoker Substance Use Type does not use History of Falling (Recent or History of No ) Patient is completely paralyzed or No completely immobile Mental Status Oriented to own ability Does patient have ZALDIVAR/SOB Yes Hx Sleep Apnea Yes Currently Taking a Beta Rudi Yes: Metoprolol Can You Climb a Flight of Stairs Without No SOB Hx Chest Pain No Hx SOB Yes Anti-Coagulant Therapy Yes: Pradaxa-unknown what instructions have been given to pt Has a Display Decorator Yes Cardiac Testing Yes Hx Pacemaker/ICD Yes Pacemaker Rep Required? No: Pacer form scanned and put to surgery folder for dos Urinary Catheter Present No Hx Urinary Self Catheterization No Diabetes No HgbA1C 6.7 Date 05/19/21 Hx Drug Resistant Organism Yes: MRSA Received a COVID vaccine? Yes Marital Status Lives With spouse Emergency Contact Name Sharifa Cerda Emergency Contact Advance Directives? No
--- NOTE | 2021-07-13 11:05 | PT.IPTN ---
Current Diagnoses Type 2 diabetes mellitus with diabetic polyneuropathy (07/12/21) Type 2 diabetes mellitus with other skin complications (07/12/21) Other specified diabetes mellitus with diabetic neuropathy, unspecified (07/12/21) Morbid (severe) obesity due to excess calories (07/12/21) Cellulitis, unspecified (07/12/21) Local infection of the skin and subcutaneous tissue, unspecified (07/12/21) Subacute osteomyelitis, left ankle and foot (07/12/21) Osteomyelitis, unspecified (07/12/21) Other specified disorders of the male genital organs (07/12/21) Edema, unspecified (07/12/21) Surgery Performed Operation Date: 07/12/21 09:00 Actual Procedures p 5th toe amputation with debridement & excision 4th/5th toe metatarsal head(Left) - Cyn Chicas MD Physical Therapy Treatment Note M2 PT-IP Current Condition Start: 07/12/21 14:58 Freq: NEEDED Status: Active Protocol: Document 07/12/21 13:45 AB (Rec: 07/12/21 15:17 AB [id number]) Physical Therapy Current Condition Current Condition Evaluation Date 07/12/21 Treatment Diagnosis L foot osteomyelitis s/p 4th, 5th metatarsal head amputation ; diff in walk Onset Date 07/12/20 M3 PT-IP Subjective Start: 07/12/21 14:58 Freq: NEEDED Status: Active Protocol: Document 07/13/21 11:05 AB (Rec: 07/13/21 12:53 AB [email or web address]) Subjective Physical Therapy Visit Type Type Treatment Note Visit Start Time 11:05 Visit Stop Time 11:45 Total Visit Minutes 40 Number of SLIP COVER ESTIMATOR Visits 0 Physical Therapy Visit Comments Patient Comments able to make needs known Therapy Pain Assessment Pain When Pain Assessed At Rest Pain Present Pain Present Pain Reported Location Perineal Scale Used increases with mobility Pain Management Techniques Distraction,Modification of Treatment,Re-positioning, Timing of Activity with Medications M4 PT-IP Mobility and Gait Start: 07/12/21 14:58 Freq: NEEDED Status: Active Protocol: Document 07/13/21 11:05 AB (Rec: 07/13/21 12:53 AB [email or web address]) PT-Bed Mobility Assessment Supine to Sit Supine to Sit Standby Assistance,Head of Bed Elevated,Bedrails Sit to Supine Sit to Supine Maximum Assistance,1 Person Assistance,2 Person Assistance ,Bedrails PT-Transfer Assessment Sit to and From Stand Sit to and from Stand Minimal Assistance,1 Person Assistance Equipment Transfer Assistive Device Gait Belt,Front Wheeled Walker Orthotic/Prosthetic Devices or Brace: No Comments Mobility Comments pt has scrotal edema and complains of scrotal pain and no pain on LE. needs increase time to complete all tasks is particular with positions he needs to be due to scrotal edema. completed supine to sit HOB elevated and pt used bed rail. pillow positioned on lower bed rail for comfort. pt c/o nausea intially and stated that it might be due to his blood sugar. blood sugar was checked: 128. pt completed sit to stand CGA and ambulated in room using FWW ~ 50 ft with very slow vidya and use to unweigh L forefoot. Pt requrested to go back to bed and completed sit to supine max A x 1-2 and max cues positioned pt in bed. call light and table placed within reach. Informed pt that he will need a w/c for d/c home due to decrease activity tolerance and to use w/c for long distance mobility for safety. Pt will call his spouse to obtain a w/c for him. Gait Assessment Gait Gait Assistance Required: Contact Guard Assist,1 Person Assist Distance (Feet) 50 Assistive Devices Assistive Device Gait Belt,Front Wheeled Walker Orthotic/Prosthetic Devices or Brace: No Gait Deviations General Gait Pattern Decreased Stride Length, Decreased Feet Clearance,Step- to Gait,Wide Based Gait M5 PT-IP Objective Assessments Start: 07/12/21 14:58 Freq: NEEDED Status: Active Protocol: Document 07/12/21 13:45 AB (Rec: 07/12/21 15:17 AB [id number]) Orientation Orientation/Cognition Level of Alertness Alert Orientation Name,Place,Situation Language Function Ability No Deficits Noted Safety Awareness Decreased Safety Awareness Memory Description No Deficits Noted Gross Range of Motion Lower Extremity ROM Assessment Bilaterally Impaired Impairments limit due to BLE edema Strength Lower Extremity Strength Assessment Bilaterally Impaired Hip 3-/5 Knee 3+/5 Sensation Assessment Sensation Light Touch Impaired Proprioception (Position) Impaired Comments Sensation Comments decrease sensation on BLE Muscle Tone Muscle Tone WNL Yes M6 PT-IP Treatment Start: 07/12/21 14:58 Freq: NEEDED Status: Active Protocol: Document 07/13/21 11:05 AB (Rec: 07/13/21 12:53 [email or web address]) Physical Therapy Treatment Education Education Provided Weight Bearing Status,Safety M7 PT-IP Assessment and Plan Start: 07/12/21 14:58 Freq: NEEDED Status: Active Protocol: Document 07/13/21 11:05 AB (Rec: 07/13/21 12:53 [email or web address]) PT Summary Assessment and Plan Potential Rehabilitation Potential Fair Summary Impairments Pain,ROM,Strength,Balance, Coordination,Sensation,Tone, Cognition,Bed Mobility, Transfers,Gait,Activity Tolerance Progress Towards Goals Slow Progress due to Medical Issues,Slow Progress due to Activity Tolerance Assessment Summary pt requiring max A x 1-2 for bed mobility. pt stated that his bed set up at home is better than the hospital bed and has no difficulty with completing supine<>sit. pt requiring CGA for ambulation using FWW. informed pt that he will need a w/c for home use due to decrease activity tolerance and for long distance mobility. pt agreed and will inform his spouse. will continue to assess progress. Goals Bed Mobility Goal Standby Assistance Transfer Goal Standby Assistance,Front Wheeled Walker Gait Goal Standby Assistance,Front Wheel Walker Gait Distance 150 Other Goals ambulation using stnd walker 150 ft mod I up/down 20 steps R rail L SPC SBA Days to Meet Goals 10 Frequency of Treatment Frequency Of Treatment Once a Day Treatment Plan Physical Therapy Treatment Plan Bed Mobility Training,Transfer Training,Gait Training, Therapeutic Exercise,Balance Retraining,Post Op Education, Discharge Planning,Hot or Cold Pack,Neuromuscular Re-ed, Coordination Retraining,Manual Therapy Weight Bearing Status Allowed Weight Bearing Amount (enter % L heel weight bearing only or #) (%) Recommendations To Nursing Amount of Assist Needed 1 Person Assist Discharge Recommendations PT Discharge Recommendations Home with Assistance,Home Health Equipment Needed for Home Before FWW if not safe with std Discharge walker w/c Transportation Needs at Discharge Private Vehicle
[2021-07-13 13:42] LABS: Creatinine Urine Random 108.3 mg/dL; Protein (Total) Urine Random 24 mg/dL (0-12)
--- NOTE | 2021-07-13 14:13 | P.PN_ITS ---
Subjective Subjective Date Patient Seen: 07/13/21 Time Patient Seen: 14:13 Interval history: Paco Cerda is a 65-year-old male admitted for medical management as a consult and as he is status post left toe amputation. He provides a very long and disjointed history of having putting on 30 lb over the past 6 months and having problems with a very swollen scrotum. He had been seen in the emergency room and diagnosed with epididymitis. During this admission his proBNP was a little over 1000 however this may be unreliable given his habitus. Patient has a pacemaker and his last echocardiogram was done at [facility] in [place] indicating of 55 % ejection fraction. He does complain of significant pain in his foot especially when he is putting pressure on it. Currently has a Wilson catheter. He uses a CPAP at night however he states that he is due for a new machine. He states he is open to trialing BiPAP at night to see if he can blow off some of his extra fluid. He is scheduled for a echocardiogram however this may not be done until Friday or over the weekend. Exam Vital Signs (past 8 hours): - 07/13/21 08:40 07/13/21 09:42 07/13/21 10:25 Temperature 97.6 F Pulse Rate 70 70 70 Respiratory Rate 19 18 Blood Pressure 138/72 138/72 Pulse Oximetry 100 99 Oxygen Delivery Method Room Air Oxygen Flow Rate 0 Narrative Exam Narrative: Gen: Alert, oriented, morbidly obese 65y.o. male, NAD HEENT: normocephalic, atraumatic, conjunctiva clear, sclera non-icteric, oral mucosa pink and moist Neck: supple, full ROM, no JVD, trachea is midline Resp: Lungs CTA, non-labored breathing CV: RRR, right-sided systolic murmur Abd: soft, non-tender, normoactive BTs Skin: no lesions or rashes, dry and intact Neuro: Alert and oriented X 4 w/no focal deficits. Speech clear and coherent. Extremities: Bilateral massive edema of both lower extremities, left foot is wrapped in compression stockings and dressings and did not take down Psyche: normal mood and affect. Objective Labs Result Diagrams: 07/13/21 04:40 07/13/21 04:40 Labs: Laboratory Results - last 24 hr 07/12/21 07/12/21 07/12/21 15:05 15:05 15:05 WBC RBC Hgb Hct MCV MCH MCHC RDW Plt Count Sodium 133 L Potassium 4.4 Chloride 96 L Carbon Dioxide 31 BUN 16 Creatinine 1.05 1.08 Estimated GFR > 60.0 > 60.0 BUN/Creatinine Ratio 14.8 Glucose 109 Calcium 8.4 Magnesium Total Bilirubin 1.1 AST 55 ALT 47 Alkaline Phosphatase 56 NT-Pro-B Natriuret Pep 1040 H Total Protein 7.1 Albumin 3.7 Globulin 3.4 Albumin/Globulin Ratio 1.1 Urine Color Urine Appearance Urine pH Ur Specific [place] Urine Protein Urine Glucose (UA) Urine Ketones Urine Occult Blood Urine Nitrate Urine Bilirubin Urine Urobilinogen Ur Leukocyte Esterase Urine RBC Urine WBC Ur Squamous Epith Cells Urine Bacteria Urine Mucus Ur Culture Indicated? U Random Total Protein Urine Creatinine 07/12/21 07/12/21 07/13/21 23:45 23:45 04:40 WBC 7.1 RBC 4.31 L Hgb 11.7 L Hct 35.7 L MCV 82.8 MCH 27.2 MCHC 32.9 RDW 15.2 H Plt Count 232 Sodium Potassium Chloride Carbon Dioxide BUN Creatinine Estimated GFR BUN/Creatinine Ratio Glucose Calcium Magnesium Total Bilirubin AST ALT Alkaline Phosphatase NT-Pro-B Natriuret Pep Total Protein Albumin Globulin Albumin/Globulin Ratio Urine Color Dark yellow Urine Appearance Sl cloudy Urine pH 5.0 Ur Specific [place] 1.020 Urine Protein Trace H Urine Glucose (UA) Negative Urine Ketones Negative Urine Occult Blood 3+ H Urine Nitrate Negative Urine Bilirubin Negative Urine Urobilinogen 0.2 Ur Leukocyte Esterase Negative Urine RBC 30-100/hpf H Urine WBC 0-1/hpf Ur Squamous Epith Cells 0-1 /hpf Urine Bacteria Occasional (0-1) Urine Mucus 1+ H Ur Culture Indicated? Cult not indicated U Random Total Protein 24 H Urine Creatinine 108.3 07/13/21 04:40 WBC RBC Hgb Hct MCV MCH MCHC RDW Plt Count Sodium 131 L Potassium 4.2 Chloride 97 L Carbon Dioxide 31 BUN 17 Creatinine 0.99 Estimated GFR > 60.0 BUN/Creatinine Ratio 17.2 Glucose 119 H Calcium 8.3 L Magnesium 2.1 Total Bilirubin AST ALT Alkaline Phosphatase NT-Pro-B Natriuret Pep Total Protein Albumin Globulin Albumin/Globulin Ratio Urine Color Urine Appearance Urine pH Ur Specific [place] Urine Protein Urine Glucose (UA) Urine Ketones Urine Occult Blood Urine Nitrate Urine Bilirubin Urine Urobilinogen Ur Leukocyte Esterase Urine RBC Urine WBC Ur Squamous Epith Cells Urine Bacteria Urine Mucus Ur Culture Indicated? U Random Total Protein Urine Creatinine PFSH Medical History Abdominal aortic aneurysm Asthma Atrial fibrillation CHF (congestive heart failure) Diabetes Diabetic neuropathy HLD (hyperlipidemia) HTN (hypertension) Idiopathic cardiomyopathy MRSA (methicillin resistant Staphylococcus aureus) Neuropathy RAFAL on CPAP Psoriasis Testicular hypofunction Surgical History H/O cardiac radiofrequency ablation Hx of atrioventricular node ablation Hx of umbilical hernia repair Status post LASIK surgery of both eyes Social History household members: spouse Smoking Status: Never smoker alcohol intake: never Assessment & Plan Assessment & Plan narrative: Paco Cerda is a 65M with complicated past medical history admitted after amputation of left toe and metatarsal head, with left diabetic foot infection and osteomyelitis found to have anasarca. 1. Anasarca * presumed etiology is congestive heart failure exacerbation * given obesity, presume diet is likely suboptimal * fluid restrict to 2L, low salt diet * continue lasix 80 IV BID, goal 2-3L negative daily * check BMP daily to BID * ECHO pending * rule out other etiology such as kidney disease/proteinuria by ordering Ua, urine protein/creatinine ratio * rule out liver disease order abdominal us eval for ascites, cirrhosis * activity as able to mobilize fluid * start BiPAP tonight to help reduce fluid volume * Repeat U/A 2. Hyponatremia, worsened today with a sodium of 131 * Removed sodium restriction on his diet * Urine and serum osmolality the ordered, urine sodium ordered 2. Diabetic foot infection with osteomyelitis s/p amputation of L fifth toe and metatarsal head * ortho following for surgical management * cultures pending * vanco ordered per ortho team 3. Morbid obesity, BMI 57.8 * will need outpatient follow up to encourage weight loss * Places patient at higher surgical and medical risk for morbidity 4. Atrial fibrillation * continue dabigatran 5. Diabetes * continue home medications, monitor blood sugar closely VTE Prophylaxis: Patient is currently anticoagulated on dabigitran. FEN: IV fluids: saline lock, diet: carb control, labs: CBC, C/BMP, liver enzymes, Mag Dispo: probable discharge to home Quality VTE Deep Vein Thrombosis/Pulmonary Embolism Present on Admission: No
--- NOTE | 2021-07-13 16:04 | DIET.CONS ---
Dietary Consultation Note Admission Date: 07/12/2021 08:41 Assessment: 65 y/o M with PMH DM, CHF, neuropathy, chronic peripheral edema presenting with left foot infection. Has h/o previous toe amputation on right foot. Consulted for CHF diet education. Paco reports h/o providers urging him to eat more sodium because of his low sodium labs. He also endorses h/o electrolyte imbalances resulting in hospitalization. Takes a tablet with sodium and potassium when he cramps. Feels this tablet with helps resolve cramping. Does not add salt to food. May eat out once per month. Denies high sodium foods, ie frozen or canned foods. Use to have a scale at home to track weight changes. Diabetes notes: States his checks his feet daily. He wears footwear with a sole indoors. Reports avgs for Bd 99, 14d 110, 30d 110. Reports he has been drinking 2-4 sodas per day up until 6 weeks ago. Has cut out soda. Interested in DM ed refresher OP. Provided contact info. Ht: 187.96 cm Wt: 204.117 kg BMI: 57.7 Last BM: () MNA: Shelton Score: 19 Diet: 07/12/21 Lunch Carbohydrate Consistent Diet Diet Modifications: heart healthy Carbohydrate level: Medium (3 CHO) Bedtime snack: No 07/13/21 Breakfast Fluid Restriction Diet Diet Modifications: Total fluid amount: 2,000 Amount allotted to patient trays: 0 Fluid in addition to trays: 8711-0451 amount: 1,500 [id number] amount: 500 Low Sodium Diet (2gm) Diet Modifications: Nutrition Percent Meal Consumed 100% 07/13/21 14:43 Percent Meal Consumed 100% 07/13/21 10:26 Percent Meal Consumed 100% 07/12/21 18:29 Labs: RBC 4.31 X10^6/uL (4.5-5.9) L 07/13/21 04:40 Hgb 11.7 g/dL (13.5-17.5) L 07/13/21 04:40 Hct 35.7 % (41-53) L 07/13/21 04:40 Creatinine 0.99 mg/dL (0.66-1.25) 07/13/21 04:40 NT-Pro-B Natriuret Pep 1040 pg/mL (<125) H 07/12/21 15:05 Nutrition Diagnosis: Nutrition and food related knowledge deficit r/t no previous MNT for CHF aeb pt report and sodium tablet intake. Interventions: CHF education, limiting sodium and weighing self at home to monitor weight changes from fluids. Reviewed potential reasons for low Na in labs, ie fluid retention, CHF, diuretics. Discussed potential ways to reduce cramping that does not involve increased sodium intake, ie try potassium foods. He seemed receptive. Monitoring/Evaluations: consult prn Electronically Signed by: Christine Katz 07/13/21 16:04 Clinical Dietitian [address] [id number]
[2021-07-13 17:48] LABS: Sodium Urine Random 91 mmol/L (30-90)
[2021-07-13 17:50] LABS: BUN Creatinine Ratio 19.4 (6-22); Blood Urea Nitrogen 18 mg/dL (9-20); Calcium 8.6 mg/dL (8.4-10.2); Carbon Dioxide 30 mmol/L (22-32); Chloride 95 mmol/L (98-107); Estimated Glomerular Filt Rate > 60.0 mL/min (>60); Glucose 116 mg/dL (80-110); HEMOLYSIS < 15 (0-50); Magnesium 2.2 mg/dL (1.6-2.3); Phosphorous 3.6 mg/dL (2.3-3.7); Potassium 4.1 mmol/L (3.4-5.1); Sodium 131 mmol/L (137-145)
[2021-07-13 20:01] LABS: Appearance Urine UA SL CLOUDY; Bilirubin Urine UA NEGATIVE (NEGATIVE); Color Urine UA YELLOW; Glucose Urine UA NEGATIVE (Negative); Ketones Urine UA 1+ (NEGATIVE); Leukocyte Esterase Urine UA TRACE (NEGATIVE); Nitrite Urine UA NEGATIVE (Negative); Occult Blood Urine UA 3+ (Negative); Protein Urine UA 1+ (Negative); Specific Gravity Urine UA 1.015 (1.000-1.035); Urobilinogen Urine UA 0.2 E.U./dL (0.2)
[2021-07-13 20:21] LABS: Bacteria Urine Occasional (0-1); Culture Indicated Urine Specimen Cultured; RBC Urine >100/HPF (0-5/HPF); Squamous Epithelial Cell Urine 0-1 /HPF (0-5/HPF); WBC Urine 1-5/HPF (0-5/HPF)
[2021-07-13] MEDS: lisinopriL 20 MG TABLET 10 MG PO (21:47)
[2021-07-13] MEDS: HYDROMORPHONE 0.5 MG INJ 0.2 MG IV (21:50)
[2021-07-13] MEDS: GABAPENTIN 600 MG TABLET 300 MG PO (21:50)
[2021-07-14] VITALS (10 sets, daily range): BP systolic 118–138; BP diastolic 60–79; PULSE 67–89; RESP 18–22; TEMP 36.4–37.3; O2SAT 95–100
[2021-07-14] MEDS: HYDROMORPHONE 0.5 MG INJ 0.2 MG IV (04:20)
--- NOTE | 2021-07-14 04:28 | PC.NURSE ---
2000: Pt continues to have 4+ edema in BLE and scrotum. Pt states scrotal pain=8/10 and feels like being stung by bees over and over. Pt states pain manageable with current oral and IV meds. Pt also noted to have copious purulent drainage around olivares catheter, penis not visualized due to scrotal edema. Catheter care provided.
[2021-07-14] MEDS: HYDROCODONE/ACET 5/325 TABLET 2 TAB PO ×4 (05:12→21:49)
[2021-07-14] MEDS: METFORMIN XR 500 MG TABLET 1000 MG PO ×2 (06:00→18:07)
[2021-07-14] MEDS: MORPHINE IR 15 MG TABLET PO ×2 (06:00→18:06)
--- NOTE | 2021-07-14 08:03 | P.PN_ITS ---
Subjective Subjective Date Patient Seen: 07/14/21 Interval history: He is seen today follow-up his anasarca/congestive heart failure. He continues to diurese and express improved swelling particularly in the scrotal area. He is a very high BMI person to begin with so the difference between his generous adipose tissue and additional edema is not as evident as it would be in someone with a low BMI. He tells me that he was drinking 4 cans of Pepsi a day until he stopped 2 weeks ago when his diabetes foot infection worsened. His insulin Lantus dose has been decreased to 40 units twice a day with blood sugars dropping quite low in the morning, 61 this morning. The dose will be decreased further. He says his breathing is ?excellent. ? he continues to have 3+ edema of his legs. As stated above his scrotal area has reportedly less rash and swelling. The sodium remains low 131 with a potassium of 4.1 and a creatinine of 0.93. Exam Vital Signs (past 8 hours): - 07/14/21 01:00 07/14/21 06:25 Temperature 97.9 F 99.2 F Pulse Rate 77 89 Respiratory Rate 22 20 Blood Pressure 138/60 122/71 Pulse Oximetry 98 96 Oxygen Delivery Method Room Air Oxygen Flow Rate 0 Narrative Exam Narrative: He is alert and oriented x3 No apparent distress Heart is regular rate and rhythm without murmur Lungs are clear to auscultation bilaterally Extremities have 3+ edema of both lower legs. Objective Imaging US - abdomen: Radiologist's impression: IMPRESSION:? 1. Hepatomegaly. Increased hepatic echogenicity most consistent with hepatic hepatocellular disease and/or hepatic steatosis.? Decreased sonographic penetration limits evaluation. -Further evaluation with multiphase liver CT or MRI may be indicated given the patient's stated history of cirrhosis to screen for HCC. ? 2. Gallbladder is mildly distended.? Nonmobile stone at the neck measuring 1.4 cm. However, no gallbladder wall thickening or sonographic Zavaleta's sign to suggest acute cholecystitis.? If clinically indicated this could be further evaluated with HIDA scan. ? 3. No ascites. ? ? ? Dictated by: Frandy Oviedo M.D. on 07/13/2021 at 9:20 ? ? Labs Result Diagrams: 07/13/21 04:40 07/13/21 16:59 Labs: Laboratory Results - last 24 hr 07/12/21 07/13/21 07/13/21 23:45 16:30 16:30 Sodium Potassium Chloride Carbon Dioxide BUN Creatinine Estimated GFR BUN/Creatinine Ratio Glucose Calcium Phosphorus Magnesium Urine Color Yellow Urine Appearance Sl cloudy Urine pH 7.0 D Ur Specific [place] 1.015 Urine Protein 1+ H Urine Glucose (UA) Negative Urine Ketones 1+ H Urine Occult Blood 3+ H Urine Nitrate Negative Urine Bilirubin Negative Urine Urobilinogen 0.2 Ur Leukocyte Esterase Trace H Urine RBC >100/hpf H Urine WBC 1-5/hpf Ur Squamous Epith Cells 0-1 /hpf Urine Bacteria Occasional (0-1) Ur Culture Indicated? Specimen cultured U Random Total Protein 24 H Ur Random Sodium 91 H Urine Creatinine 108.3 07/13/21 07/13/21 07/13/21 16:59 16:59 16:59 Sodium 131 L Potassium 4.1 Chloride 95 L Carbon Dioxide 30 BUN 18 Creatinine 0.93 Estimated GFR > 60.0 BUN/Creatinine Ratio 19.4 Glucose 116 H Calcium 8.6 Phosphorus 3.6 Magnesium 2.2 Urine Color Urine Appearance Urine pH Ur Specific [place] Urine Protein Urine Glucose (UA) Urine Ketones Urine Occult Blood Urine Nitrate Urine Bilirubin Urine Urobilinogen Ur Leukocyte Esterase Urine RBC Urine WBC Ur Squamous Epith Cells Urine Bacteria Ur Culture Indicated? U Random Total Protein Ur Random Sodium Urine Creatinine PFSH Medical History Abdominal aortic aneurysm Asthma Atrial fibrillation CHF (congestive heart failure) Diabetes Diabetic neuropathy HLD (hyperlipidemia) HTN (hypertension) Idiopathic cardiomyopathy MRSA (methicillin resistant Staphylococcus aureus) Neuropathy RAFAL on CPAP Psoriasis Testicular hypofunction Surgical History H/O cardiac radiofrequency ablation Hx of atrioventricular node ablation Hx of umbilical hernia repair Status post LASIK surgery of both eyes Social History household members: spouse Smoking Status: Never smoker alcohol intake: never Assessment & Plan Assessment & Plan narrative: Paco Cerda is a 65M with complicated past medical history admitted after amputation of left toe and metatarsal head, with left diabetic foot infection and osteomyelitis found to have anasarca. 1. Anasarca * presumed etiology is congestive heart failure exacerbation * given obesity, presume diet is likely suboptimal * Continue fluid restrict to 2L, low salt diet * continue lasix 80 IV BID, goal 2-3L negative daily * check BMP daily * ECHO pending * rule out other etiology such as kidney disease/proteinuria by ordering Ua, urine protein/creatinine ratio * Liver US c/w Hepatomegaly and Steatosis. No ascites. * activity as able to mobilize fluid * Continue BiPAP to help reduce fluid volume * Repeat U/A 2. Hyponatremia, with a sodium of 131 * Removed sodium restriction on his diet * Urine and serum osmolality ordered, urine sodium 91 2. Diabetic foot infection with osteomyelitis s/p amputation of L fifth toe and metatarsal head * ortho following for surgical management * cultures pending * vanco ordered per ortho team 3. Morbid obesity, BMI 57.8 * will need outpatient follow up to encourage weight loss * Places patient at higher surgical and medical risk for morbidity 4. Atrial fibrillation * continue dabigatran 5. Diabetes * continue home medications, monitor blood sugar closely * Decrease Lantus to 30 units b.i.d. to address near symptomatic morning hypoglycemia 6. Gallstone -Seen on US - 1.6 cm. No gallbladder wall thickening or symptoms. Address as outpatient. VTE Prophylaxis:? Patient is currently anticoagulated on dabigitran. Dispo: probable discharge to home Time Spent With Patient Critical Care time: I spent a total of [] minutes of critical care time on this patient's care today; this time is exclusive of procedural time. Quality VTE Deep Vein Thrombosis/Pulmonary Embolism Present on Admission: No
[2021-07-14] MEDS: LACTOBACILLUS ACIDOPHILUS TABLET 1 EACH PO ×3 (08:40→18:06)
[2021-07-14] MEDS: VANCOMYCIN 2,000 MG/400 ML PIGGYBACK 200 MG IV ×2 (08:40→21:28)
[2021-07-14] MEDS: FUROSEMIDE 100 MG/10 ML VIAL 80 MG IV ×2 (08:40→21:29)
[2021-07-14] MEDS: DOCUSATE 100 MG CAPSULE PO ×2 (08:40→21:30)
[2021-07-14] MEDS: METOPROLOL ER 25 MG TABLET 12.5 MG PO ×2 (08:41→21:30)
[2021-07-14] MEDS: DABIGATRAN 75 MG CAPSULE 150 MG PO ×2 (08:41→21:30)
[2021-07-14 09:06] LABS: Vancomycin Trough 8.9 ug/mL (10-20)
--- NOTE | 2021-07-14 09:59 | P.PN_ITS ---
Subjective Subjective Date Patient Seen: 07/14/21 Time Patient Seen: 09:59 Interval history: Paco is in a good mood and sitting up in bed without complaints. He is feeling good about his progress with physical therapy and confident he will be able to discharge home with his spouse without difficulty. He reports he had some purulent drainage from his penis yesterday; urine culture is pending. Exam Vital Signs (past 8 hours): - 07/14/21 06:25 07/14/21 08:00 Temperature 99.2 F 99.0 F Pulse Rate 89 67 Respiratory Rate 20 21 Blood Pressure 122/71 118/71 Pulse Oximetry 96 100 Oxygen Delivery Method Room Air Oxygen Flow Rate 0 Narrative Exam Narrative: Greater than 2.5 liters out of [place] yesterday. Clear andres urine this morning. Anaerobic cultures pending. Aerobic showed gram negative staph; identification and sensitivities pending. Wiggles toes, doriflexes and plantarflexes without problem. Sensation to touch impaired by chronic neuropathy. Dressing is CDI. Const General: cooperative and comfortable Orientation: alert, awake and oriented x3 Objective Labs Result Diagrams: 07/13/21 04:40 07/13/21 16:59 Labs: Laboratory Results - last 24 hr 07/12/21 07/13/21 07/13/21 23:45 16:30 16:30 Sodium Potassium Chloride Carbon Dioxide BUN Creatinine Estimated GFR BUN/Creatinine Ratio Glucose Calcium Phosphorus Magnesium Urine Color Yellow Urine Appearance Sl cloudy Urine pH 7.0 D Ur Specific [place] 1.015 Urine Protein 1+ H Urine Glucose (UA) Negative Urine Ketones 1+ H Urine Occult Blood 3+ H Urine Nitrate Negative Urine Bilirubin Negative Urine Urobilinogen 0.2 Ur Leukocyte Esterase Trace H Urine RBC >100/hpf H Urine WBC 1-5/hpf Ur Squamous Epith Cells 0-1 /hpf Urine Bacteria Occasional (0-1) Ur Culture Indicated? Specimen cultured U Random Total Protein 24 H Ur Random Sodium 91 H Urine Creatinine 108.3 Vancomycin Trough 07/13/21 07/13/21 07/13/21 16:59 16:59 16:59 Sodium 131 L Potassium 4.1 Chloride 95 L Carbon Dioxide 30 BUN 18 Creatinine 0.93 Estimated GFR > 60.0 BUN/Creatinine Ratio 19.4 Glucose 116 H Calcium 8.6 Phosphorus 3.6 Magnesium 2.2 Urine Color Urine Appearance Urine pH Ur Specific [place] Urine Protein Urine Glucose (UA) Urine Ketones Urine Occult Blood Urine Nitrate Urine Bilirubin Urine Urobilinogen Ur Leukocyte Esterase Urine RBC Urine WBC Ur Squamous Epith Cells Urine Bacteria Ur Culture Indicated? U Random Total Protein Ur Random Sodium Urine Creatinine Vancomycin Trough 07/14/21 07:59 Sodium Potassium Chloride Carbon Dioxide BUN Creatinine Estimated GFR BUN/Creatinine Ratio Glucose Calcium Phosphorus Magnesium Urine Color Urine Appearance Urine pH Ur Specific [place] Urine Protein Urine Glucose (UA) Urine Ketones Urine Occult Blood Urine Nitrate Urine Bilirubin Urine Urobilinogen Ur Leukocyte Esterase Urine RBC Urine WBC Ur Squamous Epith Cells Urine Bacteria Ur Culture Indicated? U Random Total Protein Ur Random Sodium Urine Creatinine Vancomycin Trough 8.9 L PFSH Medical History Abdominal aortic aneurysm Asthma Atrial fibrillation CHF (congestive heart failure) Diabetes Diabetic neuropathy HLD (hyperlipidemia) HTN (hypertension) Idiopathic cardiomyopathy MRSA (methicillin resistant Staphylococcus aureus) Neuropathy RAFAL on CPAP Psoriasis Testicular hypofunction Surgical History H/O cardiac radiofrequency ablation Hx of atrioventricular node ablation Hx of umbilical hernia repair Status post LASIK surgery of both eyes Social History household members: spouse Smoking Status: Never smoker alcohol intake: never Assessment & Plan Post-op Postoperative Procedures: Procedures Operation Date: 07/12/21 09:00 Actual Procedure Side Surgeon p 5th toe amputation with debridement & excision 4th/5th toe metatarsal head Left Cyn Chicas MD Postoperative day: 2 Postoperative status narrative: Doing well from a surgical standpoint. Waiting for final cultures to determine discharge antibiotics. Postoperative plan narrative: Discharge once final organism identification and sensitivities are available and patient is medically stable. Appreciate hospitalists' help with this challenging patient. Quality VTE Deep Vein Thrombosis/Pulmonary Embolism Present on Admission: No
--- NOTE | 2021-07-14 10:06 | PT.IPTN ---
Current Diagnoses Type 2 diabetes mellitus with diabetic polyneuropathy (07/12/21) Type 2 diabetes mellitus with other skin complications (07/12/21) Other specified diabetes mellitus with diabetic neuropathy, unspecified (07/12/21) Morbid (severe) obesity due to excess calories (07/12/21) Cellulitis, unspecified (07/12/21) Local infection of the skin and subcutaneous tissue, unspecified (07/12/21) Subacute osteomyelitis, left ankle and foot (07/12/21) Osteomyelitis, unspecified (07/12/21) Other specified disorders of the male genital organs (07/12/21) Generalized edema (07/12/21) Edema, unspecified (07/12/21) Surgery Performed Operation Date: 07/12/21 09:00 Actual Procedures p 5th toe amputation with debridement & excision 4th/5th toe metatarsal head(Left) - Cyn Chicas MD Physical Therapy Treatment Note M2 PT-IP Current Condition Start: 07/12/21 14:58 Freq: NEEDED Status: Active Protocol: Document 07/12/21 13:45 AB (Rec: 07/12/21 15:17 AB [id number]) Physical Therapy Current Condition Current Condition Evaluation Date 07/12/21 Treatment Diagnosis L foot osteomyelitis s/p 4th, 5th metatarsal head amputation ; diff in walk Onset Date 07/12/20 M3 PT-IP Subjective Start: 07/12/21 14:58 Freq: NEEDED Status: Active Protocol: Document 07/14/21 10:06 AB (Rec: 07/14/21 12:21 AB [id number]) Subjective Physical Therapy Visit Type Type Treatment Note Visit Start Time 10:06 Visit Stop Time 10:42 Total Visit Minutes 36 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 Physical Therapy Visit Comments Patient Comments agreeable to do PT Therapy Pain Assessment Pain When Pain Assessed At Rest Pain Present Pain Present Pain Reported Location Perineal Scale Used increases with mobility Pain Management Techniques Modification of Treatment,Re- positioning,Timing of Activity with Medications M4 PT-IP Mobility and Gait Start: 07/12/21 14:58 Freq: NEEDED Status: Active Protocol: Document 07/14/21 10:06 AB (Rec: 07/14/21 12:21 AB [id number]) PT-Bed Mobility Assessment Supine to Sit Supine to Sit Standby Assistance,Head of Bed Elevated,Bedrails Sit to Supine Sit to Supine Maximum Assistance,Bedrails PT-Transfer Assessment Sit to and From Stand Sit to and from Stand Standby Assistance,Contact Guard Assistance,Use of Upper Extremities Equipment Transfer Assistive Device Gait Belt,Front Wheeled Walker Orthotic/Prosthetic Devices or Brace: No Comments Mobility Comments pt completed supine to sit SBA using bed rail to assist and HOB elevated. pillow positioned on bed rail for comfort due to scrotal edema. pt requires increase rest in between activities. completed sit to stand SBA to CGA with bed elevated. pt ambulated in room using FWW ~ 125 ft SBA. wide base dragging gait. cued for weight bearing restriction on LLE. pt requested to go back to bed. completed sit to supine max A for LE elevation. positioned pt in bed. call light and table placed within reach. Gait Assessment Gait Gait Assistance Required: Standby Assistance Distance (Feet) 125 Able to Maintain Weight Bearing Status Yes During Gait Assistive Devices Assistive Device Gait Belt,Front Wheeled Walker Orthotic/Prosthetic Devices or Brace: No Gait Deviations General Gait Pattern Decreased Stride Length, Decreased Feet Clearance,Step- to Gait,Wide Based Gait Factors Limiting Gait Function Factors Limiting Gait Function Decreased Activity Tolerance, Decreased Sensation,Difficulty Following Directions,Limited Range of Motion,Pain,Poor Balance M5 PT-IP Objective Assessments Start: 07/12/21 14:58 Freq: NEEDED Status: Active Protocol: Document 07/12/21 13:45 AB (Rec: 07/12/21 15:17 AB [id number]) Orientation Orientation/Cognition Level of Alertness Alert Orientation Name,Place,Situation Language Function Ability No Deficits Noted Safety Awareness Decreased Safety Awareness Memory Description No Deficits Noted Gross Range of Motion Lower Extremity ROM Assessment Bilaterally Impaired Impairments limit due to BLE edema Strength Lower Extremity Strength Assessment Bilaterally Impaired Hip 3-/5 Knee 3+/5 Sensation Assessment Sensation Light Touch Impaired Proprioception (Position) Impaired Comments Sensation Comments decrease sensation on BLE Muscle Tone Muscle Tone WNL Yes M6 PT-IP Treatment Start: 07/12/21 14:58 Freq: NEEDED Status: Active Protocol: Document 07/14/21 10:06 AB (Rec: 07/14/21 12:21 AB [id number]) Physical Therapy Treatment Education Education Provided Weight Bearing Status,Safety M7 PT-IP Assessment and Plan Start: 07/12/21 14:58 Freq: NEEDED Status: Active Protocol: Document 07/14/21 10:06 AB (Rec: 07/14/21 12:21 AB [id number]) PT Summary Assessment and Plan Potential Rehabilitation Potential Fair Summary Impairments Pain,ROM,Strength,Balance, Coordination,Sensation,Tone, Cognition,Bed Mobility, Transfers,Gait,Activity Tolerance Progress Towards Goals Slow Progress due to Medical Issues Assessment Summary pt requiring SBA with ambulation using FWW. pt will have his spouse to assist him at home. educated pt on safety and weight bearing restriction on LLE and informed pt not to use stairs at home. Pt is aware but stated that he has practiced prior to surgery and that he is going to be ok with stair climbing. will continue to assess progress. Goals Bed Mobility Goal Standby Assistance Transfer Goal Standby Assistance,Front Wheeled Walker Gait Goal Standby Assistance,Front Wheel Walker Gait Distance 150 Other Goals ambulation using stnd walker 150 ft mod I up/down 20 steps R rail L SPC SBA Days to Meet Goals 10 Frequency of Treatment Frequency Of Treatment Once a Day Treatment Plan Physical Therapy Treatment Plan Bed Mobility Training,Transfer Training,Gait Training, Therapeutic Exercise,Balance Retraining,Post Op Education, Discharge Planning,Hot or Cold Pack,Neuromuscular Re-ed, Coordination Retraining,Manual Therapy Weight Bearing Status Allowed Weight Bearing Amount (enter % L heel weight bearing only or #) (%) Recommendations To Nursing Amount of Assist Needed 1 Person Assist Discharge Recommendations PT Discharge Recommendations Home with Assistance,Home Health Equipment Needed for Home Before FWW if not safe with std Discharge walker w/c Transportation Needs at Discharge Private Vehicle
[2021-07-14] MEDS: INSULIN GLARGINE 100 UNIT/ML 3ML PEN 25 UNIT SUBCUT (10:30)
--- NOTE | 2021-07-14 19:34 | DI.ECHO.S_ITS ---
[facility] +---------+ [facility] +---------+ : : [address] : [place], [place] : : : : [id number] : : : : Phone: [phone] Echocardiogram Report + + :Name: ANNY YOO Study Date: 07/14/2021 Height: 74 in : :[facility] ReadingLocation: Weight: 450 lb : : Gender: Male BSA: 3.1 m2 : :: 1955 Age: 65 yrs BP: 121/71 mmHg: :Reason For Study: Congestive Heart Failure : :Ordering Physician: Alexis : :Hospitalist Performed By: Charissa Armstrong : :Referring: BRETT DODSON : + + Interpretation Summary The patient has a paced rhythm. The left ventricle is moderate-severely dilated. The ejection fraction is estimated to be 55-60%. There is a mild dyssynchronous contraction pattern due to the paced rhythm. The right ventricle is moderately dilated. The right ventricular systolic function is normal. There is a pacemaker lead in the right ventricle. Both atria are severely dilated. There is moderate mitral regurgitation. The aortic valve is moderately calcified. There is moderately reduced leaflet mobility. The peak aortic velocity is 3.3 m/sec. The aortic valve mean gradient is 26.8 mmHg. The calculated aortic valve area is 1.1 cm2. There is moderate aortic stenosis. There is mild aortic regurgitation. There is moderate to severe tricuspid regurgitation. Systolic reversal in the hepatic veins during insiration. There are multiple TR jets. The right ventricular systolic pressure is estimated to be at least 48 mmHg based on an estimated right atrial pressure of 15 mm Hg. The ascending aorta is mildly enlarged. Small loculated pericardial effusion anterior to the right atrium and subcostal view. No obvious pericardial tamponade. Procedure: A two-dimensional transthoracic echocardiogram with color flow and Doppler was performed. The study quality was technically difficult. A contrast injection of Definity was performed to improve assessment of LV function. There is no prior echocardiogram noted for this patient. The patient has a paced rhythm. Left Ventricle: The left ventricle is moderate-severely dilated. There is no thrombus. The ejection fraction is estimated to be 55-60%. There is a mild dyssynchronous contraction pattern due to the paced rhythm. Diastolic function could not be accurately assessed due to paced rhythm. Right Ventricle: There is a pacemaker lead in the right ventricle. The right ventricle is moderately dilated. The right ventricular systolic function is normal. Atria: Both atria are severely dilated. There is no Doppler evidence for an interatrial shunt. Mitral Valve: There is mild mitral annular calcification. The mitral valve leaflets are mildly calcified. The mitral valve chordae are thickened and/or calcified. No significant mitral valve stenosis. There is moderate mitral regurgitation. Aortic Valve: The aortic valve is moderately calcified. There is moderately reduced leaflet mobility. The aortic valve is trileaflet. There is discrete nodular thickening of the right coronary cusp. The peak aortic velocity is 3.3 m/sec. The aortic valve mean gradient is 26.8 mmHg. The aortic valve area indexed to the BSA is 0.26 . The calculated aortic valve area is 1.1 cm2. There is moderate aortic stenosis. There is mild aortic regurgitation. Tricuspid Valve: The tricuspid annulus is dilated. The right ventricular systolic pressure is estimated to be at least 48 mmHg based on an estimated right atrial pressure of 15 mm Hg. Systolic reversal in the hepatic veins during insiration. There are multiple TR jets. There is moderate to severe tricuspid regurgitation. Pulmonic Valve: The pulmonic valve is not well seen, but is grossly normal. There is trace pulmonic regurgitation. Great Vessels: The aortic root is normal size. The ascending aorta is mildly enlarged. The IVC is dilated (diameter is greater than 2.1 cm) and it collapses less than 50% with a sniff. This suggests a high right atrial pressure of 15 mm Hg. Pericardium/ Pleura There is no pericardial effusion. Small loculated pericardial effusion anterior to the right atrium and subcostal view. No obvious pericardial tamponade. MMode/2D Measurements & Calculations LVIDd: 7.0 cm LVOT diam: 2.4 cm LVIDs: 4.9 cm Ao root diam: 3.6 cm FS: 29.5 % asc Aorta Diam: 4.2 cm EPSS: 2.0 cm IVSd: 0.79 cm LVPWd: 1.3 cm LV quitnanilla. diameter/BSA (cm/m^2): 2.3 LV sys. diameter/BSA (cm/m^2): 1.6 LA A2 area: 35.5 cm2 RA long axis: 7.2 cm LA A4 area: 41.7 cm2 RA area: 40.0 cm2 LA length (vol): 7.2 cm RA vol: 188.7 ml LA vol: 175.5 ml RA : 61.5 ml/m2 LA vol index: 57.2 ml/m2 IVC diam: 3.3 cm RVD1 (basal): 5.1 cm TAPSE: 2.5 cm Doppler Measurements & Calculations Ao V2 max: 330.5 cm/sec LVOT Max Ted: 75.4 cm/sec Ao V2 mean: 245.5 cm/sec LV V1 max P.3 mmHg Ao max P.7 mmHg LV V1 VTI: 12.4 cm Ao mean P.8 mmHg CATHERINE(I,D): 0.81 cm2 Ao V2 VTI: 71.5 cm CATHERINE(V,D): 1.1 cm2 sev ratio: 0.17 CATHERINE indexed to BSA (cm^2/m^2): 0.26 Med Peak E' Ted: 10.1 cm/sec TR max ted: 285.2 cm/sec Lat Peak E' Ted: 11.8 cm/sec TR max P.5 mmHg MVA(VTI): 2.3 cm2 PA V2 max: 93.8 cm/sec MR ERO: 0.13 cm2 PA V2 mean: 62.1 cm/sec PA mean P.7 mmHg PA pr(Accel): 48.2 mmHg MV V2 mean: 60.5 cm/sec MR PISA: 2.1 cm2 MV mean P.2 mmHg MR flow rate: 65.2 cm3/sec MV V2 VTI: 25.2 cm MR PISA radius: 0.58 cm SV(LVOT): 58.1 ml Reading Physician:05:04 PM
[2021-07-14] MEDS: BUDESONIDE 0.5 MG/2 ML NEB INH (19:54)
[2021-07-14] MEDS: lisinopriL 20 MG TABLET 10 MG PO (21:30)
[2021-07-14] MEDS: GABAPENTIN 600 MG TABLET 300 MG PO (21:31)
[2021-07-14] MEDS: INSULIN GLARGINE 100 UNIT/ML 3ML PEN 20 UNIT SUBCUT (21:31)
[2021-07-15] VITALS (11 sets, daily range): BP systolic 106–130; BP diastolic 63–69; PULSE 65–72; RESP 14–21; TEMP 36.4–37.1; O2SAT 97–99
[2021-07-15] MEDS: HYDROCODONE/ACET 5/325 TABLET 2 TAB PO ×3 (02:58→15:15)
[2021-07-15] MEDS: METFORMIN XR 500 MG TABLET 1000 MG PO ×2 (06:02→17:37)
[2021-07-15] MEDS: MORPHINE IR 15 MG TABLET PO ×2 (06:02→17:37)
--- NOTE | 2021-07-15 07:29 | PC.NURSE ---
Pts [place] had tejada colored urine that appeared bloody. Provider Dr Anderson was notified at 0644 and no new orders were given. Oncoming RN notified as well.
[2021-07-15] MEDS: METOPROLOL ER 25 MG TABLET 12.5 MG PO ×2 (08:37→20:45)
[2021-07-15] MEDS: DABIGATRAN 75 MG CAPSULE 150 MG PO ×2 (08:37→20:45)
[2021-07-15] MEDS: LACTOBACILLUS ACIDOPHILUS TABLET 1 EACH PO ×2 (08:37→17:37)
[2021-07-15] MEDS: DOCUSATE 100 MG CAPSULE PO ×2 (08:37→20:44)
[2021-07-15] MEDS: INSULIN GLARGINE 100 UNIT/ML 3ML PEN 30 UNIT SUBCUT ×2 (08:38→21:36)
[2021-07-15] MEDS: FUROSEMIDE 100 MG/10 ML VIAL 80 MG IV ×2 (08:46→20:44)
[2021-07-15 09:25] LABS: Blood Urea Nitrogen 17 mg/dL (9-20); Calcium 8.6 mg/dL (8.4-10.2); Carbon Dioxide 32 mmol/L (22-32); Chloride 97 mmol/L (98-107); Estimated Glomerular Filt Rate > 60.0 mL/min (>60); Glucose 92 mg/dL (80-110); HEMOLYSIS < 15 (0-50); Magnesium 2.1 mg/dL (1.6-2.3); Sodium 132 mmol/L (137-145)
[2021-07-15 09:37] LABS: Vancomycin Trough 10.1 ug/mL (10-20)
[2021-07-15] MEDS: VANCOMYCIN 2,000 MG/400 ML PIGGYBACK 200 MG IV (09:54)
--- NOTE | 2021-07-15 10:05 | PM.PNPO.1 ---
Subjective Subjective Interval history: Paco is sitting up in bed, just finished brushing his teeth. Feeling well, impressed with his fluid loss and ability to breathe better. Happy with his progress with PT, noticing his right leg needing to do more work to compensate for left. Still planning to go home with spouse when medically stable. Exam Vital Signs (past 8 hours): - 07/15/21 04:24 07/15/21 07:45 07/15/21 08:37 Temperature 97.5 F L 98.5 F Pulse Rate 71 70 70 Respiratory Rate 20 20 Blood Pressure 106/63 120/64 120/64 Pulse Oximetry 98 98 Oxygen Delivery Method Room Air Oxygen Flow Rate 0 Narrative Exam Narrative: Echocardiogram done yesterday. Final cultures from toes show Corynebacterium striatum. No sensitivities yet; specimen needs to be sent out. Requested sensitivities for vanco, linezolid, piperacillin-tazobactam, and amoxicillin-clavulanate. No change in exam since surgery. Dressing CDI, wiggling toes, ROM and strength all WNL. Sensation to touch decreased due to longstanding neuropathy. Objective Labs Result Diagrams: 07/13/21 04:40 07/15/21 08:40 Labs: Laboratory Results - last 24 hr 07/15/21 07/15/21 08:40 08:40 Sodium 132 L Potassium 4.0 Chloride 97 L Carbon Dioxide 32 BUN 17 Creatinine 0.81 Estimated GFR > 60.0 BUN/Creatinine Ratio 21.0 Glucose 92 Calcium 8.6 Magnesium 2.1 Vancomycin Trough 10.1 PFSH Medical History Abdominal aortic aneurysm Asthma Atrial fibrillation CHF (congestive heart failure) Diabetes Diabetic neuropathy HLD (hyperlipidemia) HTN (hypertension) Idiopathic cardiomyopathy MRSA (methicillin resistant Staphylococcus aureus) Neuropathy RAFAL on CPAP Psoriasis Testicular hypofunction Surgical History H/O cardiac radiofrequency ablation Hx of atrioventricular node ablation Hx of umbilical hernia repair Status post LASIK surgery of both eyes Social History household members: spouse Smoking Status: Never smoker alcohol intake: never Assessment & Plan Post-op Postoperative Procedures: Procedures Operation Date: 07/12/21 09:00 Actual Procedure Side Surgeon p 5th toe amputation with debridement & excision 4th/5th toe metatarsal head Left yCn Chicas MD Postoperative day: 3 Postoperative status: doing well Postoperative plan narrative: Will continue IV vancomycin while awaiting organism sensitivities. Appreciate hospitalist care and input. Discharge to home once antibiotic treatment identified and patient is medically stable. Quality VTE Deep Vein Thrombosis/Pulmonary Embolism Present on Admission: No
[2021-07-15] MEDS: BUDESONIDE 0.5 MG/2 ML NEB INH ×2 (11:00→19:20)
--- NOTE | 2021-07-15 13:35 | PM.PN.1 ---
Subjective Subjective Date Patient Seen: 07/15/21 Time Patient Seen: 08:00 Interval history: Today he feels improved. His pain is well controlled. He has less anasarca. He is diuresing briskly Exam Vital Signs (past 8 hours): - 07/15/21 07:45 07/15/21 08:37 07/15/21 10:57 Temperature 98.5 F Pulse Rate 70 70 65 Respiratory Rate 20 Blood Pressure 120/64 120/64 Pulse Oximetry 98 07/15/21 11:01 07/15/21 12:00 Temperature 98.3 F Pulse Rate 72 70 Respiratory Rate 18 21 Blood Pressure 130/67 Pulse Oximetry 97 99 Oxygen Delivery Method Room Air Oxygen Flow Rate 0 Narrative Exam Narrative: GEN: no acute distress PULM: clear bilaterally ABD: soft, nontender EXT: 2+ pitting edema Objective Labs Result Diagrams: 07/13/21 04:40 07/15/21 08:40 Labs: Laboratory Results - last 24 hr 07/15/21 07/15/21 08:40 08:40 Sodium 132 L Potassium 4.0 Chloride 97 L Carbon Dioxide 32 BUN 17 Creatinine 0.81 Estimated GFR > 60.0 BUN/Creatinine Ratio 21.0 Glucose 92 Calcium 8.6 Magnesium 2.1 Vancomycin Trough 10.1 PFSH Medical History Abdominal aortic aneurysm Asthma Atrial fibrillation CHF (congestive heart failure) Diabetes Diabetic neuropathy HLD (hyperlipidemia) HTN (hypertension) Idiopathic cardiomyopathy MRSA (methicillin resistant Staphylococcus aureus) Neuropathy RAFAL on CPAP Psoriasis Testicular hypofunction Surgical History H/O cardiac radiofrequency ablation Hx of atrioventricular node ablation Hx of umbilical hernia repair Status post LASIK surgery of both eyes Social History household members: spouse Smoking Status: Never smoker alcohol intake: never Assessment & Plan Assessment & Plan narrative: 1. Anasarca, due to diastolic CHF exacerbation -given obesity, presume diet is likely suboptimal -fluid restrict to 2L, low salt diet -continue lasix to 80IV BID, goal 2-3L negative daily -check BMP daily -ECHO showed preserved EF, and moderate aortic stenosis -no significant proteinuria in urine, ruling out nephrotic syndrome -abdominal ultrasound showed hepatic steatosis, no ascites -activity as able to mobilize fluid -he is net negative 15L fluid, his weight has improved from 204->195kg 2. Diabetic foot infection with osteomyelitis s/p amputation of L fifth toe and metatarsal head -ortho following for surgical management -cultures shows corynebacterium -will likely need IV vancomycin, daptomycin for this bacteria 3. Morbid obesity, BMI 57.8 -will need outpatient follow up to encourage weight loss 4. Atrial fibrillation -continue dabigatran 5. Diabetes -continue home medications, monitor blood sugar closely Time Spent With Patient Critical Care time: I spent a total of [] minutes of critical care time on this patient's care today; this time is exclusive of procedural time. Quality VTE Deep Vein Thrombosis/Pulmonary Embolism Present on Admission: No
--- NOTE | 2021-07-15 14:15 | PT-IP ANOTE ---
Attempted to work with Mr Cerda, he refused PT this afternoon due to a scrotal skin tear that happened yesterday while getting out of bed. He notes his scrotum is still very sore and he doesn't want to attempt transfers today.
[2021-07-15 17:28] LABS: BUN Creatinine Ratio 26.8 (6-22); Blood Urea Nitrogen 19 mg/dL (9-20); Calcium 8.5 mg/dL (8.4-10.2); Carbon Dioxide 29 mmol/L (22-32); Chloride 99 mmol/L (98-107); Estimated Glomerular Filt Rate > 60.0 mL/min (>60); Glucose 107 mg/dL (80-110); HEMOLYSIS 29 (0-50); Potassium 4.3 mmol/L (3.4-5.1); Sodium 132 mmol/L (137-145)
[2021-07-15] MEDS: VANCOMYCIN 1,500 MG/300 ML PIGGYBACK 200 MG IV (17:37)
[2021-07-15] MEDS: ALBUTEROL 2.5 MG/3 ML NEB (ADULT) INH (19:20)
[2021-07-15] MEDS: lisinopriL 20 MG TABLET 10 MG PO (20:45)
[2021-07-15] MEDS: GABAPENTIN 600 MG TABLET 300 MG PO (20:45)
[2021-07-16] VITALS (10 sets, daily range): BP systolic 101–133; BP diastolic 54–75; PULSE 67–71; RESP 14–18; TEMP 36.7–37.2; O2SAT 96–100
[2021-07-16] MEDS: VANCOMYCIN 1,500 MG/300 ML PIGGYBACK 200 MG IV ×3 (01:03→17:50)
[2021-07-16] MEDS: HYDROCODONE/ACET 5/325 TABLET 2 TAB PO ×4 (03:44→21:26)
[2021-07-16 05:39] LABS: BUN Creatinine Ratio 25.7 (6-22); Blood Urea Nitrogen 18 mg/dL (9-20); Calcium 8.4 mg/dL (8.4-10.2); Carbon Dioxide 30 mmol/L (22-32); Chloride 99 mmol/L (98-107); Estimated Glomerular Filt Rate > 60.0 mL/min (>60); Glucose 102 mg/dL (80-110); HEMOLYSIS < 15 (0-50); Phosphorous 3.9 mg/dL (2.3-3.7); Sodium 132 mmol/L (137-145)
[2021-07-16] MEDS: MORPHINE IR 15 MG TABLET PO ×2 (05:39→17:50)
[2021-07-16] MEDS: METFORMIN XR 500 MG TABLET 1000 MG PO ×2 (05:39→17:50)
--- NOTE | 2021-07-16 08:29 | PM.PNPO.1 ---
Subjective Subjective Date Patient Seen: 07/16/21 Time Patient Seen: 08:32 Interval history: Sitting up in bed, cheerful. Pt states he was being treated weekly by wound care for RIGHT foot; has not had RIGHT foot evaluated since last Friday. Exam Vital Signs (past 8 hours): - 07/16/21 01:15 07/16/21 04:11 Temperature 98.1 F 98.2 F Pulse Rate 70 71 Respiratory Rate 14 18 Blood Pressure 101/54 L 133/75 Pulse Oximetry 100 100 Oxygen Delivery Method Room Air Oxygen Flow Rate 0 Narrative Exam Narrative: No change in exam of LLE. Dressing remains CDI, wiggling toes, moving ankle without difficulty. Did not work with PT yesterday due to scrotal skin tear. Continues with olivares and aggressive diuresis; urine culture showed no growth. Cornybacterium striatum grown from foot culture; sent to reference lab for sensitivities. Objective Labs Result Diagrams: 07/13/21 04:40 07/16/21 05:18 Labs: Laboratory Results - last 24 hr 07/15/21 07/15/21 07/15/21 08:40 08:40 17:10 Sodium 132 L 132 L Potassium 4.0 4.3 Chloride 97 L 99 Carbon Dioxide 32 29 BUN 17 19 Creatinine 0.81 0.71 Estimated GFR > 60.0 > 60.0 BUN/Creatinine Ratio 21.0 26.8 H Glucose 92 107 Calcium 8.6 8.5 Phosphorus Magnesium 2.1 2.0 Vancomycin Trough 10.1 07/16/21 05:18 Sodium 132 L Potassium 4.0 Chloride 99 Carbon Dioxide 30 BUN 18 Creatinine 0.70 Estimated GFR > 60.0 BUN/Creatinine Ratio 25.7 H Glucose 102 Calcium 8.4 Phosphorus 3.9 H Magnesium 2.0 Vancomycin Trough PFSH Medical History Abdominal aortic aneurysm Asthma Atrial fibrillation CHF (congestive heart failure) Diabetes Diabetic neuropathy HLD (hyperlipidemia) HTN (hypertension) Idiopathic cardiomyopathy MRSA (methicillin resistant Staphylococcus aureus) Neuropathy RAFAL on CPAP Psoriasis Testicular hypofunction Surgical History H/O cardiac radiofrequency ablation Hx of atrioventricular node ablation Hx of umbilical hernia repair Status post LASIK surgery of both eyes Social History household members: spouse Smoking Status: Never smoker alcohol intake: never Assessment & Plan Post-op Postoperative Procedures: Procedures Operation Date: 07/12/21 09:00 Actual Procedure Side Surgeon p 5th toe amputation with debridement & excision 4th/5th toe metatarsal head Left Cyn Chicas MD Postoperative day: 4 Postoperative plan narrative: Continue PT, IV vancomycin until final cultures returned. Wound care to evaluate both RIGHT foot wounds and LEFT foot incision. Quality VTE Deep Vein Thrombosis/Pulmonary Embolism Present on Admission: No
[2021-07-16] MEDS: BUDESONIDE 0.5 MG/2 ML NEB INH ×2 (09:01→19:23)
[2021-07-16 09:24] LABS: Vancomycin Trough 13.5 ug/mL (10-20)
[2021-07-16] MEDS: DABIGATRAN 75 MG CAPSULE 150 MG PO ×2 (09:34→21:26)
[2021-07-16] MEDS: DOCUSATE 100 MG CAPSULE PO ×2 (09:34→21:26)
[2021-07-16] MEDS: LACTOBACILLUS ACIDOPHILUS TABLET 1 EACH PO ×3 (09:34→17:50)
[2021-07-16] MEDS: METOPROLOL ER 25 MG TABLET 12.5 MG PO ×2 (09:34→21:27)
[2021-07-16] MEDS: INSULIN GLARGINE 100 UNIT/ML 3ML PEN 30 UNIT SUBCUT ×2 (09:36→21:26)
[2021-07-16] MEDS: SODIUM CHLORIDE 0.9% FLUSH 10 ML IV (09:36)
[2021-07-16] MEDS: FUROSEMIDE 100 MG/10 ML VIAL 40 MG IV ×2 (09:38→21:26)
[2021-07-16] MEDS: VANCOMYCIN TROUGH 1 REQUEST MISC (09:38)
--- NOTE | 2021-07-16 11:08 | PT.IPTN ---
Current Diagnoses Type 2 diabetes mellitus with diabetic polyneuropathy (07/12/21) Type 2 diabetes mellitus with other skin complications (07/12/21) Other specified diabetes mellitus with diabetic neuropathy, unspecified (07/12/21) Morbid (severe) obesity due to excess calories (07/12/21) Cellulitis, unspecified (07/12/21) Local infection of the skin and subcutaneous tissue, unspecified (07/12/21) Subacute osteomyelitis, left ankle and foot (07/12/21) Osteomyelitis, unspecified (07/12/21) Other specified disorders of the male genital organs (07/12/21) Generalized edema (07/12/21) Edema, unspecified (07/12/21) Surgery Performed Operation Date: 07/12/21 09:00 Actual Procedures p 5th toe amputation with debridement & excision 4th/5th toe metatarsal head(Left) - Cyn Chicas MD Physical Therapy Treatment Note M2 PT-IP Current Condition Start: 07/12/21 14:58 Freq: NEEDED Status: Active Protocol: Document 07/12/21 13:45 AB (Rec: 07/12/21 15:17 AB [id number]) Physical Therapy Current Condition Current Condition Evaluation Date 07/12/21 Treatment Diagnosis L foot osteomyelitis s/p 4th, 5th metatarsal head amputation ; diff in walk Onset Date 07/12/20 M3 PT-IP Subjective Start: 07/12/21 14:58 Freq: NEEDED Status: Active Protocol: Document 07/16/21 10:10 KS (Rec: 07/16/21 13:04 KS [email or web address]) Subjective Physical Therapy Visit Type Type Treatment Note Visit Start Time 10:10 Visit Stop Time 11:08 Total Visit Minutes 58 Number of WEB DESIGN SPECIALIST Visits 1 Physical Therapy Visit Comments Patient Comments agreeable to do PT Therapy Pain Assessment Pain When Pain Assessed At Rest Pain Present Pain Present Pain Reported M4 PT-IP Mobility and Gait Start: 07/12/21 14:58 Freq: NEEDED Status: Active Protocol: Document 07/16/21 10:10 KS (Rec: 07/16/21 13:04 KS [id number]) PT-Bed Mobility Assessment Rolling Type of Rolling Roll to Right Supine to Sit Supine to Sit Standby Assistance,Head of Bed Elevated,Bedrails Sit to Supine Sit to Supine Minimal Assistance,1 Person Assistance,Head of Bed Elevated,Bedrails Scooting Scooting to Edge of Bed Contact Guard Assistance PT-Transfer Assessment Sit to and From Stand Sit to and from Stand Contact Guard Assistance,1 Person Assistance,Use of Upper Extremities Equipment Transfer Assistive Device Gait Belt,Front Wheeled Walker Orthotic/Prosthetic Devices or Brace: No Transfers Transfer Destination Bed Transfer Technique Pt ambulated w/ FWW Transfer Ability Level of Assist Contact Guard Assistance, Minimal Assistance,1 Person Assistance,Use of Upper Extremities Comments Mobility Comments Pt in bed upon arrival from therapy and requiring heavy motivation to participate due to fear of causing pain to scrotum. Pt agreed to getting out of bed, but required two pillow placed, one vertically between bedside and railing and one flat on top of bed rail. Pt rolled to R w/ HOB elevated and bed rails CGA and Min A for sup<>sit for LE guidance off of bed w/o increased pain to scrotum. CGA for sit<>stand w/ FWW. Pt then ambulated ~75 ft around room w/ FWW and SBA w/ IV management. Pt ambulated w/ very wide based gait and shuffling steps w/ weight on heel of L foot w/ boot on due to amputations. Pt then reported to fatigue and got back into bed, needing Min to Mod A for LE assistance back into bed. Pt left in bed w/ all needs in reach. Gait Assessment Gait Gait Assistance Required: Standby Assistance Distance (Feet) 75 Able to Maintain Weight Bearing Status Yes During Gait Assistive Devices Assistive Device Gait Belt,Front Wheeled Walker Orthotic/Prosthetic Devices or Brace: No Gait Deviations General Gait Pattern Decreased Stride Length, Decreased Feet Clearance,Step- to Gait,Wide Based Gait Factors Limiting Gait Function Factors Limiting Gait Function Decreased Activity Tolerance, Decreased Sensation,Difficulty Following Directions,Limited Range of Motion,Pain,Poor Balance Comments Gait Comments Please refer to mobility section for details. PT-Balance Assessment Sitting Balance and Reactions Static Sitting Balance Ability Good Dynamic Sitting Balance Ability Good Standing Balance and Reactions Static Standing Balance Ability Fair Dynamic Standing Balance Ability Fair Device Used FWW M5 PT-IP Objective Assessments Start: 07/12/21 14:58 Freq: NEEDED Status: Active Protocol: Document 07/12/21 13:45 AB (Rec: 07/12/21 15:17 AB [id number]) Orientation Orientation/Cognition Level of Alertness Alert Orientation Name,Place,Situation Language Function Ability No Deficits Noted Safety Awareness Decreased Safety Awareness Memory Description No Deficits Noted Gross Range of Motion Lower Extremity ROM Assessment Bilaterally Impaired Impairments limit due to BLE edema Strength Lower Extremity Strength Assessment Bilaterally Impaired Hip 3-/5 Knee 3+/5 Sensation Assessment Sensation Light Touch Impaired Proprioception (Position) Impaired Comments Sensation Comments decrease sensation on BLE Muscle Tone Muscle Tone WNL Yes M6 PT-IP Treatment Start: 07/12/21 14:58 Freq: NEEDED Status: Active Protocol: Document 07/16/21 10:10 KS (Rec: 07/16/21 13:04 CO [id number]) Physical Therapy Treatment Education Education Provided Weight Bearing Status,Safety M7 PT-IP Assessment and Plan Start: 07/12/21 14:58 Freq: NEEDED Status: Active Protocol: Document 07/16/21 10:10 KS (Rec: 07/16/21 13:04 KS [id number]) PT Summary Assessment and Plan Potential Rehabilitation Potential Fair Summary Impairments Pain,ROM,Strength,Balance, Coordination,Sensation,Tone, Cognition,Bed Mobility, Transfers,Gait,Activity Tolerance Progress Towards Goals Slow Progress due to Medical Issues Assessment Summary Pt CGA to Min A for bed mobility, CGA for sit<>stand and SBA for ambulation w/ FWW. He required a lot of motivation and education about the importance of mobilizing to participate today. He also required increased time during all tasks. He is fearful of reinjury or causing pain due to scrotal skin tear. Able to ambulate `75 ft w/ FWW wide based shuffling gait while maintaining weight through heel of L foot. He plans to have his spouse assist at home but would benefit from HHPT to improve strength and functional mobility. Goals Bed Mobility Goal Standby Assistance Transfer Goal Standby Assistance,Front Wheeled Walker Gait Goal Standby Assistance,Front Wheel Walker Gait Distance 150 Other Goals ambulation using stnd walker 150 ft mod I up/down 20 steps R rail L SPC SBA Days to Meet Goals 10 Frequency of Treatment Frequency Of Treatment Once a Day Treatment Plan Physical Therapy Treatment Plan Bed Mobility Training,Transfer Training,Gait Training, Therapeutic Exercise,Balance Retraining,Post Op Education, Discharge Planning,Hot or Cold Pack,Neuromuscular Re-ed, Coordination Retraining,Manual Therapy Weight Bearing Status Allowed Weight Bearing Amount (enter % L heel weight bearing only or #) (%) Recommendations To Nursing Amount of Assist Needed 1 Person Assist Discharge Recommendations PT Discharge Recommendations Home with Assistance,Home Health Equipment Needed for Home Before FWW if not safe with std Discharge walker w/c Transportation Needs at Discharge Private Vehicle
--- NOTE | 2021-07-16 13:18 | PM.PN.1 ---
Subjective Subjective Date Patient Seen: 07/16/21 Time Patient Seen: 08:00 Interval history: He says he feels much better. He continues to diurese well. He has no shortness of breath. No updated weight today. Exam Vital Signs (past 8 hours): - 07/16/21 08:58 07/16/21 09:03 07/16/21 10:04 Temperature 98.3 F Pulse Rate 70 67 Respiratory Rate 18 Blood Pressure 121/61 Pulse Oximetry 98 97 07/16/21 12:55 Temperature 98.3 F Pulse Rate 70 Respiratory Rate 17 Blood Pressure 114/54 L Pulse Oximetry 97 Oxygen Delivery Method Room Air Oxygen Flow Rate 0 Narrative Exam Narrative: GEN: no acute distress PULM: clear bilaterally ABD: soft, nontender EXT: 2+ pitting edema, left foot bandaged Objective Labs Result Diagrams: 07/13/21 04:40 07/16/21 05:18 Labs: Laboratory Results - last 24 hr 07/15/21 07/16/21 07/16/21 17:10 05:18 08:43 Sodium 132 L 132 L Potassium 4.3 4.0 Chloride 99 99 Carbon Dioxide 29 30 BUN 19 18 Creatinine 0.71 0.70 Estimated GFR > 60.0 > 60.0 BUN/Creatinine Ratio 26.8 H 25.7 H Glucose 107 102 Calcium 8.5 8.4 Phosphorus 3.9 H Magnesium 2.0 2.0 Vancomycin Trough 13.5 PFSH Medical History Abdominal aortic aneurysm Asthma Atrial fibrillation CHF (congestive heart failure) Diabetes Diabetic neuropathy HLD (hyperlipidemia) HTN (hypertension) Idiopathic cardiomyopathy MRSA (methicillin resistant Staphylococcus aureus) Neuropathy RAFAL on CPAP Psoriasis Testicular hypofunction Surgical History H/O cardiac radiofrequency ablation Hx of atrioventricular node ablation Hx of umbilical hernia repair Status post LASIK surgery of both eyes Social History household members: spouse Smoking Status: Never smoker alcohol intake: never Assessment & Plan Assessment & Plan narrative: 1. Anasarca, due to diastolic CHF exacerbation -given obesity, presume diet is likely suboptimal -fluid restrict to 2L, low salt diet -decreased lasix to 40mg IV BID, goal 2-3L net negative -check BMP daily -ECHO showed preserved EF, and moderate aortic stenosis -no significant proteinuria in urine, ruling out nephrotic syndrome -abdominal ultrasound showed hepatic steatosis, no ascites -activity as able to mobilize fluid -he is net negative 20L fluid, his weight has improved from 204->195kg 2. Diabetic foot infection with osteomyelitis s/p amputation of L fifth toe and metatarsal head -ortho following for surgical management -cultures shows corynebacterium -will likely need IV vancomycin, daptomycin for this bacteria 3. Morbid obesity, BMI 57.8 -will need outpatient follow up to encourage weight loss 4. Atrial fibrillation -continue dabigatran 5. Diabetes -continue home medications, monitor blood sugar closely Time Spent With Patient Critical Care time: I spent a total of [] minutes of critical care time on this patient's care today; this time is exclusive of procedural time. Quality VTE Deep Vein Thrombosis/Pulmonary Embolism Present on Admission: No
--- NOTE | 2021-07-16 15:10 | CM.DPC ---
DCP Cont: Attempted to meet with patient to check in with him for any needs, but he was sleeping. Spoke to Naz, peoplesoft, and she mentioned patient possibly following up with outpatient diabetic education. At this time, P.T. notes have recommended home health. Attempted to revisit this with patient today, but can check in tomorrow with him. According to notes, patient has improved, as far as diuresis goes. P: DCP to continue to follow and check in to see if patient wants home health. Juanita Harrison RN/[employer]
[2021-07-16 17:12] LABS: Osmolality Urine 714 mOsmol/kg (.)
[2021-07-16 19:07] LABS: Osmolality, Serum 344 mOsmol/kg (280-301)
[2021-07-16] MEDS: GABAPENTIN 600 MG TABLET 300 MG PO (21:27)
[2021-07-16] MEDS: lisinopriL 20 MG TABLET 10 MG PO (21:27)
[2021-07-17] MEDS: VANCOMYCIN 1,500 MG/300 ML PIGGYBACK 200 MG IV ×2 (00:48→17:55)
[2021-07-17] MEDS: HYDROCODONE/ACET 5/325 TABLET 2 TAB PO ×4 (01:45→20:50)
[2021-07-17 04:03] VITALS: BP 119/56; RESP 20; TEMP 36.7; O2SAT 97
[2021-07-17 05:58] LABS: Blood Urea Nitrogen 20 mg/dL (9-20); Calcium 8.6 mg/dL (8.4-10.2); Carbon Dioxide 30 mmol/L (22-32); Chloride 99 mmol/L (98-107); Estimated Glomerular Filt Rate > 60.0 mL/min (>60); Glucose 84 mg/dL (80-110); HEMOLYSIS < 15 (0-50); Potassium 4.2 mmol/L (3.4-5.1); Sodium 133 mmol/L (137-145)
[2021-07-17] MEDS: MORPHINE IR 15 MG TABLET PO ×2 (06:12→17:55)
[2021-07-17] MEDS: METFORMIN XR 500 MG TABLET 1000 MG PO ×2 (06:12→17:55)
[2021-07-17] MEDS: ZINC OXIDE OINT 60 GM 1 APPLIC TOP (08:38)
[2021-07-17] MEDS: DABIGATRAN 75 MG CAPSULE 150 MG PO ×2 (08:39→20:50)
[2021-07-17] MEDS: LACTOBACILLUS ACIDOPHILUS TABLET 1 EACH PO ×3 (08:39→17:55)
[2021-07-17] MEDS: METOPROLOL ER 25 MG TABLET 12.5 MG PO ×2 (08:40→20:51)
[2021-07-17] MEDS: DOCUSATE 100 MG CAPSULE PO ×2 (08:41→22:51)
[2021-07-17] MEDS: SODIUM CHLORIDE 0.9% FLUSH 10 ML IV ×2 (08:42→22:51)
[2021-07-17] MEDS: VANCOMYCIN 1,500 MG/300 ML PIGGYBACK 300 MG IV (08:43)
[2021-07-17 08:46] VITALS: BP 115/66; PULSE 83; RESP 18; TEMP 36.6; O2SAT 98
[2021-07-17] MEDS: INSULIN GLARGINE 100 UNIT/ML 3ML PEN 30 UNIT SUBCUT ×2 (08:46→22:51)
[2021-07-17 08:56] VITALS: PULSE 70; RESP 16; O2SAT 99
[2021-07-17] MEDS: BUDESONIDE 0.5 MG/2 ML NEB INH ×2 (08:56→20:17)
--- NOTE | 2021-07-17 09:12 | P.PN_ITS ---
Subjective Subjective Date Patient Seen: 07/17/21 Time Patient Seen: 09:12 Interval history: Patient states he is doing well. Denies pain. No fever or chills. Patient states he had an appointment yesterday with wound care for his right foot. His canceled this appointment as he is in the hospital. Unknown whether wound care has been notified of him being an inpatient. Exam Vital Signs (past 8 hours): - 07/17/21 04:03 07/17/21 08:46 07/17/21 08:56 Temperature 98.0 F 97.9 F Pulse Rate 83 70 Respiratory Rate 20 18 16 Blood Pressure 119/56 L 115/66 Pulse Oximetry 97 98 99 Oxygen Delivery Method Room Air Oxygen Flow Rate 0 Narrative Exam Narrative: 65-year-old male in bed in no apparent distress. Dressing remains CDI, wiggling toes, moving ankle without difficulty. Dressing on the right foot is Clean, d ry, intact.. Continues to have large amount edema bilateral lower extremities. Objective Labs Result Diagrams: 07/13/21 04:40 07/17/21 05:33 Labs: Laboratory Results - last 24 hr 07/13/21 07/13/21 07/16/21 16:30 16:59 08:43 Sodium Potassium Chloride Carbon Dioxide BUN Creatinine Estimated GFR BUN/Creatinine Ratio Glucose Serum Osmolality 344 H Calcium Magnesium Urine Osmolality 714 Vancomycin Trough 13.5 07/17/21 05:33 Sodium 133 L Potassium 4.2 Chloride 99 Carbon Dioxide 30 BUN 20 Creatinine 0.80 Estimated GFR > 60.0 BUN/Creatinine Ratio 25.0 H Glucose 84 Serum Osmolality Calcium 8.6 Magnesium 2.0 Urine Osmolality Vancomycin Trough PFSH Medical History Abdominal aortic aneurysm Asthma Atrial fibrillation CHF (congestive heart failure) Diabetes Diabetic neuropathy HLD (hyperlipidemia) HTN (hypertension) Idiopathic cardiomyopathy MRSA (methicillin resistant Staphylococcus aureus) Neuropathy RAFAL on CPAP Psoriasis Testicular hypofunction Surgical History H/O cardiac radiofrequency ablation Hx of atrioventricular node ablation Hx of umbilical hernia repair Status post LASIK surgery of both eyes Social History household members: spouse Smoking Status: Never smoker alcohol intake: never Assessment & Plan Post-op Postoperative Procedures: Procedures Operation Date: 07/12/21 09:00 Actual Procedure Side Surgeon p 5th toe amputation with debridement & excision 4th/5th toe metatarsal head Left Cyn Chicas MD Postoperative status narrative: Stable Postoperative plan narrative: Status post amputation left 5th toe with metatarsal head, amputation left 4th metatarsal head July 12, 2021. Hill weight-bearing in postop shoe on the left but must take care to off-load the surgical area on the left forefoot. Sutures will remain in place for 4 weeks. IV antibiotics per hospitalist. Hospitalist also following for anasarca, due to diastolic congestive heart failure exasperation, morbid obesity, BMI 57.8, atrial fib., diabetes Nursing staff will contact wound care regarding his right foot and schedule wound care right foot while inpatient. Disposition to be determined Quality VTE Deep Vein Thrombosis/Pulmonary Embolism Present on Admission: No
[2021-07-17] MEDS: FUROSEMIDE 100 MG/10 ML VIAL 40 MG IV (09:16)
--- NOTE | 2021-07-17 10:56 | PT.IPTN ---
Current Diagnoses Type 2 diabetes mellitus with diabetic polyneuropathy (07/12/21) Type 2 diabetes mellitus with other skin complications (07/12/21) Other specified diabetes mellitus with diabetic neuropathy, unspecified (07/12/21) Morbid (severe) obesity due to excess calories (07/12/21) Cellulitis, unspecified (07/12/21) Local infection of the skin and subcutaneous tissue, unspecified (07/12/21) Subacute osteomyelitis, left ankle and foot (07/12/21) Osteomyelitis, unspecified (07/12/21) Other specified disorders of the male genital organs (07/12/21) Generalized edema (07/12/21) Edema, unspecified (07/12/21) Surgery Performed Operation Date: 07/12/21 09:00 Actual Procedures p 5th toe amputation with debridement & excision 4th/5th toe metatarsal head(Left) - Cyn Chicas MD Physical Therapy Treatment Note M2 PT-IP Current Condition Start: 07/12/21 14:58 Freq: NEEDED Status: Active Protocol: Document 07/12/21 13:45 AB (Rec: 07/12/21 15:17 AB [id number]) Physical Therapy Current Condition Current Condition Evaluation Date 07/12/21 Treatment Diagnosis L foot osteomyelitis s/p 4th, 5th metatarsal head amputation ; diff in walk Onset Date 07/12/20 M3 PT-IP Subjective Start: 07/12/21 14:58 Freq: NEEDED Status: Active Protocol: Document 07/17/21 10:12 KS (Rec: 07/17/21 12:03 KS [id number]) Subjective Physical Therapy Visit Type Type Treatment Note Visit Start Time 10:12 Visit Stop Time 10:56 Total Visit Minutes 44 Number of BROACHING MACHINE SET UP OPERATOR Visits 2 Physical Therapy Visit Comments Patient Comments agreeable to do PT M4 PT-IP Mobility and Gait Start: 07/12/21 14:58 Freq: NEEDED Status: Active Protocol: Document 07/17/21 10:12 KS (Rec: 07/17/21 12:03 KS [id number]) PT-Bed Mobility Assessment Rolling Type of Rolling Roll to Right Supine to Sit Supine to Sit Standby Assistance,Head of Bed Elevated,Bedrails Sit to Supine Sit to Supine Minimal Assistance,1 Person Assistance,Head of Bed Elevated,Bedrails Scooting Scooting to Edge of Bed Contact Guard Assistance PT-Transfer Assessment Sit to and From Stand Sit to and from Stand Contact Guard Assistance,1 Person Assistance,Use of Upper Extremities Equipment Transfer Assistive Device Gait Belt,Front Wheeled Walker Orthotic/Prosthetic Devices or Brace: No Transfers Transfer Destination Bed Transfer Technique Pt ambulated w/ FWW Transfer Ability Level of Assist Contact Guard Assistance, Minimal Assistance,1 Person Assistance,Use of Upper Extremities Comments Mobility Comments Pt in bed upon arrival from therapy and agreeable to participate. He first completed 1x10 bilateral ankle pumps and heel slides. He requires extra time and redirection to complete all tasks. SBA for sup<>sit w/ HOB elevated. Pillows positioned inbetween and over the guard rail of bed per pts request. Pt reported dizziness when sitting but it subsided. CGA for sit<>stand w/ FWW. Pt then ambulated ~60 ft around room w/ FWW w/ wide based gait and cues to bear weight through L heel, but complained of itchiness on backside and BEAMER OPERATOR arrived to apply ointment to back side and scrotum. Pt able to maintain standing balance ~3 min for ointment application before returning to bed w/ Min A for LE guidance. Pt left in bed w/ alarm on and BEAMER OPERATOR in room. Gait Assessment Gait Gait Assistance Required: Standby Assistance Distance (Feet) 60 Able to Maintain Weight Bearing Status Yes During Gait Assistive Devices Assistive Device Gait Belt,Front Wheeled Walker Orthotic/Prosthetic Devices or Brace: No Gait Deviations General Gait Pattern Decreased Stride Length, Decreased Feet Clearance,Step- to Gait,Wide Based Gait Factors Limiting Gait Function Factors Limiting Gait Function Decreased Activity Tolerance, Decreased Sensation,Difficulty Following Directions,Limited Range of Motion,Pain,Poor Balance Comments Gait Comments Please refer to mobility section for details. Pt states family acquired bariatric FWW for home use. PT-Balance Assessment Sitting Balance and Reactions Static Sitting Balance Ability Good Dynamic Sitting Balance Ability Good Standing Balance and Reactions Static Standing Balance Ability Fair Dynamic Standing Balance Ability Fair Device Used FWW M5 PT-IP Objective Assessments Start: 07/12/21 14:58 Freq: NEEDED Status: Active Protocol: Document 07/12/21 13:45 AB (Rec: 07/12/21 15:17 AB [id number]) Orientation Orientation/Cognition Level of Alertness Alert Orientation Name,Place,Situation Language Function Ability No Deficits Noted Safety Awareness Decreased Safety Awareness Memory Description No Deficits Noted Gross Range of Motion Lower Extremity ROM Assessment Bilaterally Impaired Impairments limit due to BLE edema Strength Lower Extremity Strength Assessment Bilaterally Impaired Hip 3-/5 Knee 3+/5 Sensation Assessment Sensation Light Touch Impaired Proprioception (Position) Impaired Comments Sensation Comments decrease sensation on BLE Muscle Tone Muscle Tone WNL Yes M6 PT-IP Treatment Start: 07/12/21 14:58 Freq: NEEDED Status: Active Protocol: Document 07/17/21 10:12 KS (Rec: 07/17/21 12:03 KS [id number]) Physical Therapy Treatment Exercises Exercises Ankle Pumps,Heel Slides Education Education Provided Weight Bearing Status,Safety M7 PT-IP Assessment and Plan Start: 07/12/21 14:58 Freq: NEEDED Status: Active Protocol: Document 07/17/21 10:12 KS (Rec: 07/17/21 12:03 KS [id number]) PT Summary Assessment and Plan Potential Rehabilitation Potential Fair Summary Impairments Pain,ROM,Strength,Balance, Coordination,Sensation,Tone, Cognition,Bed Mobility, Transfers,Gait,Activity Tolerance Progress Towards Goals Slow Progress due to Medical Issues Assessment Summary Pt continues to be limited in mobility by weakness and low tolerance for activity. He also requires frequent redirection and increased time to complete tasks. SBA for most bed mobility, however requiring Min A for LE assistance into bed. CGA for sit<>Stand w/ FWW and SBA for ambulation w/ FWW w/ cues to maintain weightbearing through heel of L foot. Goals Bed Mobility Goal Standby Assistance Transfer Goal Standby Assistance,Front Wheeled Walker Gait Goal Standby Assistance,Front Wheel Walker Gait Distance 150 Other Goals ambulation using stnd walker 150 ft mod I up/down 20 steps R rail L SPC SBA Days to Meet Goals 10 Frequency of Treatment Frequency Of Treatment Once a Day Treatment Plan Physical Therapy Treatment Plan Bed Mobility Training,Transfer Training,Gait Training, Therapeutic Exercise,Balance Retraining,Post Op Education, Discharge Planning,Hot or Cold Pack,Neuromuscular Re-ed, Coordination Retraining,Manual Therapy Other Recommendations and Next Treatment Increase ambulation distance. Focus Weight Bearing Status Allowed Weight Bearing Amount (enter % L heel weight bearing only or #) (%) Recommendations To Nursing Amount of Assist Needed 1 Person Assist Discharge Recommendations PT Discharge Recommendations Home with Assistance,Home Health Equipment Needed for Home Before Pts family acquired bariatric Discharge FWW Transportation Needs at Discharge Private Vehicle
--- NOTE | 2021-07-17 11:01 | CM.DPC ---
Addendum entered by Juanita Harrison R.N. 07/17/21 15:35: Noted in notes that patient will need to be on oral Lasix as opposed to IV, and need to see if patient can void without olivares, before being ready for discharge. Addendum entered by Juanita Harrison R.N. 07/17/21 14:29: Spoke to Kasia at the wound clinic next door. She confirmed that this patient is active with them, and his last visit was 07-09. She is prepared to see patient upon discharge, they know patient well. She indicated that she would like to know when he discharges, so they can make him a follow up appointment. Let her know she will be updated. Addendum entered by Juanita Harrison R.N. 07/17/21 14:22: Attempted to meet with patient to check in, but was sleeping. Original Note: DCP Cont: Discussed patient during team rounds with hospitalist, Dr. Willard. He indicated, patient is medically stable per his stand point. He was consulting for diuresis. Spoke to LYN Beyer in ortho to see if she would be discharging patient home today. She indicated, they are waiting for final cultures to determine which antibiotic he will need, should be oral. She also indicated, she wanted patient to go to the [facility], but would like them to see patient before he leaves. Let her know that the would clinic does not normally see patients here at the hospital, but he can see them on an outpatient basis, it will be a matter of getting him an appointment at discharge. P: DCP to continue to follow. Discharge is pending final cultures. May still pursue home health, will discuss with patient. Juanita Harrison RN/Iv Therapy Nurse
--- NOTE | 2021-07-17 13:26 | PC.NURSE ---
Patient refused new IV placement. Explanation given regarding risk of infection with prolonged IV sites. Patient states understanding and still refused.
[2021-07-17 15:59] VITALS: BP 131/76; PULSE 70; RESP 18; TEMP 36.9; O2SAT 99
--- NOTE | 2021-07-17 17:04 | P.PN_ITS ---
Subjective Subjective Date Patient Seen: 07/17/21 Time Patient Seen: 08:00 Interval history: He feels well today. No shortness of breath. Exam Vital Signs (past 8 hours): - 07/17/21 15:59 Temperature 98.4 F Pulse Rate 70 Respiratory Rate 18 Blood Pressure 131/76 Pulse Oximetry 99 Oxygen Delivery Method Room Air Oxygen Flow Rate 0 Narrative Exam Narrative: GEN: no acute distress PULM: clear bilaterally ABD: soft, nontender EXT: 2+ pitting edema, left foot bandaged Objective Labs Result Diagrams: 07/13/21 04:40 07/17/21 05:33 Labs: Laboratory Results - last 24 hr 07/13/21 07/13/21 07/17/21 16:30 16:59 05:33 Sodium 133 L Potassium 4.2 Chloride 99 Carbon Dioxide 30 BUN 20 Creatinine 0.80 Estimated GFR > 60.0 BUN/Creatinine Ratio 25.0 H Glucose 84 Serum Osmolality 344 H Calcium 8.6 Magnesium 2.0 Urine Osmolality 714 PFSH Medical History Abdominal aortic aneurysm Asthma Atrial fibrillation CHF (congestive heart failure) Diabetes Diabetic neuropathy HLD (hyperlipidemia) HTN (hypertension) Idiopathic cardiomyopathy MRSA (methicillin resistant Staphylococcus aureus) Neuropathy RAFAL on CPAP Psoriasis Testicular hypofunction Surgical History H/O cardiac radiofrequency ablation Hx of atrioventricular node ablation Hx of umbilical hernia repair Status post LASIK surgery of both eyes Social History household members: spouse Smoking Status: Never smoker alcohol intake: never Assessment & Plan Assessment & Plan narrative: 1. Anasarca, due to diastolic CHF exacerbation -given obesity, presume diet is likely suboptimal -fluid restrict to 2L, low salt diet -change lasix to 40mg PO BID, goal 1L negative -check BMP geovany while in hospital -ECHO showed preserved EF, and moderate aortic stenosis -no significant proteinuria in urine, ruling out nephrotic syndrome -abdominal ultrasound showed hepatic steatosis, no ascites -activity as able to mobilize fluid -he is net negative 23L fluid, his weight has improved from 204->182kg 2. Diabetic foot infection with osteomyelitis s/p amputation of L fifth toe and metatarsal head -ortho following for surgical management -cultures shows corynebacterium -will likely need IV vancomycin, daptomycin for this bacteria 3. Morbid obesity, BMI 57.8 -will need outpatient follow up to encourage weight loss 4. Atrial fibrillation -continue dabigatran 5. Diabetes -continue home medications, monitor blood sugar closely Patient is medically stable for discharge from his heart failure. He is still volume overloaded but given drastic improvement could continue diuresis at home with oral lasix. He has no shortness of breath currently. I would recommend dc with PO lasix 40mg BID, low salt diet, weigh daily. Follow up with PCP within o ne week and check BMP within one week. Medicine will sign off, please consult again for further questions. Time Spent With Patient Critical Care time: I spent a total of [] minutes of critical care time on this patient's care today; this time is exclusive of procedural time. Quality VTE Deep Vein Thrombosis/Pulmonary Embolism Present on Admission: No
[2021-07-17] MEDS: FUROSEMIDE 40 MG TABLET PO (17:54)
[2021-07-17 19:45] VITALS: BP 127/62; PULSE 70; RESP 18; TEMP 36.8; O2SAT 98
[2021-07-17 20:17] VITALS: PULSE 70; RESP 16; O2SAT 98
[2021-07-17] MEDS: lisinopriL 20 MG TABLET 10 MG PO (20:51)
[2021-07-17] MEDS: GABAPENTIN 600 MG TABLET 300 MG PO (20:51)
[2021-07-18 01:15] VITALS: BP 119/62; PULSE 70; RESP 18; TEMP 36.6; O2SAT 98
[2021-07-18] MEDS: VANCOMYCIN 1,500 MG/300 ML PIGGYBACK 200 MG IV ×2 (02:26→09:36)
[2021-07-18] MEDS: HYDROCODONE/ACET 5/325 TABLET 2 TAB PO ×3 (02:32→14:43)
[2021-07-18 05:00] VITALS: BP 125/67; PULSE 70; RESP 18; TEMP 36.3; O2SAT 99
[2021-07-18] MEDS: MORPHINE IR 15 MG TABLET PO (05:38)
[2021-07-18] MEDS: METFORMIN XR 500 MG TABLET 1000 MG PO (05:40)
[2021-07-18 05:41] LABS: BUN Creatinine Ratio 23.8 (6-22); Blood Urea Nitrogen 20 mg/dL (9-20); Calcium 8.5 mg/dL (8.4-10.2); Carbon Dioxide 34 mmol/L (22-32); Chloride 100 mmol/L (98-107); Estimated Glomerular Filt Rate > 60.0 mL/min (>60); Glucose 85 mg/dL (80-110); HEMOLYSIS < 15 (0-50); Potassium 4.3 mmol/L (3.4-5.1); Sodium 132 mmol/L (137-145)
[2021-07-18 06:10] VITALS: BP 127/62; PULSE 70
[2021-07-18 08:10] VITALS: BP 114/48; PULSE 70; RESP 17; TEMP 36.7; O2SAT 99
[2021-07-18] MEDS: BUDESONIDE 0.5 MG/2 ML NEB INH (08:35)
[2021-07-18 08:36] VITALS: PULSE 70; RESP 18; O2SAT 98
[2021-07-18] MEDS: DOCUSATE 100 MG CAPSULE PO (09:37)
[2021-07-18] MEDS: DABIGATRAN 75 MG CAPSULE 150 MG PO (09:37)
[2021-07-18] MEDS: FUROSEMIDE 40 MG TABLET PO (09:37)
[2021-07-18] MEDS: METOPROLOL ER 25 MG TABLET 12.5 MG PO (09:37)
[2021-07-18] MEDS: LACTOBACILLUS ACIDOPHILUS TABLET 1 EACH PO (09:37)
[2021-07-18] MEDS: SODIUM CHLORIDE 0.9% FLUSH 10 ML IV (09:38)
--- NOTE | 2021-07-18 09:46 | PM.DS.1 ---
History of Present Illness History of Present Illness Date Patient Seen: 07/18/21 Time Patient Seen: 09:46 Chief complaint: left foot pain Narrative: Patient states he is having [id number] pain left foot. Denies fever or chills. No nausea or vomiting. No shortness of breath or chest pain. Patient's is home and available to assist him. Discharge Providers Provider Date of admission: 07/12/21 08:41 Discharge Date: 07/18/21 Consults: 07/12/21 09:35 Consult to Respiratory Therapy Evaluate & Treat Comment: Physician Instructions: Evaluate and treat 07/12/21 12:51 Consult to Discharge Planning Routine Comment: Consult to Physical Therapy Evaluate & Treat Comment: heel wb in postop shoe LLE Physician Instructions: Evaluate and Treat Consult to Physician Routine Comment: Consulting Provider: Ruel Willard Reason for consultation: severe volume overload Has provider been notified: Yes Consult to Respiratory Therapy Evaluate & Treat Comment: cpap use Physician Instructions: Evaluate and treat 07/13/21 14:22 Consult to Dietitian, Adult Routine Comment: Reason For Exam: chf diet 07/16/21 08:29 Consult to Wound Care EVAL&TREAT Comment: Consulting Provider: [facility] Discharge provider: Narinder Schilling PA-C Summary Hospital Course Discharge Diagnosis: Left diabetic foot infection, osteomyelitis Anasarca secondary to congestive heart failure exacerbation Morbid obesity BMI 57 Chronic anticoagulation for atrial fibrillation Diabetes Hospital Course: Amputation left 5th toe with metatarsal head CPT code 62278-W0 Amputation left 4th metatarsal head CPT code 61864-H7 Procedure performed modifier 57 for more extensive procedure.? This is a new left 5th toe diabetic ulcer next to a previous 4th toe amputation site and the of persistent nonhealing a 4th toe amputation site requiring additional debridement metatarsal head resection and 5th toe amputation metatarsal head resection closure. Same procedure as scheduled: Yes Indications: The patient is a 65-year-old male with multiple medical? comorbidities including morbid obesity, heart failure, diabetes, neuropathy, AFib on chronic anticoagulation and peripheral edema that presents with worsening left foot diabetic infection with exposed bone osteomyelitis and additional nonhealing a previous toe amputation site requiring additional surgical debridement and amputation.? He also presents today with severe central and peripheral edema including very severe scrotal edema and weight is up from 174 kg on June 27 to 204 kg today.? He has failed outpatient oral antibiotics and outpatient oral Lasix.? He is having worsening orthopnea, scrotal swelling and skin weeping.? He is indicated for surgery for his left foot diabetic infection and inpatient admission for IV antibiotics and IV diuresis.? He is a high risk for worsening condition without urgent intervention and hospitalization.? The risks and benefits of the procedure have been discussed with the patient even opportunity to ask questions.? The risks of surgery include but are not limited to infection, malunion, nonunion, persistence of pain, damage to nerves and blood vessels, posttraumatic arthritis, DVT, PE, cardiopulmonary complications and .? The patient expressed a thorough understanding of the risks and benefits of surgery and has elected to proceed.? Consent was signed.? Further have discussed the patient's scrotal swelling with the urologist Dr. Goyal do believe this to be mass effect from his severe edema recommended inpatient admission for diuresis.? No specific urology surgical intervention is indicated at this time.? I have discussed the patient the inpatient internal medicine hospitalist team for admission and aggressive diuresis and management of medical comorbidities. Surgeon: Cyn Chicas Click Yes if Unassisted: Yes Anesthesia Type: General and Local Operative Notes Findings: Soft necrotic proximal phalanx bone left 5th toe with full-thickness open wound and purulence at the wound site.? Left 5th toe was amputated.? Additionally left 5th metatarsal head and 4th metatarsal head were excised.? No deeper purulence pockets were identified.? Nonhealing previous 4th toe amputation site was debrided thoroughly irrigated and closed Closure Type: primary Specimen(s): other (Tissue and bone for microbiology and pathology) Estimated Blood Loss (mL): 20 Blood products transfused: none Tourniquet time (min): 0 Patient admitted to the hospital for left diabetic foot infection, osteomyelitis. Patient consented for amputation left 5th toe with metatarsal head, amputation left 4th metatarsal head. Patient taken to the operating room on July 12, 2021. Hospitalist was asked to consult on patient due to edema and fluid overload. Patient was treated for anasarca presumed to be due to congestive heart failure exacerbation fluid restricted, low salt diet and Lasix 80 mg IV b.i.d.. He will be discharged with Lasix 40 mg b.i.d. patient will need to follow up with his primary care provider within 1 week for repeat labs. Follow-up with Dr. Godoy in 2 weeks to recheck left foot. Patient will restart outpatient wound care for right foot. Patient placed on linexolid 600mg PO bid. Discharge home today in stable condition. Status at Discharge Functional status at discharge: uses cane/walker Overall status at discharge: patient is progressing back to baseline Time Spent with Patient Time spent: Less than 30 minutes Exam Vital Signs (past 8 hours): - 07/18/21 05:00 07/18/21 06:10 07/18/21 08:36 Temperature 97.4 F L Pulse Rate 70 70 70 Respiratory Rate 18 18 Blood Pressure 125/67 127/62 Pulse Oximetry 99 98 Oxygen Delivery Method Room Air Oxygen Flow Rate 0 Narrative Exam Narrative: 65-year-old male resting comfortably in bed in no apparent distress. Left foot dressing was redone today by Dr. Chicas. Const General: cooperative and comfortable Nutritional Appearance: obese Objective Labs Result Diagrams: 07/13/21 04:40 07/18/21 05:18 Labs: Laboratory Results - last 24 hr 07/18/21 05:18 Sodium 132 L Potassium 4.3 Chloride 100 Carbon Dioxide 34 H BUN 20 Creatinine 0.84 Estimated GFR > 60.0 BUN/Creatinine Ratio 23.8 H Glucose 85 Calcium 8.5 PFSH Medical History Abdominal aortic aneurysm Asthma Atrial fibrillation CHF (congestive heart failure) Diabetes Diabetic neuropathy HLD (hyperlipidemia) HTN (hypertension) Idiopathic cardiomyopathy MRSA (methicillin resistant Staphylococcus aureus) Neuropathy RAFAL on CPAP Psoriasis Testicular hypofunction Surgical History H/O cardiac radiofrequency ablation Hx of atrioventricular node ablation Hx of umbilical hernia repair Status post LASIK surgery of both eyes Social History household members: spouse Smoking Status: Never smoker alcohol intake: never Discharge Assessment & Plan Assessment and Plan Assessment: Patient overall improving Plan of Treatment: Linezolid 600 mg bid x 2 weeks 40 mg of Lasix b.i.d. Follow-up with primary care provider in 1 week for repeat labs Follow-up with Dr. Chicas in 2 weeks for recheck left foot Discharge Plan Discharge Plan Patient Disposition: Home Discharge orders & Medications Prescriptions: New furosemide 40 mg Tablet 40 mg PO 0800,1700 Qty: 30 0RF hydrocodone-acetaminophen 5-325 mg Tablet 2 tab PO Q4HR PRN (Reason: Pain, Severe (7-10)) Qty: 60 0RF linezolid 600 mg tablet 600 mg PO BID 14 Days Qty: 28 0RF Continued Beconase AQ 25 GM spray,non-aerosol 1 spray Intranasal PRN PRN (Reason: allergies) Qty: 0 0RF testosterone [AndroGel] 1.25 GM gel in packet 1.25 gm TD QDAY Qty: 0 0RF gabapentin [Neurontin] 600 MG tablet 0.5 tab PO HS Qty: 0 0RF Pradaxa 150 MG capsule 150 mg PO BID Qty: 0 0RF Lantus U-100 Insulin 100 UNIT/1 ML solution 40 - 50 unit SQ BID Qty: 0 0RF insulin lispro [Humalog U-100 Insulin] 100 UNIT/1 ML solution 20 - 40 unit SQ SLIDE Qty: 0 0RF lisinopril 20 MG tablet 10 mg PO BEDTIME Qty: 0 0RF metformin [Glucophage XR] 500 MG tablet extended release 24 hr 1,000 mg PO BID Qty: 0 0RF Label Comments: duplicate, ignore. Serevent Diskus 50 MCG blister with device 1 puff INH BID Qty: 0 0RF morphine 15 MG tablet 15 mg PO BID Qty: 0 0RF metoprolol succinate 25 mg tablet extended release 24 hr 12.5 mg PO BID 0RF Label Comments: take 1 tablet by mouth twice a day Bacid 1 billion cell- 250 mg Tablet 1 tab PO TIDWM Qty: 90 0RF Discontinued torsemide 20 MG tablet 0.5 tab PO PRN PRN (Reason: water pill) Qty: 0 0RF Follow up/Referrals: Cyn Chicas MD [Physician] - (Follow-up with Dr. Chicas in 2 weeks) Danna Galarza ARNP [[employer]] - (Follow-up with primary care provider in 5-7 days, will need BMP checked) Discharge Health Status Health Concerns: Anasarca, due to diastolic CHF exacerbation, diabetic foot infection with osteomyelitis status post amputation left 5th toe and metatarsal head, morbid obesity, atrial fibrillation, diabetes Care Plan Goals: Low-salt diet, weight check daily Diet/Activity/Treatments Diet: Carb-consistent/Diabetic and Low-sodium Activity: Patient may heel weight bear in the postoperative shoe on the left side but must take care to off-load the surgical area on the left forefoot Other treatments: Patient has been seeing wound care as an outpatient for his right foot in should reschedule/restart a follow-up regarding right foot wound care. Patient will be on Lasix 40 mg b.i.d., stop torsemide for now, see PCP in 1 week for repeat labs. Skin/Wound/Dressing Care Report to your healthcare provider any signs of infection, such as:: chills, fever, increased pain, unusual drainage and unusual redness Dressing: Keep dressing clean and dry, his sutures will remain in place for 4 weeks Visit Report/Discharge Packet Instructions: DI for Toe Amputation, DI for Heart Failure, DI for Prescription Opioid Use Stand Alone Forms: Surgery Discharge Quality VTE Deep Vein Thrombosis/Pulmonary Embolism Present on Admission: No
[2021-07-18] MEDS: INSULIN GLARGINE 100 UNIT/ML 3ML PEN 30 UNIT SUBCUT (10:36)
--- NOTE | 2021-07-18 10:56 | PT.IPTN ---
Current Diagnoses Type 2 diabetes mellitus with diabetic polyneuropathy (07/12/21) Type 2 diabetes mellitus with other skin complications (07/12/21) Other specified diabetes mellitus with diabetic neuropathy, unspecified (07/12/21) Morbid (severe) obesity due to excess calories (07/12/21) Cellulitis, unspecified (07/12/21) Local infection of the skin and subcutaneous tissue, unspecified (07/12/21) Subacute osteomyelitis, left ankle and foot (07/12/21) Osteomyelitis, unspecified (07/12/21) Other specified disorders of the male genital organs (07/12/21) Generalized edema (07/12/21) Edema, unspecified (07/12/21) Surgery Performed Operation Date: 07/12/21 09:00 Actual Procedures p 5th toe amputation with debridement & excision 4th/5th toe metatarsal head(Left) - Cyn Chicas MD Physical Therapy Treatment Note M2 PT-IP Current Condition Start: 07/12/21 14:58 Freq: NEEDED Status: Active Protocol: Document 07/12/21 13:45 AB (Rec: 07/12/21 15:17 AB [id number]) Physical Therapy Current Condition Current Condition Evaluation Date 07/12/21 Treatment Diagnosis L foot osteomyelitis s/p 4th, 5th metatarsal head amputation ; diff in walk Onset Date 07/12/20 M3 PT-IP Subjective Start: 07/12/21 14:58 Freq: NEEDED Status: Active Protocol: Document 07/17/21 10:12 KS (Rec: 07/17/21 12:03 KS [id number]) Subjective Physical Therapy Visit Type Type Treatment Note Visit Start Time 10:12 Visit Stop Time 10:56 Total Visit Minutes 44 Number of PLAN CONSULTANT Visits 2 Physical Therapy Visit Comments Patient Comments agreeable to do PT M4 PT-IP Mobility and Gait Start: 07/12/21 14:58 Freq: NEEDED Status: Active Protocol: Document 07/17/21 10:12 KS (Rec: 07/17/21 12:03 KS [id number]) PT-Bed Mobility Assessment Rolling Type of Rolling Roll to Right Supine to Sit Supine to Sit Standby Assistance,Head of Bed Elevated,Bedrails Sit to Supine Sit to Supine Minimal Assistance,1 Person Assistance,Head of Bed Elevated,Bedrails Scooting Scooting to Edge of Bed Contact Guard Assistance PT-Transfer Assessment Sit to and From Stand Sit to and from Stand Contact Guard Assistance,1 Person Assistance,Use of Upper Extremities Equipment Transfer Assistive Device Gait Belt,Front Wheeled Walker Orthotic/Prosthetic Devices or Brace: No Transfers Transfer Destination Bed Transfer Technique Pt ambulated w/ FWW Transfer Ability Level of Assist Contact Guard Assistance, Minimal Assistance,1 Person Assistance,Use of Upper Extremities Comments Mobility Comments Pt in bed upon arrival from therapy and agreeable to participate. He first completed 1x10 bilateral ankle pumps and heel slides. He requires extra time and redirection to complete all tasks. SBA for sup<>sit w/ HOB elevated. Pillows positioned inbetween and over the guard rail of bed per pts request. Pt reported dizziness when sitting but it subsided. CGA for sit<>stand w/ FWW. Pt then ambulated ~60 ft around room w/ FWW w/ wide based gait and cues to bear weight through L heel, but complained of itchiness on backside and DIRECTOR COMMUNITY HEALTH NURSING arrived to apply ointment to back side and scrotum. Pt able to maintain standing balance ~3 min for ointment application before returning to bed w/ Min A for LE guidance. Pt left in bed w/ alarm on and DIRECTOR [employer] HE[employer] NURSING in room. Gait Assessment Gait Gait Assistance Required: Standby Assistance Distance (Feet) 60 Able to Maintain Weight Bearing Status Yes During Gait Assistive Devices Assistive Device Gait Belt,Front Wheeled Walker Orthotic/Prosthetic Devices or Brace: No Gait Deviations General Gait Pattern Decreased Stride Length, Decreased Feet Clearance,Step- to Gait,Wide Based Gait Factors Limiting Gait Function Factors Limiting Gait Function Decreased Activity Tolerance, Decreased Sensation,Difficulty Following Directions,Limited Range of Motion,Pain,Poor Balance Comments Gait Comments Please refer to mobility section for details. Pt states family acquired bariatric FWW for home use. PT-Balance Assessment Sitting Balance and Reactions Static Sitting Balance Ability Good Dynamic Sitting Balance Ability Good Standing Balance and Reactions Static Standing Balance Ability Fair Dynamic Standing Balance Ability Fair Device Used FWW M5 PT-IP Objective Assessments Start: 07/12/21 14:58 Freq: NEEDED Status: Active Protocol: Document 07/12/21 13:45 AB (Rec: 07/12/21 15:17 AB [id number]) Orientation Orientation/Cognition Level of Alertness Alert Orientation Name,Place,Situation Language Function Ability No Deficits Noted Safety Awareness Decreased Safety Awareness Memory Description No Deficits Noted Gross Range of Motion Lower Extremity ROM Assessment Bilaterally Impaired Impairments limit due to BLE edema Strength Lower Extremity Strength Assessment Bilaterally Impaired Hip 3-/5 Knee 3+/5 Sensation Assessment Sensation Light Touch Impaired Proprioception (Position) Impaired Comments Sensation Comments decrease sensation on BLE Muscle Tone Muscle Tone WNL Yes M6 PT-IP Treatment Start: 07/12/21 14:58 Freq: NEEDED Status: Active Protocol: Document 07/17/21 10:12 KS (Rec: 07/17/21 12:03 KS [id number]) Physical Therapy Treatment Exercises Exercises Ankle Pumps,Heel Slides Education Education Provided Weight Bearing Status,Safety M7 PT-IP Assessment and Plan Start: 07/12/21 14:58 Freq: NEEDED Status: Active Protocol: Document 07/17/21 10:12 KS (Rec: 07/17/21 12:03 KS [id number]) PT Summary Assessment and Plan Potential Rehabilitation Potential Fair Summary Impairments Pain,ROM,Strength,Balance, Coordination,Sensation,Tone, Cognition,Bed Mobility, Transfers,Gait,Activity Tolerance Progress Towards Goals Slow Progress due to Medical Issues Assessment Summary Pt continues to be limited in mobility by weakness and low tolerance for activity. He also requires frequent redirection and increased time to complete tasks. SBA for most bed mobility, however requiring Min A for LE assistance into bed. CGA for sit<>Stand w/ FWW and SBA for ambulation w/ FWW w/ cues to maintain weightbearing through heel of L foot. Goals Bed Mobility Goal Standby Assistance Transfer Goal Standby Assistance,Front Wheeled Walker Gait Goal Standby Assistance,Front Wheel Walker Gait Distance 150 Other Goals ambulation using stnd walker 150 ft mod I up/down 20 steps R rail L SPC SBA Days to Meet Goals 10 Frequency of Treatment Frequency Of Treatment Once a Day Treatment Plan Physical Therapy Treatment Plan Bed Mobility Training,Transfer Training,Gait Training, Therapeutic Exercise,Balance Retraining,Post Op Education, Discharge Planning,Hot or Cold Pack,Neuromuscular Re-ed, Coordination Retraining,Manual Therapy Other Recommendations and Next Treatment Increase ambulation distance. Focus Weight Bearing Status Allowed Weight Bearing Amount (enter % L heel weight bearing only or #) (%) Recommendations To Nursing Amount of Assist Needed 1 Person Assist Discharge Recommendations PT Discharge Recommendations Home with Assistance,Home Health Equipment Needed for Home Before Pts family acquired bariatric Discharge FWW Transportation Needs at Discharge Private Vehicle
--- NOTE | 2021-07-18 11:23 | PT.IPTN ---
Current Diagnoses Type 2 diabetes mellitus with diabetic polyneuropathy (07/12/21) Type 2 diabetes mellitus with other skin complications (07/12/21) Other specified diabetes mellitus with diabetic neuropathy, unspecified (07/12/21) Morbid (severe) obesity due to excess calories (07/12/21) Cellulitis, unspecified (07/12/21) Local infection of the skin and subcutaneous tissue, unspecified (07/12/21) Subacute osteomyelitis, left ankle and foot (07/12/21) Osteomyelitis, unspecified (07/12/21) Other specified disorders of the male genital organs (07/12/21) Generalized edema (07/12/21) Edema, unspecified (07/12/21) Surgery Performed Operation Date: 07/12/21 09:00 Actual Procedures p 5th toe amputation with debridement & excision 4th/5th toe metatarsal head(Left) - Cyn Chicas MD Physical Therapy Treatment Note M2 PT-IP Current Condition Start: 07/12/21 14:58 Freq: NEEDED Status: Active Protocol: Document 07/18/21 11:00 SP (Rec: 07/18/21 15:10 SP [id number]) Physical Therapy Current Condition Current Condition Evaluation Date 07/12/21 Treatment Diagnosis L foot osteomyelitis s/p 4th, 5th metatarsal head amputation ; diff in walk Onset Date 07/12/20 M3 PT-IP Subjective Start: 07/12/21 14:58 Freq: NEEDED Status: Active Protocol: Document 07/18/21 11:00 SP (Rec: 07/18/21 15:10 SP [id number]) Subjective Physical Therapy Visit Type Type Treatment Note Visit Start Time 11:00 Visit Stop Time 11:23 Total Visit Minutes 23 Notes Pt unavailable initially due to bed not adjusting flat, maintainence trying to assist. RESEARCH CHIEF ENGINEER in room for 2nd person assist as needed, not needed. Number of PHOTOENGRAVING APPRENTICE Visits 3 Physical Therapy Visit Comments Patient Comments agreeable to do PT upon 2nd attempt Patient Goals return home with to assist him Therapy Pain Assessment Pain When Pain Assessed During Mobility Pain Present Pain Present Pain Reported Location L foot Intensity 3 Scale Used Numeric (0 - 10) Description With Movement Pain Behaviors Facial Grimacing Pain Management Techniques Elevation,Re-positioning, Timing of Activity with Medications Perineal Scale Used no scale rating given Description With Movement Pain Behaviors Facial Grimacing,Guarding Pain Management Techniques Modification of Treatment,Re- positioning,Timing of Activity with Medications M4 PT-IP Mobility and Gait Start: 07/12/21 14:58 Freq: NEEDED Status: Active Protocol: Document 07/18/21 11:00 SP (Rec: 07/18/21 15:10 SP [id number]) PT-Bed Mobility Assessment Supine to Sit Supine to Sit Minimal Assistance,Head of Bed Elevated,Bedrails Scooting Scooting to Edge of Bed Minimal Assistance PT-Transfer Assessment Sit to and From Stand Sit to and from Stand Contact Guard Assistance,1 Person Assistance,Use of Upper Extremities Equipment Transfer Assistive Device Gait Belt,Front Wheeled Walker Orthotic/Prosthetic Devices or Brace: No Transfers Transfer Destination Chair Transfer Technique Pt ambulated w/ FWW Transfer Ability Level of Assist Standby Assistance,Contact Guard Assistance,Use of Upper Extremities Comments Mobility Comments PHOTOENGRAVING APPRENTICE donned cast shoe on LLE in elevated supine. Pt required CGA for trunk and Min A for LLE support to EOB while heavily support of bed rail supine>sit and scoot while in elevated supine with LE lowered seated position due to bed unable to reposition flat , mechanics not working. Sit> Stand CGA w/ FWW, cued LLE front BLE inside bariatric FWW . SPT bed>chair, cues for LLE heel WB only and feet in side FWW, Min A to sit on chair. Sit>stand gait to door and back, initial WB into L forefoot but decreased with forward gait distance 30 ft cues for step to LLE out front leading and body position closer to back FWW legs, decreased to SBA. Pt returned to chair CGA slow descent sit in chair, proper postioning of FWW. Pt is ok to return home with spouse and family to assist him when medically stable. Recommending HHPT for improved strength and functional mobility. Gait Assessment Gait Gait Assistance Required: Standby Assistance Distance (Feet) 30 Able to Maintain Weight Bearing Status Yes During Gait Assistive Devices Assistive Device Gait Belt,Front Wheeled Walker Orthotic/Prosthetic Devices or Brace: No Gait Deviations General Gait Pattern Antalgic,Decreased Stride Length,Decreased Feet Clearance,Flexed Trunk,Step-to Gait,Wide Based Gait Factors Limiting Gait Function Factors Limiting Gait Function Decreased Activity Tolerance, Decreased Sensation,Difficulty Following Directions,Limited Range of Motion,Pain,Poor Safety Awareness Comments Gait Comments See mobility details. Stair Climbing Assessment Comments Stair Climbing Comments not needed PT-Balance Assessment Sitting Balance and Reactions Static Sitting Balance Ability Good Dynamic Sitting Balance Ability Good Standing Balance and Reactions Static Standing Balance Ability Fair Dynamic Standing Balance Ability Fair Device Used FWW M5 PT-IP Objective Assessments Start: 07/12/21 14:58 Freq: NEEDED Status: Active Protocol: Document 07/12/21 13:45 AB (Rec: 07/12/21 15:17 AB [id number]) Orientation Orientation/Cognition Level of Alertness Alert Orientation Name,Place,Situation Language Function Ability No Deficits Noted Safety Awareness Decreased Safety Awareness Memory Description No Deficits Noted Gross Range of Motion Lower Extremity ROM Assessment Bilaterally Impaired Impairments limit due to BLE edema Strength Lower Extremity Strength Assessment Bilaterally Impaired Hip 3-/5 Knee 3+/5 Sensation Assessment Sensation Light Touch Impaired Proprioception (Position) Impaired Comments Sensation Comments decrease sensation on BLE Muscle Tone Muscle Tone WNL Yes M6 PT-IP Treatment Start: 07/12/21 14:58 Freq: NEEDED Status: Active Protocol: Document 07/18/21 11:00 SP (Rec: 07/18/21 15:10 SP [id number]) Physical Therapy Treatment Education Education Provided Weight Bearing Status,Safety M7 PT-IP Assessment and Plan Start: 07/12/21 14:58 Freq: NEEDED Status: Active Protocol: Document 07/18/21 11:00 SP (Rec: 07/18/21 15:10 SP [id number]) PT Summary Assessment and Plan Potential Rehabilitation Potential Fair Summary Impairments Pain,ROM,Strength,Balance, Coordination,Sensation,Tone, Cognition,Bed Mobility, Transfers,Gait,Activity Tolerance Progress Towards Goals Progressing Toward Goals,Slow Progress due to Activity Tolerance Assessment Summary Pt required increased assist Min A for LLE and trunk support w/ heavy use bed rail during bed mobility due to bed malfunction in seated position. Transfers and gait CGA w/ FWW improved with maintaining heelWB LLE by end of tx with understanding LLE position in front step to pattering and body closer to bariatric FWW. Family able to acquire bariatric FWW for home use. Pt is ok to return home with family to assist him when medically stable. Goals Bed Mobility Goal Standby Assistance Transfer Goal Standby Assistance,Front Wheeled Walker Gait Goal Standby Assistance,Front Wheel Walker Gait Distance 150 Other Goals ambulation using stnd walker 150 ft mod I up/down 20 steps R rail L SPC SBA Days to Meet Goals 10 Frequency of Treatment Frequency Of Treatment Once a Day Treatment Plan Physical Therapy Treatment Plan Bed Mobility Training,Transfer Training,Gait Training, Therapeutic Exercise,Balance Retraining,Post Op Education, Discharge Planning,Hot or Cold Pack,Neuromuscular Re-ed, Coordination Retraining,Manual Therapy Other Recommendations and Next Treatment bed mob, transfers, gait Focus further distance w/ FWW. Weight Bearing Status Allowed Weight Bearing Amount (enter % L heel weight bearing only or #) (%) Recommendations To Nursing Amount of Assist Needed Standby Assistance,1 Person Assist Discharge Recommendations PT Discharge Recommendations Home with Assistance,Home Health Equipment Needed for Home Before Pts family acquired bariatric Discharge FWW Transportation Needs at Discharge Private Vehicle
--- NOTE | 2021-07-18 13:36 | CM.DPNOTE ---
Faxed referral packet per Teresa to [facility] and received fax conf. Rosanne Cobian CM assist.
--- NOTE | 2021-07-18 14:12 | CM.DPC ---
DCP Discharge Home with HH Per Ortho MD and PA, pt is medically stable to d/c home today on oral abx and no identified barriers to discharge. Per LAY OUT CARPENTER and PT, recommending safe d/c home with spouse assist and HH. Pt's spouse very attentive and supportive and was able to get bariatric FWW for use and pt was able to better ambulate without weight on his amputated toes/wound. SW met bedside with pt and explained role and pt confirms he finally had bm which is his first in 7 days and feeling much better and confirms he feels safe and agreeable with d/c to home today and has a hx of HH in 2017 and feels HH would be beneficial at d/c. No preference between the two HH agencies that cover [facility], whichever has soonest availability. MONI placed call to [facility] and left msg regarding [facility] availability and then call [facility] and confirmed they can accept pt and may have an opening in the next 48-72 hours. FEDERICO [facility] kindly faxed referral along with signed F2F and MD orders. Pt states his spouse and son will provide transport around 1600 today to home and will bring him clothes to change into and SW provided [facility] brochure to pt. MONI updated RN on d/c timeline to home with HH and also called Kasia at [facility] with update and she will follow up with Dr. Chicas after pt's f/u appointment with Ortho in 2 weeks to determine if Wound Clinic needed at that time. Plan: Patient to d/c home today via spouse and son POV and new [facility] referral and outpt f/u with PCP in one week and Ortho in 2 weeks. ALE Mckinley
[2021-07-18 15:18] VITALS: BP 134/66; PULSE 70; RESP 19; TEMP 36.9; O2SAT 98
--- NOTE | 2021-07-18 17:25 | PC.NURSE ---
Pt feels ready to d/c to home. D/c instructions reviewed. Has voided since olivares removal, had a bm as well today. He will schedule his follow up appointments. Rx has been esent. Questions answered. Pt d/c to home via auto with spouse.
== END 2021-07-18 16:00 | disposition home or self-care (01) | DRG 616 ==
LOC: OR 08:42 → AC 09:10
PROVIDERS: Internal Medicine; Nurse Practitioner Family; Admitting Provider Orthopaedic Surgery Foot and Ankle Surgery; Family Provider Specialist; Referring Provider Orthopaedic Surgery Foot and Ankle Surgery; Visit Provider Orthopaedic Surgery Foot and Ankle Surgery
PROC: 0Y6Y0Z0 Detachment at Left 5th Toe, Complete, Open Approach (ICD-10-PCS; principal; 2021-07-12 09:00)
DX: E11.69 Type 2 diabetes mellitus with other specified complication (principal); I50.33 Acute on chronic diastolic (congestive) heart failure; M86.8X7 Other osteomyelitis, ankle and foot; L97.526 Non-pressure chronic ulcer of other part of left foot with bone involvement without evidence of necrosis; Z68.43 Body mass index [BMI] 50.0-59.9, adult; I42.8 Other cardiomyopathies; T87.89 Other complications of amputation stump; E11.621 Type 2 diabetes mellitus with foot ulcer; L03.032 Cellulitis of left toe; E66.01 Morbid (severe) obesity due to excess calories; E88.81 Metabolic syndrome and other insulin resistance; I48.91 Unspecified atrial fibrillation; G47.33 Obstructive sleep apnea (adult) (pediatric); B96.89 Other specified bacterial agents as the cause of diseases classified elsewhere; I11.0 Hypertensive heart disease with heart failure; E11.42 Type 2 diabetes mellitus with diabetic polyneuropathy; Z95.0 Presence of cardiac pacemaker; Z79.4 Long term (current) use of insulin; Z79.01 Long term (current) use of anticoagulants; Z79.84 Long term (current) use of oral hypoglycemic drugs; Z20.822 Contact with and (suspected) exposure to COVID-19
CPT/HCPCS: 36415; 76705; 80048; 80053; 80202; 81001; 82565; 82570; 82962; 83735; 83880; 83930; 83935; 84100; 84156; 84300; 85027; 87070; 87075; 87077; 87086; 87147; 87176; 87205; 87635; 93306; 94640; 94760; 97110; 97116; 97162; 97530; C9803; J0171; J1170; J1815; J1940; J2250; J2405; J2704; J3010; J7613; Q9957

== ENCOUNTER → 2021-08-10 13:08 | Outpatient (CLI) | payer OTHER, MEDICARE, SELFPAY ==
[2021-07-12 14:00] VITALS: BMI 57.7
== END ==
PROVIDERS: Family Provider Specialist; Referring Provider Orthopaedic Surgery Foot and Ankle Surgery; Visit Provider Nurse Practitioner Family
DX: L03.115 Cellulitis of right lower limb (principal); L03.116 Cellulitis of left lower limb; R06.02 Shortness of breath; R60.0 Localized edema; I50.9 Heart failure, unspecified; I42.9 Cardiomyopathy, unspecified; I48.91 Unspecified atrial fibrillation; Z89.422 Acquired absence of other left toe(s)
CPT/HCPCS: 99212

== ENCOUNTER → 2021-08-22 09:46 | Outpatient (CLI) | payer OTHER, MEDICARE, SELFPAY ==
[2021-07-12 14:00] VITALS: BMI 57.7
== END ==
PROVIDERS: Family Provider Specialist; Referring Provider Orthopaedic Surgery Foot and Ankle Surgery; Visit Provider Family Medicine
DX: T87.89 Other complications of amputation stump (principal); E11.621 Type 2 diabetes mellitus with foot ulcer; L97.512 Non-pressure chronic ulcer of other part of right foot with fat layer exposed; L97.522 Non-pressure chronic ulcer of other part of left foot with fat layer exposed; L97.812 Non-pressure chronic ulcer of other part of right lower leg with fat layer exposed; L97.822 Non-pressure chronic ulcer of other part of left lower leg with fat layer exposed; L08.9 Local infection of the skin and subcutaneous tissue, unspecified; R60.0 Localized edema; E11.40 Type 2 diabetes mellitus with diabetic neuropathy, unspecified; I36.1 Nonrheumatic tricuspid (valve) insufficiency; I27.20 Pulmonary hypertension, unspecified; E66.01 Morbid (severe) obesity due to excess calories; Z68.42 Body mass index [BMI] 45.0-49.9, adult; Z89.422 Acquired absence of other left toe(s); Z79.4 Long term (current) use of insulin; Z79.84 Long term (current) use of oral hypoglycemic drugs
CPT/HCPCS: 11042; 11045; 29581; 87070; 87075; 87077; 87186; 87205; 99214

== ENCOUNTER → 2021-08-29 14:09 | Outpatient (CLI) | payer OTHER, MEDICARE, SELFPAY ==
[2021-07-12 14:00] VITALS: BMI 57.7
== END ==
PROVIDERS: Family Provider Specialist; Referring Provider Family Medicine; Visit Provider Family Medicine
DX: T87.89 Other complications of amputation stump (principal); E11.621 Type 2 diabetes mellitus with foot ulcer; L97.524 Non-pressure chronic ulcer of other part of left foot with necrosis of bone; L97.515 Non-pressure chronic ulcer of other part of right foot with muscle involvement without evidence of necrosis; L97.512 Non-pressure chronic ulcer of other part of right foot with fat layer exposed; L97.521 Non-pressure chronic ulcer of other part of left foot limited to breakdown of skin; L08.9 Local infection of the skin and subcutaneous tissue, unspecified; E11.69 Type 2 diabetes mellitus with other specified complication; M86.172 Other acute osteomyelitis, left ankle and foot; E11.40 Type 2 diabetes mellitus with diabetic neuropathy, unspecified; I87.2 Venous insufficiency (chronic) (peripheral); L97.812 Non-pressure chronic ulcer of other part of right lower leg with fat layer exposed; L97.822 Non-pressure chronic ulcer of other part of left lower leg with fat layer exposed; R60.0 Localized edema; I36.1 Nonrheumatic tricuspid (valve) insufficiency; I27.20 Pulmonary hypertension, unspecified; Z89.422 Acquired absence of other left toe(s); Z79.4 Long term (current) use of insulin; Z79.84 Long term (current) use of oral hypoglycemic drugs
CPT/HCPCS: 11042; 11044; 87070; 87075; 87077; 87147; 87176; 87186; 87205; 99215

== ENCOUNTER → 2021-08-30 10:55 | Outpatient (CLI) | payer OTHER, MEDICARE, SELFPAY ==
[2021-07-12 14:00] VITALS: BMI 57.7
[2021-08-30 12:47] LABS: COVID19 -Nasal RAPID Negative (Negative)
== END ==
PROVIDERS: Family Provider Specialist; Visit Provider Family Medicine Sleep Medicine
DX: Z20.822 Contact with and (suspected) exposure to COVID-19 (principal)
CPT/HCPCS: 87635; C9803

== ENCOUNTER 2021-08-31 11:29 | Day surgery (SDC) | payer OTHER, MEDICARE, SELFPAY ==
[2021-07-12 14:00] VITALS: BMI 57.7
[2021-08-30 14:38] VITALS: BMI 49.4
--- NOTE | 2021-08-31 | PATH_ITS ---
[facility] Accession Number: [id number] . 01 Material submitted: . toe - LEFT 3RD TOE . 01 Diagnosis: Left Third Toe, Amputation: Cutaneous ulcer with underlying mixed inflammation, necrosis, and scattered bacterial organisms. Underlying bone with marrow fibrosis, evidence of remodeling, and dense neutrophilic inflammation, consistent with acute osteomyelitis. Scattered bacterial organisms are present adjacent to bone. Skin, subcutaneous tissue, and bone margins appear viable. No evidence of malignancy identified in sections examined. MRV 09/10/2021 1056 Local . 01 Electronically signed: . Aman Ch MD, Dermatopathologist NPI- [id number] . 01 Gross description: . Received in formalin, labeled with the patient's name, and designated L third toe is a 5.5 x 3.0 x 2.0 cm digit, disarticulated and the proximal interphalangeal joint with up to 3.0 cm of exposed proximal bone. The margin is inked black. There is a 2.2 x 2.0 cm purulent ulcer at the dorsal aspect, involving and obliterating the nail, with 1 cm from the proximal skin and soft tissue margin and 4 cm from the proximal bone margin. The remaining skin and mijares and sloughing with no additional lesions identified. [employer] sections are submitted as follows: . A1: Proximal bone, en face, and perpendicular sections of proximal skin and soft tissue margin following decalcification. A2: [employer] cross section of ulcer with underlying bone following decalcification. (LUIS ALFREDO:[id number]) /MRV 09/09/2021 1239 Local . 01 Pathologist provided ICD-10: M86.272 . 01 CPT . 494388, 485101 Specimen Comment: A courtesy copy of this report has been sent to [phone] Performed at: 01 [facility] [address] [facility], [place], [place] [id number] MD Janes Diego MD Phone: [phone]
--- NOTE | 2021-08-31 07:54 | PM.HP.1 ---
History of Present Illness History of Present Illness Date Patient Seen: 08/31/21 Time Patient Seen: 12:16 Chief complaint: SDC Narrative: Paco is a 63-year-old medically complex male with a diabetic foot ulcers. He is status post left 4th and 5th toe amputations. He was on IV antibiotics while in the hospital and discharged with linezolid. He also had severe anasarca and was up 30 kg and was diuresed by the medicine team for with IV Lasix. He has been followed by wound care. He has had severe peripheral edema lymphedema with the fluid leakage from his bilateral lower extremities. He had a healed his 4th and 5th amputation site but his severe peripheral edema was literally dripping clear fluid from his bilateral lower extremity causing maceration. He was seen this week in wound care and noted to have infection and osteomyelitis of the 3rd toe on the left foot this was nonviable. He also has a ulcer on the right hallux but the major concern is the left 3rd toe. His lymphedema somewhat better. Wound care is trying to get him established with a vegetable trimmer. There was consultation with scheduled Infectious Disease and he was recommended for admission to [facility] for Infectious Disease and wound management, amputation there. However the patient has refused admission at [facility] and therefore care is be coordinated for surgery with myself and [facility] today and placement of a PICC line and IV antibiotics with help from Dr. Madrigal at wound care with Infectious Disease follow-up at [facility]. No PICC line nurse was available at [facility] today so he will be getting a PICC line at [facility] coordinated through the Infectious Disease team there tomorrow. He will get his 1st dose of cefepime today Patient History Medical History Abdominal aortic aneurysm Asthma Atrial fibrillation CHF (congestive heart failure) Diabetes Diabetic neuropathy HLD (hyperlipidemia) HTN (hypertension) Hx of diabetic foot ulcer Idiopathic cardiomyopathy MRSA (methicillin resistant Staphylococcus aureus) Neuropathy RAFAL on CPAP Psoriasis Testicular hypofunction Surgical History H/O cardiac radiofrequency ablation History of surgery (07/12/21) Hx of atrioventricular node ablation Hx of umbilical hernia repair Status post LASIK surgery of both eyes Family & Social History Social History: household members spouse Tobacco & Substance use: Smoking Status Never smoker alcohol intake never alcohol intake frequency other Substance Use Type does not use Meds Home Medications and Allergies Home Medications Medication Instructions Recorded Confirmed Type beclomethasone diprop (AQ) 42 mcg 1 spray INTRANASAL PRN PRN #0 01/14/17 08/30/21 History (0.042 %) nasal spray (Beconase AQ) dabigatran etexilate 150 mg 150 mg PO BID #0 01/14/17 08/30/21 History capsule (Pradaxa) gabapentin 600 mg tablet 0.5 tab PO HS #0 01/14/17 08/30/21 History (Neurontin) insulin glargine 100 unit/mL 40 - 50 unit SQ BID #0 01/14/17 08/30/21 History subcutaneous solution (Lantus U-100 Insulin) insulin lispro 100 unit/mL 20 - 40 unit SQ SLIDE #0 01/14/17 08/30/21 History subcutaneous solution (Humalog U-100 Insulin) lisinopril 20 mg tablet 10 mg PO BEDTIME #0 01/14/17 08/30/21 History metformin 500 mg tablet,extended 1,000 mg PO BID #0 01/14/17 08/30/21 History release 24 hr (Glucophage XR) morphine 15 mg immediate release 15 mg PO BID #0 01/14/17 08/30/21 History tablet salmeterol 50 mcg/dose blister 1 puff INH BID #0 01/14/17 08/30/21 History powder for inhalation (Serevent Diskus) testosterone 1.62 % (20.25 mg/1.25 1.25 gm TD QDAY #0 01/14/17 08/30/21 History gram) transdermal gel packet (AndroGel) metoprolol succinate 25 mg 12.5 mg PO BID 05/19/21 08/30/21 History tablet,extended release 24 hr L.acidophilus-L.bulgar-B.bifid-S.thermoph 1 tab PO TIDWM #90 tab 05/20/21 08/30/21 Rx 1 billion cell-250 mg tablet (Bacid) furosemide 40 mg tablet 40 mg PO 0800,1700 #30 tab 07/18/21 08/30/21 Rx hydrocodone 5 mg-acetaminophen 325 2 tab PO Q4HR PRN #60 tab 07/18/21 08/30/21 Rx mg tablet hydrocodone 5 mg-acetaminophen 325 1 tab PO Q4H PRN #30 tab 08/31/21 Rx mg tablet Allergies Allergy/AdvReac Type Severity Reaction Status Date / Time cephalexin [CEPHALEXIN] Allergy Severe BREATHING Verified 08/31/21 11:17 PROBLEMS, TIGHTNESS diltiazem [DILTIAZEM] Allergy Severe SWELLING, Verified 08/31/21 11:17 RASH Influenza Virus Vaccines Allergy Unknown UNKNOWN Verified 08/31/21 11:17 [INFLUENZA VIRUS VACCINES] REACTION PER PT, BUT IT WAS SERIOUS atenolol Allergy Swelling Verified 08/31/21 12:05 of the Eye carvedilol Allergy Verified 08/31/21 12:06 gabapentin Allergy Verified 08/31/21 11:17 lisinopril Allergy Verified 08/31/21 12:06 Penicillins Allergy Verified 08/31/21 11:17 amiodarone [AMIODARONE] AdvReac Severe FATIGUE, Verified 08/31/21 11:17 PHOTOSENSITIVITY, MACULAR DEGENERATION clonidine [CLONIDINE] AdvReac Severe MY FEET Verified 08/31/21 11:17 TURNED TO JELLY, WEEPING metolazone AdvReac Intermediate Vomiting Verified 08/31/21 11:17 doxycycline AdvReac Mild Diarrhea Verified 08/31/21 11:17 verapamil AdvReac Unknown Verified 08/31/21 11:17 Review of Systems Review of Systems Narrative: Peripheral edema. Obstructive sleep apnea. Shortness of breath. Peripheral edema somewhat improved with the Coban lymphedema wraps Exam Narrative Exam Narrative: Patient is in no obvious distress fully oriented. Normal affect. HEENT exam normocephalic atraumatic. Heart regular rate and rhythm. Lungs clear to auscultation. no weight-bearing assistive devices. Bilateral lower extremities a severe peripheral edema. status Post 4th and 5th toe amputations. third toe infected nonviable-gross necrosis at the distal phalanx with swelling erythema and purulence. Stocking-glove peripheral neuropathy. Palpable dorsalis pedis pulses. Bilateral lower extremity edema. Compressive wraps were removed today. There is still fluid leaking around the pretibial area both anteriorly and posteriorly. No full-thickness wounds less maceration on the foot today than previous. Objective Labs Labs: Previous wound cultures from wound care 08/29/2021 demonstrated polymicrobial growth Assessment & Plan Assessment and plan (1) Skin ulcer of third toe with necrosis of bone: Status: Acute (2) Obesity, morbid, BMI 40.0-49.9: Status: Acute (3) Diabetic foot infection: Status: Acute (4) Peripheral edema: Problem details: Severe peripheral edema and scrotal edema. Overall weight at least 30 lb. Has been on outpatient Lasix without significant improvement. Worsening condition. Status: Acute Plan Patient has been indicated for left 3rd toe amputation due to non salvageable digit. He will also be arranged to get IV antibiotics and a PICC line. This will be managed through Infectious Disease. He may be heel weight-bearing on his foot should limit any forefoot weight-bearing to help with wound healing. He will get his 1st dose of cefepime today. There is not a PICC line nurse available [facility] so we will get a PICC line at [facility] tomorrow. He will continue his home wound care with nursing edema wraps and follow-up with the [facility]. Care has been coordinated today with myself, Dr. Madrigal at [facility] Wound Care and Dr. Monroy at [facility] Infectious Disease This patient has multiple difficult medical comorbidities and is at high risk for additional surgeries or amputations. The risks and benefits of the procedure have been discussed with the patient even opportunity to ask questions. The risks of surgery include but are not limited to infection, malunion, nonunion, persistence of pain, damage to nerves and blood vessels, posttraumatic arthritis, DVT, PE, cardiopulmonary complications and . The patient expressed a thorough understanding of the risks and benefits of surgery and has elected to proceed. Consent was signed in the office today. Time Spent With Patient Critical Care time: I spent a total of [] minutes of critical care time on this patient's care today; this time is exclusive of procedural time. Quality VTE Deep Vein Thrombosis/Pulmonary Embolism Present on Admission: No
[2021-08-31 11:57] VITALS: BMI 49.4
[2021-08-31 12:13] VITALS: BP 125/67; PULSE 66; RESP 20; TEMP 37.3; O2SAT 100
[2021-08-31] MEDS: LACTATED RINGERS 1,000 ML 42 ML IV (12:41)
--- NOTE | 2021-08-31 12:53 | SUR.PREOP ---
08/21/21-1115 orders for picc line insert from Dr Redd. DI called and no RN available today. Dr Redd notified. will set up with patient after discharge.
--- NOTE | 2021-08-31 12:59 | SUR.OPER ---
Supine on padded OR bed, head on pillow, arms secured on padded arm boards at <90 degrees abduction, legs uncrossed, safety belt at thigh, tape over blanket over lower legs.
[2021-08-31] MEDS: CEFEPIME 2 GM in SODIUM CHLORIDE 0.9% 100 ML 200 ML IV (13:55)
[2021-08-31] MEDS: BUPIVACAINE 0.25% (PF) 30 ML, EPINEPHrine 0.15 MG INJ (14:25)
[2021-08-31 14:47] VITALS: BP 112/60; PULSE 70; RESP 16; TEMP 36.7; O2SAT 99
[2021-08-31 14:55] VITALS: BP 112/70; PULSE 70; RESP 16; TEMP 36.6; O2SAT 98
[2021-08-31 15:00] VITALS: BP 114/66; PULSE 77; RESP 16; O2SAT 98
[2021-08-31 15:04] VITALS: BP 113/63; PULSE 72; RESP 12; O2SAT 98
--- NOTE | 2021-08-31 15:06 | PM.OP.1 ---
Operative Date/Time/Diagnoses Date of procedure: 08/31/21 Time of procedure: 14:07 Pre-op diagnosis: Foot diabetic infection necrosis 3rd toe, diabetes type 2, severe peripheral edema-anasarca, morbid obesity BMI 49 Post-op diagnosis: same Procedure & Clinicians Procedure: Amputation 3rd [place]pt 82216 T2 Same procedure as scheduled: Yes Indications: Patient is a 66-year-old white male with multiple medical comorbidities including severe peripheral edema anasarca as well and BMI 49 diabetes with diabetic foot infections he is status post 4th and 5th toe amputations. He has new necrosis of the 3rd toe that is nonviable. He is indicated for amputation. He is going to be getting treatment for infection with IV antibiotics through scheduled Infectious Disease. He was unable to get a PICC line today here because there was no PICC nurse available but this will be scheduled separately through [facility]. He will get his 1st dose of cefepime with us today in the OR. He is also getting wound care and lymphedema and peripheral edema wraps which have helped his peripheral edema somewhat. The risks and benefits of the procedure have been discussed with the patient been given the opportunity to ask questions. The risks of surgery include but are not limited to infection, need for additional surgeries, amputation, persistence of pain, damage to nerves and blood vessels, posttraumatic arthritis, DVT, PE, cardiopulmonary complications and . The patient expressed a thorough understanding of the risks and benefits of surgery and has elected to proceed. Consent was signed. There was further discussed with the patient said to be contacted by scheduled Infectious Disease to rage time to get his PICC line. The importance of following through with the PICC line and IV antibiotics for infection treatment and reduction risk for additional amputations was discussed. Surgeon: Cyn Chicas Click Yes if Unassisted: Yes Anesthesia Type: General and Local Operative Notes Findings: Gross necrosis distal left 3rd toe with involvement distal middle and proximal phalanx. Proximal phalanx base appeared normal. Digit was amputated through the MTP joint with toe sent for pathology and bone culture was sent for microbiology Closure Type: primary Specimen(s): other (Tissue/bone left 3rd toe proximal phalanx- for microbiology, toe for pathology) Estimated Blood Loss (mL): 10 Blood products transfused: none Tourniquet time (min): 0 Procedure in detail: Patient was seen in the preoperative area the site of surgery was marked informed consent confirmed. Patient was brought back to the operating room positioned supine on operative table. Anesthetic was administered. Bony prominences well padded. No tourniquet was used. The left lower extremities prepped and draped in the standard sterile fashion. Betadine was used over the foot and chlorhexidine farther up the leg. Formal time-out procedure was performed confirming the patient's side and site of surgery and presence of informed consent. Intraoperative antibiotic was cefepime 2 g and this was selected based on cultures from the wound previously that showed polymicrobial growth. Cefepime was also the planned antibiotic for the patient's extended home infusions. Attention was turned to the left foot as previous the patient has severe peripheral edema. He is not actively leaking fluid as much as he was 2 weeks ago however there is then acute necrosis of the left 3rd toe involving distal and middle phalanxes past the level of the PIP joint. There is no ascending cellulitis or fluctuance in the foot itself. The toe was ellipsed sized out and full-thickness incisions were taken through the skin subcutaneous tissues. To amputate the digit through the MTP joint. There was no purulence encountered proximally and the quality of the proximal and of the proximal phalanx was hard bone at this was rongeured off to sent for bone culture. The remainder of the toe was sent for pathology. The metatarsal head appeared viable. The wound was thoroughly irrigated with bulb syringe saline greater than 1 L. gloves were changed. Hemostasis was achieved. A new clean drape was placed. The wound was inspected. All tissue appeared viable and was bleeding appropriately. Deep closure was performed with a 2-0 PDS suture followed by 3-0 nylon in the skin. Wound was covered with Xeroform gauze and Kerlix wrap. The drapes removed. The lymphedema lesions on the maxwell and calf were covered with Adaptic and ABD pads then cast padding was placed around the foot and lower leg to just below the knee and this was overwrapped with Coban for an edema wrap. Patient was then woken from anesthetic and taken to the recovery room in good condition. There no immediate complications from this procedure. All counts were correct. Further it was observed this patient had no adverse reactions to administration of the cefepime. He had previously noted on historical allergies to penicillin as a child and there was a concern for a reaction after Keflex however this occurred several days after he had been on the prescription when he had severe anasarca so the reaction of chest tightness or shortness of breath much more likely to his anasarca and less likely to the cephalosporin. The patient showed no adverse reactions to the cefepime administered under monitoring today. Complications: none Post-operative Condition: stable Disposition: PACU Plan for aftercare: Heel or flatfoot weight-bearing. Offload the forefoot. Continue with edema wraps. May change dressings as needed. Keep them clean and dry. Follow up with [facility] Infectious Disease and follow their instructions to obtain a PICC line and IV antibiotics. He had 2 g of cefepime as your intraoperative IV antibiotic dose today. He tolerated this well. There was no evidence of any allergic response. Sutures will remain in place until follow-up with Orthopedics on September 26, 2021.
[2021-08-31 15:08] VITALS: BP 112/70; PULSE 70; RESP 16; TEMP 36.9; O2SAT 100
== END 2021-08-31 16:05 | disposition home or self-care (01) ==
PROVIDERS: Family Provider Specialist; PCP Internal Medicine; Referring Provider Orthopaedic Surgery Foot and Ankle Surgery; Visit Provider Orthopaedic Surgery Foot and Ankle Surgery
PROC: (CPT 28820; principal; 2021-08-31 12:45)
DX: E11.621 Type 2 diabetes mellitus with foot ulcer (principal); L97.524 Non-pressure chronic ulcer of other part of left foot with necrosis of bone; M86.172 Other acute osteomyelitis, left ankle and foot; E11.42 Type 2 diabetes mellitus with diabetic polyneuropathy; I89.0 Lymphedema, not elsewhere classified; E66.01 Morbid (severe) obesity due to excess calories; Z68.42 Body mass index [BMI] 45.0-49.9, adult; Z95.0 Presence of cardiac pacemaker; B96.5 Pseudomonas (aeruginosa) (mallei) (pseudomallei) as the cause of diseases classified elsewhere; I50.9 Heart failure, unspecified; I48.91 Unspecified atrial fibrillation; J45.909 Unspecified asthma, uncomplicated; I11.0 Hypertensive heart disease with heart failure; G47.33 Obstructive sleep apnea (adult) (pediatric); Z79.84 Long term (current) use of oral hypoglycemic drugs; Z79.4 Long term (current) use of insulin
CPT/HCPCS: 28820; 82962; 87070; 87075; 87077; 87176; 87186; 87205; J0171; J0692; J2704; J3010

== ENCOUNTER → 2021-09-05 09:57 | Outpatient (CLI) | payer OTHER, SELFPAY ==
[2021-07-12 14:00] VITALS: BMI 57.7
== END ==
PROVIDERS: Family Provider Specialist; PCP Internal Medicine; Referring Provider Internal Medicine; Visit Provider Family Medicine
DX: E11.621 Type 2 diabetes mellitus with foot ulcer (principal); E11.622 Type 2 diabetes mellitus with other skin ulcer; L97.512 Non-pressure chronic ulcer of other part of right foot with fat layer exposed; L97.522 Non-pressure chronic ulcer of other part of left foot with fat layer exposed; L97.812 Non-pressure chronic ulcer of other part of right lower leg with fat layer exposed; R60.0 Localized edema; L97.822 Non-pressure chronic ulcer of other part of left lower leg with fat layer exposed; L97.521 Non-pressure chronic ulcer of other part of left foot limited to breakdown of skin; L97.516 Non-pressure chronic ulcer of other part of right foot with bone involvement without evidence of necrosis; I36.1 Nonrheumatic tricuspid (valve) insufficiency; I27.20 Pulmonary hypertension, unspecified; E11.40 Type 2 diabetes mellitus with diabetic neuropathy, unspecified
CPT/HCPCS: 29581; 99213; 99214

== ENCOUNTER → 2021-09-13 09:40 | Outpatient (CLI) | payer OTHER, SELFPAY ==
[2021-07-12 14:00] VITALS: BMI 57.7
== END ==
PROVIDERS: Family Provider Specialist; PCP Internal Medicine; Referring Provider Internal Medicine; Visit Provider Family Medicine
DX: I87.2 Venous insufficiency (chronic) (peripheral) (principal); E11.621 Type 2 diabetes mellitus with foot ulcer; L97.822 Non-pressure chronic ulcer of other part of left lower leg with fat layer exposed; L97.812 Non-pressure chronic ulcer of other part of right lower leg with fat layer exposed; L97.516 Non-pressure chronic ulcer of other part of right foot with bone involvement without evidence of necrosis; L97.522 Non-pressure chronic ulcer of other part of left foot with fat layer exposed; L97.512 Non-pressure chronic ulcer of other part of right foot with fat layer exposed; L97.526 Non-pressure chronic ulcer of other part of left foot with bone involvement without evidence of necrosis; I89.0 Lymphedema, not elsewhere classified; I36.1 Nonrheumatic tricuspid (valve) insufficiency; R60.1 Generalized edema
CPT/HCPCS: 11042; 11043

== ENCOUNTER → 2021-09-20 10:27 | Outpatient (CLI) | payer OTHER, SELFPAY ==
[2021-07-12 14:00] VITALS: BMI 57.7
== END ==
PROVIDERS: Family Provider Specialist; PCP Internal Medicine; Referring Provider Internal Medicine; Visit Provider Family Medicine
DX: E11.621 Type 2 diabetes mellitus with foot ulcer (principal); I87.2 Venous insufficiency (chronic) (peripheral); I89.0 Lymphedema, not elsewhere classified; L97.822 Non-pressure chronic ulcer of other part of left lower leg with fat layer exposed; L97.812 Non-pressure chronic ulcer of other part of right lower leg with fat layer exposed; L97.522 Non-pressure chronic ulcer of other part of left foot with fat layer exposed; L97.516 Non-pressure chronic ulcer of other part of right foot with bone involvement without evidence of necrosis; L97.512 Non-pressure chronic ulcer of other part of right foot with fat layer exposed; L97.526 Non-pressure chronic ulcer of other part of left foot with bone involvement without evidence of necrosis
CPT/HCPCS: 11042

== ENCOUNTER → 2021-10-03 15:47 | Outpatient (CLI) | payer OTHER, SELFPAY ==
[2021-07-12 14:00] VITALS: BMI 57.7
== END ==
PROVIDERS: Family Provider Specialist; PCP Internal Medicine; Referring Provider Internal Medicine; Visit Provider Family Medicine
DX: E11.621 Type 2 diabetes mellitus with foot ulcer (principal); I87.2 Venous insufficiency (chronic) (peripheral); I89.0 Lymphedema, not elsewhere classified; L97.822 Non-pressure chronic ulcer of other part of left lower leg with fat layer exposed; L97.812 Non-pressure chronic ulcer of other part of right lower leg with fat layer exposed; L97.522 Non-pressure chronic ulcer of other part of left foot with fat layer exposed; L97.516 Non-pressure chronic ulcer of other part of right foot with bone involvement without evidence of necrosis; L97.512 Non-pressure chronic ulcer of other part of right foot with fat layer exposed; L97.524 Non-pressure chronic ulcer of other part of left foot with necrosis of bone; L97.514 Non-pressure chronic ulcer of other part of right foot with necrosis of bone
CPT/HCPCS: 29581; 99213

== ENCOUNTER → 2021-10-10 14:46 | Outpatient (CLI) | payer OTHER, SELFPAY ==
[2021-07-12 14:00] VITALS: BMI 57.7
== END ==
PROVIDERS: Family Provider Specialist; PCP Internal Medicine; Referring Provider Internal Medicine; Visit Provider Family Medicine
DX: I87.2 Venous insufficiency (chronic) (peripheral) (principal); L97.514 Non-pressure chronic ulcer of other part of right foot with necrosis of bone; I89.0 Lymphedema, not elsewhere classified; L97.822 Non-pressure chronic ulcer of other part of left lower leg with fat layer exposed; L97.812 Non-pressure chronic ulcer of other part of right lower leg with fat layer exposed; E11.621 Type 2 diabetes mellitus with foot ulcer; L97.516 Non-pressure chronic ulcer of other part of right foot with bone involvement without evidence of necrosis; L97.512 Non-pressure chronic ulcer of other part of right foot with fat layer exposed; L97.524 Non-pressure chronic ulcer of other part of left foot with necrosis of bone; T81.89XA Other complications of procedures, not elsewhere classified, initial encounter; S91.302A Unspecified open wound, left foot, initial encounter; E11.40 Type 2 diabetes mellitus with diabetic neuropathy, unspecified
CPT/HCPCS: 11042; 11045; 99213

== ENCOUNTER → 2021-10-17 10:56 | Outpatient (CLI) | payer OTHER, SELFPAY ==
[2021-07-12 14:00] VITALS: BMI 57.7
== END ==
PROVIDERS: Family Provider Specialist; PCP Internal Medicine; Referring Provider Internal Medicine; Visit Provider Family Medicine
DX: L08.9 Local infection of the skin and subcutaneous tissue, unspecified (principal); I87.2 Venous insufficiency (chronic) (peripheral); I89.0 Lymphedema, not elsewhere classified; L97.822 Non-pressure chronic ulcer of other part of left lower leg with fat layer exposed; L97.812 Non-pressure chronic ulcer of other part of right lower leg with fat layer exposed; E11.621 Type 2 diabetes mellitus with foot ulcer; L97.522 Non-pressure chronic ulcer of other part of left foot with fat layer exposed; L97.516 Non-pressure chronic ulcer of other part of right foot with bone involvement without evidence of necrosis; L97.512 Non-pressure chronic ulcer of other part of right foot with fat layer exposed; L97.524 Non-pressure chronic ulcer of other part of left foot with necrosis of bone; L97.514 Non-pressure chronic ulcer of other part of right foot with necrosis of bone; R60.0 Localized edema; L53.9 Erythematous condition, unspecified
CPT/HCPCS: 11044; 87070; 87075; 87077; 87147; 87186; 87205

== ENCOUNTER → 2021-10-24 11:32 | Outpatient (CLI) | payer OTHER, SELFPAY ==
[2021-07-12 14:00] VITALS: BMI 57.7
== END ==
PROVIDERS: Family Provider Specialist; PCP Internal Medicine; Referring Provider Internal Medicine; Visit Provider Family Medicine
DX: I87.2 Venous insufficiency (chronic) (peripheral) (principal); I89.0 Lymphedema, not elsewhere classified; L97.822 Non-pressure chronic ulcer of other part of left lower leg with fat layer exposed; L97.812 Non-pressure chronic ulcer of other part of right lower leg with fat layer exposed; E11.621 Type 2 diabetes mellitus with foot ulcer; L97.522 Non-pressure chronic ulcer of other part of left foot with fat layer exposed; L97.516 Non-pressure chronic ulcer of other part of right foot with bone involvement without evidence of necrosis; L97.512 Non-pressure chronic ulcer of other part of right foot with fat layer exposed; L97.524 Non-pressure chronic ulcer of other part of left foot with necrosis of bone; L97.514 Non-pressure chronic ulcer of other part of right foot with necrosis of bone
CPT/HCPCS: 11042; 11045; 99214

== ENCOUNTER → 2021-10-31 11:41 | Outpatient (CLI) | payer OTHER, SELFPAY ==
[2021-07-12 14:00] VITALS: BMI 57.7
== END ==
PROVIDERS: Family Provider Specialist; PCP Internal Medicine; Referring Provider Internal Medicine; Visit Provider Family Medicine
DX: I87.2 Venous insufficiency (chronic) (peripheral) (principal); I89.0 Lymphedema, not elsewhere classified; L97.822 Non-pressure chronic ulcer of other part of left lower leg with fat layer exposed; L97.812 Non-pressure chronic ulcer of other part of right lower leg with fat layer exposed; E11.621 Type 2 diabetes mellitus with foot ulcer; L97.522 Non-pressure chronic ulcer of other part of left foot with fat layer exposed; L97.516 Non-pressure chronic ulcer of other part of right foot with bone involvement without evidence of necrosis; L97.512 Non-pressure chronic ulcer of other part of right foot with fat layer exposed; L97.524 Non-pressure chronic ulcer of other part of left foot with necrosis of bone; L97.514 Non-pressure chronic ulcer of other part of right foot with necrosis of bone
CPT/HCPCS: 11042; 11044; 11045; 87070; 87075; 87077; 87176; 87186; 87205

== ENCOUNTER → 2021-11-07 13:08 | Outpatient (CLI) | payer OTHER, SELFPAY ==
[2021-07-12 14:00] VITALS: BMI 57.7
== END ==
PROVIDERS: Family Provider Specialist; PCP Internal Medicine; Referring Provider Internal Medicine; Visit Provider Family Medicine
DX: I87.2 Venous insufficiency (chronic) (peripheral) (principal); I89.0 Lymphedema, not elsewhere classified; L97.822 Non-pressure chronic ulcer of other part of left lower leg with fat layer exposed; L97.812 Non-pressure chronic ulcer of other part of right lower leg with fat layer exposed; E11.621 Type 2 diabetes mellitus with foot ulcer; L97.522 Non-pressure chronic ulcer of other part of left foot with fat layer exposed; L97.516 Non-pressure chronic ulcer of other part of right foot with bone involvement without evidence of necrosis; L97.512 Non-pressure chronic ulcer of other part of right foot with fat layer exposed; L97.524 Non-pressure chronic ulcer of other part of left foot with necrosis of bone; L97.514 Non-pressure chronic ulcer of other part of right foot with necrosis of bone
CPT/HCPCS: 11043; 11046; 29581; 99213; 99214

== ENCOUNTER → 2021-11-14 09:16 | Outpatient (CLI) | payer OTHER, SELFPAY ==
[2021-07-12 14:00] VITALS: BMI 57.7
== END ==
PROVIDERS: Family Provider Specialist; PCP Internal Medicine; Referring Provider Internal Medicine; Visit Provider Family Medicine
DX: E11.621 Type 2 diabetes mellitus with foot ulcer (principal); L97.514 Non-pressure chronic ulcer of other part of right foot with necrosis of bone; L97.512 Non-pressure chronic ulcer of other part of right foot with fat layer exposed; L97.524 Non-pressure chronic ulcer of other part of left foot with necrosis of bone; T81.89XA Other complications of procedures, not elsewhere classified, initial encounter; S91.302A Unspecified open wound, left foot, initial encounter; I87.2 Venous insufficiency (chronic) (peripheral); L97.812 Non-pressure chronic ulcer of other part of right lower leg with fat layer exposed; L97.822 Non-pressure chronic ulcer of other part of left lower leg with fat layer exposed; R60.0 Localized edema
CPT/HCPCS: 29581

== ENCOUNTER → 2021-11-21 10:37 | Outpatient (CLI) | payer OTHER, SELFPAY ==
[2021-07-12 14:00] VITALS: BMI 57.7
== END ==
PROVIDERS: Family Provider Specialist; PCP Internal Medicine; Referring Provider Internal Medicine; Visit Provider Family Medicine
DX: I87.2 Venous insufficiency (chronic) (peripheral) (principal); I89.0 Lymphedema, not elsewhere classified; L97.822 Non-pressure chronic ulcer of other part of left lower leg with fat layer exposed; L97.812 Non-pressure chronic ulcer of other part of right lower leg with fat layer exposed; E11.621 Type 2 diabetes mellitus with foot ulcer; L97.522 Non-pressure chronic ulcer of other part of left foot with fat layer exposed; L97.516 Non-pressure chronic ulcer of other part of right foot with bone involvement without evidence of necrosis; L97.512 Non-pressure chronic ulcer of other part of right foot with fat layer exposed; L97.524 Non-pressure chronic ulcer of other part of left foot with necrosis of bone; L97.514 Non-pressure chronic ulcer of other part of right foot with necrosis of bone; R50.9 Fever, unspecified
CPT/HCPCS: 11044; 11047; 99214